=== PATIENT | male | born 1955 | race Two or more races ===

== ENCOUNTER 2020-07-15 08:15 | Outpatient (REF) | payer MEDICARE, SELFPAY ==
[2020-07-15 11:24] LABS: Alanine Aminotransferase 21 U/L (0-40); Albumin Level 4.4 g/dL (3.5-5.0); Alkaline Phosphatase 87 U/L (39-117); Anion Gap 14 (12-20); Aspartate Amino Transferase 17 U/L (5-37); Bilirubin Total 0.6 mg/dL (0.0-1.0); Blood Urea Nitrogen 26 mg/dL (9-16); Calcium 9.6 mg/dL (8.4-10.2); Carbon Dioxide 28 mmol/L (22-29); Chloride 101 mmol/L (96-108); Cholesterol 151 mg/dL; Estimated Glomerular Filt Rate 50; Glucose Fasting 123 mg/dL (60-99); HDL Cholesterol 34 mg/dL; LDL Cholesterol Calculated 57 mg/dl; Potassium 4.7 mmol/l (3.3-5.1); Sodium 138 mmol/L (135-145); Total Protein 7.6 g/dL (6.5-8.0); Triglycerides 302 mg/dL
[2020-07-15 11:46] LABS: Prostate Specific Antigen Scr 1.11 ng/mL (<0.05-4.0); TSH reflex Free T4 0.01 mIU/mL (0.32-4.0); Vitamin D 25-OH Total 49.6 ng/mL (>30)
[2020-07-15 12:07] LABS: Microalbum/Creatinine Ratio Ur 4.5 ug/mg cr
[2020-07-15 13:19] LABS: Free T4 (Free Thyroxine) 1.35 ng/dL (0.71-1.85)
== END 2020-07-15 08:16 | disposition home or self-care (01) ==
LOC: HO.HMGCLDS 08:15
PROVIDERS: PCP Nurse Practitioner Family; Visit Provider Nurse Practitioner Family
DX: E55.9 Vitamin D deficiency, unspecified (principal); E03.9 Hypothyroidism, unspecified; E11.9 Type 2 diabetes mellitus without complications; I10 Essential (primary) hypertension; E78.5 Hyperlipidemia, unspecified; Z12.5 Encounter for screening for malignant neoplasm of prostate
CPT/HCPCS: 36415; 80053; 80061; 82043; 82306; 84153; 84439; 84443

== ENCOUNTER → 2020-08-12 10:16 | Outpatient (BNVA) | payer MEDICARE, SELFPAY | PROVIDERS: PCP Nurse Practitioner Family; Visit Provider Internal Medicine Cardiovascular Disease | DX: E78.5 Hyperlipidemia, unspecified (principal); I10 Essential (primary) hypertension; Z95.1 Presence of aortocoronary bypass graft | CPT/HCPCS: 93005; 99202 ==

== ENCOUNTER → 2020-08-26 13:08 | Outpatient (BNVA) | payer MEDICARE, SELFPAY | PROVIDERS: PCP Nurse Practitioner Family; Visit Provider Nurse Practitioner Family | DX: K22.70 Barrett's esophagus without dysplasia (principal); Z12.11 Encounter for screening for malignant neoplasm of colon | CPT/HCPCS: Q3014 ==

== ENCOUNTER 2020-10-23 07:44 | Outpatient (REF) | payer MEDICARE, SELFPAY ==
[2020-10-23 11:57] LABS: Hematocrit 48.7 % (42-52); Hemoglobin 15.3 g/dl (14.0-18.0); Mean Corpuscular HGB Conc 31.4 g/dl (31.0-36.0); Mean Corpuscular Hemoglobin 27.4 pg (27.0-33.0); Mean Corpuscular Volume 87.1 fL (80-98); Platelet Count 279 X10*3/uL (160-400); Red Blood Count 5.59 X10*6/uL (4.60-5.80); Red Cell Distribution Width 14.1 % (11.0-16.0); White Blood Count 9.4 X10*3/uL (4.8-10.8)
[2020-10-23 12:14] LABS: TSH reflex Free T4 0.03 uIU/mL (0.32-4.0)
[2020-10-23 12:56] LABS: Free T4 (Free Thyroxine) 1.04 ng/dL (0.71-1.85)
== END 2020-10-23 07:45 | disposition home or self-care (01) ==
LOC: HO.HMGCLDS 07:44
PROVIDERS: PCP Nurse Practitioner Family; Visit Provider Nurse Practitioner Family
DX: E03.9 Hypothyroidism, unspecified (principal); Z12.11 Encounter for screening for malignant neoplasm of colon
CPT/HCPCS: 36415; 84439; 84443; 85027

== ENCOUNTER → 2020-12-14 09:13 | Outpatient (BNVA) | payer MEDICARE, SELFPAY | PROVIDERS: PCP Nurse Practitioner Family; Referring Provider Nurse Practitioner Family; Visit Provider Internal Medicine Cardiovascular Disease | DX: I10 Essential (primary) hypertension (principal); Z95.1 Presence of aortocoronary bypass graft | CPT/HCPCS: 99212 ==

== ENCOUNTER 2021-01-01 07:21 | Outpatient (REF) | payer MEDICARE, SELFPAY ==
[2021-01-01 12:15] LABS: TSH reflex Free T4 0.18 uIU/mL (0.32-4.0)
[2021-01-01 12:49] LABS: Free T4 (Free Thyroxine) 1.06 ng/dL (0.71-1.85)
== END 2021-01-01 07:22 | disposition home or self-care (01) ==
LOC: HO.HMGCLDS 07:21
PROVIDERS: PCP Nurse Practitioner Family; Visit Provider Nurse Practitioner Family
DX: E03.9 Hypothyroidism, unspecified (principal)
CPT/HCPCS: 36415; 84439; 84443

== ENCOUNTER 2021-04-29 07:36 | Outpatient (REF) | payer MEDICARE, SELFPAY ==
[2021-04-29 11:15] LABS: Appearance Urine CLOUDY; Color Urine YELLOW; Glucose Urine UA NEG (NEG); Leukocyte Esterase Urine NEG (NEG); Nitrite Urine NEG (NEG); PH 5.5 (5.0-8.0); Specific Gravity - Urine >= 1.030 (1.005-1.025); Urine Blood NEG (NEG); Urine Ketones 5 MG/DL (NEG); Urine Protein TRACE MG/DL (NEG-TRACE)
[2021-04-29 11:33] LABS: Estimated Average Glucose 171 mg/dL; Hemoglobin A1c % 7.6 %
[2021-04-29 11:51] LABS: Alanine Aminotransferase 24 U/L (0-40); Albumin Level 4.3 g/dL (3.5-5.0); Alkaline Phosphatase 82 U/L (39-117); Anion Gap 13 (12-20); Aspartate Amino Transferase 17 U/L (5-37); Bilirubin Total 0.5 mg/dL (0.0-1.0); Blood Urea Nitrogen 18 mg/dL (9-16); Calcium 9.7 mg/dL (8.4-10.2); Carbon Dioxide 26 mmol/L (22-29); Chloride 101 mmol/L (96-108); Cholesterol 113 mg/dL; Estimated Glomerular Filt Rate 51; Glucose Fasting 162 mg/dL (60-99); HDL Cholesterol 33 mg/dL; LDL Cholesterol Calculated 43 mg/dl; Potassium 4.3 mmol/L (3.3-5.1); Sodium 136 mmol/L (135-145); Total Protein 7.7 g/dL (6.5-8.0); Triglycerides 188 mg/dL
[2021-04-29 11:53] LABS: TSH reflex Free T4 0.71 uIU/mL (0.32-4.0)
== END 2021-04-29 07:37 | disposition home or self-care (01) ==
LOC: HO.HMGCLDS 07:36
PROVIDERS: PCP Nurse Practitioner Family; Visit Provider Nurse Practitioner Family
DX: E03.9 Hypothyroidism, unspecified (principal); E11.9 Type 2 diabetes mellitus without complications
CPT/HCPCS: 36415; 80053; 80061; 81003; 83036; 84443

== ENCOUNTER → 2021-05-31 09:00 | Outpatient (BNVA) | payer MEDICARE, SELFPAY | PROVIDERS: PCP Nurse Practitioner Family; Referring Provider Nurse Practitioner Family; Visit Provider Internal Medicine Cardiovascular Disease | DX: I10 Essential (primary) hypertension (principal); Z95.1 Presence of aortocoronary bypass graft | CPT/HCPCS: 93005; 99212 ==

== ENCOUNTER 2021-07-13 07:15 | Outpatient (REF) | payer MEDICARE, SELFPAY ==
[2021-07-13 11:59] LABS: Alanine Aminotransferase 20 U/L (0-40); Albumin Level 4.1 g/dL (3.5-5.0); Alkaline Phosphatase 76 U/L (39-117); Anion Gap 12 (12-20); Aspartate Amino Transferase 16 U/L (5-37); Bilirubin Total 0.4 mg/dL (0.0-1.0); Blood Urea Nitrogen 22 mg/dL (9-16); Calcium 9.7 mg/dL (8.4-10.2); Carbon Dioxide 29 mmol/L (22-29); Chloride 104 mmol/L (96-108); Estimated Glomerular Filt Rate 43; Glucose Fasting 143 mg/dL (60-99); Potassium 4.2 mmol/L (3.3-5.1); Sodium 141 mmol/L (135-145); Total Protein 7.6 g/dL (6.5-8.0)
== END 2021-07-13 07:16 | disposition home or self-care (01) ==
LOC: HO.HMGCLDS 07:15
PROVIDERS: Visit Provider Nurse Practitioner Family
DX: E11.9 Type 2 diabetes mellitus without complications (principal)
CPT/HCPCS: 36415; 80053; 84443

== ENCOUNTER 2021-07-22 08:34 | Outpatient (REF) | payer MEDICARE, SELFPAY ==
[2021-07-22 11:43] LABS: Estimated Average Glucose 174 mg/dL; Hemoglobin A1c % 7.7 %
[2021-07-22 11:57] LABS: Creatinine Urine 177.04 mg/dL; Microalbum/Creatinine Ratio Ur 10.7 ug/mg cr
[2021-07-22 12:07] LABS: Alanine Aminotransferase 22 U/L (0-40); Albumin Level 4.3 g/dL (3.5-5.0); Alkaline Phosphatase 74 U/L (39-117); Anion Gap 14 (12-20); Aspartate Amino Transferase 19 U/L (5-37); Bilirubin Total 0.4 mg/dL (0.0-1.0); Blood Urea Nitrogen 26 mg/dL (9-16); Calcium 9.9 mg/dL (8.4-10.2); Carbon Dioxide 25 mmol/L (22-29); Chloride 105 mmol/L (96-108); Cholesterol 141 mg/dL; Estimated Glomerular Filt Rate 43; Glucose Random 140 mg/dL (60-115); HDL Cholesterol 33 mg/dL; LDL Cholesterol Calculated 53 mg/dl; Potassium 4.5 mmol/L (3.3-5.1); Sodium 139 mmol/L (135-145); Total Protein 7.8 g/dL (6.5-8.0); Triglycerides 279 mg/dL
[2021-07-22 12:08] LABS: Prostate Specific Antigen Scr 0.71 ng/mL (<0.05-4.0)
== END 2021-07-22 08:35 | disposition home or self-care (01) ==
LOC: HO.HMGCLDS 08:34
PROVIDERS: PCP Nurse Practitioner Family; Visit Provider Nurse Practitioner Family
DX: Z12.5 Encounter for screening for malignant neoplasm of prostate (principal); E11.9 Type 2 diabetes mellitus without complications
CPT/HCPCS: 36415; 80053; 80061; 82043; 83036; 84153

== ENCOUNTER → 2021-08-05 09:13 | Outpatient (REF) | payer MEDICARE, SELFPAY ==
--- NOTE | 2021-08-05 09:17 | CA_ITS ---
Transthoracic Echocardiogram Patient (Last, First, Middle): Parmjit Block A Gender: Male Date of : 1955 Age: 65 Procedure Date: 08/05/2021 Procedure Type: Transthoracic Echocardiogram Location: OP Height: 167.64 cm Weight: 115.67 kg BSA: 2.22 m2 Heart Rate: bpm BP: 110 / 74 mmHg Market Analyst: ROM Referring MD: Vish Domingo [facility]- Certified Travel Counselor: Omar Crabtree MD Symptoms: Z95.1 - Presence of aortocoronary bypass graft Study Quality: Fair/contrast ECG Rhythm: Sinus Conclusions: - 1. Normal LV systolic function with impaired relaxation filling pattern 2. Calcific aortic valve changes noted with normal cardiac valvular Doppler 3. Normal RV systolic pressure 4. No gross pericardial effusion Findings Procedure Information Contrast agent, definity, is being given per protocol without apparent complications. Left Ventricle Normal left ventricular size, thickness, and systolic function. The visually estimated ejection fraction is between 60-65%. Spectral Doppler is indicative of an impaired relaxation filling pattern. E/E prime ratio is between 8 and 15 consistent with indeterminate filling pressures. Right Ventricle Normal right ventricular cavity size and systolic function. Atria The left atrium is normal in size. Interatrial shunt cannot be excluded. The right atrium is normal in size. Aortic Valve The aortic valve was not well visualized. There is moderate calcification of the aortic valve. There is moderate thickening of the aortic valve. There is no aortic valve stenosis. There is no aortic valve regurgitation. Bicuspid aortic valve cannot be completely ruled out on this study Mitral Valve There is mild anterior and posterior mitral leaflet thickening. There is mild mitral annular calcification. There is trace mitral valve regurgitation. There is no mitral valve stenosis. Pulmonic Valve The pulmonic valve was not well visualized. Tricuspid Valve Likely normal tricuspid valve structure and function. There is trace tricuspid valve regurgitation. The right ventricular systolic pressure is normal. The right ventricular systolic pressure is 10 mmHg. Normal right atrial pressure. There is no evidence of pulmonary hypertension. Great Vessels All visible segments of the aorta are normal in size. The pulmonary artery was not well visualized. Venous The inferior vena cava is normal in size and collapses greater than 50% with inspiration. Pericardium/Pleural There is no evidence of pericardial effusion. Prior Study Comparison No prior study available for comparison. Measurements 2D Linear Measurements IVSd: 1.01 0.6-0.9/0.6-1.0 cm LVIDd: 3.87 3.9-5.3/4.2-5.9 cm LVIDd Index: 1.74 2.4-3.2/2.2-3.1 cm/m2 LVIDs: 1.82 2.0-3.6 cm LVPWd: 1.14 0.7-1.1 cm Ao Root: 3.30 2.1-3.5 cm LA Diam: 3.50 2.7-3.8/3.0-4.0 cm LAIDs Index: 1.58 1.5-2.3 cm/m2 LV Mass: 166.61 67-162/88-224 g LV Mass Index: 75.05 43-95/49-115 g/m2 LVOT Diam: 2.20 3.0+(-)1.3 cm 2D Systolic Function EF 4C: 65.00 >55% EF 2C: 71.60 >55% EF BiP: 68.60 >55% Mitral Valve MV Pk E: 0.78 MV PK A: 0.75 MV Decel Time: 244.00 E/A: 1.00 E'Lateral: 7.72 E'Medial: 5.98 E/E' Med: 13.00 E/E' Lat: 10.10 PHT: 71.00 MVA PHT: 3.10 Decel Cort[place]: 3.20 Aortic Valve AoV Pk Jake: 1.78 AoV Mn Jake: 1.14 AoV VTI: 0.33 AoV Pk Grad: 13.00 Aov Mn Grad: 6.00 JOSELUIS Cont.VTI: 2.49 LVOT LVOT Pk Jake: 1.10 LVOT Mn Jake: 0.71 LVOT VTI: 0.21 LVOT Pk Grad: 5.00 LVOT Mn Grad: 2.00 LVOT Diam: 2.20 LVOT Area: 3.80 Diastolic Function MV Pk E: 0.78 MV Pk A: 0.75 E/A: 1.00 E'Medial: 5.98 E/E' Med: 13.00 E' Laterial: 7.72 E/E' Lat: 10.10 Right Ventricle TAPSE (mm): 16.50 TVS' Jake: 10.30 Tricuspid Valve TR Pk Jake: 1.35 TR Pk Grad: 7.00 RA Press: 3.00 RVSP: 10.00 Great Vessels Aorta Ao Root-2D: 3.30 2.0-3.7 cm Ao Asc: 3.50 2.1-3.4 cm Ao Arch: 3.00 Updated in Other Vendor System with Status of Final Omar Crabtree MD electronically signed on 08/06/2021 4:00:46 PM with status of Final
== END ==
LOC: HO.CARD 09:13
PROVIDERS: Visit Provider Nurse Practitioner Family
DX: Z95.1 Presence of aortocoronary bypass graft (principal)
CPT/HCPCS: 93306; Q9957

== ENCOUNTER 2021-09-22 09:25 | Inpatient (IN) | payer MEDICARE, SELFPAY ==
[2021-09-22] VITALS (8 sets, daily range): BP systolic 83–133; BP diastolic 54–79; PULSE 70–120; RESP 18–20; TEMP 36.3–36.8; O2SAT 97–99; BMI 38.7; BMI 42.2
--- NOTE | 2021-09-22 10:28 | ECG_ITS ---
Test Reason : GI BLEED Blood Pressure : / mmHG Vent. Rate : 088 BPM Atrial Rate : 088 BPM P-R Int : 146 ms QRS Dur : 116 ms QT Int : 366 ms P-R-T Axes : 043 -13 025 degrees QTc Int : 442 ms Normal sinus rhythm Minimal voltage criteria for LVH, may be normal variant ( Ruslan product ) Nonspecific T wave abnormality Abnormal ECG No previous ECGs available Referred By: María Huber Electronically Signed By:CALLY MADSEN MD
--- NOTE | 2021-09-22 10:31 | ED_ITS ---
HPI - General Adult General Chief complaint: General Medical Stated complaint: blood in stool Time Seen by Provider: 09/22/21 10:10 Source: patient and family Mode of arrival: ambulatory Limitations: no limitations History of Present Illness HPI narrative: 66-year-old male with a history of CKD, CABG x4, diabetes, high cholesterol, hypertension, hypothyroidism here with reports black stools for the last 3 days. Patient tells me he has had a total of 5 episodes of black soft stool. No associated abdominal pain, nausea, vomiting. Patient does report feeling generally weak and fatigued. Patient tells me he has a history of a gastric ulcer that was diagnosed 4 years ago while he was in [place]. At that time he was placed on omeprazole. He has been taking omeprazole long-term until recently when his primary care doctor switched him to famotidine. He does take 81 mg of aspirin at 75 mg Plavix daily. Related Data Previous Rx's Medication Instructions Recorded aspirin 81 mg tablet,delayed 81 mg PO DAILY 90 Days #90 tab 07/15/20 release clopidogrel 75 mg tablet 75 mg PO DAILY 90 Days #90 tab 07/15/20 metformin 1,000 mg tablet 1,000 mg PO BID #180 tab 10/12/20 rosuvastatin 40 mg tablet 40 mg PO DAILY #90 tab 10/12/20 baclofen 10 mg tablet 10 mg PO BID PRN #60 tab 04/08/21 enalapril maleate 20 mg tablet 20 mg PO BID #180 tab 07/07/21 levothyroxine 137 mcg tablet 137 mcg PO DAILY 90 Days #90 tab 07/22/21 blood sugar diagnostic (OneTouch #100 ea 07/27/21 Verio test strips) blood-glucose meter (OneTouch #1 ea 07/27/21 Verio Meter) lancets 30 gauge (OneTouch Delica #100 ea 07/27/21 Lancets) hydrochlorothiazide 25 mg tablet 25 mg PO DAILY 90 Days #90 tab 08/09/21 cholecalciferol (vitamin D3) 50 50 mcg PO DAILY 90 Days #90 cap 08/16/21 mcg (2,000 unit) capsule metoprolol tartrate 100 mg tablet 100 mg PO BID 90 Days #180 tab 08/16/21 Allergies Allergy/AdvReac Type Severity Reaction Status Date / Time No Known Allergies Allergy Verified 07/22/21 08:16 Review of Systems Review of Systems: Yes all other systems are reviewed and are negative Constitutional: Constitutional: Reports no additional constitutional compla ints, Denies body ache(s), Denies chills, Reports fatigue, Denies fever(s), Denies headache(s) and Reports weakness Eyes: Eyes: Reports no additional eye complaints and Denies change in vision ENT: Reports system reviewed and no additional complaints, except as documented, Denies dizziness, Denies headache(s), Denies nasal congestion, Denies nasal discharge and Denies neck pain Cardiovascular: Cardiovascular: Reports no additional cardiovascular complaints, Denies chest pain, Denies leg edema and Denies dyspnea Respiratory: Respiratory: Reports no additional respiratory complaints, Denies cough and Denies dyspnea Gastrointestinal: Gastrointestinal: Reports no additional gastrointestinal complaints, Denies abdominal pain, Reports melena, Denies hematochezia, Denies coffee ground emesis, Denies diarrhea, Denies nausea and Denies vomiting Genitourinary: Genitourinary: Denies urinary incontinence Musculoskeletal: Musculoskeletal: Reports no additional musculoskeletal complaints, Denies back pain, Denies arthralgias, Denies joint swelling, Denies neck pain, Denies numbness and Denies tingling Integumentary/Breasts: Skin/Breast: Reports system reviewed and no additional complaints, except as docu and Denies rash Neurologic: Reports system reviewed and no additional complaints, except as documented, Denies dizziness, Denies headache(s), Denies numbness, Denies tingling and Reports weakness Endocrine: Endocrine: Reports fatigue PMFSH Past Medical History Attestation statement: The following information was validated with the patient. Source: old records reviewed and nursing notes reviewed Medical History Anemia of chronic disease Blanca esophagus Bipolar 1 disorder CKD (chronic kidney disease) stage 4, GFR 15-29 ml/min Diabetes Dyslipidemia Erectile dysfunction Fatty liver GERD (gastroesophageal reflux disease) Gout Hearing loss Hiatal hernia Hypertension Hypothyroidism Major depression Morbid obesity Multinodular goiter Myocardial infarct S/P CABG x 4 Sleep apnea Surgical History Hx of coronary artery bypass graft Hx of inguinal hernia repair Family History Family History Mother No problems noted. Sister Hyperlipemia Social History Social History Household Members: Spouse Housing: House Alcohol intake: former Patient Tobacco Use Status: Former Tobacco user Quit Date: about. Years Smoked: 10 e-Cigarette/Vaping Use: Never Used Advance Directives: No Advance Directives Information Provided: Yes Current occupational status: retired Physical Exam ED Vital Signs: Vital Signs - 24 hr 09/22/21 09:29 09/22/21 11:44 09/22/21 13:16 Temperature 98.3 F 98.3 F Pulse Rate 120 H 78 80 Respiratory Rate 18 18 18 Blood Pressure 126/79 106/60 98/72 Pulse Oximetry 99 98 97 BMI result Body Mass Index 38.7 Const General: cooperative, healthy appearing and comfortable Orientation/consciousness: patient oriented x3 Limitations: no limitations HENMT Head: Yes normal to inspection Ears: hearing grossly normal bilaterally General nose exam: Normal external nose present Face and sinus: Yes normal facial exam Mouth: Normal oral and palatal mucosa present Teeth and gingiva: dentition normal Throat: Yes posterior oropharynx normal, Yes tonsils normal and Yes uvula midline Eyes General: appearance normal, both eyes and all related structures Pupils: Equal, round and reactive pupils present Neck Neck: Yes normal visual inspection, Yes full ROM, Yes no lymphadenopathy and Yes no meningeal signs Chest Chest palpation & inspection: normal inspection of the chest Resp Effort & Inspection: normal respiratory effort Auscultation: clear to auscultation bilaterally Cardio Rate: tachycardic Rhythm: regular rhythm Peripheral pulses: Peripheral pulses 2+ throughout GI Inspection: Yes normal to inspection Palpation (GI): Soft to palpation and nontender Rectal Exam - Male: Yes visual inspection normal, Yes normal sphincter tone and Yes Abnormal stool present (+black stool) General: Yes no CVA tenderness Back/Spine/Pelvis Back: no CVA tenderness Thoracic/Lumbar Spine: thoracic and lumbar spine normal to inspection Skin General skin exam: no rashes or lesions noted Neuro General: patient oriented x3, moves all extremities and no meningeal signs Cranial nerves: Yes Equal, round and reactive pupils present Cognition (Neuro): normal cognition Extrem General: Yes normal to inspection Course Course Course Narrative: 66-year-old male here with reports black soft stools for the last 3 days with generalized weakness fatigue. No abdominal pain or vomiting. Patient has history gastric ulcer and is currently on Plavix and aspirin. On exam the patient has no focal abdominal pain. He has black stools on rectal exam. Likely upper GI bleed. Patient is hemodynamically stable. Will check labs, EKG, occult stool. Anticipate admission 1130-patient's hemoglobin is 12.2 in his hematocrit is 38.4. Last available for review is 15.3 and 48.7. BUN is 59 with baseline of 26. Creatinine 2.0 to baseline 1.6. Occult stool is positive. Spoke to Medicine. They are requesting discussion with Gastroenterology prior to admit for upper GI bleed. Call out to Dr Tobias to discuss. 1140-spoke to Dr. Tobias. Anticipate patient will need an endoscopy tomorrow. Recommended holding aspirin and Plavix today. Giving Protonix IV. Family and patient updated. 1300-Dr Khan who accepted admission Medical Decision Making Medical Records Medical records reviewed: Yes I reviewed the patient's medical records. Lab Data Lab results reviewed: Yes I reviewed the patient's lab results. Result diagrams: 09/22/21 10:47 09/22/21 10:48 Labs: Lab Results 09/22/21 09/22/21 09/22/21 Range/Units 10:47 10:47 10:47 WBC 10.7 11.0 H (4.8-10.8) X10*3/uL RBC 4.36 L 4.39 L (4.60-5.80) X10*6/uL Hgb 12.2 L 12.2 L (14.0-18.0) g/dl Hct 38.1 L 38.4 L (42.0-52.0) % MCV 87.4 87.5 (80.0-98.0) fL MCH 28.0 27.8 (27.0-33.0) pg MCHC 32.0 31.8 (31.0-36.0) g/dl RDW 14.1 13.9 (11.0-16.0) % Plt Count 319 326 (160-400) X10*3/uL MPV 11.5 11.5 (9.4-12.4) fL Immature Gran % (Auto) 0.8 H 0.8 H (0.0-0.4) % Neut % (Auto) 70.7 69.6 (45-73) % Lymph % (Auto) 19.5 L 21.0 (20-40) % Dougherty % (Auto) 7.0 6.7 (2-11) % Eos % (Auto) 1.3 1.4 (0-4) % Baso % (Auto) 0.7 0.5 (0-2) % Lymph # (Auto) 2.1 2.3 (1.2-4.9) X10*3/uL Dougherty # (Auto) 0.8 0.7 (0.1-1.2) X10*3/uL Eos # (Auto) 0.1 0.2 (0.0-0.4) X10*3/uL Baso # (Auto) 0.1 0.1 (0.0-0.2) X10*3/uL Abs Immat Gran (auto) 0.08 H 0.09 H (0.00-0.03) X10*3/uL Absolute Neuts (auto) 7.5 7.6 (2.0-8.3) x10*3/uL Absolute Nucleated RBC 0.000 0.000 (0.0-0.012) X10*3/uL Nucleated RBC % (auto) 0.0 0.0 (0.0-0.2) /100WBC PT (9.9-13.0) SEC INR (0.9-1.1) Sodium 134 L (135-145) mmol/L Potassium 4.7 (3.3-5.1) mmol/L Chloride 102 (96-108) mmol/L Carbon Dioxide 21 L (22-29) mmol/L Anion Gap 16 (12-20) BUN 60 H D (9-16) mg/dL Creatinine 2.01 H (0.5-1.4) mg/dL Estim Creat Clear Calc 41.2 Estimated GFR 33 Random Glucose 286 H D (60-115) mg/dL Calcium 9.4 (8.4-10.2) mg/dL Total Bilirubin 0.5 (0.0-1.0) mg/dL Direct Bilirubin (0.0-0.5) mg/dL AST 9 D (5-37) U/L ALT 18 (0-40) U/L Alkaline Phosphatase 58 D (39-117) U/L Total Protein 7.0 (6.5-8.0) g/dL Albumin 4.1 (3.5-5.0) g/dL Stool Occult Blood (NEGATIVE) COVID-19 (ENRIQUE) (Negative) COVID-19 Clin Com 09/22/21 09/22/21 09/22/21 Range/Units 10:47 10:48 10:48 WBC (4.8-10.8) X10*3/uL RBC (4.60-5.80) X10*6/uL Hgb (14.0-18.0) g/dl Hct (42.0-52.0) % MCV (80.0-98.0) fL MCH (27.0-33.0) pg MCHC (31.0-36.0) g/dl RDW (11.0-16.0) % Plt Count (160-400) X10*3/uL MPV (9.4-12.4) fL Immature Gran % (Auto) (0.0-0.4) % Neut % (Auto) (45-73) % Lymph % (Auto) (20-40) % Dougherty % (Auto) (2-11) % Eos % (Auto) (0-4) % Baso % (Auto) (0-2) % Lymph # (Auto) (1.2-4.9) X10*3/uL Dougherty # (Auto) (0.1-1.2) X10*3/uL Eos # (Auto) (0.0-0.4) X10*3/uL Baso # (Auto) (0.0-0.2) X10*3/uL Abs Immat Gran (auto) (0.00-0.03) X10*3/uL Absolute Neuts (auto) (2.0-8.3) x10*3/uL Absolute Nucleated RBC (0.0-0.012) X10*3/uL Nucleated RBC % (auto) (0.0-0.2) /100WBC PT 13.8 H (9.9-13.0) SEC INR 1.2 H (0.9-1.1) Sodium 133 L (135-145) mmol/L Potassium 4.9 (3.3-5.1) mmol/L Chloride 101 (96-108) mmol/L Carbon Dioxide 20 L (22-29) mmol/L Anion Gap 17 (12-20) BUN 59 H (9-16) mg/dL Creatinine 2.02 H (0.5-1.4) mg/dL Estim Creat Clear Calc 41.0 Estimated GFR 33 Random Glucose 287 H (60-115) mg/dL Calcium 9.5 (8.4-10.2) mg/dL Total Bilirubin 0.5 (0.0-1.0) mg/dL Direct Bilirubin 0.2 (0.0-0.5) mg/dL AST 9 (5-37) U/L ALT 17 (0-40) U/L Alkaline Phosphatase 60 (39-117) U/L Total Protein 7.0 (6.5-8.0) g/dL Albumin 4.0 (3.5-5.0) g/dL Stool Occult Blood (NEGATIVE) COVID-19 (ENRIQUE) Negative (Negative) COVID-19 Clin Com See Note 09/22/21 Range/Units 10:58 WBC (4.8-10.8) X10*3/uL RBC (4.60-5.80) X10*6/uL Hgb (14.0-18.0) g/dl Hct (42.0-52.0) % MCV (80.0-98.0) fL MCH (27.0-33.0) pg MCHC (31.0-36.0) g/dl RDW (11.0-16.0) % Plt Count (160-400) X10*3/uL MPV (9.4-12.4) fL Immature Gran % (Auto) (0.0-0.4) % Neut % (Auto) (45-73) % Lymph % (Auto) (20-40) % Dougherty % (Auto) (2-11) % Eos % (Auto) (0-4) % Baso % (Auto) (0-2) % Lymph # (Auto) (1.2-4.9) X10*3/uL Dougherty # (Auto) (0.1-1.2) X10*3/uL Eos # (Auto) (0.0-0.4) X10*3/uL Baso # (Auto) (0.0-0.2) X10*3/uL Abs Immat Gran (auto) (0.00-0.03) X10*3/uL Absolute Neuts (auto) (2.0-8.3) x10*3/uL Absolute Nucleated RBC (0.0-0.012) X10*3/uL Nucleated RBC % (auto) (0.0-0.2) /100WBC PT (9.9-13.0) SEC INR (0.9-1.1) Sodium (135-145) mmol/L Potassium (3.3-5.1) mmol/L Chloride (96-108) mmol/L Carbon Dioxide (22-29) mmol/L Anion Gap (12-20) BUN (9-16) mg/dL Creatinine (0.5-1.4) mg/dL Estim Creat Clear Calc Estimated GFR Random Glucose (60-115) mg/dL Calcium (8.4-10.2) mg/dL Total Bilirubin (0.0-1.0) mg/dL Direct Bilirubin (0.0-0.5) mg/dL AST (5-37) U/L ALT (0-40) U/L Alkaline Phosphatase (39-117) U/L Total Protein (6.5-8.0) g/dL Albumin (3.5-5.0) g/dL Stool Occult Blood POSITIVE (NEGATIVE) COVID-19 (ENRIQUE) (Negative) COVID-19 Clin Com ECG Data Attestation: I personally reviewed and interpreted this ECG as follows: Interpretation: NSR with rate 88, normal pr, normal qrs, incomplete left bundle branch block, nonspecific ST changes Discharge Plan Discharge Clinical Impression: GIB (gastrointestinal bleeding), Anemia, Acute on chronic kidney failure Patient Disposition: Admitted As Inpatient
[2021-09-22 10:52] LABS: MANUAL DIFF FLAG NO
[2021-09-22 11:02] LABS: OBS Int Ctl Valid YES; OBS1 POSITIVE (NEGATIVE)
[2021-09-22 11:02] LABS: Basophils Absolute Auto 0.1 X10*3/uL (0.0-0.2); Basophils Percent Auto 0.5 % (0-2); Basophils Percent Auto 0.7 % (0-2); Eosinophils Absolute Auto 0.1 X10*3/uL (0.0-0.4); Eosinophils Absolute Auto 0.2 X10*3/uL (0.0-0.4); Eosinophils Percent Auto 1.3 % (0-4); Eosinophils Percent Auto 1.4 % (0-4); Hematocrit 38.1 % (42.0-52.0); Hematocrit 38.4 % (42.0-52.0); Hemoglobin 12.2 g/dl (14.0-18.0); Imm Gran Abs Auto 0.08 X10*3/uL (0.00-0.03); Imm Gran Abs Auto 0.09 X10*3/uL (0.00-0.03); Imm Gran Pct Auto 0.8 % (0.0-0.4); Lymphocytes Absolute Auto 2.1 X10*3/uL (1.2-4.9); Lymphocytes Absolute Auto 2.3 X10*3/uL (1.2-4.9); Lymphocytes Percent Auto 19.5 % (20-40); Mean Corpuscular HGB Conc 31.8 g/dl (31.0-36.0); Mean Corpuscular Hemoglobin 27.8 pg (27.0-33.0); Mean Corpuscular Volume 87.4 fL (80.0-98.0); Mean Corpuscular Volume 87.5 fL (80.0-98.0); Mean Platelet Volume 11.5 fL (9.4-12.4); Monocytes Absolute Auto 0.7 X10*3/uL (0.1-1.2); Monocytes Absolute Auto 0.8 X10*3/uL (0.1-1.2); Monocytes Percent Auto 6.7 % (2-11); Neutrophils Absolute Auto 7.5 x10*3/uL (2.0-8.3); Neutrophils Absolute Auto 7.6 x10*3/uL (2.0-8.3); Neutrophils Percent Auto 69.6 % (45-73); Neutrophils Percent Auto 70.7 % (45-73); Platelet Count 319 X10*3/uL (160-400); Platelet Count 326 X10*3/uL (160-400); Red Blood Count 4.36 X10*6/uL (4.60-5.80); Red Blood Count 4.39 X10*6/uL (4.60-5.80); Red Cell Distribution Width 13.9 % (11.0-16.0); Red Cell Distribution Width 14.1 % (11.0-16.0); White Blood Count 10.7 X10*3/uL (4.8-10.8)
[2021-09-22 11:05] LABS: INTERNATIONAL NORM RATIO 1.2 (0.9-1.1); Prothrombin Time 13.8 SEC (9.9-13.0)
[2021-09-22 11:11] LABS: COVID-19 Test Negative (Negative)
[2021-09-22] MEDS: 0.9 % Sodium Chloride 1,000 ML 999 ML IV (11:19)
[2021-09-22 11:22] LABS: Alanine Aminotransferase 18 U/L (0-40); Albumin Level 4.1 g/dL (3.5-5.0); Alkaline Phosphatase 58 U/L (39-117); Anion Gap 16 (12-20); Aspartate Amino Transferase 9 U/L (5-37); Bilirubin Total 0.5 mg/dL (0.0-1.0); Blood Urea Nitrogen 60 mg/dL (9-16); Calcium 9.4 mg/dL (8.4-10.2); Carbon Dioxide 21 mmol/L (22-29); Chloride 102 mmol/L (96-108); Creatinine Clr Calc Pharmacy 41.2; Estimated Glomerular Filt Rate 33; Glucose Random 286 mg/dL (60-115); Potassium 4.7 mmol/L (3.3-5.1); Sodium 134 mmol/L (135-145)
[2021-09-22 11:23] LABS: Alanine Aminotransferase 17 U/L (0-40); Alkaline Phosphatase 60 U/L (39-117); Anion Gap 17 (12-20); Aspartate Amino Transferase 9 U/L (5-37); Bilirubin Direct 0.2 mg/dL (0.0-0.5); Bilirubin Total 0.5 mg/dL (0.0-1.0); Blood Urea Nitrogen 59 mg/dL (9-16); Calcium 9.5 mg/dL (8.4-10.2); Carbon Dioxide 20 mmol/L (22-29); Chloride 101 mmol/L (96-108); Estimated Glomerular Filt Rate 33; Glucose Random 287 mg/dL (60-115); Potassium 4.9 mmol/L (3.3-5.1); Sodium 133 mmol/L (135-145)
--- NOTE | 2021-09-22 11:30 | PHA.MEDREC ---
Pharmacy Consult ? Medication Reconciliation Pharmacy has completed the medication reconciliation. Pt had a prescription for famotidine 40mg tablet daily but insisted he no longer wanted to take it. Elisa Lucio, PharmD
[2021-09-22] MEDS: Pantoprazole Sodium 40 MG/10 ML VIAL IVPUSH ×2 (11:50→17:23)
--- NOTE | 2021-09-22 12:48 | PC.NURSE ---
pt is comfortable and is to be NPO as admission status. Ambulated to BRP with to BRP with steady gait noted. VSS no pain noted
--- NOTE | 2021-09-22 13:42 | P.HPHOSP_ITS ---
History of Present Illness Date of Service: 09/22/21 Chief Complaint: dark stools, weakeness, fatigue This is a 66 year old M with a PMH of CAD - s/p CABG + PCI on DAPT, previous gastric/duodenal ucler requiring PRBC transfusion, CKD stage 3, DM (last A1C 7.7), HLD, HTN who presents to the ED with complaints of black colors stools of 3-4 days duration. The patient denies any associated nausea/vomiting/diarrhea. He denies abdominal pain. He does report worsening fatigue and generalized malaise. He reports mild dizziness. He reports exertional dyspnea. He denies alcohol use. He denies NSAID use. In regards to his prior ucler, he reprots that he was diagnosed in [place] several years back and had an endoscopy. He required 3 PRBCs to be transfused during that visit. He reports that he was place on PPI. He reports that he was taken off his PPI about 2 weeks ago (switched to H2 khadar) due to an interaction of the PPI with another one of his chronic medications. In the ED, the patient was noted to have melanotic stools. He has moved his bowels in the ED and continues to have black stools. His h/h is noted to be 12/38 (dropped from 15/48). Also noted is mild kidney injury (Baseline BUN/SCr 20s/1.6, now presenting with 60/2.01). His BP is on the lower side (90s to 100 systolic). He has been given a 1L of IVF, IV PPI thus far. His case is d/w GI and he will likely need endoscopic evaluation for suspected ulcer. Review of Systems Review of Systems: negative except HPI [facility] Medical History Anemia of chronic disease Blanca esophagus Bipolar 1 disorder CKD stage 3 secondary to diabetes Diabetes Dyslipidemia Erectile dysfunction Fatty liver GERD (gastroesophageal reflux disease) Gout Hearing loss Hiatal hernia Hypertension Hypothyroidism Major depression Morbid obesity Multinodular goiter Myocardial infarct S/P CABG x 4 Sleep apnea Family History Mother No problems noted. Sister Hyperlipemia Surgical History Hx of coronary artery bypass graft Hx of inguinal hernia repair Social History (Updated 09/22/21 @ 13:58 by Boy Valverde MD) Household Members: Spouse Housing: House Alcohol intake: former Patient Tobacco Use Status: Former Tobacco user Quit Date: about. Years Smoked: 10 e-Cigarette/Vaping Use: Never Used Use of substances other than those prescribed or required for medical reasons: No Advance Directives: No Advance Directives Information Provided: Yes Current occupational status: retired Meds Allergies Allergy/AdvReac Type Severity Reaction Status Date / Time No Known Allergies Allergy Verified 07/22/21 08:16 Active Medications: Current Medications Acetaminophen (Acetaminophen 325 Mg Tablet) 650 mg PO Q6H PRN PRN Reason: Pain, Mild (Pain Scale 1-3) Dextrose/Sodium Chloride (D5ns) 1,000 mls @ 100 mls/hr IVCONT .Q10H REPLACED BY [facility] Ondansetron HCl (Ondansetron Hcl 4 Mg/2 Ml Vial) 4 mg IVPUSH Q8H PRN PRN Reason: Nausea and Vomiting Pantoprazole Sodium (Pantoprazole Sodium 40 Mg/10 Ml Vial) 40 mg IVPUSH BID@0630,1630 REPLACED BY [facility] Pharmacy Consult (Consult Rx Perform Med Rec) 1 each MISCELLANE ONCE PRN PRN Reason: Consult order Sodium Chloride (0.9 % Sodium Chloride Flush 3 Ml Syringe) 3 ml IVFLUSH QSHIFT REPLACED BY [facility] Physical Exam Vital Signs and Narrative: Vital Signs: Last Vital Signs Temp 98.3 F 09/22/21 13:16 Pulse 80 09/22/21 13:16 Resp 18 09/22/21 13:16 BP 98/72 09/22/21 13:16 Pulse Ox 97 09/22/21 13:16 BMI result Body Mass Index 38.7 Const: Other: Constitutional - Awake and Alert, No apparent distress Eyes - PERRLA, EOMI Cardiovascular - S1S2, RRR, No edema Respiratory - Normal lung expansion, Normal respiratory effort, No respiratory distress, CTA bilaterally Gastrointestinal - NT / ND; +BS; No rebound or guarding - No CVA tenderness Extremities - no calf tenderness bilaterally, no swelling Musculoskeletal - Normal inspection, normal ROM Skin - Warm/Dry Neurological - Alert & oriented x3, No focal deficit Psychological - Appropriate affect Results Labs CBC and Chem 7: 09/22/21 10:47 09/22/21 10:48 Labs: Laboratory Results - last 24 hr 09/22/21 09/22/21 09/22/21 10:47 10:47 10:47 MCV 87.4 87.5 MCH 28.0 27.8 MCHC 32.0 31.8 RDW 14.1 13.9 Plt Count 319 326 MPV 11.5 11.5 Immature Gran % (Auto) 0.8 H 0.8 H Neut % (Auto) 70.7 69.6 Lymph % (Auto) 19.5 L 21.0 Lyman % (Auto) 7.0 6.7 Eos % (Auto) 1.3 1.4 Baso % (Auto) 0.7 0.5 Lymph # (Auto) 2.1 2.3 Lyman # (Auto) 0.8 0.7 Eos # (Auto) 0.1 0.2 Baso # (Auto) 0.1 0.1 Abs Immat Gran (auto) 0.08 H 0.09 H Absolute Neuts (auto) 7.5 7.6 Absolute Nucleated RBC 0.000 0.000 Nucleated RBC % (auto) 0.0 0.0 PT INR Anion Gap 16 Estim Creat Clear Calc 41.2 Estimated GFR 33 Random Glucose 286 H D Calcium 9.4 Total Bilirubin 0.5 Direct Bilirubin AST 9 D ALT 18 Alkaline Phosphatase 58 D Total Protein 7.0 Albumin 4.1 Stool Occult Blood COVID-19 (ENRIQUE) COVID-[employer] 09/22/21 09/22/21 09/22/21 10:47 10:48 10:48 MCV MCH MCHC RDW Plt Count MPV Immature Gran % (Auto) Neut % (Auto) Lymph % (Auto) Lyman % (Auto) Eos % (Auto) Baso % (Auto) Lymph # (Auto) Lyman # (Auto) Eos # (Auto) Baso # (Auto) Abs Immat Gran (auto) Absolute Neuts (auto) Absolute Nucleated RBC Nucleated RBC % (auto) PT 13.8 H INR 1.2 H Anion Gap 17 Estim Creat Clear Calc 41.0 Estimated GFR 33 Random Glucose 287 H Calcium 9.5 Total Bilirubin 0.5 Direct Bilirubin 0.2 AST 9 ALT 17 Alkaline Phosphatase 60 Total Protein 7.0 Albumin 4.0 Stool Occult Blood COVID-19 (ENRIQUE) Negative COVID-[employer] Com See Note 09/22/21 10:58 MCV MCH MCHC RDW Plt Count MPV Immature Gran % (Auto) Neut % (Auto) Lymph % (Auto) Lyman % (Auto) Eos % (Auto) Baso % (Auto) Lymph # (Auto) Lyman # (Auto) Eos # (Auto) Baso # (Auto) Abs Immat Gran (auto) Absolute Neuts (auto) Absolute Nucleated RBC Nucleated RBC % (auto) PT INR Anion Gap Estim Creat Clear Calc Estimated GFR Random Glucose Calcium Total Bilirubin Direct Bilirubin AST ALT Alkaline Phosphatase Total Protein Albumin Stool Occult Blood POSITIVE COVID-19 (ENRIQUE) COVID-19 Clin Com Assessment and Plan (1) GIB (gastrointestinal bleeding): Status: Acute (2) Anemia: Status: Acute (3) CKD stage 3 secondary to diabetes: Status: Inactive Plan This is a 66 year old M with a PMH of CAD - s/p CABG + PCI on DAPT, previous gastric/duodenal ucler requiring PRBC transfusion, CKD stage 3, DM (last A1C 7.7), HLD, HTN who presents to the ED with complaints of black colors stools of 3-4 days duration. His work up and presentation is consistent with symptomatic anemia secondary to suspected upper GI bleed. 1. Symptomatic / acute blood loss anemia 1a. Suspected upper GI bleed symptoms include fatigue/dizziness and exertion dyspnea. Signs include relative hypotension in a person with a history of HTN has received 1L IVF; will check a stat H/H now and if significantly decreased, will consider PRBC transfusion; otherwise treat with more IVF Trend h/h q6h or sooner GI consultation NPO (patient unfortunately ate a sandwich while in the ED -- he has been informed of the need for strict NPO) IV PPI BID 2. Mild JUDITH on CKD3 due to GI bleed / hypovoluemia hold Enalapril and other nephrotoxic drugs repeat chem tomorrow 3. CAD s/p CABG + PCI on DAPT, which will obviously be held; BP on the softerside, will hold metorpolol for now 4. HTN BP on the lower side, hold all antihypertensives 5. DM on metformin at home, hold POC and sliding scale q6h Full Code DVT pptx, mechanical due to supsected GI bleed In light of the patient's acute GI bleed and associated symptoms + baseline chronic co-morbidities, I anticipate a medically necessary, inpatient admission likely spanning 2 midnights for treatment and monitoring response. This cannot be completed in a less acute setting. Quality Stroke Does the patient have a stroke diagnosis?: No VTE Prior VTE?: No VTE Risk Level:: Medical - moderate - high VTE Device Contraindication: N/A - Device Ordered VTE Drug Contraindication: Treatment Not Indicated
[2021-09-22] MEDS: Dextrose 5 % and 0.9 % NaCl 1,000 ML 100 ML IVCONT (13:46)
[2021-09-22 14:08] LABS: Hematocrit 35.2 % (42.0-52.0); Hemoglobin 11.4 g/dl (14.0-18.0)
[2021-09-22] MEDS: Lactated Ringers 1,000 ML 999 ML IV (14:38)
--- NOTE | 2021-09-22 16:18 | MHC.SHP ---
Pre-Procedural Eval Section A Date of Service: 09/22/21 The patient is an INPATIENT: Yes Changes since office visit: No Cold of Flu in the past 2 weeks, No New Medical Problems, No Changes in Medication and No Patient answered all questions The History & Physical has been completed within 30 days and I have reviewed it.: Yes Section B Chief Complaint: Melena, weakness Allergies: Allergies Allergy/AdvReac Type Severity Reaction Status Date / Time No Known Allergies Allergy Verified 07/22/21 08:16 Plan I have reviewed the history and physical and performed a pertinent physical examination on my patient. No changes have occurred unless specified.
--- NOTE | 2021-09-22 16:19 | PM.EVENT ---
Event Note Date of Service: 09/22/21 Event Note: GI consult dictated EGD scheduled for further evaluation of ugi bleeding continue ppi, follow hct hold asa and plavix
[2021-09-22 18:07] LABS: Glucose, Whole Blood 166 mg/dL (60-115)
[2021-09-22] MEDS: Insulin Lispro 100 UNIT/ML 3 ML VIAL SUBCUT (18:41)
[2021-09-22 19:26] LABS: Hemoglobin 10.4 g/dl (14.0-18.0)
[2021-09-22 23:45] LABS: Glucose, Whole Blood 163 mg/dL (60-115)
[2021-09-23] VITALS (8 sets, daily range): BP systolic 92–152; BP diastolic 54–79; PULSE 79–104; RESP 16–20; TEMP 36.1–37.1; O2SAT 96–98
[2021-09-23 01:18] LABS: Hematocrit 31.7 % (42.0-52.0); Hemoglobin 10.4 g/dl (14.0-18.0)
--- NOTE | 2021-09-23 02:37 | CONS_ITS ---
DATE OF SERVICE: 09/22/2021 REFERRING PHYSICIAN: Soheila Sanchez M.D. REASON FOR CONSULTATION: Upper GI bleeding. HISTORY OF PRESENT ILLNESS: The patient is a pleasant 66-year-old man who presented to the emergency room earlier today with complaints of black stool for 2 days without any abdominal pain, nausea, or vomiting. He has a history of peptic ulcer disease diagnosed several years ago in [place] that was evaluated with endoscopy, but did not require therapy by his report. Since that time, he has been maintained on a proton pump inhibitor, but was switched to famotidine a week or 2 ago by his primary care provider, he has no complaints of abdominal pain, nausea, or vomiting. He was evaluated with lab work, which showed a hematocrit on admission of 38.4, which was down from 48.7 in October 2020. Repeat hematocrit today after he received IV fluids was slightly lower at 35.2. PAST MEDICAL HISTORY: 1. Coronary artery disease with history of bypass surgery and stent placement. On Plavix and aspirin. 2. Peptic ulcer disease as above. 3. Chronic kidney disease. 4. Diabetes mellitus. 5. Hypertension. 6. Hyperlipidemia. 7. Blanca esophagus is also listed, the patient is unaware of this. 8. Bipolar disorder. 9. Fatty liver. 10. Hearing loss. 11. Hypothyroidism. 12. Goiter. 13. Sleep apnea. CURRENT MEDICATIONS: Current medication list is reviewed in the chart. ALLERGIES: THERE ARE NONE REPORTED. FAMILY HISTORY: This is reviewed with the patient and is negative for upper GI tract malignancy. SOCIAL HISTORY: There is no current tobacco, alcohol, or substance abuse. REVIEW OF SYSTEMS: SKIN: No pruritus. HEENT: Negative. CARDIOPULMONARY: No shortness of breath or chest pain. GASTROINTESTINAL: As above. GENITOURINARY: Negative. NEUROPSYCHIATRIC: Negative. PHYSICAL EXAMINATION: GENERAL: Shows a pleasant male, lying comfortably in bed. VITAL SIGNS: Reviewed in electronic medical record and are stable. SKIN: Anicteric. HEENT: Shows no scleral icterus. NECK: Without lymphadenopathy or thyromegaly. LUNGS: Clear. HEART: Shows a regular rate and rhythm. S1, S2. No murmur. ABDOMEN: Soft without focal masses or tenderness. Bowel sounds are present. No organomegaly is noted. EXTREMITIES: Without edema. LABORATORY DATA: Reviewed. IMPRESSION: Upper GI bleeding. The differential diagnosis for his upper GI bleeding includes recurrent peptic ulcer disease, NSAID induced gastritis, erosive esophagitis, and AVMs as well as malignancy. At this time, he appears quite stable with no signs of active GI bleeding, and I would recommend endoscopy for further evaluation. He will also be treated with a proton pump inhibitor and have monitoring of his hematocrit. We discussed risks and benefits of endoscopy today. He understands these and agrees to proceed. This will be arranged for tomorrow. Thanks for asking me to see him. I will follow him in the hospital with you. MD DIANNE Ariza/PAVAN / [phone]
[2021-09-23] MEDS: Dextrose 5 % and 0.9 % NaCl 1,000 ML 100 ML IVCONT (02:46)
[2021-09-23] MEDS: Pantoprazole Sodium 40 MG/10 ML VIAL IVPUSH (06:21)
[2021-09-23 06:27] LABS: Glucose, Whole Blood 160 mg/dL (60-115)
[2021-09-23 07:11] LABS: Anion Gap 11 (12-20); Blood Urea Nitrogen 38 mg/dL (9-16); Calcium 8.6 mg/dL (8.4-10.2); Carbon Dioxide 21 mmol/L (22-29); Chloride 107 mmol/L (96-108); Creatinine Clr Calc Pharmacy 62.5; Estimated Glomerular Filt Rate 51; Glucose Random 175 mg/dL (60-115); Potassium 4.1 mmol/L (3.3-5.1); Sodium 135 mmol/L (135-145)
--- NOTE | 2021-09-23 07:54 | HO.ANESPROP2 ---
HPI - Anesthesia Eval Consult details Narrative: 66 M for EGD CABG x 4 , 8 stent 2 years ago [facility] Active Problems Active Problems: All Active Problems (Updated 09/22/21 @ 13:57 by Boy Valverde MD) GIB (gastrointestinal bleeding) (Acute) Anemia (Acute) Acute on chronic kidney failure (Acute) Refused pneumococcal vaccine (Acute) Screening PSA (prostate specific antigen) (Acute) Vitamin D deficiency (Acute) Blanca esophagus (Acute) Screening for colon cancer (Acute) S/P CABG x 4 (Acute) Screening PSA (prostate specific antigen) (Acute) Diabetes (Acute) Dyslipidemia (Acute) Hypothyroidism (Acute) Hypertension (Acute) Past Medical History Medical History Anemia of chronic disease Blanca esophagus Bipolar 1 disorder CKD stage 3 secondary to diabetes Diabetes Dyslipidemia Erectile dysfunction Fatty liver GERD (gastroesophageal reflux disease) Gout Hearing loss Hiatal hernia Hypertension Hypothyroidism Major depression Morbid obesity Multinodular goiter Myocardial infarct S/P CABG x 4 Sleep apnea Family History Family History Mother No problems noted. Sister Hyperlipemia Family history of problems with anesthesia: No Surgical History Surgical History Hx of coronary artery bypass graft Hx of inguinal hernia repair History of Problems with Anesthesia: No Social History Social History Household Members: Spouse Housing: House Do you presently have visiting nurse or other home services: No Alcohol intake: former Patient Tobacco Use Status: Former Tobacco user Quit Date: about. Years Smoked: 10 e-Cigarette/Vaping Use: Never Used service: No Current occupational status: retired [employer] Allergies Allergy/AdvReac Type Severity Reaction Status Date / Time No Known Allergies Allergy Verified 07/22/21 08:16 Active Medications: Current Medications Acetaminophen (Acetaminophen 325 Mg Tablet) 650 mg PO Q6H PRN PRN Reason: Pain, Mild (Pain Scale 1-3) Dextrose/Sodium Chloride (D5ns) 1,000 mls @ 100 mls/hr IVCONT .Q10H LEELA Last Admin: 09/23/21 02:46 Dose: 100 mls/hr Documented by: Insulin Human Lispro (Insulin Lispro 100 Unit/Ml 3 Ml Vial) 0 unit SUBCUT Q6H [facility]; Protocol Last Admin: 09/23/21 06:25 Dose: Not Given Documented by: Ondansetron HCl (Ondansetron Hcl 4 Mg/2 Ml Vial) 4 mg IVPUSH Q8H PRN PRN Reason: Nausea and Vomiting Pantoprazole Sodium (Pantoprazole Sodium 40 Mg/10 Ml Vial) 40 mg IVPUSH BID@0630,1630 [facility] Last Admin: 09/23/21 06:21 Dose: 40 mg Documented by: Pharmacy Consult (Consult Rx Perform Med Rec) 1 each MISCELLANE ONCE PRN PRN Reason: Consult order Sodium Chloride (0.9 % Sodium Chloride Flush 3 Ml Syringe) 3 ml IVFLUSH QSHIFT [facility] Last Admin: 09/23/21 00:39 Dose: Not Given Documented by: Exam Exam Date and Time: September 23, 2021 0754 Height,Weight and Vital Signs: Height 5 ft 6 in Weight 118.6 kg Last Vital Signs Temp 98.1 F 09/23/21 07:44 Pulse 87 09/23/21 07:44 Resp 16 09/23/21 07:44 BP 152/68 H 09/23/21 07:44 Pulse Ox 97 09/23/21 07:44 Pertinent Lab Results Pertinent Lab Results: Laboratory Tests 09/22/21 09/22/21 09/22/21 10:47 10:47 10:47 WBC 10.7 11.0 H RBC 4.36 L 4.39 L Hgb 12.2 L 12.2 L Hct 38.1 L 38.4 L MCV 87.4 87.5 MCH 28.0 27.8 MCHC 32.0 31.8 RDW 14.1 13.9 Plt Count 319 326 MPV 11.5 11.5 Immature Gran % (Auto) 0.8 H 0.8 H Neut % (Auto) 70.7 69.6 Lymph % (Auto) 19.5 L 21.0 [place] % (Auto) 7.0 6.7 Eos % (Auto) 1.3 1.4 Baso % (Auto) 0.7 0.5 Lymph # (Auto) 2.1 2.3 [place] # (Auto) 0.8 0.7 Eos # (Auto) 0.1 0.2 Baso # (Auto) 0.1 0.1 Abs Immat Gran (auto) 0.08 H 0.09 H Absolute Neuts (auto) 7.5 7.6 Absolute Nucleated RBC 0.000 0.000 Nucleated RBC % (auto) 0.0 0.0 PT INR Sodium 134 L Potassium 4.7 Chloride 102 Carbon Dioxide 21 L Anion Gap 16 BUN 60 H D Creatinine 2.01 H Estim Creat Clear Calc 41.2 Estimated GFR 33 POC Glucose Random Glucose 286 H D Calcium 9.4 Total Bilirubin 0.5 Direct Bilirubin AST 9 D ALT 18 Alkaline Phosphatase 58 D Total Protein 7.0 Albumin 4.1 Stool Occult Blood COVID-19 (ENRIQUE) COVID-19 Clin Com 09/22/21 09/22/21 09/22/21 10:47 10:48 10:48 WBC RBC Hgb Hct MCV MCH MCHC RDW Plt Count MPV Immature Gran % (Auto) Neut % (Auto) Lymph % (Auto) [place] % (Auto) Eos % (Auto) Baso % (Auto) Lymph # (Auto) [place] # (Auto) Eos # (Auto) Baso # (Auto) Abs Immat Gran (auto) Absolute Neuts (auto) Absolute Nucleated RBC Nucleated RBC % (auto) PT 13.8 H INR 1.2 H Sodium 133 L Potassium 4.9 Chloride 101 Carbon Dioxide 20 L Anion Gap 17 BUN 59 H Creatinine 2.02 H Estim Creat Clear Calc 41.0 Estimated GFR 33 POC Glucose Random Glucose 287 H Calcium 9.5 Total Bilirubin 0.5 Direct Bilirubin 0.2 AST 9 ALT 17 Alkaline Phosphatase 60 Total Protein 7.0 Albumin 4.0 Stool Occult Blood COVID-19 (ENRIQUE) Negative COVID-19 Clin Com See Note 09/22/21 09/22/21 09/22/21 10:58 14:00 18:02 WBC RBC Hgb 11.4 L Hct 35.2 L MCV MCH MCHC RDW Plt Count MPV Immature Gran % (Auto) Neut % (Auto) Lymph % (Auto) [place] % (Auto) Eos % (Auto) Baso % (Auto) Lymph # (Auto) [place] # (Auto) Eos # (Auto) Baso # (Auto) Abs Immat Gran (auto) Absolute Neuts (auto) Absolute Nucleated RBC Nucleated RBC % (auto) PT INR Sodium Potassium Chloride Carbon Dioxide Anion Gap BUN Creatinine Estim Creat Clear Calc Estimated GFR POC Glucose 166 H Random Glucose Calcium Total Bilirubin Direct Bilirubin AST ALT Alkaline Phosphatase Total Protein Albumin Stool Occult Blood POSITIVE COVID-19 (ENRIQUE) COVID-19 Prepared Response Com 09/22/21 09/22/21 09/23/21 19:14 23:41 01:10 WBC RBC Hgb 10.4 L 10.4 L Hct 32.0 L 31.7 L MCV MCH MCHC RDW Plt Count MPV Immature Gran % (Auto) Neut % (Auto) Lymph % (Auto) [place] % (Auto) Eos % (Auto) Baso % (Auto) Lymph # (Auto) [place] # (Auto) Eos # (Auto) Baso # (Auto) Abs Immat Gran (auto) Absolute Neuts (auto) Absolute Nucleated RBC Nucleated RBC % (auto) PT INR Sodium Potassium Chloride Carbon Dioxide Anion Gap BUN Creatinine Estim Creat Clear Calc Estimated GFR POC Glucose 163 H Random Glucose Calcium Total Bilirubin Direct Bilirubin AST ALT Alkaline Phosphatase Total Protein Albumin Stool Occult Blood COVID-19 (ENRIQUE) COVID-19 [employer] 09/23/21 09/23/21 06:13 06:24 WBC RBC Hgb Hct MCV MCH MCHC RDW Plt Count MPV Immature Gran % (Auto) Neut % (Auto) Lymph % (Auto) [place] % (Auto) Eos % (Auto) Baso % (Auto) Lymph # (Auto) [place] # (Auto) Eos # (Auto) Baso # (Auto) Abs Immat Gran (auto) Absolute Neuts (auto) Absolute Nucleated RBC Nucleated RBC % (auto) PT INR Sodium 135 Potassium 4.1 Chloride 107 Carbon Dioxide 21 L Anion Gap 11 L BUN 38 H Creatinine 1.39 Estim Creat Clear Calc 62.5 Estimated GFR 51 POC Glucose 160 H Random Glucose 175 H D Calcium 8.6 D Total Bilirubin Direct Bilirubin AST ALT Alkaline Phosphatase Total Protein Albumin Stool Occult Blood COVID-19 (ENRIQUE) COVID-19 Prepared Response Com Airway Mallampati Class: III TM Dist: >3cm Neck ROM: Full Loose/Missing/Broken Teeth: Yes (Missing ) Heart: S1, S2 Lungs: distant breath sounds bilaterally Assessment and Plan Assessment Anesthesia Assessment: Anesthesia Plan Discussed and Chart Reviewed Final Anesthetic Review Family History of Problems with Anesthesia: No History of Problems with Anesthesia: No NPO: Yes ASA Class: III and Emergency Final Preanesthetic Review: Meds/Allgs Chart Reviewed, Consent Obtained/Reviewed and Anes Risks/Benef Reviewed Patient Risk: High Procedure Risk: Intermediate Anesthetic Plan Anesthetic Plan: MAC: Disposition: Inp. Admit - Standard Bed
--- NOTE | 2021-09-23 07:58 | ECG_ITS ---
Test Reason : ekg changes Blood Pressure : / mmHG Vent. Rate : 091 BPM Atrial Rate : 091 BPM P-R Int : 148 ms QRS Dur : 120 ms QT Int : 376 ms P-R-T Axes : 058 -03 062 degrees QTc Int : 462 ms Sinus rhythm with Premature atrial complexes Incomplete left bundle branch block Minimal voltage criteria for LVH, may be normal variant ( Ruslan product ) Borderline ECG When compared with ECG of 22-SEP-2021 10:48, Premature atrial complexes are now Present Referred By: Tawanda Freeman Electronically Signed By:CALLY MADSEN MD
--- NOTE | 2021-09-23 08:51 | PM.EVENT ---
Event Note Date of Service: 09/23/21 Event Note: EGD dictated no active bleeding erosive gastritis hiatal hernia barrets bxs taken rec advance diet oral ppi hold asa x 1 week ok to restart plavix can d/c later today
--- NOTE | 2021-09-23 09:16 | OP_ITS ---
SURGEON: Sancho Tobias MD INDICATIONS: Upper GI bleeding. PREOPERATIVE DIAGNOSIS: POSTOPERATIVE DIAGNOSIS: PROCEDURE PERFORMED: Upper endoscopy with biopsy. ESTIMATED BLOOD LOSS: COMPLICATIONS: ANESTHESIA: Medications, monitored anesthesia care. ASSISTANTS: SPECIMENS: DESCRIPTION OF PROCEDURE: A history and physical performed. The risks and benefits of the procedure were explained to the patient and informed consent was obtained. The patient was placed in the left lateral decubitus position. The Olympus video gastroscope was introduced into the esophagus, stomach, and duodenum. Examination was performed. The scope was removed. He tolerated the procedure well and was returned to the recovery room in stable condition. FINDINGS: 1. Esophagus: The esophagus showed a 5 cm segment of Blanca esophagus over the distal esophagus with no raised lesions or ulcerated areas. Biopsies were obtained from 34 cm. 2. Stomach: There was a large hiatal hernia with linear erosions at the level of the hiatal hernia consistent with Sharif erosions. There was no active bleeding. Antral biopsies were obtained to evaluate for H pylori. 3. Duodenum: The bulb and second portion were normal. IMPRESSION: 1. Blanca esophagus. 2. Hiatal hernia. 3. Erosive gastritis. RECOMMENDATION: Follow up the biopsy results. MD DIANNE Ariza/PAVAN / [id number]
[2021-09-23] MEDS: 0.9 % Sodium Chloride Flush 3 ML SYRINGE IVFLUSH (09:26)
[2021-09-23] MEDS: Omeprazole 40 MG CAPSULE.DR PO (09:26)
[2021-09-23 11:13] LABS: Glucose, Whole Blood 184 mg/dL (60-115)
--- NOTE | 2021-09-23 12:22 | PM.DS ---
DS: Providers Provider Date of Service: 09/23/21 Date of admission: 09/22/21 13:29 Primary care physician: Mauricio Perez MD Consults: 09/22/21 13:29 Consult to Gastroenterology Routine Consulting Provider: Sancho Tobias Reason for consultation: melena, history of ulcer DS: Diagnosis Discharge Diagnosis (1) GIB (gastrointestinal bleeding): Status: Acute (2) Anemia: Status: Acute (3) CKD stage 3 secondary to diabetes: Status: Inactive DS: Summary Hospital Course Hospital Course: Chief Complaint: dark stools, weakeness, fatigue This is a 66 year old M with a PMH of CAD - s/p CABG + PCI on DAPT, previous gastric/duodenal ucler requiring PRBC transfusion, CKD stage 3, DM (last A1C 7.7), HLD, HTN who presents to the ED with complaints of black colors stools of 3-4 days duration. The patient denies any associated nausea/vomiting/diarrhea. He denies abdominal pain. He does report worsening fatigue and generalized malaise. He reports mild dizziness. He reports exertional dyspnea. He denies alcohol use. He denies NSAID use. In regards to his prior ucler, he reprots that he was diagnosed in [place] several years back and had an endoscopy. He required 3 PRBCs to be transfused during that visit. He reports that he was place on PPI. He reports that he was taken off his PPI about 2 weeks ago (switched to H2 khadar) due to an interaction of the PPI with another one of his chronic medications. In the ED, the patient was noted to have melanotic stools. He has moved his bowels in the ED and continues to have black stools. His h/h is noted to be 12/38 (dropped from 15/48). Also noted is mild kidney injury (Baseline BUN/SCr 20s/1.6, now presenting with 60/2.01). His BP is on the lower side (90s to 100 systolic). He has been given a 1L of IVF, IV PPI thus far. His case is d/w GI and he will likely need endoscopic evaluation for suspected ulcer. hospital course 66 year old M with a PMH of CAD - s/p CABG + PCI on DAPT, previous gastric/duodenal ucler requiring PRBC transfusion, CKD stage 3, DM (last A1C 7.7), HLD, HTN who presents to the ED with complaints of black colors stools of 3-4 days duration. His work up and presentation is consistent with symptomatic anemia secondary to suspected upper GI bleed. 1. Symptomatic anemia patient admitted to medical floor treated with IV fluid, IV Protonix and subsequently underwent upper endoscopy by Dr. Tobias that showed no active GI bleed, it showed erosive gastritis, hiatal hernia and Blanca's biopsies were sent post procedure patient placed on regular diet GI recommend to hold the aspirin for 1 week, since patient is seen more dynamically stable he is being discharged home on Prilosec 40 mg daily and recommended to resume Plavix, he will follow with primary care physician and Gastroenterology to obtain report of gastric biopsy. 2. Mild JUDITH on CKD3 likely due to hypovolemia and GI bleed renal function improved with IV hydration, will resume enalapril and hold hydrochlorothiazide due to low blood pressure, recommend to follow BP at home. 3. CAD s/p CABG + PCI on DAPT, recommend to continue Plavix will hold aspirin for 1 week, will continue metoprolol and statin. 4. HTN BP on the lower side, will resume home medication enalapril, metoprolol and hold hydrochlorothiazide 5. DM continue metformin and diabetic diet Time Spent with Patient Time attestation: Total time spent providing and/or coordinating discharge services: Discharge coordination time: Greater than 30 minutes Quality: Safe Use of Opioids Does Pt have an Active Cancer Diagnosis on the Problem List?: No Quality: Stroke Does the patient have a stroke diagnosis?: No Physical Exam Vital Signs: Vital Signs: Last Vital Signs Temp 97.6 F 09/23/21 11:17 Pulse 79 09/23/21 11:17 Resp 20 09/23/21 11:17 BP 145/72 H 09/23/21 11:17 Pulse Ox 97 09/23/21 11:17 BMI result Body Mass Index 42.2 Const: Other: Constitutional - Awake and Alert, No apparent distress Cardiovascular -? S1S2, RRR, No edema Respiratory - Normal lung expansion, Normal respiratory effort, No respiratory distress, CTA bilaterally Gastrointestinal -? abdomen soft nontender,+BS; No rebound or guarding Extremities - no calf tenderness bilaterally, no swelling Musculoskeletal - Normal inspection, normal ROM Skin - Warm/Dry Neurological -? Alert & oriented x3, No focal deficit Psychological - Appropriate affect DS: Data Data Completed and Pending Pending studies at discharge: Pending at discharge 09/23/21 08:33 Surgical [PTH] Routine Labs on day of discharge: Laboratory Results - last 24 hr 09/22/21 09/22/21 09/22/21 14:00 18:02 19:14 Hgb 11.4 L 10.4 L Hct 35.2 L 32.0 L Sodium Potassium Chloride Carbon Dioxide Anion Gap BUN Creatinine Estim Creat Clear Calc Estimated GFR POC Glucose 166 H Random Glucose Calcium 09/22/21 09/23/21 09/23/21 23:41 01:10 06:13 Hgb 10.4 L Hct 31.7 L Sodium 135 Potassium 4.1 Chloride 107 Carbon Dioxide 21 L Anion Gap 11 L BUN 38 H Creatinine 1.39 Estim Creat Clear Calc 62.5 Estimated GFR 51 POC Glucose 163 H Random Glucose 175 H D Calcium 8.6 D 09/23/21 09/23/21 06:24 11:09 Hgb Hct Sodium Potassium Chloride Carbon Dioxide Anion Gap BUN Creatinine Estim Creat Clear Calc Estimated GFR POC Glucose 160 H 184 H Random Glucose Calcium Discharge Plan Discharge Patient Disposition: Home, Self-Care Discharge Diagnosis: upper GI bleed/ erosive gastritis acute on chronic kidney disease stage III Referrals: Mauricio Perez MD [Primary Care Provider] - 1 Week Discharge Medications: New omeprazole 40 mg Capsule,Delayed Release(Dr/Ec) 40 mg PO DAILY@0630 Qty: 30 0RF Continued rosuvastatin 40 mg tablet 40 mg PO DAILY Qty: 90 0RF metformin 1,000 mg tablet 1,000 mg PO BID Qty: 180 0RF baclofen 10 mg tablet 10 mg PO BID PRN (Reason: for muscle spasm) Qty: 60 0RF enalapril maleate 20 mg tablet 20 mg PO BID Qty: 180 0RF (DME) blood-glucose meter [OneTouch Verio Meter] Misc See Rx Instructions .Route Qty: 1 0RF Rx Instructions: Use to check blood sugar twice daily, once fasting and another random during the day (DME) lancets [OneTouch Delica Lancets] 30 gauge misc See Rx Instructions .Route Qty: 100 2RF Rx Instructions: Use to check blood sugar twice daily, once fasting and another random during the day (DME) OneTouch Verio test strips Strip See Rx Instructions .Route Qty: 100 2RF Rx Instructions: Use to check blood sugar twice daily, once fasting and another random during the day metoprolol tartrate 100 mg tablet 100 mg PO BID 90 Days Qty: 180 0RF cholecalciferol (vitamin D3) 50 mcg (2,000 unit) capsule 50 mcg PO DAILY 90 Days Qty: 90 0RF clopidogrel 75 mg tablet 75 mg PO DAILY 90 Days Qty: 90 1RF levothyroxine 137 mcg tablet 137 mcg PO DAILY 90 Days Qty: 90 0RF Held aspirin 81 mg tablet,delayed release (DR/EC) 81 mg PO DAILY 90 Days Qty: 90 0RF Hold Instructions: Resume on 10/01/21. Discontinued hydrochlorothiazide 25 mg tablet 25 mg PO DAILY 90 Days Qty: 90 0RF Discharge Orders: Discharge Order (Routine); Ordered 09/23/21 Ordered By: Aaron Weathers Diet: diabetic diet and low fat, low cholesterol Activity on Discharge: As tolerated Stand Alone Forms: Patient Portal Discharge page Care Plan Goals: black colored stools upper endoscopy showed erosive gastritis/ hiatal hernia/ Blanca's biopsies sent take Prilosec 40 mg daily hold aspirin for 1 week continue Plavix noted to have low blood pressures on admission hold hydrochlorothiazide follow blood pressure and resume medication if BP allows Health Concerns: diabetes mellitus/ coronary artery disease/chronic kidney disease take all above medication except stop hydrochlorothiazide And hold aspirin for 1 week Plan of Treatment: follow-up with primary care physician and 1-2 weeks, follow-up with gastroenterology Dr. Tobias call for appointment Assessment: as per discharge summary
--- NOTE | 2021-09-23 13:04 | MHC.CM.PN ---
Addendum entered by Carol Ann Nelson 09/23/21 13:05: PT WILL DC HOME TODAY Original Note: PT REPORTS HE LIVES AT HOME WITH HIS AND IS INDEPENDENT WITH CARE PT DENIES USE OF DME OR SERVICES PT REPORTS HE HAS A HCP NAMING HIS HIS AGENT-COPY REQUESTED PT CONFIRMS HIS PCP IS [facility] PT IS NOT COVID-19 VACCINATED IMM DELIVERED CURRENT DC PLAN IS HOME WITH NO SERVICES TO TRANSPORT
== END 2021-09-23 15:55 | disposition home or self-care (01) | DRG 378 ==
LOC: HO.ED 12:33 → HO.EDOVER 13:40 → HO.IMC 19:19
PROVIDERS: Internal Medicine Gastroenterology; Nurse Practitioner Family; Admitting Provider Family Medicine; Emergency Provider Emergency Medicine Emergency Medical Services; PCP Family Medicine; Visit Provider Hospitalist
PROC: 0DB58ZX Excision of Esophagus, Via Natural or Artificial Opening Endoscopic, Diagnostic (ICD-10-PCS; CPT 43239; principal; 2021-09-23 07:30)
DX: K29.71 Gastritis, unspecified, with bleeding (principal); N17.9 Acute kidney failure, unspecified; Z68.41 Body mass index [BMI] 40.0-44.9, adult; D62 Acute posthemorrhagic anemia; I12.9 Hypertensive chronic kidney disease with stage 1 through stage 4 chronic kidney disease, or unspecified chronic kidney disease; N18.30 Chronic kidney disease, stage 3 unspecified; M10.9 Gout, unspecified; D63.1 Anemia in chronic kidney disease; E66.01 Morbid (severe) obesity due to excess calories; E03.9 Hypothyroidism, unspecified; E11.22 Type 2 diabetes mellitus with diabetic chronic kidney disease; G47.30 Sleep apnea, unspecified; I25.10 Atherosclerotic heart disease of native coronary artery without angina pectoris; K76.0 Fatty (change of) liver, not elsewhere classified; K44.9 Diaphragmatic hernia without obstruction or gangrene; E86.1 Hypovolemia; K22.70 Barrett's esophagus without dysplasia; Z20.822 Contact with and (suspected) exposure to COVID-19; Z95.1 Presence of aortocoronary bypass graft; Z87.891 Personal history of nicotine dependence; Z79.02 Long term (current) use of antithrombotics/antiplatelets; Z79.82 Long term (current) use of aspirin; Z79.84 Long term (current) use of oral hypoglycemic drugs; Z79.890 Hormone replacement therapy; Z79.899 Other long term (current) drug therapy
CPT/HCPCS: 43239; 36415; 80048; 80053; 80076; 82248; 82272; 82947; 85014; 85018; 85025; 85610; 87635; 88305; 88342; 93005; 96361; 96365; 96366; 96372; 96374; 96375; 96376; 99219; 99284; 99285; J3010

== ENCOUNTER 2021-09-29 06:52 | Outpatient (REF) | payer MEDICARE, SELFPAY ==
[2021-09-29 12:12] LABS: Total Protein Urine Random 68 mg/dL (<12)
[2021-09-29 12:16] LABS: Protein/Creatinine Ratio, Ur 0.19 (<0.2); Total Protein Urine Random 69 mg/dL (<12)
== END 2021-09-29 06:53 | disposition home or self-care (01) ==
LOC: HO.HMGCLDS 06:52
PROVIDERS: PCP Nurse Practitioner Family; Visit Provider Internal Medicine Hypertension Specialist
DX: N18.32 Chronic kidney disease, stage 3b (principal)
CPT/HCPCS: 84156

== ENCOUNTER 2021-10-01 07:20 | Outpatient (REF) | payer MEDICARE, SELFPAY ==
[2021-10-01 11:06] LABS: MANUAL DIFF FLAG NO
[2021-10-01 11:22] LABS: Basophils Percent Auto 0.5 % (0-2); Eosinophils Absolute Auto 0.3 X10*3/uL (0.0-0.4); Eosinophils Percent Auto 3.8 % (0-4); Hematocrit 36.2 % (42.0-52.0); Hemoglobin 11.5 g/dl (14.0-18.0); Imm Gran Abs Auto 0.04 X10*3/uL (0.00-0.03); Imm Gran Pct Auto 0.5 % (0.0-0.4); Lymphocytes Absolute Auto 1.9 X10*3/uL (1.2-4.9); Lymphocytes Percent Auto 24.9 % (20-40); Mean Corpuscular HGB Conc 31.8 g/dl (31.0-36.0); Mean Corpuscular Hemoglobin 28.3 pg (27.0-33.0); Mean Corpuscular Volume 88.9 fL (80.0-98.0); Mean Platelet Volume 11.9 fL (9.4-12.4); Monocytes Absolute Auto 0.7 X10*3/uL (0.1-1.2); Monocytes Percent Auto 8.8 % (2-11); Neutrophils Absolute Auto 4.6 x10*3/uL (2.0-8.3); Neutrophils Percent Auto 61.5 % (45-73); Platelet Count 338 X10*3/uL (160-400); Red Blood Count 4.07 X10*6/uL (4.60-5.80); Red Cell Distribution Width 14.1 % (11.0-16.0); White Blood Count 7.4 X10*3/uL (4.8-10.8)
[2021-10-01 12:05] LABS: Alanine Aminotransferase 20 U/L (0-40); Albumin Level 3.9 g/dL (3.5-5.0); Alkaline Phosphatase 72 U/L (39-117); Anion Gap 15 (12-20); Aspartate Amino Transferase 16 U/L (5-37); Bilirubin Total 0.4 mg/dL (0.0-1.0); Blood Urea Nitrogen 13 mg/dL (9-16); Calcium 8.9 mg/dL (8.4-10.2); Carbon Dioxide 24 mmol/L (22-29); Chloride 106 mmol/L (96-108); Estimated Glomerular Filt Rate 55; Glucose Random 117 mg/dL (60-115); Potassium 4.2 mmol/L (3.3-5.1); Sodium 141 mmol/L (135-145)
[2021-10-01 12:16] LABS: Creatinine, mg/dL 70.82
[2021-10-01 12:17] LABS: Creatinine Urine 70.55 mg/dL; Total Protein Urine Random < 7 mg/dL (<12)
[2021-10-01 12:50] LABS: Total Volume 24 Hour Urine 2775 mL
[2021-10-01 12:51] LABS: Creatinine Clearance 104.9 mL/min (85-125)
[2021-10-04 13:57] LABS: Calcium (PTHI) 9.3 mg/dL (8.6-10.3); PTHI 38 pg/mL (16-77)
== END 2021-10-01 07:21 | disposition home or self-care (01) ==
LOC: HO.HMGCLDS 07:20
PROVIDERS: PCP Nurse Practitioner Family; Visit Provider Internal Medicine Hypertension Specialist
DX: N18.32 Chronic kidney disease, stage 3b (principal)
CPT/HCPCS: 36415; 80053; 82575; 83970; 84156; 85025

== ENCOUNTER 2021-12-18 06:30 | Outpatient (REF) | payer MEDICARE, SELFPAY ==
[2021-12-18 11:03] LABS: MANUAL DIFF FLAG NO
[2021-12-18 11:21] LABS: Estimated Average Glucose 146 mg/dL; Hemoglobin A1C 151.2661 umol/L; Hemoglobin A1c % 6.7 %
[2021-12-18 11:23] LABS: Basophils Absolute Auto 0.1 X10*3/uL (0.0-0.2); Basophils Percent Auto 0.6 % (0-2); Eosinophils Absolute Auto 0.2 X10*3/uL (0.0-0.4); Eosinophils Percent Auto 2.4 % (0-4); Hematocrit 38.4 % (42.0-52.0); Hemoglobin 11.4 g/dl (14.0-18.0); Imm Gran Abs Auto 0.05 X10*3/uL (0.00-0.03); Imm Gran Pct Auto 0.5 % (0.0-0.4); Lymphocytes Absolute Auto 2.2 X10*3/uL (1.2-4.9); Lymphocytes Percent Auto 21.7 % (20-40); Mean Corpuscular HGB Conc 29.7 g/dl (31.0-36.0); Mean Corpuscular Hemoglobin 22.9 pg (27.0-33.0); Mean Corpuscular Volume 77.3 fL (80.0-98.0); Mean Platelet Volume 11.5 fL (9.4-12.4); Monocytes Absolute Auto 0.8 X10*3/uL (0.1-1.2); Monocytes Percent Auto 8.1 % (2-11); Neutrophils Absolute Auto 6.8 x10*3/uL (2.0-8.3); Neutrophils Percent Auto 66.7 % (45-73); Platelet Count 351 X10*3/uL (160-400); Red Blood Count 4.97 X10*6/uL (4.60-5.80); Red Cell Distribution Width 16.4 % (11.0-16.0); White Blood Count 10.2 X10*3/uL (4.8-10.8)
[2021-12-18 11:24] LABS: Alanine Aminotransferase 15 U/L (0-40); Anion Gap 13 (12-20); Aspartate Amino Transferase 13 U/L (5-37); Blood Urea Nitrogen 32 mg/dL (9-16); Calcium 9.7 mg/dL (8.4-10.2); Carbon Dioxide 22 mmol/L (22-29); Chloride 108 mmol/L (96-108); Cholesterol 101 mg/dL; Estimated Glomerular Filt Rate 43; Glucose Fasting 118 mg/dL (60-99); HDL Cholesterol 31 mg/dL; Iron 31 mcg/dL (45-160); LDL Cholesterol Calculated 27 mg/dl; Percent Iron Saturation 7 % (15-50); Potassium 4.8 mmol/L (3.3-5.1); Sodium 138 mmol/L (135-145); Total Iron Binding Capacity 456 mcg/dL (228-428); Triglycerides 216 mg/dL; Unsaturated Iron Binding 425 ug/dL
[2021-12-18 11:47] LABS: Ferritin 2 ng/mL (20-250); Free T4 (Free Thyroxine) 1.01 ng/dL (0.71-1.85); Thyroid Stimulating Hormone 0.22 uIU/mL (0.32-4.0); Vitamin D 25-OH Total 48.1 ng/mL (>30)
== END 2021-12-18 06:31 | disposition home or self-care (01) ==
LOC: HO.HMGCLDS 06:30
PROVIDERS: Visit Provider Internal Medicine
DX: E03.9 Hypothyroidism, unspecified (principal); E11.65 Type 2 diabetes mellitus with hyperglycemia; E78.5 Hyperlipidemia, unspecified; I10 Essential (primary) hypertension; K22.70 Barrett's esophagus without dysplasia; K29.60 Other gastritis without bleeding; E55.9 Vitamin D deficiency, unspecified; Z95.1 Presence of aortocoronary bypass graft
CPT/HCPCS: 36415; 80048; 80061; 82306; 82728; 83036; 83540; 84439; 84443; 84450; 84460; 85025

== ENCOUNTER → 2022-02-14 08:36 | Outpatient (BNVA) | payer MEDICARE, SELFPAY | PROVIDERS: PCP Internal Medicine; Referring Provider Internal Medicine; Visit Provider Internal Medicine Cardiovascular Disease | DX: I20.8 Other forms of angina pectoris (principal); Z95.1 Presence of aortocoronary bypass graft | CPT/HCPCS: 93005; 99212 ==

== ENCOUNTER 2022-02-25 06:02 | Day surgery (SDC) | payer MEDICARE, SELFPAY ==
[2022-02-18 13:00] VITALS: BMI 40.6
--- NOTE | 2022-02-24 08:55 | P.CONAN_ITS ---
Documented by User: Valarie Keating NP 02/24/22 09:07 HPI - Anesthesia Eval Consult details Narrative: 66yo M for Upper Endoscopy Cardiac cleared (s/p CABG x 4 10 years ago in [place], also TERRY. Has been on DAPT - ok to hold per Dr Corona and only to resume ASA after EGD) E[facility] 09/2021 with [facility] Active Problems Active Problems: All Active Problems (Updated 02/18/22 @ 12:58 by Shayy Tony RN) Screening PSA (prostate specific antigen) (Acute) Screening for colon cancer (Acute) Vitamin D deficiency (Acute) Screening PSA (prostate specific antigen) (Acute) Refused pneumococcal vaccine (Acute) Diabetes mellitus without complication, without long-term current use of insulin (Acute) Stable angina (Acute) Preop cardiovascular exam (Acute) Erosive gastritis (Acute) Uncontrolled type 2 diabetes mellitus with hyperglycemia, without long-term current use of insulin (Acute) Blanca esophagus (Acute) S/P CABG x 4 (Acute) Dyslipidemia (Acute) Hypothyroidism (Acute) Hypertension (Acute) Past Medical History Medical History Anemia of chronic disease Blanca esophagus Bipolar 1 disorder CKD stage 3 secondary to diabetes Dyslipidemia Erectile dysfunction Erosive gastritis Fatty liver GERD (gastroesophageal reflux disease) Gout Hearing loss Hiatal hernia Hypertension Hypothyroidism Major depression Morbid obesity Multinodular goiter Myocardial infarct S/P CABG x 4 Sleep apnea Uncontrolled type 2 diabetes mellitus with hyperglycemia, without long-term current use of insulin Family History Family History Mother No problems noted. Sister Hyperlipemia Family history of problems with anesthesia: No Surgical History Surgical History Hx of coronary artery bypass graft Hx of inguinal hernia repair History of Problems with Anesthesia: No Social History Social History Household Members: Spouse Housing: House Do you presently have visiting nurse or other home services: No Alcohol intake: former Patient Tobacco Use Status: Former Tobacco user Quit Date: 1999 Years Smoked: 10 +/- e-Cigarette/Vaping Use: Never Used Use of substances other than those prescribed or required for medical reasons: No Are you DNR?: No Advance Directives: No Advance Directives Information Provided: Yes service: No Current occupational status: retired Cognitive needs: No Hearing needs: No Vision needs: No Meds Allergies Allergy/AdvReac Type Severity Reaction Status Date / Time No Known Allergies Allergy Verified 02/18/22 12:58 Exam Exam Date and Time: February 24, 2022 0855 Height,Weight and Vital Signs: Height 5 ft 6 in Weight 114.078 kg Pertinent Lab Results Pertinent Lab Results: Laboratory Tests 12/18/21 12/18/21 06:35 06:35 WBC 10.2 Hgb 11.4 L Hct 38.4 L Plt Count 351 Sodium 138 Potassium 4.8 Chloride 108 Carbon Dioxide 22 BUN 32 H D Narrative Narrative: EKG 09/2021 Vent. Rate : 091 BPM ? ? Atrial Rate : 091 BPM ?? P-R Int : 148 ms? QRS Dur : 120 ms ? ? QT Int : 376 ms ? ? ? P-R-T Axes : 058 -03 062 degrees ?? QTc Int : 462 ms ? Sinus rhythm with Premature atrial complexes Incomplete left bundle branch block Minimal voltage criteria for LVH, may be normal variant ( [place]ult product ) Borderline ECG When compared with ECG of 22-SEP-2021 10:48, Premature atrial complexes are now Present ECHO 07/2021 Conclusions: - 1.? Normal LV systolic function with impaired relaxation ? ? ? filling pattern? 2. Calcific aortic valve changes noted with normal cardiac ? ? ? valvular Doppler ? 3. Normal RV systolic pressure ? 4. No gross pericardial effusion ? ? Assessment and Plan Assessment Anesthesia Assessment: Chart Reviewed Final Anesthetic Review Family History of Problems with Anesthesia: No History of Problems with Anesthesia: No Documented by User: Valery Rawls MD 02/25/22 07:30 [facility] Active Problems Active Problems: All Active Problems (Updated 02/18/22 @ 12:58 by Shayy Tony RN) Screening PSA (prostate specific antigen) (Acute) Screening for colon cancer (Acute) Vitamin D deficiency (Acute) Screening PSA (prostate specific antigen) (Acute) Refused pneumococcal vaccine (Acute) Diabetes mellitus without complication, without long-term current use of insulin (Acute) Stable angina (Acute) - denies recent chest pain Preop cardiovascular exam (Acute) Erosive gastritis (Acute) Uncontrolled type 2 diabetes mellitus with hyperglycemia, without long-term current use of insulin (Acute) Blanca esophagus (Acute) S/P CABG x 4 (Acute) - about 10 yrs ago S/p TERRY RCA. On dual anti-platelet therapy. Last dose of plavix 1 week ago, baby aspirin 2 days ago Dyslipidemia (Acute) Hypothyroidism (Acute) Hypertension (Acute) MINTO ASIM per record. Patient seems unaware. Does not use CPAP Machine. Unaware if snores Past Medical History Medical History Anemia of chronic disease Blanca esophagus Bipolar 1 disorder CKD stage 3 secondary to diabetes Dyslipidemia Erectile dysfunction Erosive gastritis Fatty liver GERD (gastroesophageal reflux disease) Gout Hearing loss Hiatal hernia Hypertension Hypothyroidism Major depression Morbid obesity Multinodular goiter Myocardial infarct S/P CABG x 4 Sleep apnea Uncontrolled type 2 diabetes mellitus with hyperglycemia, without long-term current use of insulin Family History Family History Mother No problems noted. Sister Hyperlipemia Surgical History Surgical History Hx of coronary artery bypass graft Hx of inguinal hernia repair Social History Social History Household Members: Spouse Housing: House Do you presently have visiting nurse or other home services: No Alcohol intake: former Patient Tobacco Use Status: Former Tobacco user Quit Date: 1999 Years Smoked: 10 +/- e-Cigarette/Vaping Use: Never Used Use of substances other than those prescribed or required for medical reasons: No Are you DNR?: No Advance Directives: No Advance Directives Information Provided: Yes service: No Current occupational status: retired Cognitive needs: No Hearing needs: No Vision needs: No Meds Allergies Allergy/AdvReac Type Severity Reaction Status Date / Time No Known Allergies Allergy Verified 02/18/22 12:58 Exam Height,Weight and Vital Signs: Height 5 ft 6 in Weight 114.078 kg Vital Signs Temp Pulse Resp BP Pulse Ox O2 Del Method 02/25/22 06:40 97.0 F 71 18 156/74 H 96 Room Air Pertinent Lab Results Pertinent Lab Results: Laboratory Tests 12/18/21 12/18/21 06:35 06:35 WBC 10.2 Hgb 11.4 L Hct 38.4 L Plt Count 351 Sodium 138 Potassium 4.8 Chloride 108 Carbon Dioxide 22 BUN 32 H D Lab Results 02/25/22 Range/Units 06:37 POC Glucose 145 H (60-115) mg/dL Airway Mallampati Class: II TM Dist: >3cm Neck ROM: Full Loose/Missing/Broken Teeth: Yes (Some missing) Heart: RRR Lungs: CTAB Assessment and Plan Assessment Anesthesia Assessment: Anesthesia Plan Discussed Final Anesthetic Review NPO: Yes ASA Class: III Final Preanesthetic Review: No Changes in Pt Med Stat, Meds/Allgs Chart Reviewed, Consent Obtained/Reviewed and Anes Risks/Benef Reviewed Patient Risk: Intermediate Procedure Risk: Low Anesthetic Plan Anesthetic Plan: MAC: Disposition: Standard PACU
[2022-02-25] VITALS (9 sets, daily range): BP systolic 84–156; BP diastolic 42–74; PULSE 63–77; RESP 16–18; TEMP 36.1–36.8; O2SAT 94–100
[2022-02-25 06:44] LABS: Glucose, Whole Blood 145 mg/dL (60-115)
[2022-02-25] MEDS: Lactated Ringers 1,000 ML 100 ML IVCONT (06:48)
--- NOTE | 2022-02-25 07:33 | MHC.SHP ---
Pre-Procedural Eval Section A Date of Service: 02/25/22 Section B Chief Complaint: barretts Details of Present Illness: see H&P no changes Relevant Family History (Specify if Yes): No Relevant Social History: None Present Medications: None Medical History: No relevant PMH History of Previous Operations: No relevant previous surgery Allergies: Allergies Allergy/AdvReac Type Severity Reaction Status Date / Time No Known Allergies Allergy Verified 02/18/22 12:58 Review of Systems Sugical H&P ROS: Negative: Constitution, Cardiovascular, Respiratory, Neurological, Psychiatric, Hem-Onc, Allergic/Immunologic, Gastrointestinal, Genitourinary, Musculoskeletal, Integumentary, Endocrine and Eyes/Ears/Nose/Throat Exam Surgical H&P Exam: Normal: HEENT, Normal: Heart, Normal: Lungs, Normal: Extremities, Normal: Abdomen, Normal: Skin and Normal: Neurological Plan Diagnosis/Plan: Unchanged I have reviewed the history and physical and performed a pertinent physical examination on my patient. No changes have occurred unless specified.
--- NOTE | 2022-02-25 08:03 | PM.OP ---
Brief Operative Note Date of Service: 02/25/22 Pre-op diagnosis: barretts Post-op diagnosis: same Procedure: egd Surgeon: Sancho Tobias Anesthesia: MAC Was an Manager Billing used for this Procedure?: No Estimated blood loss (mL): 5 Pathology: other Condition: stable Disposition: PACU
--- NOTE | 2022-02-25 20:26 | OP_ITS ---
SURGEON: Sancho Tobias MD INDICATIONS: Blanca's esophagus. PREOPERATIVE DIAGNOSIS: POSTOPERATIVE DIAGNOSIS: PROCEDURE PERFORMED: Upper endoscopy with biopsy. ESTIMATED BLOOD LOSS: COMPLICATIONS: ANESTHESIA: Monitored anesthesia care. ASSISTANTS: SPECIMENS: PROCEDURE DESCRIPTION: A History and Physical performed. The risks and benefits of the procedure were explained to the patient. Informed consent was obtained. The patient was placed in the left lateral decubitus position. The Olympus video gastroscope was introduced into the esophagus, stomach, and duodenum. Examination was performed. The scope was removed. He tolerated the procedure well and was taken to recovery room in stable condition. FINDINGS: 1. Esophagus: There was a segment of Blanca esophagus extending from the EG junction at 38 cm up to the mid esophagus at 30 cm. There were no raised lesions or ulcerated areas. Biopsies were obtained in all 4 quadrants approximately every 2 cm. There was a large hiatal hernia, which had been previously identified. The previously noted Sharif erosions were not present. 2. Stomach: Stomach was otherwise normal. 3. Duodenum: The bulb and second portion were normal. IMPRESSION: Blanca's esophagus. RECOMMENDATION: 1. Follow up the biopsy results. 2. Continue proton pump inhibitor. MD DIANNE Ariza/PAVAN / [id number]
== END 2022-02-25 09:35 | disposition home or self-care (01) ==
PROVIDERS: PCP Internal Medicine; Visit Provider Internal Medicine Gastroenterology
PROC: 0DJ08ZZ Inspection of Upper Intestinal Tract, Via Natural or Artificial Opening Endoscopic (ICD-10-PCS; CPT 43235; principal; 2022-02-25 07:30)
DX: K22.711 Barrett's esophagus with high grade dysplasia (principal); K44.9 Diaphragmatic hernia without obstruction or gangrene; K27.9 Peptic ulcer, site unspecified, unspecified as acute or chronic, without hemorrhage or perforation; E11.22 Type 2 diabetes mellitus with diabetic chronic kidney disease; I12.9 Hypertensive chronic kidney disease with stage 1 through stage 4 chronic kidney disease, or unspecified chronic kidney disease; N18.30 Chronic kidney disease, stage 3 unspecified; I25.10 Atherosclerotic heart disease of native coronary artery without angina pectoris; I25.2 Old myocardial infarction; Z95.1 Presence of aortocoronary bypass graft; Z95.5 Presence of coronary angioplasty implant and graft; G47.30 Sleep apnea, unspecified; Z79.82 Long term (current) use of aspirin; Z79.84 Long term (current) use of oral hypoglycemic drugs; Z79.899 Other long term (current) drug therapy; Z87.891 Personal history of nicotine dependence
CPT/HCPCS: 43239; 82947; 88305; J2370

== ENCOUNTER 2022-04-27 06:39 | Outpatient (REF) | payer MEDICARE, SELFPAY ==
[2022-04-27 11:41] LABS: Alanine Aminotransferase 16 U/L (0-40); Aspartate Amino Transferase 14 U/L (5-37); Cholesterol 112 mg/dL; HDL Cholesterol 35 mg/dL; LDL Cholesterol Calculated 41 mg/dl; Triglycerides 180 mg/dL
[2022-04-27 11:48] LABS: Estimated Average Glucose 148 mg/dL; Hemoglobin A1c % 6.8 %
[2022-04-27 12:08] LABS: Free T4 (Free Thyroxine) 1.17 ng/dL (0.71-1.85); Thyroid Stimulating Hormone 0.24 uIU/mL (0.32-4.0)
== END 2022-04-27 06:40 | disposition home or self-care (01) ==
LOC: HO.HMGCLDS 06:39
PROVIDERS: PCP Internal Medicine; Visit Provider Internal Medicine
DX: E11.9 Type 2 diabetes mellitus without complications (principal); E78.5 Hyperlipidemia, unspecified; I10 Essential (primary) hypertension; E03.9 Hypothyroidism, unspecified
CPT/HCPCS: 36415; 80061; 83036; 84439; 84443; 84450; 84460

== ENCOUNTER 2022-08-13 06:51 | Outpatient (REF) | payer MEDICARE, SELFPAY ==
[2022-08-13 11:10] LABS: MANUAL DIFF FLAG NO
[2022-08-13 11:18] LABS: Basophils Percent Auto 0.4 % (0-2); Eosinophils Absolute Auto 0.4 X10*3/uL (0.0-0.4); Eosinophils Percent Auto 4.8 % (0-4); Hemoglobin 13.7 g/dl (14.0-18.0); Imm Gran Abs Auto 0.04 X10*3/uL (0.00-0.03); Imm Gran Pct Auto 0.6 % (0.0-0.4); Lymphocytes Absolute Auto 2.1 X10*3/uL (1.2-4.9); Mean Corpuscular HGB Conc 29.8 g/dl (31.0-36.0); Mean Corpuscular Hemoglobin 22.9 pg (27.0-33.0); Mean Corpuscular Volume 76.8 fL (80.0-98.0); Mean Platelet Volume 11.5 fL (9.4-12.4); Monocytes Absolute Auto 0.7 X10*3/uL (0.1-1.2); Monocytes Percent Auto 9.8 % (2-11); Neutrophils Percent Auto 55.4 % (45-73); Platelet Count 288 X10*3/uL (160-400); Red Blood Count 5.99 X10*6/uL (4.60-5.80); Red Cell Distribution Width 18.7 % (11.0-16.0); White Blood Count 7.2 X10*3/uL (4.8-10.8)
[2022-08-13 12:12] LABS: Estimated Average Glucose 157 mg/dL; Hemoglobin A1c % 7.1 %
[2022-08-13 13:16] LABS: Creatinine Urine 177.52 mg/dL; Microalbum/Creatinine Ratio Ur 22.5 ug/mg cr
[2022-08-13 13:19] LABS: Alanine Aminotransferase 17 U/L (0-40); Anion Gap 15 (12-20); Aspartate Amino Transferase 16 U/L (5-37); Blood Urea Nitrogen 21 mg/dL (9-16); Calcium 9.2 mg/dL (8.4-10.2); Carbon Dioxide 27 mmol/L (22-29); Chloride 101 mmol/L (96-108); Cholesterol 110 mg/dL; Estimated Glomerular Filt Rate 49; Free T4 (Free Thyroxine) 1.12 ng/dL (0.71-1.85); Glucose Fasting 131 mg/dL (60-99); HDL Cholesterol 28 mg/dL; Iron 45 mcg/dL (45-160); LDL Cholesterol Calculated 41 mg/dl; Percent Iron Saturation 12 % (15-50); Potassium 4.8 mmol/L (3.3-5.1); Sodium 138 mmol/L (135-145); Thyroid Stimulating Hormone 1.09 uIU/mL (0.32-4.0); Total Iron Binding Capacity 383 mcg/dL (228-428); Triglycerides 206 mg/dL; Unsaturated Iron Binding 338 ug/dL; Vitamin D 25-OH Total 47.7 ng/mL (>30)
== END 2022-08-13 06:52 | disposition home or self-care (01) ==
LOC: HO.HMGCLDS 06:51
PROVIDERS: PCP Internal Medicine; Visit Provider Internal Medicine
DX: E78.5 Hyperlipidemia, unspecified (principal); D63.8 Anemia in other chronic diseases classified elsewhere; E55.9 Vitamin D deficiency, unspecified; E11.29 Type 2 diabetes mellitus with other diabetic kidney complication; K22.711 Barrett's esophagus with high grade dysplasia; E11.22 Type 2 diabetes mellitus with diabetic chronic kidney disease; I12.9 Hypertensive chronic kidney disease with stage 1 through stage 4 chronic kidney disease, or unspecified chronic kidney disease; N18.30 Chronic kidney disease, stage 3 unspecified; E03.9 Hypothyroidism, unspecified; I25.10 Atherosclerotic heart disease of native coronary artery without angina pectoris
CPT/HCPCS: 36415; 80048; 80061; 82043; 82306; 83036; 83540; 84439; 84443; 84450; 84460; 85025

== ENCOUNTER → 2022-09-12 10:06 | Outpatient (BNVA) | payer MEDICARE, SELFPAY | PROVIDERS: PCP Internal Medicine; Referring Provider Internal Medicine; Visit Provider Internal Medicine Cardiovascular Disease | DX: Z01.810 Encounter for preprocedural cardiovascular examination (principal); I20.8 Other forms of angina pectoris; Z95.1 Presence of aortocoronary bypass graft | CPT/HCPCS: 93005; 99212 ==

== ENCOUNTER 2022-09-21 11:02 | Inpatient (IN) | payer MEDICARE, SELFPAY ==
[2022-09-21] VITALS (7 sets, daily range): BP systolic 100–134; BP diastolic 52–96; PULSE 72–122; RESP 17–101; TEMP 36.3–37; O2SAT 96–100; BMI 39.9
--- NOTE | ~2022-09-21 | CT_ITS ---
EXAMINATION: CT ABDOMEN AND PELVIS WITHOUT CONTRAST CLINICAL INFORMATION: GI bleed with melena COMPARISON: None available. TECHNIQUE: Multidetector volumetric imaging was performed from the superior aspect of the liver through the pubic symphysis. Sagittal and coronal reformatted images were obtained on the technologist's workstation. This CT examination was performed using dose optimization techniques as appropriate, variously including the following: *Automated exposure control *Adjustment of mA and/or kV according to patient size (this includes techniques or standardized protocols for targeted exams where dose is matched to indication/reason for exam; i.e. extremities or head) *Use of iterative reconstruction technique DLP: 1003 mGy-cm FINDINGS: LUNG BASES: Left hemidiaphragm is elevated and a hiatal hernia is present. Left basilar atelectasis is seen. LIVER, GALLBLADDER, AND BILIARY TREE: The liver is normal in size, shape, and attenuation. No focal hepatic lesion or biliary ductal dilatation is present. The gallbladder is contracted and contains multiple stones without changes of acute cholecystitis. PANCREAS: Unremarkable. SPLEEN: Unremarkable. ADRENAL GLANDS: Unremarkable. KIDNEYS AND URETERS: The kidneys are normal in size, shape, and attenuation. No hydronephrosis, hydroureter, or calculi seen. There is nonspecific bilateral perinephric stranding. BLADDER: Unremarkable. GASTROINTESTINAL TRACT: The left hemidiaphragm is elevated and a hiatal hernia is present. The small and large bowel are unremarkable aside from colonic diverticulosis without diverticulitis. The appendix is unremarkable. ABDOMINAL WALL: There is a right inguinal hernia containing only fat. LYMPH NODES: No retroperitoneal lymphadenopathy. VASCULAR: Calcific atherosclerotic plaque present in the aorta and iliofemoral vessels without aneurysm PELVIC VISCERA: The prostate and seminal vesicles are unremarkable. OSSEOUS STRUCTURES: Degenerative changes are present in the spine. CT/CT abdomen pelvis wo IV con IMPRESSION: 1. A cause for the patient's GI bleeding has not been found. 2. Incidental note made of elevated left hemidiaphragm, hiatal hernia, colonic diverticulosis without diverticulitis and other findings described above. Fleischner guidelines were followed.
--- NOTE | 2022-09-21 12:02 | ECG_ITS ---
Test Reason : GI BLEED Blood Pressure : / mmHG Vent. Rate : 109 BPM Atrial Rate : 109 BPM P-R Int : 130 ms QRS Dur : 112 ms QT Int : 334 ms P-R-T Axes : 051 -03 136 degrees QTc Int : 449 ms Sinus tachycardia with occasional Premature ventricular complexes Minimal voltage criteria for LVH, may be normal variant ( [place]lan product ) ST & T wave abnormality, consider lateral ischemia Abnormal ECG When compared with ECG of 23-SEP-2021 08:05, Premature ventricular complexes are now Present Premature atrial complexes are no longer Present Incomplete left bundle branch block is no longer Present Referred By: Mia Lcuero Electronically Signed By:CALLY MADSEN MD
[2022-09-21 12:16] LABS: MANUAL DIFF FLAG NO
[2022-09-21 12:21] LABS: Basophils Absolute Auto 0.1 X10*3/uL (0.0-0.2); Basophils Percent Auto 0.5 % (0-2); Eosinophils Absolute Auto 0.1 X10*3/uL (0.0-0.4); Eosinophils Percent Auto 0.5 % (0-4); Hematocrit 38.4 % (42.0-52.0); Hemoglobin 11.6 g/dl (14.0-18.0); Imm Gran Pct Auto 0.8 % (0.0-0.4); Lymphocytes Absolute Auto 1.8 X10*3/uL (1.2-4.9); Lymphocytes Percent Auto 15.1 % (20-40); Mean Corpuscular HGB Conc 30.2 g/dl (31.0-36.0); Mean Corpuscular Hemoglobin 23.3 pg (27.0-33.0); Mean Corpuscular Volume 77.1 fL (80.0-98.0); Mean Platelet Volume 11.1 fL (9.4-12.4); Monocytes Absolute Auto 0.9 X10*3/uL (0.1-1.2); Monocytes Percent Auto 7.8 % (2-11); Neutrophils Percent Auto 75.3 % (45-73); Platelet Count 431 X10*3/uL (160-400); Red Blood Count 4.98 X10*6/uL (4.60-5.80); Red Cell Distribution Width 17.6 % (11.0-16.0); White Blood Count 11.9 X10*3/uL (4.8-10.8)
--- NOTE | 2022-09-21 12:26 | ED.GIBLEED ---
HPI - GI Bleed General Chief complaint: GI Bleed Stated complaint: dark stool/ nausea Time Seen by Provider: 09/21/22 12:15 Source: patient Mode of arrival: ambulatory History of Present Illness HPI Narrative: 67-year-old male with a past medical history of CAD on Plavix, CKD, diabetes, HLD, erosive gastritis, GERD, gout, hiatal hernia, HTN, hypothyroid, obesity, CA, Blanca's esophagus with high-grade dysplasia s/p EGD w/EMR & RFA on 09/05/2022 at [facility] on presenting to the ED complaining of generalized fatigue/weakness since procedure with the nausea, blood specked emesis, and dark melanotic tarry stools x today. Patient reports lightheadedness. Denies chest pain, shortness of breath, dysuria/hematuria, headache, abdominal pain MD complaint: blood streaked emesis and melena Onset (ago): day(s) Related Data Previous Rx's Medication Instructions Recorded baclofen 10 mg tablet 10 mg PO BID PRN for muscle spasm 04/08/21 #60 tabs blood sugar diagnostic (OneTouch #100 ea 07/27/21 Verio test strips) blood-glucose meter (OneTouch #1 ea 07/27/21 Verio Meter) lancets 30 gauge (OneTouch Delica #100 ea 07/27/21 Lancets) omeprazole 40 mg capsule,delayed 40 mg PO DAILY@0630 #30 caps 09/23/21 release metformin 1,000 mg tablet 1,000 mg PO BID #180 tabs 10/07/21 metoprolol tartrate 100 mg tablet 100 mg PO BID 90 days #180 tabs 11/24/21 clopidogrel 75 mg tablet 75 mg PO DAILY #90 tabs 04/15/22 levothyroxine 137 mcg tablet 137 mcg PO DAILY 90 days #90 tabs 05/16/22 cholecalciferol (vitamin D3) 50 50 mcg PO DAILY 90 days #90 caps 07/21/22 mcg (2,000 unit) capsule hydrochlorothiazide 25 mg tablet 25 mg PO DAILY #90 tabs 08/19/22 rosuvastatin 40 mg tablet 40 mg PO DAILY #90 tabs 08/19/22 enalapril maleate 20 mg tablet 20 mg PO BID #180 tabs 09/15/22 Allergies Allergy/AdvReac Type Severity Reaction Status Date / Time No Known Allergies Allergy Verified 09/12/22 10:22 Review of Systems Review of Systems: Constitutional: No Fever, No Chills,+Fatigue, +Malaise ENT/Mouth: No Ear Pain, No Nasal Congestion, No sore throat, No Rhinorrhea, No Swallowing Difficulty Eyes: No Eye Pain, No Swelling, No Redness, No Discharge, No Vision Changes Cardiovascular: No Chest Pain, No SOB, No Palpitations Respiratory: No Cough, No Sputum, No Dyspnea Gastrointestinal: + Nausea, + Vomiting, No Diarrhea, No Constipation, No Abdominal pain, +hematemesis, + Melena Genitourinary: No irregular bleeding, No Dysuria, No Urinary Frequency, No Hematuria, No Urinary Incontinence/retention, No Flank Pain Musculoskeletal: No joint pain, No Myalgias, No Joint Swelling Skin: No Skin Lesions, No rash Neuro: + Weakness, No Numbness, No Paresthesias, No Loss of Consciousness, +lightheadedness, No Headache Yes all other systems are reviewed and are negative Constitutional: Constitutional: Reports as per [facility] Past Medical History Attestation statement: The following information was validated with the patient. Medical History Anemia of chronic disease Blanca's esophagus with high grade dysplasia Bipolar 1 disorder CAD (coronary artery disease) CKD stage 3 secondary to diabetes COVID-19 vaccine series declined Diabetes mellitus with kidney complication, without long-term current use of insulin Dyslipidemia Erectile dysfunction Erosive gastritis Fatty liver GERD (gastroesophageal reflux disease) Gout Hearing loss Hiatal hernia Hypertension Hypothyroidism Major depression Morbid obesity Morbid obesity with body mass index (BMI) of 40.0 to 44.9 in adult Multinodular goiter Myocardial infarct Refused influenza vaccine S/P CABG x 4 Sleep apnea Uncontrolled type 2 diabetes mellitus with hyperglycemia, without long-term current use of insulin Surgical History History of endoscopy Hx of coronary artery bypass graft Hx of inguinal hernia repair Family History Family History Mother No problems noted. Sister Hyperlipemia Social History Social History Household Members: Spouse Housing: House Do you presently have visiting nurse or other home services: No Alcohol intake: never Patient Tobacco Use Status: Former Tobacco user Quit Date: 1999 Smoked: 10 +/- Smoked in Last 30 Days: No e-Cigarette/Vaping Use: Never Used Use of substances other than those prescribed or required for medical reasons: No Advance Directives: No service: No Current occupational status: retired Cognitive needs: No Hearing needs: No Vision needs: Yes Physical Exam Vital Signs: Vital Signs: Last Vital Signs Temp 98.6 F 09/21/22 16:46 Pulse 107 H 09/21/22 16:46 Resp 20 09/21/22 16:46 BP 100/65 09/21/22 16:46 Pulse Ox 98 09/21/22 16:46 O2 Del Method Room Air 09/21/22 16:46 BMI result Body Mass Index 39.9 Const: Other: pale General: cooperative and no acute distress Orientation/consciousness: patient oriented x3 Limitations: no limitations HEENT: Head: Yes normal to inspection and Yes atraumatic Ears: hearing grossly normal bilaterally General nose exam: Normal external nose present Face and sinus: Yes normal facial exam Eyes: General: appearance normal, both eyes and all related structures EOM: EOMs intact bilaterally Neck: Neck: Yes normal visual inspection and Yes no meningeal signs Resp: Effort & Inspection: normal respiratory effort and no respiratory distress Auscultation: clear to auscultation bilaterally Cardio: Rate: regular rate Heart sounds: S1 normal heart sound present and S2 normal heart sound present GI: Inspection: Yes normal to inspection Palpation (GI): Soft to palpation, nontender, no guarding and not rigid Rectal Exam - Male: Yes Abnormal stool present (black), Yes heme positive stool and Yes External hemorrhoid(s) present : General: Yes no CVA tenderness Back/Spine/Pelvis: Back: no CVA tenderness Skin: Rashes: no rashes Wounds: no wounds Neuro: General: patient oriented x3, tone normal and no meningeal signs Gait exam (Neuro): Normal gait present Extrem: General: Yes normal to inspection Course Course Course Narrative: -1430--mild leukocytosis of 11.9. H&H at patient's baseline. Hyperkalemic to 5.5 > will give Lokelma -acute on chronic CKD > likely from volume loss. Troponin WNL -magnesium low 1.4 >> 2g IV repletion given -UA not infected. Occult stool positive >> will consult GI, Dr. Tobias > spoke with Dr. Tobias, plan is for admission, & endoscopy tomorrow CT abdomen pelvis wo IV con IMPRESSION: 1.? A cause for the patient's GI bleeding has not been found. 2.? Incidental note made of elevated left hemidiaphragm, hiatal hernia, colonic diverticulosis without diverticulitis and other findings described above. ? Fleischner guidelines were followed. > plan for admission Medications Administered Discontinued Medications Generic Name Dose Route Start Last Admin Trade Name Freq PRN Reason Stop Dose Admin Sodium Chloride 500 mls @ 999 mls/hr 09/21/22 13:00 09/21/22 14:59 Ns IV 09/21/22 13:30 Infused .Q31M LEELA Infusion Magnesium Sulfate 2 gm in 50 mls @ 25 mls/hr 09/21/22 14:24 09/21/22 15:44 Magnesium Sulfate/H2o IV 09/21/22 16:23 Infused ONCE ONE Infusion Calcium Gluconate 1 gm in 50 mls @ 50 mls/hr 09/21/22 14:32 09/21/22 16:45 Calcium Gluconate IV 09/21/22 15:31 Infused ONCE ONE Infusion Pantoprazole Sodium 80 mg 09/21/22 15:17 09/21/22 15:43 Pantoprazole Sodium 40 Mg/10 Ml Vial IVPUSH 09/21/22 15:18 80 mg ONCE ONE Administration Sodium Zirconium Cyclosilicate 10 gm 09/21/22 14:32 09/21/22 14:55 Sodium Zirconium Cyclosilicate 10 Gm Powd.Pack PO 09/21/22 14:33 10 gm ONCE ONE Administration Medical Decision Making Medical Decision Making MDM Narrative: 67-year-old male with a past medical history of CAD on Plavix, CKD, diabetes, HLD, erosive gastritis, GERD, gout, hiatal hernia, HTN, hypothyroid, obesity, CA, Blanca's esophagus with high-grade dysplasia s/p EGD w/EMR & RFA on 09/05/2022 at [facility] on presenting to the ED complaining of generalized fatigue/weakness since procedure with the nausea, blood specked emesis, and dark melanotic tarry stools x today. On exam tachycardic, pale, abdomen soft/nontender, black stool noted on rectal. Patient became pale, diaphoretic, and weak after ambulating to bathroom and having large black stool. Concern for UGIB and anemia. Rule out demand ischemia. Lower suspicion for acute ACS/PE or diverticulitis/appendicitis Plan: EKG, labs, UA, occult stool, CT AP, admission Please refer to course for remaining clinical decision making, interpretation of labs/imaging results, and discussions with consultants and/or family members. Differential Diagnosis Differential Diagnoses: The differential diagnosis associated with the presentation includes As above Admission/Observation Consideration of admission/observation: Escalation of care including admission/observation considered Consult Healthcare Provider Management of the patient was discussed with: Hospitalist and Operations Processor Lab Data MDM Lab Attestation statement: I reviewed the patient's lab results. 09/21/22 12:11 09/21/22 12:11 Labs: Lab Results 09/21/22 09/21/22 09/21/22 Range/Units 12:11 12:11 12:11 WBC 11.9 H (4.8-10.8) X10*3/uL RBC 4.98 (4.60-5.80) X10*6/uL Hgb 11.6 L (14.0-18.0) g/dl Hct 38.4 L (42.0-52.0) % MCV 77.1 L (80.0-98.0) fL MCH 23.3 L (27.0-33.0) pg MCHC 30.2 L (31.0-36.0) g/dl RDW 17.6 H (11.0-16.0) % Plt Count 431 H D (160-400) X10*3/uL MPV 11.1 (9.4-12.4) fL Immature Gran % (Auto) 0.8 H (0.0-0.4) % Neut % (Auto) 75.3 H (45-73) % Lymph % (Auto) 15.1 L (20-40) % [place] % (Auto) 7.8 (2-11) % Eos % (Auto) 0.5 (0-4) % Baso % (Auto) 0.5 (0-2) % Lymph # (Auto) 1.8 (1.2-4.9) X10*3/uL [place] # (Auto) 0.9 (0.1-1.2) X10*3/uL Eos # (Auto) 0.1 (0.0-0.4) X10*3/uL Baso # (Auto) 0.1 (0.0-0.2) X10*3/uL Abs Immat Gran (auto) 0.10 H (0.00-0.03) X10*3/uL Absolute Neuts (auto) 9.0 H (2.0-8.3) x10*3/uL Absolute Nucleated RBC 0.000 (0.0-0.012) X10*3/uL Nucleated RBC % (auto) 0.0 (0.0-0.2) /100WBC PT (10.0-13.1) SEC INR (0.9-1.1) Sodium 140 (135-145) mmol/L Potassium 5.5 H (3.3-5.1) mmol/L Chloride 111 H (96-108) mmol/L Carbon Dioxide 22 (22-29) mmol/L Anion Gap 13 (12-20) BUN 62 H (9-16) mg/dL Creatinine 1.72 H (0.5-1.4) mg/dL Estim Creat Clear Calc 46.7 Estimated GFR 40 Random Glucose 119 H (60-115) mg/dL Calcium 9.7 (8.4-10.2) mg/dL Magnesium 1.4 L* (1.6-2.6) mg/dL Total Bilirubin 0.4 (0.0-1.0) mg/dL Direct Bilirubin < 0.2 (0.0-0.5) mg/dL AST 9 (5-37) U/L ALT 9 (0-40) U/L Alkaline Phosphatase 64 (39-117) U/L Troponin I High Sens 4.0 (<3.5-35.0) ng/L Total Protein 6.9 (6.5-8.0) g/dL Albumin 3.9 (3.5-5.0) g/dL Lipase 19 (8-78) U/L Urine Color Urine Appearance Urine pH (5.0-9.0) Ur Specific [place] (1.005-1.025) Urine Protein (Neg-Trace) mg/dL Urine Glucose (UA) (Negative) mg/dL Urine Ketones (Negative) mg/dL Urine Blood (Negative) Urine Nitrite (Negative) Ur Leukocyte Esterase (Negative) Stool Occult Blood (NEGATIVE) COVID-19 (ENRIQUE) (Negative) COVID-19 Clin Com Blood Type Antibody Screen 09/21/22 09/21/22 09/21/22 Range/Units 12:11 13:14 13:14 WBC (4.8-10.8) X10*3/uL RBC (4.60-5.80) X10*6/uL Hgb (14.0-18.0) g/dl Hct (42.0-52.0) % MCV (80.0-98.0) fL MCH (27.0-33.0) pg MCHC (31.0-36.0) g/dl RDW (11.0-16.0) % Plt Count (160-400) X10*3/uL MPV (9.4-12.4) fL Immature Gran % (Auto) (0.0-0.4) % Neut % (Auto) (45-73) % Lymph % (Auto) (20-40) % [place] % (Auto) (2-11) % Eos % (Auto) (0-4) % Baso % (Auto) (0-2) % Lymph # (Auto) (1.2-4.9) X10*3/uL [place] # (Auto) (0.1-1.2) X10*3/uL Eos # (Auto) (0.0-0.4) X10*3/uL Baso # (Auto) (0.0-0.2) X10*3/uL Abs Immat Gran (auto) (0.00-0.03) X10*3/uL Absolute Neuts (auto) (2.0-8.3) x10*3/uL Absolute Nucleated RBC (0.0-0.012) X10*3/uL Nucleated RBC % (auto) (0.0-0.2) /100WBC PT 13.8 H (10.0-13.1) SEC INR 1.2 H (0.9-1.1) Sodium (135-145) mmol/L Potassium (3.3-5.1) mmol/L Chloride (96-108) mmol/L Carbon Dioxide (22-29) mmol/L Anion Gap (12-20) BUN (9-16) mg/dL Creatinine (0.5-1.4) mg/dL Estim Creat Clear Calc Estimated GFR Random Glucose (60-115) mg/dL Calcium (8.4-10.2) mg/dL Magnesium (1.6-2.6) mg/dL Total Bilirubin (0.0-1.0) mg/dL Direct Bilirubin (0.0-0.5) mg/dL AST (5-37) U/L ALT (0-40) U/L Alkaline Phosphatase (39-117) U/L Troponin I High Sens (<3.5-35.0) ng/L Total Protein (6.5-8.0) g/dL Albumin (3.5-5.0) g/dL Lipase (8-78) U/L Urine Color Yellow Urine Appearance Clear Urine pH 5.5 (5.0-9.0) Ur Specific [place] 1.020 (1.005-1.025) Urine Protein Trace (Neg-Trace) mg/dL Urine Glucose (UA) Negative (Negative) mg/dL Urine Ketones Trace (Negative) mg/dL Urine Blood Negative (Negative) Urine Nitrite Negative (Negative) Ur Leukocyte Esterase Negative (Negative) Stool Occult Blood (NEGATIVE) COVID-19 (ENRIQUE) Negative (Negative) COVID-19 Clin Com See Note Blood Type Antibody Screen 09/21/22 09/21/22 09/21/22 Range/Units 13:14 13:14 16:48 WBC 11.4 H (4.8-10.8) X10*3/uL RBC 4.38 L (4.60-5.80) X10*6/uL Hgb 10.4 L (14.0-18.0) g/dl Hct 33.9 L (42.0-52.0) % MCV 77.4 L (80.0-98.0) fL MCH 23.7 L (27.0-33.0) pg MCHC 30.7 L (31.0-36.0) g/dl RDW 17.7 H (11.0-16.0) % Plt Count 411 H (160-400) X10*3/uL MPV 11.4 (9.4-12.4) fL Immature Gran % (Auto) 0.9 H (0.0-0.4) % Neut % (Auto) 71.0 (45-73) % Lymph % (Auto) 19.5 L (20-40) % [place] % (Auto) 7.9 (2-11) % Eos % (Auto) 0.3 (0-4) % Baso % (Auto) 0.4 (0-2) % Lymph # (Auto) 2.2 (1.2-4.9) X10*3/uL [place] # (Auto) 0.9 (0.1-1.2) X10*3/uL Eos # (Auto) 0.0 (0.0-0.4) X10*3/uL Baso # (Auto) 0.1 (0.0-0.2) X10*3/uL Abs Immat Gran (auto) 0.10 H (0.00-0.03) X10*3/uL Absolute Neuts (auto) 8.1 (2.0-8.3) x10*3/uL Absolute Nucleated RBC 0.000 (0.0-0.012) X10*3/uL Nucleated RBC % (auto) 0.0 (0.0-0.2) /100WBC PT (10.0-13.1) SEC INR (0.9-1.1) Sodium (135-145) mmol/L Potassium (3.3-5.1) mmol/L Chloride (96-108) mmol/L Carbon Dioxide (22-29) mmol/L Anion Gap (12-20) BUN (9-16) mg/dL Creatinine (0.5-1.4) mg/dL Estim Creat Clear Calc Estimated GFR Random Glucose (60-115) mg/dL Calcium (8.4-10.2) mg/dL Magnesium (1.6-2.6) mg/dL Total Bilirubin (0.0-1.0) mg/dL Direct Bilirubin (0.0-0.5) mg/dL AST (5-37) U/L ALT (0-40) U/L Alkaline Phosphatase (39-117) U/L Troponin I High Sens (<3.5-35.0) ng/L Total Protein (6.5-8.0) g/dL Albumin (3.5-5.0) g/dL Lipase (8-78) U/L Urine Color Urine Appearance Urine pH (5.0-9.0) Ur Specific [place] (1.005-1.025) Urine Protein (Neg-Trace) mg/dL Urine Glucose (UA) (Negative) mg/dL Urine Ketones (Negative) mg/dL Urine Blood (Negative) Urine Nitrite (Negative) Ur Leukocyte Esterase (Negative) Stool Occult Blood POSITIVE (NEGATIVE) COVID-19 (ENRIQUE) (Negative) COVID-19 Clin Com Blood Type O Positive Antibody Screen NEGATIVE 09/21/22 Range/Units 16:48 WBC (4.8-10.8) X10*3/uL RBC (4.60-5.80) X10*6/uL Hgb (14.0-18.0) g/dl Hct (42.0-52.0) % MCV (80.0-98.0) fL MCH (27.0-33.0) pg MCHC (31.0-36.0) g/dl RDW (11.0-16.0) % Plt Count (160-400) X10*3/uL MPV (9.4-12.4) fL Immature Gran % (Auto) (0.0-0.4) % Neut % (Auto) (45-73) % Lymph % (Auto) (20-40) % [place] % (Auto) (2-11) % Eos % (Auto) (0-4) % Baso % (Auto) (0-2) % Lymph # (Auto) (1.2-4.9) X10*3/uL [place] # (Auto) (0.1-1.2) X10*3/uL Eos # (Auto) (0.0-0.4) X10*3/uL Baso # (Auto) (0.0-0.2) X10*3/uL Abs Immat Gran (auto) (0.00-0.03) X10*3/uL Absolute Neuts (auto) (2.0-8.3) x10*3/uL Absolute Nucleated RBC (0.0-0.012) X10*3/uL Nucleated RBC % (auto) (0.0-0.2) /100WBC PT (10.0-13.1) SEC INR (0.9-1.1) Sodium 137 (135-145) mmol/L Potassium 4.8 (3.3-5.1) mmol/L Chloride 109 H (96-108) mmol/L Carbon Dioxide 20 L (22-29) mmol/L Anion Gap 13 (12-20) BUN 70 H (9-16) mg/dL Creatinine 1.59 H (0.5-1.4) mg/dL Estim Creat Clear Calc 50.5 Estimated GFR 44 Random Glucose 124 H (60-115) mg/dL Calcium 9.5 (8.4-10.2) mg/dL Magnesium (1.6-2.6) mg/dL Total Bilirubin (0.0-1.0) mg/dL Direct Bilirubin (0.0-0.5) mg/dL AST (5-37) U/L ALT (0-40) U/L Alkaline Phosphatase (39-117) U/L Troponin I High Sens (<3.5-35.0) ng/L Total Protein (6.5-8.0) g/dL Albumin (3.5-5.0) g/dL Lipase (8-78) U/L Urine Color Urine Appearance Urine pH (5.0-9.0) Ur Specific [place] (1.005-1.025) Urine Protein (Neg-Trace) mg/dL Urine Glucose (UA) (Negative) mg/dL Urine Ketones (Negative) mg/dL Urine Blood (Negative) Urine Nitrite (Negative) Ur Leukocyte Esterase (Negative) Stool Occult Blood (NEGATIVE) COVID-19 (ENRIQUE) (Negative) COVID-19 Clin Com Blood Type Antibody Screen Independent Interpretation I performed an independent interpretation of an: EKG Interpretation: My interpretation EKG is sinus tachycardia with PVCs at a rate of 109. Inverted T-wave in lead 1, 2, in aVL. Peaked T-waves in V1 through V4. No STEMI Radiology Impression Discussion of test interpretation with radiology: I have reviewed the radiologist's reading. External Record Review External record reviewed: Inpatient record, Office record, Outpatient record, Prior outpatient labs, Prior outpatient radiology, Primary care record and Outside ED record Critical Care Time Critical Care Time Critical Care Time: Yes Total Critical Care Time: 40 Attestation: I have personally provided critical care time exclusive of time spent on separately billable procedures. Time includes review of lab data, radiology results, discussion with consultants, and monitoring for potential decompensation. Intervention performed as documented. Discharge Plan Discharge Clinical Impression: UGIB (upper gastrointestinal bleed) Patient Disposition: Admitted As Inpatient
[2022-09-21 12:29] LABS: INTERNATIONAL NORM RATIO 1.2 (0.9-1.1); Prothrombin Time 13.8 SEC (10.0-13.1)
[2022-09-21 12:40] LABS: Alanine Aminotransferase 9 U/L (0-40); Albumin Level 3.9 g/dL (3.5-5.0); Alkaline Phosphatase 64 U/L (39-117); Anion Gap 13 (12-20); Aspartate Amino Transferase 9 U/L (5-37); Bilirubin Direct < 0.2 mg/dL (0.0-0.5); Bilirubin Total 0.4 mg/dL (0.0-1.0); Blood Urea Nitrogen 62 mg/dL (9-16); Calcium 9.7 mg/dL (8.4-10.2); Carbon Dioxide 22 mmol/L (22-29); Chloride 111 mmol/L (96-108); Creatinine Clr Calc Pharmacy 46.7; Estimated Glomerular Filt Rate 40; Glucose Random 119 mg/dL (60-115); Potassium 5.5 mmol/L (3.3-5.1); Sodium 140 mmol/L (135-145); Total Protein 6.9 g/dL (6.5-8.0)
[2022-09-21 12:58] LABS: Lipase 19 U/L (8-78)
[2022-09-21] MEDS: 0.9 % Sodium Chloride 500 ML 999 ML IV (13:00)
[2022-09-21 13:25] LABS: Appearance Urine Clear; Color Urine Yellow; Glucose Urine UA Negative (Negative); Leukocyte Esterase Urine Negative (Negative); Nitrite Urine Negative (Negative); OBS Int Ctl Valid YES; OBS1 POSITIVE (NEGATIVE); PH 5.5 (5.0-9.0); Urine Blood Negative (Negative); Urine Ketones Trace mg/dL (Negative); Urine Protein Trace mg/dL (Neg-Trace)
[2022-09-21 13:50] LABS: COVID-19 Test Negative (Negative); IDNOW Serial# 6674DD1D
[2022-09-21 14:01] LABS: Magnesium 1.4 mg/dL (1.6-2.6)
[2022-09-21] MEDS: Magnesium Sulfate/H2O 2 GM/50 ML PIGGYBACK IV (14:52)
[2022-09-21] MEDS: Sodium Zirconium Cyclosilicate 10 GM POWD.PACK PO (14:55)
[2022-09-21] MEDS: Pantoprazole Sodium 40 MG/10 ML VIAL 80 MG IVPUSH (15:43)
[2022-09-21] MEDS: Calcium Gluconate/NaCl,Iso-Osm 1 GM/50 ML PLAST..BAG IV (15:44)
--- NOTE | 2022-09-21 16:46 | MHC.SHP ---
Pre-Procedural Eval Section A Date of Service: 09/21/22 The patient is an INPATIENT: Yes Changes since office visit: No Cold of Flu in the past 2 weeks, No New Medical Problems, No Changes in Medication and No Patient answered all questions The History & Physical has been completed within 30 days and I have reviewed it.: Yes Section B Chief Complaint: dark stool/ nausea Allergies: Allergies Allergy/AdvReac Type Severity Reaction Status Date / Time No Known Allergies Allergy Verified 09/12/22 10:22 Plan I have reviewed the history and physical and performed a pertinent physical examination on my patient. No changes have occurred unless specified. Time Spent With Patient Time: Total time managing care of this patient today ____ minutes.
--- NOTE | 2022-09-21 16:47 | PM.EVENT ---
Event Note Date of Service: 09/21/22 Event Note: GI consult dictated EGD tomorrow for evaluation of upper gi bleeding pt aware of risks and benefits and agrees to proceed. follow hct no antiplatelets or anticoagulation iv ppi Time Spent With Patient Time: Total time managing care of this patient today ____ minutes.
--- NOTE | 2022-09-21 16:48 | PM.IMHP ---
History of Present Illness Date of Service: 09/21/22 Attending physician on admission: Bartolome Olivera Chief Complaint: Generalized weakness, black stool Pt is a 67-year-old male with a PMH significant for?CADs/p CABG + PCI on clopidogrel, previous gastric/duodenal ulcer requiring PRBC transfusion, CKD stage 3, GERD, gout, hiatal hernia, HTN, hypothyroidism, [id number] diabetes, Blanca's esophagus with high-grade dysplasia s/p EGD w/EMR & RFA on 09/05/2022 at [facility] who presents to the ED with?dysphagia since procedure and blood-specked emesis since last night. Pt states he has had difficulty swallowing since his EGD with biospy on 09/05/2022. Has only been able to eat soft foods. Was scheduled for f/u at [facility] on Monday. However, last night pt went to bed and had an episode of vomiting up recent meal that was stuck in his throat, was slimy and flecked with blood. This morning pt had a dark-colored bowel movement and was dizzy, lightheaded, and fatigued. Noted he needed to be brought to ED from the parking lot in a wheelchair. In the ED patient was noted to have become pale, diaphoretic, and weak after ambulating to the bathroom where he had a large black stool. Patient denies chest pain/pressure, palpitations. No shortness of breath. In the ED patient was afebrile, tachycardic up to 122, tachypneic up to 22, and hypotensive as low as 101/52. Labs were significant for leukocytosis of 11.9, H&H of 11.6/38.4 (at baseline), platelets 431, hyperkalemic at 5.5, chloride of 111, BUN elevated at 62, creatinine 1.72, and Mag 1.4. UA negative for UTI. Stool positive for occult blood. CT?of abdomen and pelvis did not find a cause for the patient's GI bleeding, but did incidentally note elevated left hemidiaphragm, hiatal hernia, and diverticulosis without diverticulitis. EKG demonstrated sinus tachycardia with PVCs, and T-wave inversions in 1 and aVL. Pt was treated with IVF, Mag sulfate, Lokelma, pantoprazole, calcium gluconate. Pt will be admitted to the hospital for treatment further evaluation of upper GI bleed. Review of Systems Review of Systems: Dysphagia x2 weeks N/V, with blood-specked emesis this morning Dark-colored stool this morning Dizziness, lightheadedness, fatigue this morning Denies chest pain/pressure, palpitations No shortness of breath Denies abdominal pain Yes all other systems are reviewed and are negative [facility] Medical History Anemia of chronic disease Blanca's esophagus with high grade dysplasia Bipolar 1 disorder CAD (coronary artery disease) CKD stage 3 secondary to diabetes COVID-19 vaccine series declined Diabetes mellitus with kidney complication, without long-term current use of insulin Dyslipidemia Erectile dysfunction Erosive gastritis Fatty liver GERD (gastroesophageal reflux disease) Gout Hearing loss Hiatal hernia Hypertension Hypothyroidism Major depression Morbid obesity Morbid obesity with body mass index (BMI) of 40.0 to 44.9 in adult Multinodular goiter Myocardial infarct Refused influenza vaccine S/P CABG x 4 Sleep apnea Uncontrolled type 2 diabetes mellitus with hyperglycemia, without long-term current use of insulin Family History Mother No problems noted. Sister Hyperlipemia Surgical History History of endoscopy Hx of coronary artery bypass graft Hx of inguinal hernia repair Social History Household Members: Spouse Housing: House Do you presently have visiting nurse or other home services: No Alcohol intake: never Patient Tobacco Use Status: Former Tobacco user Quit Date: 1999 Years Smoked: 10 +/- Smoked in Last 30 Days: No e-Cigarette/Vaping Use: Never Used Use of substances other than those prescribed or required for medical reasons: No Advance Directives: No service: No Current occupational status: retired Cognitive needs: No Hearing needs: No Vision needs: Yes Meds Allergies Allergy/AdvReac Type Severity Reaction Status Date / Time No Known Allergies Allergy Verified 09/12/22 10:22 Physical Exam Vital Signs and Narrative: Vital Signs: Last Vital Signs Temp 98.6 F 09/21/22 16:46 Pulse 107 H 09/21/22 16:46 Resp 20 09/21/22 16:46 BP 100/65 04/05/23 16:46 Pulse Ox 98 09/21/22 16:46 O2 Del Method Room Air 09/21/22 16:46 BMI result Body Mass Index 39.9 Constitutional: Alert, in no acute distress. Mental Status: Oriented to person, place and time. Eyes: Pupils are equal, round, and reactive to light. Ear, Nose, and Throat: Oropharynx clear, mucous membranes dry. Ears and nose without deformities. Trachea midline. Respiratory: Clear to auscultation bilaterally. No wheezing, rales, or rhonchi. Cardiovascular: S1, S2 regular. No murmurs, rubs, or gallops. Gastrointestinal: Abdomen soft, non-distended, obese, with mild lower right quadrant tenderness. Normal bowel sounds. Neurologic: Cranial nerves II-XII are grossly intact bilaterally. No focal neurological deficits. Moves all extremities spontaneously. Skin: No rashes or lesions noted. Musculoskeletal: No cyanosis or clubbing. Extremities: No edema. Psychiatric: Normal mood and affect. Results Labs 09/21/22 12:11 09/21/22 12:11 Labs: Laboratory Results - last 24 hr 09/21/22 09/21/22 09/21/22 12:11 12:11 12:11 MCV 77.1 L MCH 23.3 L MCHC 30.2 L RDW 17.6 H Plt Count 431 H D MPV 11.1 Immature Gran % (Auto) 0.8 H Neut % (Auto) 75.3 H Lymph % (Auto) 15.1 L [place] % (Auto) 7.8 Eos % (Auto) 0.5 Baso % (Auto) 0.5 Lymph # (Auto) 1.8 [place] # (Auto) 0.9 Eos # (Auto) 0.1 Baso # (Auto) 0.1 Abs Immat Gran (auto) 0.10 H Absolute Neuts (auto) 9.0 H Absolute Nucleated RBC 0.000 Nucleated RBC % (auto) 0.0 PT INR Anion Gap 13 Estim Creat Clear Calc 46.7 Estimated GFR 40 Random Glucose 119 H Calcium 9.7 Magnesium 1.4 L* Total Bilirubin 0.4 Direct Bilirubin < 0.2 AST 9 ALT 9 Alkaline Phosphatase 64 Troponin I High Sens 4.0 Total Protein 6.9 Albumin 3.9 Lipase 19 Urine Color Urine Appearance Urine pH Ur Specific [place] Urine Protein Urine Glucose (UA) Urine Ketones Urine Blood Urine Nitrite Ur Leukocyte Esterase Stool Occult Blood COVID-19 (ENRIQUE) COVID-19 Clin Com Blood Type Antibody Screen 09/21/22 09/21/22 09/21/22 12:11 13:14 13:14 MCV MCH MCHC RDW Plt Count MPV Immature Gran % (Auto) Neut % (Auto) Lymph % (Auto) [place] % (Auto) Eos % (Auto) Baso % (Auto) Lymph # (Auto) [place] # (Auto) Eos # (Auto) Baso # (Auto) Abs Immat Gran (auto) Absolute Neuts (auto) Absolute Nucleated RBC Nucleated RBC % (auto) PT 13.8 H INR 1.2 H Anion Gap Estim Creat Clear Calc Estimated GFR Random Glucose Calcium Magnesium Total Bilirubin Direct Bilirubin AST ALT Alkaline Phosphatase Troponin I High Sens Total Protein Albumin Lipase Urine Color Yellow Urine Appearance Clear Urine pH 5.5 Ur Specific [place] 1.020 Urine Protein Trace Urine Glucose (UA) Negative Urine Ketones Trace Urine Blood Negative Urine Nitrite Negative Ur Leukocyte Esterase Negative Stool Occult Blood COVID-19 (ENRIQUE) Negative COVID-19 Edfa3ly Com See Note Blood Type Antibody Screen 09/21/22 09/21/22 13:14 13:14 MCV MCH MCHC RDW Plt Count MPV Immature Gran % (Auto) Neut % (Auto) Lymph % (Auto) [place] % (Auto) Eos % (Auto) Baso % (Auto) Lymph # (Auto) [place] # (Auto) Eos # (Auto) Baso # (Auto) Abs Immat Gran (auto) Absolute Neuts (auto) Absolute Nucleated RBC Nucleated RBC % (auto) PT INR Anion Gap Estim Creat Clear Calc Estimated GFR Random Glucose Calcium Magnesium Total Bilirubin Direct Bilirubin AST ALT Alkaline Phosphatase Troponin I High Sens Total Protein Albumin Lipase Urine Color Urine Appearance Urine pH Ur Specific [place] Urine Protein Urine Glucose (UA) Urine Ketones Urine Blood Urine Nitrite Ur Leukocyte Esterase Stool Occult Blood POSITIVE COVID-19 (ENRIQUE) COVID-19 Edfa3ly Com Blood Type O Positive Antibody Screen NEGATIVE Imaging Radiologist's Impressions: Impressions Abdomen/Pelvis CT 09/21/22 14:02 IMPRESSION: 1. A cause for the patient's GI bleeding has not been found. 2. Incidental note made of elevated left hemidiaphragm, hiatal hernia, colonic diverticulosis without diverticulitis and other findings described above. Fleischner guidelines were followed. Assessment and Plan (1) UGIB (upper gastrointestinal bleed): Status: Acute Plan Pt is a 67-year-old male with a PMH significant for?CADs/p CABG + PCI on clopidogrel, previous gastric/duodenal ulcer requiring PRBC transfusion, CKD stage 3, GERD, gout, hiatal hernia, HTN, hypothyroidism, [id number] diabetes, Blanca's esophagus with high-grade dysplasia s/p EGD w/EMR & RFA on 09/05/2022 at [facility] who presents to the ED with?dysphagia since procedure and blood-specked emesis since last night. Pt will be admitted to the hospital for treatment further evaluation of upper GI bleed. Upper GI bleed Patient with EGD w/EMR & RFA on 09/05/2022 at [facility], has had difficulty swallowing since Blood-specked emesis and black stool since this morning H&H 11.6 of 38.4 at time of presentation, repeat 10.4/33.9 Stool positive for occult blood Clear liquid diet for now, NPO after midnight in anticipation of EGD tomorrow Protonix IV Hold clopidogrel GI consult Follow CBC JUDITH on CKD stage III Creatinine slightly elevated above baseline at 1.72 Patient received IVF in the ED Patient will receive another L of IVF Follow BMP Hyperkalemia Potassium was 5.5 at time of presentation, repeat 4.8 Patient given Lokelma and calcium gluconate in the ED Follow BMP Hypomagnesmia Magnesium 1.4 upon presentation Patient given 2 g IV Mag sulfate in ED Follow mag CAD Hold clopidogrel due to UGI Continue metoprolol, statin Xkf-bcjznyv-rxcxfuuyk diabetes Hold metformin SSI Hypothyroidism Continue levothyroxine HTN Hold hydrochlorothiazide, enalapril d/t JUDITH, BP soft Full Code Attending:?Dr. Olivera. DVT Prophylaxis: Pneumatic boots Pt will require a hospitalization of at least two nights for treatment and further evaluation of likely UGI bleed. Time Spent With Patient Time: Total time managing care of this patient today ____ minutes. Quality Stroke Does the patient have a stroke diagnosis?: No VTE Prior VTE?: No VTE Risk Level:: Medical - moderate - high VTE Device Contraindication: N/A - Device Ordered VTE Drug Contraindication: Treatment Not Indicated
[2022-09-21 16:54] LABS: MANUAL DIFF FLAG NO
[2022-09-21 17:18] LABS: Basophils Absolute Auto 0.1 X10*3/uL (0.0-0.2); Basophils Percent Auto 0.4 % (0-2); Eosinophils Percent Auto 0.3 % (0-4); Hematocrit 33.9 % (42.0-52.0); Hemoglobin 10.4 g/dl (14.0-18.0); Imm Gran Pct Auto 0.9 % (0.0-0.4); Lymphocytes Absolute Auto 2.2 X10*3/uL (1.2-4.9); Lymphocytes Percent Auto 19.5 % (20-40); Mean Corpuscular HGB Conc 30.7 g/dl (31.0-36.0); Mean Corpuscular Hemoglobin 23.7 pg (27.0-33.0); Mean Corpuscular Volume 77.4 fL (80.0-98.0); Mean Platelet Volume 11.4 fL (9.4-12.4); Monocytes Absolute Auto 0.9 X10*3/uL (0.1-1.2); Monocytes Percent Auto 7.9 % (2-11); Neutrophils Absolute Auto 8.1 x10*3/uL (2.0-8.3); Platelet Count 411 X10*3/uL (160-400); Red Blood Count 4.38 X10*6/uL (4.60-5.80); Red Cell Distribution Width 17.7 % (11.0-16.0); White Blood Count 11.4 X10*3/uL (4.8-10.8)
[2022-09-21 17:25] LABS: Anion Gap 13 (12-20); Blood Urea Nitrogen 70 mg/dL (9-16); Calcium 9.5 mg/dL (8.4-10.2); Carbon Dioxide 20 mmol/L (22-29); Chloride 109 mmol/L (96-108); Creatinine Clr Calc Pharmacy 50.5; Estimated Glomerular Filt Rate 44; Glucose Random 124 mg/dL (60-115); Potassium 4.8 mmol/L (3.3-5.1); Sodium 137 mmol/L (135-145)
--- NOTE | 2022-09-21 17:33 | PHA.MEDREC ---
MED REC COMPLETE, NO ISSUES Pharmacy Consult ? Medication Reconciliation Pharmacy has completed the medication reconciliation.
[2022-09-21] MEDS: 0.9 % Sodium Chloride 1,000 ML 100 ML IVCONT (19:08)
--- NOTE | 2022-09-21 20:49 | PC.NURSE ---
late entry- pt medicated according to aug. pt calm and cooperative at bedside.
--- NOTE | 2022-09-21 20:50 | PC.NURSE ---
this rn called report to joesph tavarez. transporter ashley to bring pt to [phone]. pt calm and cooperative at this time
[2022-09-21 20:59] LABS: Glucose, Whole Blood 152 mg/dL (60-115)
[2022-09-21] MEDS: Metoprolol Tartrate 100 MG TABLET PO (21:21)
[2022-09-21] MEDS: Insulin Lispro 100 UNIT/ML 3 ML VIAL SUBCUT (21:21)
[2022-09-21] MEDS: ondansetron HCL 4 MG/2 ML VIAL IVPUSH (21:32)
--- NOTE | 2022-09-22 02:16 | CONS_ITS ---
DATE OF SERVICE: 09/21/2022 REFERRING PHYSICIAN: REASON FOR CONSULTATION: GI bleeding. HISTORY OF PRESENT ILLNESS: The patient is a pleasant 67-year-old man known to me from prior evaluation. He has a history of Blanca esophagus with high-grade dysplasia and is currently undergoing endoscopic mucosal resection and radiofrequency ablation of [facility] with his last procedure on 09/05. He presented to the emergency department today after complaining of a small amount of blood-streaked emesis yesterday evening with a feeling that he could not swallow any solid food. He was able to swallow scrambled eggs and soup. This morning, he had 2 black stools and presented to the emergency department where he was evaluated. He has been on a proton pump inhibitor at home and is also on clopidogrel. In the emergency department, he had black stool that was Hemoccult positive on rectal examination. Laboratory studies revealed a hematocrit of 38.4, which was down slightly from 46 on August 13 of this year and he was also noted to be hyperkalemic with a potassium of 5.5. He denies any recent alcohol or NSAID use. He did well immediately after the procedure. PAST MEDICAL HISTORY: 1. Blanca esophagus as above. 2. Hypertension. 3. Chronic kidney disease stage 3. 4. Hyperlipidemia. 5. Diabetes mellitus type 2. 6. Peptic ulcer disease. 7. Coronary artery disease with history of CABG and PCI. 8. Anemia. 9. Bipolar disorder. 10. Hypothyroidism. 11. Elevated BMI. 12. Sleep apnea. PAST SURGICAL HISTORY: CABG and hernia repairs. CURRENT MEDICATIONS: His current medication list is reviewed in the chart. ALLERGIES: THERE ARE NONE REPORTED. FAMILY HISTORY: This is reviewed with the patient and is noncontributory. SOCIAL HISTORY: There is no current tobacco, alcohol, or substance abuse. REVIEW OF SYSTEMS: SKIN: No pruritus. HEENT: Negative. CARDIOPULMONARY: No shortness of breath or chest pain. GASTROINTESTINAL: As above. GENITOURINARY: Negative. NEUROPSYCHIATRIC: Negative. PHYSICAL EXAMINATION: GENERAL: Shows a pleasant male, lying comfortably in bed. VITAL SIGNS: Reviewed in the electronic medical record. He has been tachycardic in the emergency department, but not hypotensive. SKIN: Anicteric. HEENT: Shows no scleral icterus. NECK: Without lymphadenopathy or thyromegaly. LUNGS: Clear. HEART: Shows a regular rate and rhythm. S1 and S2. No murmur. ABDOMEN: Soft without focal masses or tenderness. Bowel sounds are present. No organomegaly is noted. EXTREMITIES: Without edema. LABORATORY DATA AND IMAGING STUDIES: Reviewed. IMPRESSION: Upper gastrointestinal bleeding. This may be related to his recent procedure, although was a somewhat prolonged complication. I discussed endoscopy with him including risks and benefits. He understands and agrees to proceed. This will be arranged for tomorrow after his electrolyte disturbances have been corrected and he has received hydration. I would recommend monitoring his hematocrit and continue proton pump inhibitor. He does not need transfusion at this point, but he may if his blood count drops, I would hold clopidogrel. Thanks for asking me to see him. I will follow him in the hospital with you. MD DIANNE Ariza/PAVAN / [id number] MTDD
[2022-09-22 03:37] VITALS: BP 100/60; PULSE 73; RESP 18; TEMP 36.5; O2SAT 98
[2022-09-22] MEDS: Pantoprazole Sodium 40 MG/10 ML VIAL IVPUSH (06:13)
[2022-09-22] MEDS: Levothyroxine Sodium 25 MCG TABLET PO (06:22)
[2022-09-22] MEDS: Levothyroxine Sodium 112 MCG TABLET PO (06:22)
--- NOTE | 2022-09-22 06:29 | PC.NURSE ---
Per Dr Mercedes NPO pt was given morning PO medication with small sips of water
[2022-09-22 07:30] LABS: Glucose, Whole Blood 96 mg/dL (60-115)
[2022-09-22 07:55] LABS: Hematocrit 30.3 % (42.0-52.0); Hemoglobin 9.4 g/dl (14.0-18.0); Mean Corpuscular Hemoglobin 23.7 pg (27.0-33.0); Mean Corpuscular Volume 76.5 fL (80.0-98.0); Mean Platelet Volume 11.8 fL (9.4-12.4); Platelet Count 387 X10*3/uL (160-400); Red Blood Count 3.96 X10*6/uL (4.60-5.80); Red Cell Distribution Width 17.8 % (11.0-16.0); White Blood Count 9.3 X10*3/uL (4.8-10.8)
[2022-09-22 08:00] VITALS: BP 111/62; PULSE 75; RESP 20; TEMP 36.4; O2SAT 95
[2022-09-22 08:07] LABS: Anion Gap 13 (12-20); Blood Urea Nitrogen 57 mg/dL (9-16); Calcium 8.7 mg/dL (8.4-10.2); Carbon Dioxide 19 mmol/L (22-29); Chloride 110 mmol/L (96-108); Creatinine Clr Calc Pharmacy 54.7; Estimated Glomerular Filt Rate 48; Glucose Random 97 mg/dL (60-115); Magnesium 1.7 mg/dL (1.6-2.6); Potassium 4.4 mmol/L (3.3-5.1); Sodium 138 mmol/L (135-145)
[2022-09-22] MEDS: Atorvastatin Calcium 80 MG TABLET PO (09:17)
[2022-09-22] MEDS: Metoprolol Tartrate 100 MG TABLET PO (09:17)
[2022-09-22] MEDS: Cholecalciferol (Vitamin D3) 25 MCG TABLET 50 MCG PO (09:17)
[2022-09-22] MEDS: 0.9 % Sodium Chloride Flush 3 ML SYRINGE IVFLUSH (09:18)
[2022-09-22 11:03] VITALS: BP 118/64; PULSE 69; RESP 20; TEMP 36.1; O2SAT 97
[2022-09-22 11:16] LABS: Glucose, Whole Blood 114 mg/dL (60-115)
--- NOTE | 2022-09-22 11:21 | HO.ANESPROP2 ---
HPI - Anesthesia Eval Consult details Narrative: [facility] EGD PMFSH Active Problems Active Problems: All Active Problems (Updated 09/21/22 @ 16:42 by RAIN Ludwig) UGIB (upper gastrointestinal bleed) (Acute) COVID-19 vaccine series declined (Acute) Refused influenza vaccine (Acute) Morbid obesity with body mass index (BMI) of 40.0 to 44.9 in adult (Acute) CAD (coronary artery disease) (Acute) Blanca's esophagus with high grade dysplasia (Acute) Diabetes mellitus with kidney complication, without long-term current use of insulin (Acute) Multinodular goiter (Acute) GERD (gastroesophageal reflux disease) (Acute) CKD stage 3 secondary to diabetes (Acute) Anemia of chronic disease (Chronic) Screening for colon cancer (Acute) Vitamin D deficiency (Acute) Refused pneumococcal vaccine (Acute) Stable angina (Acute) Erosive gastritis (Acute) S/P CABG x 4 (Acute) Dyslipidemia (Acute) Hypothyroidism (Acute) Hypertension (Acute) Past Medical History Medical History Anemia of chronic disease Blanca's esophagus with high grade dysplasia Bipolar 1 disorder CAD (coronary artery disease) CKD stage 3 secondary to diabetes COVID-19 vaccine series declined Diabetes mellitus with kidney complication, without long-term current use of insulin Dyslipidemia Erectile dysfunction Erosive gastritis Fatty liver GERD (gastroesophageal reflux disease) Gout Hearing loss Hiatal hernia Hypertension Hypothyroidism Major depression Morbid obesity Morbid obesity with body mass index (BMI) of 40.0 to 44.9 in adult Multinodular goiter Myocardial infarct Refused influenza vaccine S/P CABG x 4 Sleep apnea Uncontrolled type 2 diabetes mellitus with hyperglycemia, without long-term current use of insulin Family History Family History Mother No problems noted. Sister Hyperlipemia Family history of problems with anesthesia: No Surgical History Surgical History History of endoscopy Hx of coronary artery bypass graft Hx of inguinal hernia repair History of Problems with Anesthesia: No Social History Social History Household Members: Spouse Housing: House Do you presently have visiting nurse or other home services: No Alcohol intake: never Patient Tobacco Use Status: Former Tobacco user Quit Date: 1999 Smoked: 10 +/- e-Cigarette/Vaping Use: Never Used service: No Current occupational status: retired Cognitive needs: No Hearing needs: No Vision needs: Yes Meds Allergies Allergy/AdvReac Type Severity Reaction Status Date / Time No Known Allergies Allergy Verified 09/12/22 10:22 Active Medications: Current Medications Acetaminophen (Acetaminophen 325 Mg Tablet) 650 mg PO Q6H PRN PRN Reason: Pain, Mild (Pain Scale 1-3) Atorvastatin Calcium (Atorvastatin Calcium 80 Mg Tablet) 80 mg PO DAILY [facility] Last Admin: 09/22/22 09:17 Dose: 80 mg Baclofen (Baclofen 10 Mg Tablet) 10 mg PO BID PRN PRN Reason: for muscle spasm Glucose (Glucose Gel 15 Gm Gel..Gram.) 15 gm PO Q15M PRN; Protocol PRN Reason: per Hypoglycemia Standing Ord. Dextrose (D10) 250 mls @ 750 mls/hr IV Q15M PRN; Protocol PRN Reason: per Hypoglycemia Standing Ord. Lactated Ringer's (Lr) 1,000 mls @ 50 mls/hr IVCONT .Q20H [facility] Insulin Human Lispro (Insulin Lispro 100 Unit/Ml 3 Ml Vial) 0 unit SUBCUT QIDACHS [facility]; Protocol Last Admin: 09/22/22 09:22 Dose: Not Given Levothyroxine Sodium (Levothyroxine Sodium 112 Mcg Tablet) 112 mcg PO DAILY@0600 [facility] Last Admin: 09/22/22 06:22 Dose: 112 mcg Levothyroxine Sodium (Levothyroxine Sodium 25 Mcg Tablet) 25 mcg PO DAILY@0600 [facility] Last Admin: 09/22/22 06:22 Dose: 25 mcg Metoprolol Tartrate (Metoprolol Tartrate 100 Mg Tablet) 100 mg PO BID [facility]; Protocol Last Admin: 09/22/22 09:17 Dose: 100 mg Ondansetron HCl (Ondansetron Hcl 4 Mg/2 Ml Vial) 4 mg IVPUSH Q8H PRN PRN Reason: Nausea and Vomiting Last Admin: 09/21/22 21:32 Dose: 4 mg Pantoprazole Sodium (Pantoprazole Sodium 40 Mg/10 Ml Vial) 40 mg IVPUSH BID@0630,1630 [facility] Last Admin: 09/22/22 06:13 Dose: 40 mg Sodium Chloride (0.9 % Sodium Chloride Flush 3 Ml Syringe) 3 ml IVFLUSH QSHIFT [facility] Last Admin: 09/22/22 09:18 Dose: 3 ml Vitamin D (Cholecalciferol (Vitamin D3) 25 Mcg Tablet) 50 mcg PO DAILY [facility] Last Admin: 09/22/22 09:17 Dose: 50 mcg Exam Exam Date and Time: September 22, 2022 1121 Height,Weight and Vital Signs: Height 5 ft 5 in Weight 109 kg Last Vital Signs Temp 97.0 F 09/22/22 11:03 Pulse 69 09/22/22 11:03 Resp 20 09/22/22 11:03 BP 118/64 09/22/22 11:03 Pulse Ox 97 09/22/22 11:03 O2 Del Method Room Air 09/22/22 11:03 Pertinent Lab Results Pertinent Lab Results: Laboratory Tests 09/21/22 09/21/22 09/21/22 12:11 12:11 12:11 WBC 11.9 H RBC 4.98 Hgb 11.6 L Hct 38.4 L MCV 77.1 L MCH 23.3 L MCHC 30.2 L RDW 17.6 H Plt Count 431 H D MPV 11.1 Immature Gran % (Auto) 0.8 H Neut % (Auto) 75.3 H Lymph % (Auto) 15.1 L Starr % (Auto) 7.8 Eos % (Auto) 0.5 Baso % (Auto) 0.5 Lymph # (Auto) 1.8 Starr # (Auto) 0.9 Eos # (Auto) 0.1 Baso # (Auto) 0.1 Abs Immat Gran (auto) 0.10 H Absolute Neuts (auto) 9.0 H Absolute Nucleated RBC 0.000 Nucleated RBC % (auto) 0.0 PT INR Sodium 140 Potassium 5.5 H Chloride 111 H Carbon Dioxide 22 Anion Gap 13 BUN 62 H Creatinine 1.72 H Estim Creat Clear Calc 46.7 Estimated GFR 40 POC Glucose Random Glucose 119 H Calcium 9.7 Magnesium 1.4 L* Total Bilirubin 0.4 Direct Bilirubin < 0.2 AST 9 ALT 9 Alkaline Phosphatase 64 Troponin I High Sens 4.0 Total Protein 6.9 Albumin 3.9 Lipase 19 Urine Color Urine Appearance Urine pH Ur Specific [place] Urine Protein Urine Glucose (UA) Urine Ketones Urine Blood Urine Nitrite Ur Leukocyte Esterase Stool Occult Blood COVID-19 (ENRIQUE) COVID-19 Clin Com Blood Type Antibody Screen 09/21/22 09/21/22 09/21/22 12:11 13:14 13:14 WBC RBC Hgb Hct MCV MCH MCHC RDW Plt Count MPV Immature Gran % (Auto) Neut % (Auto) Lymph % (Auto) Starr % (Auto) Eos % (Auto) Baso % (Auto) Lymph # (Auto) Starr # (Auto) Eos # (Auto) Baso # (Auto) Abs Immat Gran (auto) Absolute Neuts (auto) Absolute Nucleated RBC Nucleated RBC % (auto) PT 13.8 H INR 1.2 H Sodium Potassium Chloride Carbon Dioxide Anion Gap BUN Creatinine Estim Creat Clear Calc Estimated GFR POC Glucose Random Glucose Calcium Magnesium Total Bilirubin Direct Bilirubin AST ALT Alkaline Phosphatase Troponin I High Sens Total Protein Albumin Lipase Urine Color Yellow Urine Appearance Clear Urine pH 5.5 Ur Specific [place] 1.020 Urine Protein Trace Urine Glucose (UA) Negative Urine Ketones Trace Urine Blood Negative Urine Nitrite Negative Ur Leukocyte Esterase Negative Stool Occult Blood COVID-19 (ENRIQUE) Negative COVID-19 Clin Com See Note Blood Type Antibody Screen 09/21/22 09/21/22 09/21/22 13:14 13:14 16:48 WBC 11.4 H RBC 4.38 L Hgb 10.4 L Hct 33.9 L MCV 77.4 L MCH 23.7 L MCHC 30.7 L RDW 17.7 H Plt Count 411 H MPV 11.4 Immature Gran % (Auto) 0.9 H Neut % (Auto) 71.0 Lymph % (Auto) 19.5 L Starr % (Auto) 7.9 Eos % (Auto) 0.3 Baso % (Auto) 0.4 Lymph # (Auto) 2.2 Starr # (Auto) 0.9 Eos # (Auto) 0.0 Baso # (Auto) 0.1 Abs Immat Gran (auto) 0.10 H Absolute Neuts (auto) 8.1 Absolute Nucleated RBC 0.000 Nucleated RBC % (auto) 0.0 PT INR Sodium Potassium Chloride Carbon Dioxide Anion Gap BUN Creatinine Estim Creat Clear Calc Estimated GFR POC Glucose Random Glucose Calcium Magnesium Total Bilirubin Direct Bilirubin AST ALT Alkaline Phosphatase Troponin I High Sens Total Protein Albumin Lipase Urine Color Urine Appearance Urine pH Ur Specific [place] Urine Protein Urine Glucose (UA) Urine Ketones Urine Blood Urine Nitrite Ur Leukocyte Esterase Stool Occult Blood POSITIVE COVID-19 (ENRIQUE) COVID-19 [facility] Com Blood Type O Positive Antibody Screen NEGATIVE 09/21/22 09/21/22 09/22/22 16:48 20:52 06:10 WBC 9.3 RBC 3.96 L Hgb 9.4 L Hct 30.3 L MCV 76.5 L MCH 23.7 L MCHC 31.0 RDW 17.8 H Plt Count 387 MPV 11.8 Immature Gran % (Auto) Neut % (Auto) Lymph % (Auto) Starr % (Auto) Eos % (Auto) Baso % (Auto) Lymph # (Auto) Starr # (Auto) Eos # (Auto) Baso # (Auto) Abs Immat Gran (auto) Absolute Neuts (auto) Absolute Nucleated RBC 0.000 Nucleated RBC % (auto) 0.0 PT INR Sodium 137 Potassium 4.8 Chloride 109 H Carbon Dioxide 20 L Anion Gap 13 BUN 70 H Creatinine 1.59 H Estim Creat Clear Calc 50.5 Estimated GFR 44 POC Glucose 152 H Random Glucose 124 H Calcium 9.5 Magnesium Total Bilirubin Direct Bilirubin AST ALT Alkaline Phosphatase Troponin I High Sens Total Protein Albumin Lipase Urine Color Urine Appearance Urine pH Ur Specific [place] Urine Protein Urine Glucose (UA) Urine Ketones Urine Blood Urine Nitrite Ur Leukocyte Esterase Stool Occult Blood COVID-19 (ENRIQUE) COVID-19 [facility] Blood Type Antibody Screen 09/22/22 09/22/22 09/22/22 06:10 07:21 11:01 WBC RBC Hgb Hct MCV MCH MCHC RDW Plt Count MPV Immature Gran % (Auto) Neut % (Auto) Lymph % (Auto) Starr % (Auto) Eos % (Auto) Baso % (Auto) Lymph # (Auto) Starr # (Auto) Eos # (Auto) Baso # (Auto) Abs Immat Gran (auto) Absolute Neuts (auto) Absolute Nucleated RBC Nucleated RBC % (auto) PT INR Sodium 138 Potassium 4.4 Chloride 110 H Carbon Dioxide 19 L Anion Gap 13 BUN 57 H Creatinine 1.47 H Estim Creat Clear Calc 54.7 Estimated GFR 48 POC Glucose 96 114 Random Glucose 97 Calcium 8.7 D Magnesium 1.7 Total Bilirubin Direct Bilirubin AST ALT Alkaline Phosphatase Troponin I High Sens Total Protein Albumin Lipase Urine Color Urine Appearance Urine pH Ur Specific [place] Urine Protein Urine Glucose (UA) Urine Ketones Urine Blood Urine Nitrite Ur Leukocyte Esterase Stool Occult Blood COVID-19 (ENRIQUE) COVID-19 Clin Com Blood Type Antibody Screen Airway Mallampati Class: II TM Dist: >3cm Neck ROM: Limited Heart: rrr Lungs: cta Assessment and Plan Assessment Anesthesia Assessment: Anesthesia Plan Discussed and Chart Reviewed Final Anesthetic Review Family History of Problems with Anesthesia: No History of Problems with Anesthesia: No NPO: Yes ASA Class: III Final Preanesthetic Review: No Changes in Pt Med Stat, Meds/Allgs Chart Reviewed, Consent Obtained/Reviewed and Anes Risks/Benef Reviewed Patient Risk: High Procedure Risk: Intermediate Anesthetic Plan Anesthetic Plan: MAC: and Agree w/ Assess. and Plan Disposition: Standard PACU
[2022-09-22 11:28] VITALS: BP 131/80; PULSE 72; RESP 18; TEMP 36.8; O2SAT 98
--- NOTE | 2022-09-22 12:09 | P.BOP_ITS ---
Brief Operative Note Date of Service: 09/22/22 Pre-op diagnosis: GI bleed Post-op diagnosis: same Surgeon: Sancho Tobias Anesthesia: MAC Was an Aeronautical Engineering Technologist used for this Procedure?: No Estimated blood loss (mL): 5 Pathology: none sent Condition: stable Disposition: PACU
[2022-09-22 12:10] VITALS: BP 88/50; PULSE 85; RESP 16; TEMP 36.7; O2SAT 99
--- NOTE | 2022-09-22 12:10 | PM.EVENT ---
Event Note Date of Service: 09/22/22 Event Note: GI egd note dictated no active bleeding post RFA/EMR esophagitis with questionable early stricture at 30 cm balloon dilation to 11 mm done and scope passed into stomach no bleeding in stomach or duodenum Rec soft diet hold plavix x1 week f/u with Dr Carranza at [facility] Time Spent With Patient Time: Total time managing care of this patient today ____ minutes.
--- NOTE | 2022-09-22 12:32 | MHC.CM.PN ---
CM attempted to meet with Patient at bedside but discovered that Patient was in Surgery. Patient's /HCP was in the room and CM addressed IMM with her, providing her with the original and placing a copy on the chart. Patient lives in a house with his and he required no services nor DME [employer]. Home/self care is the goal and CM has initiated and will follow for dc planning. Patient has received no covid vax and his PCP is Dr. Lucero.
[2022-09-22 12:36] VITALS: BP 123/76; PULSE 81; RESP 18; TEMP 36.7; O2SAT 97
[2022-09-22 13:21] LABS: Glucose, Whole Blood 121 mg/dL (60-115)
--- NOTE | 2022-09-22 14:46 | P.DS_ITS ---
DS: Providers Provider Date of Service: 09/22/22 Date of admission: 09/21/22 18:06 Primary care physician: Mia Lucero MD Consults: 09/21/22 18:06 Consult to Gastroenterology Routine Consulting Provider: Sancho Tobias Reason for consultation: ?UGI bleed Has provider been notified: Yes DS: Diagnosis Discharge Diagnosis (1) UGIB (upper gastrointestinal bleed): Status: Acute (2) Hyperkalemia: Status: Acute (3) Hypomagnesemia: Status: Acute DS: Summary Hospital Course Hospital Course: Admission note HPI Pt is a 67-year-old male with a PMH significant for?CADs/p CABG + PCI on clopidogrel, previous gastric/duodenal ulcer requiring PRBC transfusion, CKD stage 3, GERD, gout, hiatal hernia, HTN, hypothyroidism, [id number] diabetes, Blanca's esophagus with high-grade dysplasia s/p EGD w/EMR & RFA on 09/05/2022 at [facility]?who presents to the ED with?dysphagia since procedure and blood-specked emesis since last night. Pt states he has had difficulty swallowing since his EGD with biospy on 09/05/2022. Has only been able to eat soft foods. Was scheduled for f/u at [facility] on Monday. However, last night pt went to bed and had an episode of vomiting up recent meal that was stuck in his throat, was slimy and flecked with blood. This morning pt had a dark- colored bowel movement and was dizzy, lightheaded, and fatigued. Noted he needed to be brought to ED from the parking lot in a wheelchair. In the ED patient was noted to have become pale, diaphoretic, and weak after ambulating to the bathroom where he had a large black stool.? Patient denies chest pain/pressure, palpitations.? No shortness of breath. In the ED patient was afebrile, tachycardic up to 122, tachypneic up to 22, and hypotensive as low as 101/52. Labs were significant for leukocytosis of 11.9, H&H of 11.6/38.4 (at baseline), platelets 431, hyperkalemic at 5.5, chloride of 111, BUN elevated at 62, creatinine 1.72, and Mag 1.4.? UA negative for UTI.? Stool positive for occult blood.? CT?of abdomen and pelvis did not find a cause for the patient's GI bleeding, but did incidentally note elevated left hemidiaphragm, hiatal hernia, and diverticulosis without diverticulitis. EKG demonstrated sinus tachycardia with PVCs, and T-wave inversions in 1 and aVL. Pt was treated with IVF, Mag sulfate, Lokelma, pantoprazole, calcium gluconate. Pt will be admitted to the hospital for treatment further evaluation of upper GI bleed. Hospital course The patient was admitted for evaluation of Upper GI bleed believed to be related to recent EGD w/EMR & RFA on 09/05/2022 at [facility], as he had difficulty swallowing since with reported Blood-specked emesis and black stool with stable H&H. no recurrence of events since admission as he was started on PPI and held Plavix. Evaluated by GI who did EGD this morning showing an evidence of esophagitis with reported esophageal stricture that was dilated during the procedure. with recommendations to hold plavix for 1 week and follow up with GI at [facility] as outpatient. reported JUDITH on CKD stage III that has improved with IVF. Hyperkalemia corrected. Hymagnesemia replaced. Liquid diet and soft food until you follow with your GI Hold Plavix for 1 week Follow with your GI at [facility] as scheduled go to hospital for any further bleeding or pain The patient improved quickly and was able to tolerate liquid diet. recommended DC by GI with a plan for OP follow up. did not have to stay for 2 nights given quick improvement. Time Spent with Patient Time attestation: Total time managing care of this patient today ____ minutes. Discharge coordination time: Greater than 30 minutes Quality: Safe Use of Opioids Does Pt have an Active Cancer Diagnosis on the Problem List?: No Quality: Stroke Does the patient have a stroke diagnosis?: No Physical Exam Vital Signs: Vital Signs: Last Vital Signs Temp 98.0 F 09/22/22 12:36 Pulse 81 09/22/22 12:36 Resp 18 09/22/22 12:36 BP 123/76 09/22/22 12:36 Pulse Ox 97 09/22/22 12:36 O2 Del Method Room Air 09/22/22 12:36 O2 Flow Rate 6 09/22/22 12:10 BMI result Body Mass Index 39.9 Const: Other: Constitutional : Awake, interactive, not in distress Neck : Normal inspection, Supple Cardiovascular : RRR, no JVP, no lower extremity edema Respiratory : good bilateral air entry, no crackles, wheezes or rhonchi Gastrointestinal: soft, lax, Normal bowel sounds, Non tender Skin : Warm, Dry Neurological : Alert & oriented x3, No focal deficit , CN 2-12 within normal DS: Data Data Completed and Pending Completed studies during hospitalization [Text1]: Procedures Excision of Esophagus, Via Natural or Artificial Opening Endoscopic, Diagnostic (09/22/21) Excision of Stomach, Pylorus, Via Natural or Artificial Opening Endoscopic, Diagnostic (09/22/21) Labs on day of discharge: Laboratory Results - last 24 hr 09/21/22 09/21/22 09/21/22 16:48 16:48 20:52 WBC 11.4 H RBC 4.38 L Hgb 10.4 L Hct 33.9 L MCV 77.4 L MCH 23.7 L MCHC 30.7 L RDW 17.7 H Plt Count 411 H MPV 11.4 Immature Gran % (Auto) 0.9 H Neut % (Auto) 71.0 Lymph % (Auto) 19.5 L Starr % (Auto) 7.9 Eos % (Auto) 0.3 Baso % (Auto) 0.4 Lymph # (Auto) 2.2 Starr # (Auto) 0.9 Eos # (Auto) 0.0 Baso # (Auto) 0.1 Abs Immat Gran (auto) 0.10 H Absolute Neuts (auto) 8.1 Absolute Nucleated RBC 0.000 Nucleated RBC % (auto) 0.0 Sodium 137 Potassium 4.8 Chloride 109 H Carbon Dioxide 20 L Anion Gap 13 BUN 70 H Creatinine 1.59 H Estim Creat Clear Calc 50.5 Estimated GFR 44 POC Glucose 152 H Random Glucose 124 H Calcium 9.5 Magnesium 09/22/22 09/22/22 09/22/22 06:10 06:10 07:21 WBC 9.3 RBC 3.96 L Hgb 9.4 L Hct 30.3 L MCV 76.5 L MCH 23.7 L MCHC 31.0 RDW 17.8 H Plt Count 387 MPV 11.8 Immature Gran % (Auto) Neut % (Auto) Lymph % (Auto) Starr % (Auto) Eos % (Auto) Baso % (Auto) Lymph # (Auto) Starr # (Auto) Eos # (Auto) Baso # (Auto) Abs Immat Gran (auto) Absolute Neuts (auto) Absolute Nucleated RBC 0.000 Nucleated RBC % (auto) 0.0 Sodium 138 Potassium 4.4 Chloride 110 H Carbon Dioxide 19 L Anion Gap 13 BUN 57 H Creatinine 1.47 H Estim Creat Clear Calc 54.7 Estimated GFR 48 POC Glucose 96 Random Glucose 97 Calcium 8.7 D Magnesium 1.7 09/22/22 09/22/22 11:01 13:19 WBC RBC Hgb Hct MCV MCH MCHC RDW Plt Count MPV Immature Gran % (Auto) Neut % (Auto) Lymph % (Auto) Starr % (Auto) Eos % (Auto) Baso % (Auto) Lymph # (Auto) Starr # (Auto) Eos # (Auto) Baso # (Auto) Abs Immat Gran (auto) Absolute Neuts (auto) Absolute Nucleated RBC Nucleated RBC % (auto) Sodium Potassium Chloride Carbon Dioxide Anion Gap BUN Creatinine Estim Creat Clear Calc Estimated GFR POC Glucose 114 121 H Random Glucose Calcium Magnesium Imaging Chest x-ray: Radiologist's impression: ITS Impressions Abdomen/Pelvis CT 09/21/22 14:02 IMPRESSION: 1. A cause for the patient's GI bleeding has not been found. 2. Incidental note made of elevated left hemidiaphragm, hiatal hernia, colonic diverticulosis without diverticulitis and other findings described above. Fleischner guidelines were followed. Discharge Plan Discharge Anticipated Discharge Date/Time: 09/22/22 14:40 Patient Disposition: Home, Self-Care Discharge Diagnosis: Esophagitis Esophageal stricture Referrals: Mia Lucero MD [Primary Care Provider] - 1 Week Discharge Medications: Continued baclofen 10 mg tablet 10 mg PO BID PRN (Reason: for muscle spasm) Qty: 60 0RF (DME) blood-glucose meter [OneTouch Verio Meter] Misc See Rx Instructions .Route Qty: 1 0RF Rx Instructions: Use to check blood sugar twice daily, once fasting and another random during the day (DME) lancets [OneTouch Delica Lancets] 30 gauge misc See Rx Instructions .Route Qty: 100 2RF Rx Instructions: Use to check blood sugar twice daily, once fasting and another random during the day (DME) OneTouch Verio test strips Strip See Rx Instructions .Route Qty: 100 2RF Rx Instructions: Use to check blood sugar twice daily, once fasting and another random during the day metoprolol tartrate 100 mg tablet 100 mg PO BID 90 Days Qty: 180 3RF levothyroxine 137 mcg tablet 137 mcg PO DAILY 90 Days Qty: 90 1RF cholecalciferol (vitamin D3) 50 mcg (2,000 unit) capsule 50 mcg PO DAILY 90 Days Qty: 90 0RF hydrochlorothiazide 25 mg tablet 25 mg PO DAILY Qty: 90 1RF rosuvastatin 40 mg tablet 40 mg PO DAILY Qty: 90 1RF enalapril maleate 20 mg tablet 20 mg PO BID Qty: 180 1RF omeprazole 40 mg Capsule,Delayed Release(Dr/Ec) 40 mg PO DAILY@0630 Qty: 30 0RF metformin 1,000 mg tablet 1,000 mg PO BID Qty: 180 3RF Held clopidogrel 75 mg tablet 75 mg PO DAILY Qty: 90 4RF Hold Instructions: Resume on 09/29/22. Discharge Orders: Discharge Order (Routine); Ordered 09/22/22 Ordered By: Bartolome Olivera Diet: Advance to usual diet Activity on Discharge: As tolerated Stand Alone Forms: Patient Portal Discharge page Care Plan Goals: Read below Health Concerns: Read below Plan of Treatment: Read below Assessment: You were admitted to the hospital for evaluation of upper gastrointestinal bleeding. evaluated by GI dr Tobias who did an upper endoscopy showing an evidence of stricture that was dilated and inflammation. Liquid diet and soft food until you follow with your GI Hold Plavix for 1 week Follow with your GI at [facility] as scheduled go to hospital for any further bleeding or pain
--- NOTE | 2022-09-22 14:50 | MHC.CM.PN ---
Patient has been medically cleared for dc to home today, self care.
--- NOTE | 2022-09-22 22:26 | OP_ITS ---
DATE OF SERVICE: 09/22/2022 SURGEON: Sancho Tobias MD INDICATIONS: Dysphagia and upper GI bleeding. PREOPERATIVE DIAGNOSIS: POSTOPERATIVE DIAGNOSIS: PROCEDURE PERFORMED: Upper endoscopy with balloon dilation. ESTIMATED BLOOD LOSS: COMPLICATIONS: ANESTHESIA: Monitored anesthesia care. ASSISTANTS: SPECIMENS: DESCRIPTION OF PROCEDURE: A history and physical was performed. The risks and benefits of the procedure were explained to the patient. Informed consent was obtained. The patient was placed in the left lateral decubitus position. The Olympus video gastroscope was introduced into the esophagus, stomach, and duodenum. Examination was performed, and the scope was removed. He tolerated the procedure well and was returned to the recovery area in stable condition. FINDINGS: Esophagus: The patient had recently undergone endoscopic mucosa resection and radiofrequency ablation, and there was evidence of esophagitis relating to these 2 procedures beginning at 30 cm, extending up to 36 cm. The scope initially did not pass through the treated area. For this reason, balloon dilation at 10 mm and 11 mm was performed for 60 seconds at each inflation, and subsequently, the scope was able to be passed. There was diffuse ulceration and nodularity and a suggestion of a stricture beginning at approximately 30 cm. There was some minor oozing at the termination of the procedure, which was stable. Stomach: There was a large hiatal hernia. There was no bleeding in the stomach. No ulcer was identified. Duodenum: The bulb and 2nd portion were normal. IMPRESSION: Post treatment esophagitis following radiofrequency ablation and endoscopic mucosal resection with question of early stricture formation. RECOMMENDATION: 1. Advance diet to soft. 2. [place] EGD to be arranged. MD DIANNE Ariza/PAVAN / [phone] [facility]
== END 2022-09-22 16:20 | disposition home or self-care (01) | DRG 920 ==
LOC: HO.ED 16:42 → HO.EDOVER 18:13 → HO.IMC 18:49
PROVIDERS: Internal Medicine Gastroenterology; Physician Assistant; Admitting Provider Student in an Organized Health Care Education/Training Program; Emergency Provider Emergency Medicine Emergency Medical Services; PCP Internal Medicine; Visit Provider Student in an Organized Health Care Education/Training Program
PROC: 0D758ZZ Dilation of Esophagus, Via Natural or Artificial Opening Endoscopic (ICD-10-PCS; CPT 43249; principal; 2022-09-22 11:00)
DX: K91.840 Postprocedural hemorrhage of a digestive system organ or structure following a digestive system procedure (principal); N17.9 Acute kidney failure, unspecified; Z68.41 Body mass index [BMI] 40.0-44.9, adult; I25.10 Atherosclerotic heart disease of native coronary artery without angina pectoris; I12.9 Hypertensive chronic kidney disease with stage 1 through stage 4 chronic kidney disease, or unspecified chronic kidney disease; N18.30 Chronic kidney disease, stage 3 unspecified; E11.22 Type 2 diabetes mellitus with diabetic chronic kidney disease; K22.2 Esophageal obstruction; K44.9 Diaphragmatic hernia without obstruction or gangrene; E87.5 Hyperkalemia; E83.42 Hypomagnesemia; E03.9 Hypothyroidism, unspecified; F31.9 Bipolar disorder, unspecified; E66.01 Morbid (severe) obesity due to excess calories; R13.10 Dysphagia, unspecified; Z20.822 Contact with and (suspected) exposure to COVID-19; I25.2 Old myocardial infarction; Z95.1 Presence of aortocoronary bypass graft; Z87.891 Personal history of nicotine dependence; Z79.02 Long term (current) use of antithrombotics/antiplatelets; Z79.84 Long term (current) use of oral hypoglycemic drugs; Z79.890 Hormone replacement therapy; Z79.899 Other long term (current) drug therapy
CPT/HCPCS: 43249; 36415; 74176; 80048; 80076; 81003; 82272; 82947; 83690; 83735; 84484; 85025; 85027; 85610; 86850; 86900; 86901; 87635; 93005; 99222; 99285; C1726; J0613; J2405; J3475

== ENCOUNTER 2022-09-29 07:14 | Outpatient (REF) | payer MEDICARE, SELFPAY ==
[2022-09-29 11:27] LABS: MANUAL DIFF FLAG NO
[2022-09-29 12:05] LABS: Basophils Percent Auto 0.5 % (0-2); Eosinophils Absolute Auto 0.2 X10*3/uL (0.0-0.4); Eosinophils Percent Auto 2.1 % (0-4); Hematocrit 32.1 % (42.0-52.0); Hemoglobin 9.7 g/dl (14.0-18.0); Imm Gran Abs Auto 0.04 X10*3/uL (0.00-0.03); Imm Gran Pct Auto 0.5 % (0.0-0.4); Lymphocytes Percent Auto 27.7 % (20-40); Mean Corpuscular HGB Conc 30.2 g/dl (31.0-36.0); Mean Corpuscular Hemoglobin 23.8 pg (27.0-33.0); Mean Corpuscular Volume 78.7 fL (80.0-98.0); Mean Platelet Volume 11.9 fL (9.4-12.4); Monocytes Absolute Auto 0.7 X10*3/uL (0.1-1.2); Monocytes Percent Auto 9.2 % (2-11); Neutrophils Absolute Auto 4.4 x10*3/uL (2.0-8.3); Platelet Count 358 X10*3/uL (160-400); Red Blood Count 4.08 X10*6/uL (4.60-5.80); Red Cell Distribution Width 18.4 % (11.0-16.0); White Blood Count 7.3 X10*3/uL (4.8-10.8)
[2022-09-29 12:11] LABS: Estimated Average Glucose 140 mg/dL; Hemoglobin A1c % 6.5 %
[2022-09-29 12:22] LABS: Alanine Aminotransferase 11 U/L (0-40); Anion Gap 14 (12-20); Aspartate Amino Transferase 12 U/L (5-37); Blood Urea Nitrogen 18 mg/dL (9-16); Calcium 9.3 mg/dL (8.4-10.2); Carbon Dioxide 25 mmol/L (22-29); Chloride 107 mmol/L (96-108); Cholesterol 99 mg/dL; Estimated Glomerular Filt Rate 41; Glucose Fasting 136 mg/dL (60-99); HDL Cholesterol 34 mg/dL; Iron 18 mcg/dL (45-160); LDL Cholesterol Calculated 34 mg/dl; Percent Iron Saturation 5 % (15-50); Potassium 4.8 mmol/L (3.3-5.1); Sodium 141 mmol/L (135-145); Total Iron Binding Capacity 348 mcg/dL (228-428); Triglycerides 155 mg/dL; Unsaturated Iron Binding 330 ug/dL
[2022-09-29 12:29] LABS: Free T4 (Free Thyroxine) 1.22 ng/dL (0.71-1.85); Thyroid Stimulating Hormone 0.52 uIU/mL (0.32-4.0)
== END 2022-09-29 07:15 | disposition home or self-care (01) ==
LOC: HO.HMGCLDS 07:14
PROVIDERS: PCP Internal Medicine; Visit Provider Internal Medicine
DX: E66.01 Morbid (severe) obesity due to excess calories (principal); Z68.41 Body mass index [BMI] 40.0-44.9, adult; I25.10 Atherosclerotic heart disease of native coronary artery without angina pectoris; K22.711 Barrett's esophagus with high grade dysplasia; E11.29 Type 2 diabetes mellitus with other diabetic kidney complication; E11.22 Type 2 diabetes mellitus with diabetic chronic kidney disease; I12.9 Hypertensive chronic kidney disease with stage 1 through stage 4 chronic kidney disease, or unspecified chronic kidney disease; N18.30 Chronic kidney disease, stage 3 unspecified; D63.8 Anemia in other chronic diseases classified elsewhere; K29.60 Other gastritis without bleeding; E78.5 Hyperlipidemia, unspecified; E03.9 Hypothyroidism, unspecified; Z12.5 Encounter for screening for malignant neoplasm of prostate
CPT/HCPCS: 36415; 80048; 80061; 83036; 83540; 84153; 84439; 84443; 84450; 84460; 85025

== ENCOUNTER 2022-10-10 13:15 | Emergency (ER) | payer MEDICARE, SELFPAY | END 2022-10-10 19:36 | disposition left against medical advice (07) | PROVIDERS: Emergency Provider Emergency Medicine; PCP Internal Medicine | DX: R42 Dizziness and giddiness (principal) ==

== ENCOUNTER 2022-10-26 06:46 | Outpatient (REF) | payer MEDICARE, SELFPAY ==
[2022-10-26 11:20] LABS: MANUAL DIFF FLAG NO
[2022-10-26 11:34] LABS: Basophils Absolute Auto 0.1 X10*3/uL (0.0-0.2); Basophils Percent Auto 0.6 % (0-2); Eosinophils Absolute Auto 0.1 X10*3/uL (0.0-0.4); Eosinophils Percent Auto 1.5 % (0-4); Hematocrit 34.3 % (42.0-52.0); Hemoglobin 10.3 g/dl (14.0-18.0); Imm Gran Abs Auto 0.03 X10*3/uL (0.00-0.03); Imm Gran Pct Auto 0.4 % (0.0-0.4); Lymphocytes Absolute Auto 2.1 X10*3/uL (1.2-4.9); Lymphocytes Percent Auto 25.2 % (20-40); Mean Corpuscular Hemoglobin 23.3 pg (27.0-33.0); Mean Corpuscular Volume 77.6 fL (80.0-98.0); Mean Platelet Volume 12.1 fL (9.4-12.4); Monocytes Absolute Auto 0.7 X10*3/uL (0.1-1.2); Monocytes Percent Auto 8.7 % (2-11); Neutrophils Absolute Auto 5.3 x10*3/uL (2.0-8.3); Neutrophils Percent Auto 63.6 % (45-73); Platelet Count 449 X10*3/uL (160-400); Red Blood Count 4.42 X10*6/uL (4.60-5.80); Red Cell Distribution Width 16.6 % (11.0-16.0); White Blood Count 8.3 X10*3/uL (4.8-10.8)
[2022-10-26 11:58] LABS: Alanine Aminotransferase 7 U/L (0-40); Alkaline Phosphatase 85 U/L (39-117); Anion Gap 12 (12-20); Aspartate Amino Transferase 9 U/L (5-37); Bilirubin Total 0.5 mg/dL (0.0-1.0); Blood Urea Nitrogen 20 mg/dL (9-16); Calcium 9.6 mg/dL (8.4-10.2); Carbon Dioxide 26 mmol/L (22-29); Chloride 106 mmol/L (96-108); Estimated Glomerular Filt Rate 39; Glucose Fasting 105 mg/dL (60-99); Potassium 4.4 mmol/L (3.3-5.1); Sodium 140 mmol/L (135-145); Total Protein 7.2 g/dL (6.5-8.0)
== END 2022-10-26 06:47 | disposition home or self-care (01) ==
LOC: HO.HMGCLDS 06:46
PROVIDERS: PCP Internal Medicine; Visit Provider Internal Medicine
DX: D50.9 Iron deficiency anemia, unspecified (principal); N18.4 Chronic kidney disease, stage 4 (severe)
CPT/HCPCS: 36415; 80053; 85025

== ENCOUNTER 2022-11-15 07:12 | Outpatient (REF) | payer MEDICARE, SELFPAY ==
[2022-11-15 11:16] LABS: MANUAL DIFF FLAG NO
[2022-11-15 11:41] LABS: Basophils Absolute Auto 0.1 X10*3/uL (0.0-0.2); Basophils Percent Auto 0.6 % (0-2); Eosinophils Absolute Auto 0.2 X10*3/uL (0.0-0.4); Eosinophils Percent Auto 2.4 % (0-4); Hematocrit 30.8 % (42.0-52.0); Hemoglobin 9.1 g/dl (14.0-18.0); Imm Gran Abs Auto 0.05 X10*3/uL (0.00-0.03); Imm Gran Pct Auto 0.6 % (0.0-0.4); Lymphocytes Absolute Auto 1.9 X10*3/uL (1.2-4.9); Lymphocytes Percent Auto 23.9 % (20-40); Mean Corpuscular HGB Conc 29.5 g/dl (31.0-36.0); Mean Corpuscular Hemoglobin 22.6 pg (27.0-33.0); Mean Corpuscular Volume 76.4 fL (80.0-98.0); Mean Platelet Volume 12.2 fL (9.4-12.4); Monocytes Absolute Auto 0.6 X10*3/uL (0.1-1.2); Neutrophils Absolute Auto 5.2 x10*3/uL (2.0-8.3); Neutrophils Percent Auto 64.5 % (45-73); Platelet Count 314 X10*3/uL (160-400); Red Blood Count 4.03 X10*6/uL (4.60-5.80); Red Cell Distribution Width 17.1 % (11.0-16.0)
[2022-11-15 11:47] LABS: Estimated Average Glucose 134 mg/dL; Hemoglobin A1c % 6.3 %
[2022-11-15 11:57] LABS: Protein/Creatinine Ratio, Ur 0.19 (<0.2); Total Protein Urine Random 24 mg/dL (<12)
[2022-11-15 12:00] LABS: Alanine Aminotransferase 11 U/L (0-40); Albumin Level 3.8 g/dL (3.5-5.0); Alkaline Phosphatase 63 U/L (39-117); Anion Gap 12 (12-20); Aspartate Amino Transferase 9 U/L (5-37); Bilirubin Total 0.3 mg/dL (0.0-1.0); Blood Urea Nitrogen 23 mg/dL (9-16); Calcium 9.2 mg/dL (8.4-10.2); Carbon Dioxide 24 mmol/L (22-29); Chloride 109 mmol/L (96-108); Cholesterol 145 mg/dL; Estimated Glomerular Filt Rate 60; Glucose Fasting 133 mg/dL (60-99); HDL Cholesterol 46 mg/dL; Iron 16 mcg/dL (45-160); LDL Cholesterol Calculated 80 mg/dl; Magnesium 1.8 mg/dL (1.6-2.6); Percent Iron Saturation 4 % (15-50); Potassium 4.5 mmol/L (3.3-5.1); Sodium 140 mmol/L (135-145); Total Iron Binding Capacity 378 mcg/dL (228-428); Total Protein 6.7 g/dL (6.5-8.0); Triglycerides 96 mg/dL; Unsaturated Iron Binding 362 ug/dL
[2022-11-15 12:18] LABS: Free T4 (Free Thyroxine) 0.78 ng/dL (0.71-1.85); Thyroid Stimulating Hormone 0.43 uIU/mL (0.32-4.0); Vitamin D 25-OH Total 52.1 ng/mL (>30)
== END 2022-11-15 07:13 | disposition home or self-care (01) ==
LOC: HO.HMGCLDS 07:12
PROVIDERS: Absent Provider Internal Medicine Hypertension Specialist; PCP Internal Medicine; Visit Provider Internal Medicine
DX: D50.9 Iron deficiency anemia, unspecified (principal); E83.42 Hypomagnesemia; E55.9 Vitamin D deficiency, unspecified; E66.01 Morbid (severe) obesity due to excess calories; I25.10 Atherosclerotic heart disease of native coronary artery without angina pectoris; K22.711 Barrett's esophagus with high grade dysplasia; E04.2 Nontoxic multinodular goiter; K29.60 Other gastritis without bleeding; E78.5 Hyperlipidemia, unspecified; E03.9 Hypothyroidism, unspecified; E11.29 Type 2 diabetes mellitus with other diabetic kidney complication; E11.22 Type 2 diabetes mellitus with diabetic chronic kidney disease; I12.9 Hypertensive chronic kidney disease with stage 1 through stage 4 chronic kidney disease, or unspecified chronic kidney disease; N18.31 Chronic kidney disease, stage 3a; Z95.1 Presence of aortocoronary bypass graft; Z87.19 Personal history of other diseases of the digestive system; Z68.41 Body mass index [BMI] 40.0-44.9, adult
CPT/HCPCS: 36415; 80053; 80061; 82306; 83036; 83540; 83735; 84156; 84439; 84443; 85025

== ENCOUNTER 2022-11-21 08:25 | Outpatient (AMB) | payer MEDICARE, SELFPAY ==
--- NOTE | 2022-11-21 09:08 | MHC.PC.OV ---
Vital Signs 11/21/22 09:16 Height 5 ft 5 in Weight 240 lb BMI 39.9 BP 110/70 Blood Pressure Location Lt brachial Position Sitting Pulse 86 Pulse Source Pulse Oximeter Pulse Oximetry (%) 98 Oxygen Delivery Method Room Air Intake Visit Reasons: 3m follow up, lipids,htn-need early nadia'kely matos Intake Note: Patient here for follow up as he is having a procedure on the , states hes not sure what the appt is really for as he just seen you a few weeks back. Allergies No Known Allergies Allergy (Verified 02/21/23 10:51) Medication List - Last Reconciled 03/23/23 by Mia Lucero MD baclofen 10 mg PO BID PRN blood sugar diagnostic ([employer] Verio test strips) Use to check blood sugar twice daily, once fasting and another random during the day blood-glucose meter ([employer] Verio Meter) Use to check blood sugar twice daily, once fasting and another random during the day cholecalciferol (vitamin D3) 50 mcg PO DAILY 90 days clopidogrel 75 mg PO DAILY enalapril maleate 20 mg PO DAILY lancets ([employer] Delica Lancets) Use to check blood sugar twice daily, once fasting and another random during the day levothyroxine 137 mcg PO DAILY 90 days metformin 1,000 mg PO QAM metoprolol tartrate 100 mg PO BID 90 days omeprazole 40 mg PO DAILY@0630 rosuvastatin 40 mg PO DAILY Tobacco use date assessed: 11/21/22 Last assessed Fall Risk: 11/21/22 HPI 3m follow up, lipids,htn-need early nadia'kely matos HPI Details 67-year-old male here today for follow-up on his hypertension, dyslipidemia. Currently taking metoprolol tartrate 100 mg twice a day, enalapril 20 mg 1 tablet decreased by 3 to just once a day dosing and hydrochlorothiazide was discontinued by Dr. 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 Has mild CKD likely due to hypoperfusion. He is currently taking rosuvastatin 40 mg daily. Has been feeling well, no new complaints. Recent fasting labs done which shows results posted below. Laboratory Tests 11/15/22 07:27 Sodium 140 Potassium 4.5 Chloride 109 H Carbon Dioxide 24 Anion Gap 12 BUN 23 H Creatinine 1.21 Estimated GFR 60 Fasting Glucose 133 H Estimat Average Gl ucose 134 Hemoglobin A1c % 6.3 Calcium 9.2 Magnesium 1.8 Iron 16 L TIBC 378 % Saturation 4 L Unsat Iron Binding 362 Total Bilirubin 0.3 AST 9 ALT 11 Alkaline Phosphata se 63 Total Protein 6.7 Albumin 3.8 Triglycerides 96 Cholesterol 145 LDL Cholesterol, C alc 80 HDL Cholesterol 46 25-OH Vitamin D To maddie 52.1 TSH 0.43 Free T4 0.78 [facility] Medical History (Updated 03/23/23 @ 02:25 by Mia Lucero MD) History of esophageal stricture Iron deficiency anemia COVID-19 vaccine series declined Refused influenza vaccine Morbid obesity with body mass index (BMI) of 40.0 to 44.9 in adult CAD (coronary artery disease) Blanca's esophagus with high grade dysplasia Diabetes mellitus with kidney complication, without long-term current use of insulin Erosive gastritis GERD (gastroesophageal reflux disease) Hearing loss Erectile dysfunction Major depression Anemia of chronic disease Sleep apnea Bipolar 1 disorder Hiatal hernia Gout Multinodular goiter Morbid obesity Fatty liver Myocardial infarct S/P CABG x 4 Dyslipidemia Hypothyroidism Hypertension Surgical History History of endoscopy Hx of coronary artery bypass graft Hx of inguinal hernia repair Family History Mother No problems noted. Sister Hyperlipemia Social History Household Members: Spouse Housing: House Do you presently have visiting nurse or other home services: No Alcohol intake: never Patient Tobacco Use Status: Never used Tobacco Years Smoked: 10 +/- e-Cigarette/Vaping Use: Never Used service: No Current occupational status: retired Cognitive needs: No Hearing needs: No Vision needs: Yes Questionnaire Thrive Questionnaire Date Thrive assessed: 08/22/22 KOJO-7 AMB Questionnaire KOJO-7 Date KOJO - 7 assessed: 08/22/22 Source: Developed by Drs. Lowell Eubanks, Trupti Camarillo, Douglas Lancaster and colleagues, with an educational kim from [employer]. Review of Systems Const Denies weakness ENT Denies dizziness Card Denies chest pain, Denies chest pain with activity, Denies syncope, Denies rapid heart rate, Denies pedal edema, Denies edema, Denies leg edema, Denies lightheadedness, Denies palpitations, Denies dyspnea and Denies dyspnea on exertion Resp Denies cough, Denies dyspnea and Denies dyspnea on exertion GI Denies abdominal pain, Denies melena, Denies bloating, Denies change in bowel habits, Denies change in stool character and Denies heartburn Reports no additional complaints Musc Denies abnormal gait, Denies muscle cramps, Denies muscle weakness, Denies numbness and Denies tingling Neuro Denies abnormal gait, Denies dizziness, Denies syncope, Denies numbness, Denies tingling and Denies weakness Endo Denies palpitations Physical exam (Primary Care) Vital Signs: Last Vital Signs Pulse 86 11/21/22 09:16 BP 110/70 11/21/22 09:16 Pulse Ox 98 11/21/22 09:16 Oxygen Delivery Method Room Air 11/21/22 09:16 BMI result Body Mass Index 39.9 BMI Assessment/Plan discussion: High BMI High, discussed plan: lifestyle, weight reduction, dietary and physical activity Tobacco/Smoking Status: Tobacco use Status Tobacco use date assessed 11/21/22 11/21/22 09:09 Patient Tobacco Use Status Former Tobacco user 11/21/22 09:09 e-Cigarette/Vaping Use Never Used 11/21/22 09:09 Thrive Assessment: Date of Thrive Assessment Date Thrive assessed 08/22/22 11/21/22 09:09 Const General: cooperative, comfortable, no acute distress and alert Nutritional Appearance: obese morbidly obese Orientation/consciousness: patient oriented x3 [facility] General nose exam: Normal external nose present Face and sinus: Yes face symmetric Mouth: Normal oral and palatal mucosa present and moist mucous membranes Eyes General: appearance normal, both eyes and all related structures Neck Neck: Yes full ROM, Yes no lymphadenopathy and Yes supple Resp Auscultation: clear to auscultation bilaterally Cardio Other: S1-S2 present regular rate and rhythm GI Inspection: Yes obesity Palpation (GI): Soft to palpation, nontender, no guarding and no masses Auscultation: normal bowel sounds Neuro General: patient oriented x3, gait normal, moves all extremities, no focal motor deficits and decrease sensation to monofilament Extrem General: Yes full ROM, Yes no joint enlargement, Yes no pedal edema and Yes normal gait Results Reviewed Results Reviewed: ENTERED: 11/15/22 JENNI BATES: ORDERED: CBC Auto Diff Test Result Flag Reference Site WBC 8.0 4.8-10.8 X10*3/uL RBC 4.03 L 4.60-5.80 X10*6/uL HGB 9.1 L 14.0-18.0 g/dl HCT 30.8 L 42.0-52.0 % MCV 76.4 L 80.0-98.0 fL MCH 22.6 L 27.0-33.0 pg MCHC 29.5 L 31.0-36.0 g/dl RDW 17.1 H 11.0-16.0 % PLT 314 # 160-400 X10*3/uL MPV 12.2 9.4-12.4 fL Neut Pct Auto 64.5 45-73 % ImGran Pct Auto 0.6 H 0.0-0.4 % Lymp Pct Auto 23.9 20-40 % Edwards Pct Auto 8.0 2-11 % Eos Pct Auto 2.4 0-4 % Baso Pct Auto 0.6 0-2 % NRBC Pct Auto 0.0 0.0-0.2 /100WBC ANC Neut Abs # 5.2 2.0-8.3 x10*3/uL ImGran Abs Auto 0.05 H 0.00-0.03 X10*3/uL Lymph Abs Auto 1.9 1.2-4.9 X10*3/uL Edwards Abs Auto 0.6 0.1-1.2 X10*3/uL Eos Abs Auto 0.2 0.0-0.4 X10*3/uL Baso Abs Auto 0.1 0.0-0.2 X10*3/uL NRBC Abs Auto 0.000 0.0-0.012 X10*3/uL Laboratory Tests 11/15/22 07:27 Estimat Average Glucose 134 Hemoglobin A1c % 6.3 Assessment and Plan Assessment & Plan (1) Diabetes mellitus with kidney complication, without long-term current use of insulin: Code(s): E11.29 - Type 2 diabetes mellitus with other diabetic kidney complication Plan: Recent lab results reviewed with patient, with sugar and hemoglobin A1c stable and at goal continue with present treatment,. Reinforced diabetic diet and regular exercise with patient. Counseled regarding importance of yearly diabetes retinopathy screening. Patient advised to inspect feet daily, for any signs of injury, callus or infection. Compliance with diet and regular exercise again stressed. Blood pressure goal is less than 130/80, goal LDL is less than 100 and goal hemoglobin A1c is less than 7% follow-up appointment made in-3--months, after fasting labs done. (2) Anemia of chronic disease: Code(s): D63.8 - Anemia in other chronic diseases classified elsewhere Plan: Currently followed by Nephrology, Dr. Frausto (3) Dyslipidemia: Code(s): E78.5 - Hyperlipidemia, unspecified Plan: Reviewed recent fasting lipid profile with patient with levels within normal limit . Continue with rosuvastatin 40 mg daily , in addition to adherence to low-cholesterol diet and regular exercise, at least 30 minutes 3 to 4 times a week. Advised patient to make healthy food choices, eat more fruits, vegetables, whole grains, wild caught fish and low-fat dairy. Limit amount of meat and fried or fatty food products, as well as processed foods and fast foods. Follow-up scheduled with repeat fasting lipid panel in 3 months. (4) Hypothyroidism: Code(s): E03.9 - Hypothyroidism, unspecified Qualifiers: Hypothyroidism type: acquired Qualified Code(s): E03.9 - Hypothyroidism, unspecified Plan: Latest thyroid levels are within normal limits, continue on current dose of levothyroxine at 137 mcg daily Orders: Orders Lipid Panel 3 Months D50.9 - Iron deficiency anemia, unspecified, E11.29 - Type 2 diabetes mellitus with other diabetic kidney complication, E04.2 - Nontoxic multinodular goiter, D63.8 - Anemia in other chronic diseases classified elsewhere, E78.5 - Hyperlipidemia, unspecified, E03.9 - Hypothyroidism, unspecified Alanine Aminotransferase 3 Months D50.9 - Iron deficiency anemia, unspecified, E11.29 - Type 2 diabetes mellitus with other diabetic kidney complication, E04.2 - Nontoxic multinodular goiter, D63.8 - Anemia in other chronic diseases classified elsewhere, E78.5 - Hyperlipidemia, unspecified, E03.9 - Hypothyroidism, unspecified Free T4 (Free Thyroxine) 3 Months E03.9 - Hypothyroidism, unspecified, D50.9 - Iron deficiency anemia, unspecified, E11.29 - Type 2 diabetes mellitus with other diabetic kidney complication, E04.2 - Nontoxic multinodular goiter, D63.8 - Anemia in other chronic diseases classified elsewhere, E78.5 - Hyperlipidemia, unspecified Vitamin D 25-OH Total 3 Months D50.9 - Iron deficiency anemia, unspecified, E11.29 - Type 2 diabetes mellitus with other diabetic kidney complication, E04.2 - Nontoxic multinodular goiter, D63.8 - Anemia in other chronic diseases classified elsewhere, E78.5 - Hyperlipidemia, unspecified, E03.9 - Hypothyroidism, unspecified Hemoglobin A1c 3 Months D50.9 - Iron deficiency anemia, unspecified, E11.29 - Type 2 diabetes mellitus with other diabetic kidney complication, E04.2 - Nontoxic multinodular goiter, D63.8 - Anemia in other chronic diseases classified elsewhere, E78.5 - Hyperlipidemia, unspecified, E03.9 - Hypothyroidism, unspecified Aspartate Amino Transferase 3 Months D50.9 - Iron deficiency anemia, unspecified, E11.29 - Type 2 diabetes mellitus with other diabetic kidney complication, E04.2 - Nontoxic multinodular goiter, D63.8 - Anemia in other chronic diseases classified elsewhere, E78.5 - Hyperlipidemia, unspecified, E03.9 - Hypothyroidism, unspecified Thyroid Stimulating Hormone 3 Months D50.9 - Iron deficiency anemia, unspecified, E11.29 - Type 2 diabetes mellitus with other diabetic kidney complication, E04.2 - Nontoxic multinodular goiter, D63.8 - Anemia in other chronic diseases classified elsewhere, E78.5 - Hyperlipidemia, unspecified, E03.9 - Hypothyroidism, unspecified Medications: New enalapril maleate 20 mg PO BID clopidogrel 75 mg PO DAILY Coding Level of Care Code Est Pt Level 4 (16041) Diagnoses Diabetes mellitus with kidney complication, without long-term current use of insulin E11.29 Anemia of chronic disease D63.8 Dyslipidemia E78.5 Acquired hypothyroidism E03.9 Hypothyroidism type: acquired
[2022-11-21 09:16] VITALS: BP 110/70; PULSE 86; O2SAT 98; BMI 39.9
== END 2022-11-21 10:07 | disposition home or self-care (01) ==
LOC: HO.HMGC 08:25
PROVIDERS: PCP Internal Medicine; Visit Provider Internal Medicine
DX: E03.9 Hypothyroidism, unspecified (principal); E11.29 Type 2 diabetes mellitus with other diabetic kidney complication; D63.8 Anemia in other chronic diseases classified elsewhere; E78.5 Hyperlipidemia, unspecified
CPT/HCPCS: 99214

== ENCOUNTER 2022-12-28 08:19 | Outpatient (AMB) | payer MEDICARE, SELFPAY ==
[2022-12-28 09:22] VITALS: BP 122/74; PULSE 75; BMI 40.6
--- NOTE | 2022-12-28 09:22 | A.OFFVIS_ITS ---
Intake Vital Signs 12/28/22 09:22 Height 5 ft 5 in Weight 243 lb 13.3 oz BMI 40.6 BP 122/74 Blood Pressure Location Lt brachial Position Sitting Pulse 75 Pulse Source Monitor Intake Visit Reasons: 4 mth f/up Intake Note: 4 month follow up with EKG. Rehabilitation Liaison Required: No Accompanied by: Self / Same As Patient Allergies No Known Allergies Allergy (Verified 12/28/22 09:24) Medication List - Last Reconciled 12/28/22 by Germain Corona MD baclofen 10 mg PO BID PRN blood sugar diagnostic ([employer] Verio test strips) Use to check blood sugar twice daily, once fasting and another random during the day blood-glucose meter ([employer] Verio Meter) Use to check blood sugar twice daily, once fasting and another random during the day cholecalciferol (vitamin D3) 50 mcg PO DAILY 90 days clopidogrel 75 mg PO DAILY enalapril maleate 20 mg PO BID hydrochlorothiazide 25 mg PO DAILY lancets ([employer] Delica Lancets) Use to check blood sugar twice daily, once fasting and another random during the day levothyroxine 137 mcg PO DAILY 90 days metoprolol tartrate 100 mg PO BID 90 days omeprazole 40 mg PO DAILY@0630 rosuvastatin 40 mg PO DAILY HPI HPI Comments History of Present Illness Details Pleasant 67-year-old gentleman here for f/u. He is from [place] and recently moved here. Ten years ago he underwent bypass surgery. He said he was getting jaw discomfort off and on with exercise and finally underwent workup which led to cardiac catheterization showing multivessel disease. It appears he had 4 vessel bypass surgery. Approximately 9 months later he had some dyspnea which led to cardiac catheterization and it appears he had a drug-eluting stent done to his right coronary artery because his vein graft was occluded.. He said he has been doing well since then Echocardiography from 2019 showed normal biventricular function without significant valvular pathology or wall motion abnormality. He was diagnosed with peptic ulcer disease and underwent endoscopy. He was advised that he does not need dual antiplatelet therapy at this stage and can be on aspirin or Plavix. It appears after discussion with his olive picker he has started taking Plavix only. He underwent endoscopy recently which is showing Blanca esophagus and erosion in the stomach. He is saying he continues to get off and on epigastric discomfort. Yesterday he also had some vomiting episode. He is saying since vomiting he did not have any further discomfort in the abdomen. No jaw discomfort or any significant chest discomfort with activity. 12/28/22: He returns for follow-up. He is saying his GI symptoms are better but he is due to get repeat endoscopy at [facility]. He has stop aspirin is currently taking Plavix only. No bleeding issues recently. He had jaw pain as his anginal symptoms and has not experienced that recently. He is on hydrochlorothiazide enalapril and metoprolol for blood pressure control. His blood pressure control is quite optimal right now. [facility] Medical History Anemia of chronic disease Blanca's esophagus with high grade dysplasia Bipolar 1 disorder CAD (coronary artery disease) CKD (chronic kidney disease) stage 4, GFR 15-29 ml/min COVID-19 vaccine series declined Diabetes mellitus with kidney complication, without long-term current use of insulin Dyslipidemia Erectile dysfunction Erosive gastritis Fatty liver GERD (gastroesophageal reflux disease) Gout Hearing loss Hiatal hernia History of esophageal stricture Hypertension Hypothyroidism Iron deficiency anemia Major depression Morbid obesity Morbid obesity with body mass index (BMI) of 40.0 to 44.9 in adult Multinodular goiter Myocardial infarct Refused influenza vaccine S/P CABG x 4 Sleep apnea Uncontrolled type 2 diabetes mellitus with hyperglycemia, without long-term current use of insulin Surgical History History of endoscopy Hx of coronary artery bypass graft Hx of inguinal hernia repair Family History Mother No problems noted. Sister Hyperlipemia Social History Household Members: Spouse Housing: House Do you presently have visiting nurse or other home services: No Alcohol intake: never Patient Tobacco Use Status: Former Tobacco user Quit Date: > 20 yrs ago Years Smoked: 10 +/- e-Cigarette/Vaping Use: Never Used service: No Current occupational status: retired Cognitive needs: No Hearing needs: No Vision needs: Yes Review of Systems Const Denies weakness ENT Denies dizziness Card Denies chest pain, Denies chest pain with activity, Denies syncope, Denies rapid heart rate, Denies pedal edema, Denies edema, Denies leg edema, Denies lightheadedness, Denies palpitations, Denies dyspnea, Denies dyspnea on exertion and Denies orthopnea Resp Denies cough, Denies dyspnea and Denies dyspnea on exertion GI Denies hematochezia and Denies change in stool character Musc Denies abnormal gait, Denies muscle cramps, Denies muscle weakness, Denies numbness, Denies radiating pain into limb and Denies tingling Neuro Denies abnormal gait, Denies dizziness, Denies syncope, Denies numbness, Denies tingling and Denies weakness Endo Denies palpitations Physical Exam Vital Signs: Last Vital Signs Pulse 75 12/28/22 09:22 BP 122/74 12/28/22 09:22 BMI result Body Mass Index 40.6 GENERAL APPEARANCE: in no acute distress, well developed, well nourished. SKIN: no suspicious lesions, warm and dry. HEART: no murmurs, regular rate and rhythm, S1, S2 normal. LUNGS: clear to auscultation bilaterally. ABDOMEN: normal, bowel sounds present, soft, nontender, nondistended. PERIPHERAL PULSES: equal. NEUROLOGIC: nonfocal, alert and oriented. PSYCH: mood/affect full range. Assessment & Plan Assessment & Plan (1) Stable angina: Code(s): I20.8 - Other forms of angina pectoris (2) S/P CABG x 4: Comment: Status post CABG times for 10 years ago and drug-eluting stent to the right coronary artery probably due to vein graft occlusion to the right coronary artery. Code(s): Z95.1 - Presence of aortocoronary bypass graft (3) Dyslipidemia: Code(s): E78.5 - Hyperlipidemia, unspecified (4) Hypertension: Code(s): I10 - Essential (primary) hypertension Qualifiers: Hypertension type: essential hypertension Qualified Code(s): I10 - Essential (primary) hypertension Plan 67-year-old gentleman who is here for follow-up. He has history of bypass surgery. He has stable angina currently. Blood pressure control is good. He had recent GI bleed in September and went endoscopy. His blood workup is showing iron deficiency based on iron saturations of 4%. He is following with GI at [facility]. His last LDL cholesterol is 80. HDL 46, total cholesterol 145 and triglyceride 96. Ideally his LDL should be 70 or below. I think he can continue rosuvastatin for now. He should have repeat fasting lipid panel once a year. If LDL cholesterol starts rising further then ezetimibe 10 mg once a day should be added. Thank you for allowing me to participate in the care of your patient. Please feel free to contact me if you have any questions. Coding Level of Care Code Est Pt Level 4 (85821) Diagnoses Stable angina I20.8 S/P CABG x 4 Z95.1 Dyslipidemia E78.5 Hypertension I10 Hypertension type: essential hypertension
== END 2022-12-28 10:04 | disposition home or self-care (01) ==
PROVIDERS: Visit Provider Internal Medicine Cardiovascular Disease
DX: I20.8 Other forms of angina pectoris (principal); Z95.1 Presence of aortocoronary bypass graft; E78.5 Hyperlipidemia, unspecified; I10 Essential (primary) hypertension
CPT/HCPCS: 93010; 99214

== ENCOUNTER → 2022-12-28 08:19 | Outpatient (BNVA) | payer MEDICARE, SELFPAY | PROVIDERS: Visit Provider Internal Medicine Cardiovascular Disease | DX: I49.3 Ventricular premature depolarization (principal); I25.118 Atherosclerotic heart disease of native coronary artery with other forms of angina pectoris; E11.22 Type 2 diabetes mellitus with diabetic chronic kidney disease; E11.65 Type 2 diabetes mellitus with hyperglycemia; I12.9 Hypertensive chronic kidney disease with stage 1 through stage 4 chronic kidney disease, or unspecified chronic kidney disease; N18.4 Chronic kidney disease, stage 4 (severe); E78.5 Hyperlipidemia, unspecified; Z87.891 Personal history of nicotine dependence; Z98.890 Other specified postprocedural states; Z95.1 Presence of aortocoronary bypass graft | CPT/HCPCS: 93005; 99212 ==

== ENCOUNTER 2023-02-16 06:45 | Outpatient (REF) | payer MEDICARE, SELFPAY ==
[2023-02-16 12:03] LABS: Estimated Average Glucose 123 mg/dL; Hemoglobin A1c % 5.9 % (<6.0)
[2023-02-16 12:12] LABS: Alanine Aminotransferase 12 U/L (0-40); Aspartate Amino Transferase 14 U/L (5-37); Cholesterol 116 mg/dL (<200); HDL Cholesterol 37 mg/dL (>40); LDL Cholesterol Calculated 52 mg/dL (<100); Triglycerides 135 mg/dL (<150)
[2023-02-16 12:30] LABS: Free T4 (Free Thyroxine) 0.89 ng/dL (0.71-1.85); Thyroid Stimulating Hormone 0.17 uIU/mL (0.32-4.0); Vitamin D 25-OH Total 53.1 ng/mL (>30)
== END 2023-02-16 06:46 | disposition home or self-care (01) ==
LOC: HO.HMGCLDS 06:45
PROVIDERS: PCP Internal Medicine; Visit Provider Internal Medicine
DX: D50.9 Iron deficiency anemia, unspecified (principal); E03.9 Hypothyroidism, unspecified; E04.2 Nontoxic multinodular goiter; E11.29 Type 2 diabetes mellitus with other diabetic kidney complication; E78.5 Hyperlipidemia, unspecified
CPT/HCPCS: 36415; 80061; 82306; 83036; 84439; 84443; 84450; 84460

== ENCOUNTER 2023-02-21 09:21 | Outpatient (AMB) | payer MEDICARE, SELFPAY ==
[2023-02-21 10:27] VITALS: BP 130/66; PULSE 78; O2SAT 96; BMI 39.9
--- NOTE | 2023-02-21 10:27 | A.OFFPC_ITS ---
Vital Signs 02/21/23 10:27 Height 5 ft 5 in Weight 240 lb BMI 39.9 BP 130/66 Blood Pressure Location Rt brachial Position Sitting Pulse 78 Pulse Source Pulse Oximeter Pulse Oximetry (%) 96 Oxygen Delivery Method Room Air Intake Visit Reasons: 3 Month follow up Intake Note: Pt is here today 3 mo. f/u Allergies No Known Allergies Allergy (Verified 02/21/23 10:51) Medication List - Last Reconciled 02/21/23 by Mia Lucero MD baclofen 10 mg PO BID PRN blood sugar diagnostic ([employer] Verio test strips) Use to check blood sugar twice daily, once fasting and another random during the day blood-glucose meter ([employer] Verio Meter) Use to check blood sugar twice daily, once fasting and another random during the day cholecalciferol (vitamin D3) 50 mcg PO DAILY 90 days clopidogrel 75 mg PO DAILY enalapril maleate 20 mg PO BID hydrochlorothiazide 25 mg PO DAILY lancets ([employer] Delica Lancets) Use to check blood sugar twice daily, once fasting and another random during the day levothyroxine 137 mcg PO DAILY 90 days metformin 1,000 mg PO QAM metoprolol tartrate 100 mg PO BID 90 days omeprazole 40 mg PO DAILY@0630 rosuvastatin 40 mg PO DAILY Tobacco use date assessed: 02/21/23 Fall risk assessment: No Falls in past year Last assessed Fall Risk: 02/21/23 Dental Screening Dental Screen Date: 02/21/23 Did you have a dental visit in the last 12 months?: No Was dental information given to patient?: Patient has dentist HPI 3 Month follow up HPI Details 67-year-old male with diabetes mellitus, hypertension, with chronic kidney disease, dyslipidemia, here today for his follow-up. He has been compliant with taking his medications, and diabetes is well controlled with his hemoglobin A1c within normal limits at 5.9% off metformin, and lipids, thyroid levels are also within normal limits. Patient states that he just recently was seen at [facility] by Dr. Torres for an upper endoscopy and had dilatation and ? burning of esophageal webs. Faculty swallowing is improving but still needs to drink something after eating to push the food down. He has an appointment for a repeat upper endoscopy scheduled for next week 02/28/2023. He does not get flu shots, nor does he want to get a COVID vaccine. Patient states that he has had his Tdap and his 2 shingles vaccine and pneumonia vaccine administered in [place] approximately 2 years ago. Laboratory Tests 02/16/23 02/16/23 07:07 07:07 Estimat Average Gl ucose 123 Hemoglobin A1c % 5.9 AST 14 ALT 12 Triglycerides 135 Cholesterol 116 LDL Cholesterol, C alc 52 HDL Cholesterol 37 L 25-OH Vitamin D To maddie 53.1 TSH 0.17 L Free T4 0.89 PFS Medical History (Updated 03/23/23 @ 03:16 by Mia Lucero MD) History of esophageal stricture Iron deficiency anemia COVID-19 vaccine series declined Refused influenza vaccine Morbid obesity with body mass index (BMI) of 40.0 to 44.9 in adult CAD (coronary artery disease) Blanca's esophagus with high grade dysplasia Diabetes mellitus with kidney complication, without long-term current use of insulin Erosive gastritis GERD (gastroesophageal reflux disease) Hearing loss Erectile dysfunction Major depression Anemia of chronic disease Sleep apnea Bipolar 1 disorder Hiatal hernia Gout Multinodular goiter Morbid obesity Fatty liver Myocardial infarct S/P CABG x 4 Dyslipidemia Hypothyroidism Hypertension Surgical History History of endoscopy Hx of coronary artery bypass graft Hx of inguinal hernia repair Family History Mother No problems noted. Sister Hyperlipemia Social History Household Members: Spouse Housing: House Do you presently have visiting nurse or other home services: No Alcohol intake: never Patient Tobacco Use Status: Never used Tobacco Years Smoked: 10 +/- e-Cigarette/Vaping Use: Never Used service: No Current occupational status: retired Cognitive needs: No Hearing needs: No Vision needs: Yes Questionnaire Thrive Questionnaire Date Thrive assessed: 08/22/22 KOJO-7 AMB Questionnaire KOJO-7 Date KOJO - 7 assessed: 08/22/22 Source: Developed by Drs. Lowell Eubanks, Trupti Camarillo, Douglas Lancaster and colleagues, with an educational kim from [employer]. Review of Systems Const Denies weakness Eyes Denies change in vision ENT Denies dizziness Card Denies chest pain, Denies chest pain with activity, Denies syncope, Denies rapid heart rate, Denies pedal edema, Denies edema, Denies leg edema, Denies lightheadedness, Denies palpitations, Denies dyspnea and Denies dyspnea on exertion Resp Denies cough, Denies dyspnea and Denies dyspnea on exertion GI Denies abdominal pain, Denies melena, Denies bloating, Denies change in bowel habits, Denies change in stool character and Denies heartburn Reports no additional complaints Musc Denies abnormal gait, Denies muscle cramps, Denies muscle weakness, Denies numbness and Denies tingling Neuro Denies abnormal gait, Denies dizziness, Denies syncope, Denies numbness, Denies tingling and Denies weakness Endo Denies palpitations Physical exam (Primary Care) Vital Signs: Last Vital Signs Pulse 78 02/21/23 10:27 BP 130/66 02/21/23 10:27 Pulse Ox 96 02/21/23 10:27 Oxygen Delivery Method Room Air 02/21/23 10:27 BMI result Body Mass Index 39.9 BMI Assessment/Plan discussion: High BMI High, discussed plan: lifestyle, weight reduction, dietary and physical activity Tobacco/Smoking Status: Tobacco use Status Tobacco use date assessed 02/21/23 02/21/23 10:35 Patient Tobacco Use Status Never used Tobacco 02/21/23 10:35 e-Cigarette/Vaping Use Never Used 02/21/23 10:35 Thrive Assessment: Date of Thrive Assessment Date Thrive assessed 08/22/22 02/21/23 10:35 Const General: cooperative, comfortable, no acute distress and alert Nutritional Appearance: obese morbidly obese Orientation/consciousness: patient oriented x3 [facility] General nose exam: Normal external nose present Face and sinus: Yes face symmetric Mouth: Normal oral and palatal mucosa present and moist mucous membranes Eyes General: appearance normal, both eyes and all related structures Neck Neck: Yes full ROM, Yes no lymphadenopathy and Yes supple Resp Auscultation: clear to auscultation bilaterally Cardio Other: S1-S2 present regular rate and rhythm GI Inspection: Yes obesity Palpation (GI): Soft to palpation, nontender, no guarding and no masses Auscultation: normal bowel sounds Neuro General: patient oriented x3, gait normal, moves all extremities, no focal motor deficits and decrease sensation to monofilament Extrem General: Yes full ROM, Yes no joint enlargement, Yes no pedal edema and Yes normal gait Assessment and Plan Assessment & Plan (1) Diabetes mellitus with kidney complication, without long-term current use of insulin: Code(s): E11.29 - Type 2 diabetes mellitus with other diabetic kidney complication Plan: Diabetes mellitus stable controlled on present treatment, continue with met formin a 1000 mg 1 tablet in a.m., in addition to adhering to healthy eating habits, getting regular exercise. Stressed importance of getting diabetes retinopathy screening yearly and inspect feet to check for any calcis or lesions. Declines recommended adult vaccinations offered today (2) Hypertension: Code(s): I10 - Essential (primary) hypertension Qualifiers: Hypertension type: essential hypertension Qualified Code(s): I10 - Essential (primary) hypertension Plan: Blood pressure at goal of less than 130/80. Continue with current medication. Reinforced importance of following a low sodium diet, getting regular exercise, and lowering stress levels. (3) Dyslipidemia: Code(s): E78.5 - Hyperlipidemia, unspecified Plan: Reviewed recent fasting lipid profile with patient with levels within normal limits . Continue with rosuvastatin 40 mg daily , in addition to adherence to low-cholesterol diet and regular exercise, at least 30 minutes 3 to 4 times a week. Advised patient to make healthy food choices, eat more fruits, vegetables, whole grains, wild caught fish and low-fat dairy. Limit amount of meat and fried or fatty food products, as well as processed foods and fast foods. Follow-up scheduled with repeat fasting lipid panel in 3 months. (4) Iron deficiency anemia: Code(s): D50.9 - Iron deficiency anemia, unspecified Qualifiers: Iron deficiency anemia type: other iron deficiency Qualified Code(s): D50.8 - Other iron deficiency anemias Plan: Advised to eat iron rich foods like green leafy vegetables, lean meat. Will repeat another CBC in 3 months (5) Hypothyroidism: Code(s): E03.9 - Hypothyroidism, unspecified Plan: Continue with levothyroxine 137 mcg daily, recent thyroid levels are still wi thin normal limits (6) Refused pneumococcal vaccine: Code(s): Z28.21 - Immunization not carried out because of patient refusal (7) Morbid obesity with body mass index (BMI) of 40.0 to 44.9 in adult: Code(s): E66.01 - Morbid (severe) obesity due to excess calories; Z68.41 - Body mass index [BMI] 40.0-44.9, adult Plan: Discussed need to increase activity Recommended focusing on improving your health instead of dieting. : Eat Mediterranean diet, limit foods high in fat, sugar, and calories, eat slowly, pay attention to portion sizes, plan your meals ahead of time, start regular physical activity 150 minutes of moderate intensity exercise or 90 minutes/week of vigorous exercise and increase water intake. (8) Vitamin D deficiency: Code(s): E55.9 - Vitamin D deficiency, unspecified Plan: Continue cholecalciferol 50 mcg taken once a day (9) COVID-19 vaccine series declined: Code(s): Z28.21 - Immunization not carried out because of patient refusal; Z28.310 - Unvaccinated for COVID-19 (10) Refused influenza vaccine: Code(s): Z28.21 - Immunization not carried out because of patient refusal Orders: Orders Complete Blood Count Auto Diff 05/19/23 N18.4 - Chronic kidney disease, stage 4 (severe), D50.9 - Iron deficiency anemia, unspecified, E55.9 - Vitamin D deficiency, unspecified, Z28.21 - Immunization not carried out because of patient refusal, Z28.310 - Unvaccinated for COVID-19, E66.01 - Morbid (severe) obesity due to excess calories, Z68.41 - Body mass index [BMI] 40.0-44.9, adult, E11.29 - Type 2 diabetes mellitus with other diabetic kidney complication, D63.8 - Anemia in other chronic diseases classified elsewhere, E78.5 - Hyperlipidemia, unspecified, E03.9 - Hypothyroidism, unspecified, I10 - Essential (primary) hypertension Vitamin D 25-OH Total 05/19/23 N18.4 - Chronic kidney disease, stage 4 (severe), D50.9 - Iron deficiency anemia, unspecified, E55.9 - Vitamin D deficiency, uns pecified, Z28.21 - Immunization not carried out because of patient refusal, Z28.310 - Unvaccinated for COVID-19, E66.01 - Morbid (severe) obesity due to excess calories, Z68.41 - Body mass index [BMI] 40.0-44.9, adult, E11.29 - Type 2 diabetes mellitus with other diabetic kidney complication, D63.8 - Anemia in other chronic diseases classified elsewhere, E78.5 - Hyperlipidemia, unspecified, E03.9 - Hypothyroidism, unspecified, I10 - Essential (primary) hypertension Basic Metabolic Panel Fasting 05/19/23 N18.4 - Chronic kidney disease, stage 4 (severe), D50.9 - Iron deficiency anemia, unspecified, E55.9 - Vitamin D deficiency, unspecified, Z28.21 - Immunization not carried out because of patient refusal, Z28.310 - Unvaccinated for COVID-19, E66.01 - Morbid (severe) obesity due to excess calories, Z68.41 - Body mass index [BMI] 40.0-44.9, adult, E11.29 - Type 2 diabetes mellitus with other diabetic kidney complication, D63.8 - Anemia in other chronic diseases classified elsewhere, E78.5 - Hyperlipidemia, unspecified, E03.9 - Hypothyroidism, unspecified, I10 - Essential (primary) hypertension Alanine Aminotransferase 05/19/23 N18.4 - Chronic kidney disease, stage 4 (severe), D50.9 - Iron deficiency anemia, unspecified, E55.9 - Vitamin D deficiency, unspecified, Z28.21 - Immunization not carried out because of patient refusal, Z28.310 - Unvaccinated for COVID-19, E66.01 - Morbid (severe) obesity due to excess calories, Z68.41 - Body mass index [BMI] 40.0-44.9, adult, E11.29 - Type 2 diabetes mellitus with other diabetic kidney complication, D63.8 - Anemia in other chronic diseases classified elsewhere, E78.5 - Hyperlipidemia, unspecified, E03.9 - Hypothyroidism, unspecified, I10 - Essential (primary) hypertension Aspartate Amino Transferase 05/19/23 N18.4 - Chronic kidney disease, stage 4 (severe), D50.9 - Iron deficiency anemia, unspecified, E55.9 - Vitamin D deficiency, unspecified, Z28.21 - Immunization not carried out because of patient refusal, Z28.310 - Unvaccinated for COVID-19, E66.01 - Morbid (severe) obesity due to excess calories, Z68.41 - Body mass index [BMI] 40.0-44.9, adult, E11.29 - Type 2 diabetes mellitus with other diabetic kidney complication, D63.8 - Anemia in other chronic diseases classified elsewhere, E78.5 - Hyperlipidemia, unspecified, E03.9 - Hypothyroidism, unspecified, I10 - Essential (primary) hypertension Hemoglobin A1c 05/19/23 N18.4 - Chronic kidney disease, stage 4 (severe), D50.9 - Iron deficiency anemia, unspecified, E55.9 - Vitamin D deficiency, unspecified, Z28.21 - Immunization not carried out because of patient refusal, Z28.310 - Unvaccinated for COVID-19, E66.01 - Morbid (severe) obesity due to excess calories, Z68.41 - Body mass index [BMI] 40.0-44.9, adult, E11.29 - Type 2 diabetes mellitus with other diabetic kidney complication, D63.8 - Anemia in other chronic diseases classified elsewhere, E78.5 - Hyperlipidemia, unspecified, E03.9 - Hypothyroidism, unspecified, I10 - Essential (primary) hypertension Lipid Panel 05/19/23 N18.4 - Chronic kidney disease, stage 4 (severe), D50.9 - Iron deficiency anemia, unspecified, E55.9 - Vitamin D deficiency, unspecified, Z28.21 - Immunization not carried out because of patient refusal, Z28.310 - Unvaccinated for COVID-19, E66.01 - Morbid (severe) obesity due to excess calories, Z68.41 - Body mass index [BMI] 40.0-44.9, adult, E11.29 - Type 2 diabetes mellitus with other diabetic kidney complication, D63.8 - Anemia in other chronic diseases classified elsewhere, E78.5 - Hyperlipidemia, unspecified, E03.9 - Hypothyroidism, unspecified, I10 - Essential (primary) hypertension Thyroid Stimulating Hormone 05/19/23 N18.4 - Chronic kidney disease, stage 4 (severe), D50.9 - Iron deficiency anemia, unspecified, E55.9 - Vitamin D deficiency, unspecified, Z28.21 - Immunization not carried out because of patient refusal, Z28.310 - Unvaccinated for COVID-19, E66.01 - Morbid (severe) obesity due to excess calories, Z68.41 - Body mass index [BMI] 40.0-44.9, adult, E11.29 - Type 2 diabetes mellitus with other diabetic kidney complication, D63.8 - Anemia in other chronic diseases classified elsewhere, E78.5 - Hyperlipidemia, unspecified, E03.9 - Hypothyroidism, unspecified, I10 - Essential (primary) hypertension Free T4 (Free Thyroxine) 05/19/23 E03.9 - Hypothyroidism, unspecified, N18.4 - Chronic kidney disease, stage 4 (severe), D50.9 - Iron deficiency anemia, unspecified, E55.9 - Vitamin D deficiency, unspecified, Z28.21 - Immunization not carried out because of patient refusal, Z28.310 - Unvaccinated for COVID-19, E66.01 - Morbid (severe) obesity due to excess calories, Z68.41 - Body mass index [BMI] 40.0-44.9, adult, E11.29 - Type 2 diabetes mellitus with other diabetic kidney complication, D63.8 - Anemia in other chronic diseases classified elsewhere, E78.5 - Hyperlipidemia, unspecified, I10 - Essential (primary) hypertension Coding Level of Care Code Est Pt Level 4 (17048) Diagnoses Diabetes mellitus with kidney complication, without long-term current use of insulin E11.29 Essential hypertension I10 Hypertension type: essential hypertension Dyslipidemia E78.5 Other iron deficiency anemia D50.8 Iron deficiency anemia type: other iron deficiency Hypothyroidism E03.9 Refused pneumococcal vaccine Z28.21 Morbid obesity with body mass index (BMI) of 40.0 to 44.9 in adult E66.01; Z68.41 Vitamin D deficiency E55.9 COVID-19 vaccine series declined Z28.21; Z28.310 Refused influenza vaccine Z28.21
== END 2023-02-21 12:04 | disposition home or self-care (01) ==
PROVIDERS: PCP Internal Medicine; Visit Provider Internal Medicine
DX: E11.29 Type 2 diabetes mellitus with other diabetic kidney complication (principal); E66.01 Morbid (severe) obesity due to excess calories; I10 Essential (primary) hypertension; Z68.41 Body mass index [BMI] 40.0-44.9, adult; E78.5 Hyperlipidemia, unspecified; D50.8 Other iron deficiency anemias; E03.9 Hypothyroidism, unspecified; Z28.21 Immunization not carried out because of patient refusal; E55.9 Vitamin D deficiency, unspecified; Z28.310 Unvaccinated for COVID-19
CPT/HCPCS: 99214

== ENCOUNTER 2023-05-17 06:54 | Outpatient (REF) | payer MEDICARE, SELFPAY ==
[2023-05-17 11:16] LABS: MANUAL DIFF FLAG NO
[2023-05-17 11:36] LABS: Basophils Absolute Auto 0.1 X10*3/uL (0.0-0.2); Basophils Percent Auto 0.6 % (0-2); Eosinophils Absolute Auto 0.2 X10*3/uL (0.0-0.4); Eosinophils Percent Auto 1.9 % (0-4); Hemoglobin 15.2 g/dl (14.0-18.0); Imm Gran Abs Auto 0.08 X10*3/uL (0.00-0.03); Imm Gran Pct Auto 0.9 % (0.0-0.4); Lymphocytes Absolute Auto 2.3 X10*3/uL (1.2-4.9); Lymphocytes Percent Auto 26.4 % (20-40); Mean Corpuscular HGB Conc 32.3 g/dl (31.0-36.0); Mean Corpuscular Hemoglobin 28.9 pg (27.0-33.0); Mean Corpuscular Volume 89.4 fL (80.0-98.0); Monocytes Absolute Auto 0.8 X10*3/uL (0.1-1.2); Monocytes Percent Auto 9.2 % (2-11); Neutrophils Absolute Auto 5.3 x10*3/uL (2.0-8.3); Platelet Count 266 X10*3/uL (160-400); Red Blood Count 5.26 X10*6/uL (4.60-5.80); Red Cell Distribution Width 14.7 % (11.0-16.0); White Blood Count 8.8 X10*3/uL (4.8-10.8)
[2023-05-17 11:57] LABS: Estimated Average Glucose 134 mg/dL; Hemoglobin A1c % 6.3 % (<6.0)
[2023-05-17 12:11] LABS: Alanine Aminotransferase 21 U/L (0-40); Anion Gap 14 (12-20); Aspartate Amino Transferase 19 U/L (5-37); Blood Urea Nitrogen 20 mg/dL (9-16); Calcium 9.4 mg/dL (8.4-10.2); Carbon Dioxide 27 mmol/L (22-29); Chloride 100 mmol/L (96-108); Cholesterol 119 mg/dL (<200); Estimated Glomerular Filt Rate 59; Free T4 (Free Thyroxine) 0.92 ng/dL (0.71-1.85); Glucose Fasting 127 mg/dL (60-99); HDL Cholesterol 34 mg/dL (>40); LDL Cholesterol Calculated 47 mg/dL (<100); Potassium 3.7 mmol/L (3.3-5.1); Sodium 137 mmol/L (135-145); Thyroid Stimulating Hormone 0.54 uIU/mL (0.32-4.0); Triglycerides 193 mg/dL (<150); Vitamin D 25-OH Total 51.8 ng/mL (>30)
== END 2023-05-17 06:55 | disposition home or self-care (01) ==
LOC: HO.HMGCLDS 06:54
PROVIDERS: PCP Internal Medicine; Visit Provider Internal Medicine
DX: I12.9 Hypertensive chronic kidney disease with stage 1 through stage 4 chronic kidney disease, or unspecified chronic kidney disease (principal); E11.22 Type 2 diabetes mellitus with diabetic chronic kidney disease; N18.4 Chronic kidney disease, stage 4 (severe); D50.9 Iron deficiency anemia, unspecified; E55.9 Vitamin D deficiency, unspecified; E66.01 Morbid (severe) obesity due to excess calories; Z68.41 Body mass index [BMI] 40.0-44.9, adult; E78.5 Hyperlipidemia, unspecified; E03.9 Hypothyroidism, unspecified; Z28.310 Unvaccinated for COVID-19
CPT/HCPCS: 36415; 80048; 80061; 82306; 83036; 84439; 84443; 84450; 84460; 85025

== ENCOUNTER 2023-05-24 09:03 | Outpatient (AMB) | payer MEDICARE, SELFPAY ==
--- NOTE | 2023-05-24 10:06 | A.OFFPC_ITS ---
Vital Signs 05/24/23 10:11 Height 5 ft 5 in Weight 250 lb 2 oz BMI 41.6 BP 162/96 H Blood Pressure Location Lt brachial Position Sitting Pulse 72 Pulse Source Pulse Oximeter Pulse Oximetry (%) 95 Oxygen Delivery Method Room Air Comment Has not taken his blood pressure medicine this morning, running late Intake Visit Reasons: follow up Intake Note: Pt is here to follow up for lab results Allergies No Known Allergies Allergy (Verified 07/17/23 21:12) Medication List - Last Reconciled 05/24/23 by Mia Lucero MD baclofen 10 mg PO BID PRN blood sugar diagnostic ([employer] Verio test strips) Use to check blood sugar twice daily, once fasting and another random during the day blood-glucose meter ([employer] Verio Meter) Use to check blood sugar twice daily, once fasting and another random during the day cholecalciferol (vitamin D3) 50 mcg PO DAILY 90 days clopidogrel 75 mg PO DAILY enalapril maleate 20 mg PO BID ferrous fumarate 324 mg PO DAILY lancets ([employer] Delica Lancets) Use to check blood sugar twice daily, once fasting and another random during the day levothyroxine 137 mcg PO DAILY 90 days metformin 1,000 mg PO BID metoprolol tartrate 100 mg PO BID 90 days omeprazole 40 mg PO DAILY@629 rosuvastatin 40 mg PO DAILY Tobacco use date assessed: 05/24/23 Fall risk assessment: 1 Fall in past year Last assessed Fall Risk: 05/24/23 Dental Screening Dental Screen Date: 05/24/23 Did you have a dental visit in the last 12 months?: No Did you have a dental problem in the last 6 months where you did not have access to dental care?: No Was dental information given to patient?: No HPI follow up HPI Details 67-year-old male with past medical histo ry of hypertension, hyperlipidemia, diabetes, morbid obesity, chronic kidney disease, CAD, 4 vessel Coronary artery bypass grafting, RCA sten, esophageal stricture status post dilatation, here today for follow-up. He has been feeling well, no complaints of any chest pain, shortness of breath, lightheadedness or headaches. Has been trying to follow recommended diet but admits to getting no exercise at all. [facility] Medical History History of esophageal stricture Iron deficiency anemia COVID-19 vaccine series declined Refused influenza vaccine Morbid obesity with body mass index (BMI) of 40.0 to 44.9 in adult CAD (coronary artery disease) Blanca's esophagus with high grade dysplasia Diabetes mellitus with kidney complication, without long-term current use of insulin Erosive gastritis GERD (gastroesophageal reflux disease) Hearing loss Erectile dysfunction Major depression Anemia of chronic disease Sleep apnea Bipolar 1 disorder Hiatal hernia Gout Multinodular goiter Morbid obesity Fatty liver Myocardial infarct S/P CABG x 4 Dyslipidemia Hypothyroidism Hypertension Surgical History History of endoscopy Hx of coronary artery bypass graft Hx of inguinal hernia repair Family History Mother No problems noted. Sister Hyperlipemia Social History Household Members: Spouse Housing: House Do you presently have visiting nurse or other home services: No Alcohol intake: never Patient Tobacco Use Status: Never used Tobacco Years Smoked: 10 +/- e-Cigarette/Vaping Use: Never Used service: No Current occupational status: retired Cognitive needs: No Hearing needs: No Vision needs: Yes Questionnaire Thrive Questionnaire Date Thrive assessed: 08/22/22 KOJO-7 AMB Questionnaire KOJO-7 Date KOJO - 7 assessed: 08/22/22 Source: Developed by Drs. Lowell Eubanks, Trupti Camarillo, Douglas Lancaster and colleagues, with an educational kim from [employer]. Review of Systems Const Reports no additional complaints Eyes Denies change in vision ENT Denies dizziness Card Denies chest pain at rest, Denies chest pain with activity, Denies rapid heart rate, Denies pedal edema, Denies lightheadedness, Denies palpitations, Denies dyspnea, Denies dyspnea on exertion and Denies orthopnea Resp Denies cough, Denies dyspnea and Denies dyspnea on exertion GI Denies hematochezia Reports no additional complaints Musc Denies abnormal gait, Denies limited range of motion, Denies muscle cramps, Denies muscle weakness, Denies numbness, Denies radiating pain into limb, Denies stiffness and Denies tingling Skin/Breast Denies rash Neuro Denies abnormal gait, Denies dizziness, Denies numbness and Denies tingling Psych Reports no additional complaints Endo Denies palpitations Dhruv/Lymph Reports no additional complaints Aller/Immun Reports no additional complaints Physical exam (Primary Care) Vital Signs: Last Vital Signs Pulse 72 05/24/23 10:11 BP 162/96 H 05/24/23 10:11 Pulse Ox 95 05/24/23 10:11 Oxygen Delivery Method Room Air 05/24/23 10:11 BMI result Body Mass Index 41.6 BMI Assessment/Plan discussion: High BMI High, discussed plan: lifestyle, weight reduction, dietary and physical activity Tobacco/Smoking Status: Tobacco use Status Tobacco use date assessed 05/24/23 05/24/23 10:17 Patient Tobacco Use Status Never used Tobacco 05/24/23 10:06 e-Cigarette/Vaping Use Never Used 05/24/23 10:06 Thrive Assessment: Date of Thrive Assessment Date Thrive assessed 08/22/22 05/24/23 10:06 Const General: cooperative, comfortable, no acute distress and alert Nutritional Appearance: obese morbidly obese Orientation/consciousness: patient oriented x3 [facility] General nose exam: Normal external nose present Face and sinus: Yes face symmetric Mouth: Normal oral and palatal mucosa present and moist mucous membranes Eyes General: appearance normal, both eyes and all related structures Neck Neck: Yes full ROM, Yes no lymphadenopathy and Yes supple Resp Auscultation: clear to auscultation bilaterally Cardio Other: S1-S2 present regular rate and rhythm GI Inspection: Yes obesity Palpation (GI): Soft to palpation, nontender, no guarding and no masses Auscultation: normal bowel sounds Neuro General: patient oriented x3, gait normal, moves all extremities, no focal motor deficits and decrease sensation to monofilament Extrem General: Yes full ROM, Yes no joint enlargement, Yes no pedal edema and Yes normal gait Results Reviewed Results Reviewed: ENTERED: 05/17/23-0700 JENNI BATES: ORDERED: CBC Auto Diff Test Result Flag Reference Site WBC 8.8 4.8-10.8 X10*3/uL RBC 5.26 # 4.60-5.80 X10*6/uL HGB 15.2 # 14.0-18.0 g/dl HCT 47.0 # 42.0-52.0 % MCV 89.4 80.0-98.0 fL MCH 28.9 27.0-33.0 pg MCHC 32.3 31.0-36.0 g/dl RDW 14.7 11.0-16.0 % PLT 266 160-400 X10*3/uL MPV 12.0 9.4-12.4 fL Neut Pct Auto 61.0 45-73 % ImGran Pct Auto 0.9 H 0.0-0.4 % Lymp Pct Auto 26.4 20-40 % [place] Pct Auto 9.2 2-11 % Eos Pct Auto 1.9 0-4 % Baso Pct Auto 0.6 0-2 % NRBC Pct Auto 0.0 0.0-0.2 /100WBC ANC Neut Abs # 5.3 2.0-8.3 x10*3/uL ImGran Abs Auto 0.08 H 0.00-0.03 X10*3/uL Lymph Abs Auto 2.3 1.2-4.9 X10*3/uL [place] Abs Auto 0.8 0.1-1.2 X10*3/uL Eos Abs Auto 0.2 0.0-0.4 X10*3/uL Baso Abs Auto 0.1 0.0-0.2 X10*3/uL NRBC Abs Auto 0.000 0.0-0.012 X10*3/uL RUN: 05/24/23 1024 PAGE 1 [facility] [address] [place] [id number] Poultry Hatchery Man: Mauricio Kirkpatrick M.D. Specimen Inquiry Name: Parmjit Sykes Age/Sex: 67/M : 1955 Unit#: [id number] Attend Dr: Mia Lucero MD Re05/17/23 Status: DEP REF Location: [id number] Disch: SPEC : [id number] DEB: 05/17/23 STATUS: COMP REQ : [id number] RECD: 05/17/[address]: Mia Lucero MD COMP: 05/17/23 ENTERED: 05/17/23 [facility] DR: ORDERED: Met Prof Fast, AST, ALT, Lipid Panel, Vitamin D 25-OH, Free T4, TSH Test Result Flag Reference Site Sodium 137 135-145 mmol/L Potassium 3.7 3.3-5.1 mmol/L CL 100 96-108 mmol/L CO2 27 22-29 mmol/L Gap 14 12-20 BUN 20 H 9-16 mg/dL Creat 1.23 0.5-1.4 mg/dL EGFR 59 NOTE: For -[place] individuals, multiply the result by 1.210. Chronic Kidney Disease: Estimated GFR < 60 mL/min/1.73m2 Severe Kidney Disease: Estimated GFR < 15 mL/min/1.73m2 FBS 127 H 60-99 mg/dL A fasting glucose of 126 mg/dl or greater on more than one occasion is considered diagnostic of diabetes. CA 9.4 8.4-10.2 mg/dL AST (GOT) 19 5-37 U/L ALT (GPT) 21 0-40 U/L Triglyceride 193 H <150 mg/dL Desirable Triglyceride: less than 150 mg/dL Borderline High Triglyceride 150-199 mg/dL High Triglyceride: 200-499 mg/dL Very High Triglyceride: greater than or equal to 5OO mg/dL Cholesterol 119 <200 mg/dL Desirable Cholesterol: less than 200 mg/dL Borderline High Cholesterol: 200-239 mg/dL High Cholesterol: greater than 239 mg/dL LDL Calculated 47 <100 mg/dL Desirable LDL: less than 100 mg/dL Near Optimal/Above Optimal LDL: 110-129 mg/dL Borderline High LDL: 130-159 mg/dL High LDL: 160-189 mg/dL Very High LDL: greater than or equal to 190 mg/dL HDL 34 L >40 mg/dL Desirable HDL: greater than 40 mg/dL Note: This HDL assay may give artificially low results in patients with liver disease. Vit D 25-OH Tot 51.8 >30 ng/mL Health Based Reference Values* < 20 ng/mL Deficient 20-30 ng/mL Insufficient > 30 ng/mL Sufficient *Holick MF. N Engl J Med. 2007;[id number]:266-280 Care must be taken in interpreting Vitamin D results from different laboratories and methodologies. Published data demonstrated that results from patients undergoing hemodialysis may show a negative bias when tested with various automated 25-OH vitamin D assays when compared to LC-MS/MS. When testing samples from patients whose predominant form of Vitamin D is Vitamin D2, such as patients receiving Vitamin D2 supplementation, results that are subtherapeutic should be confirmed with another method such as LC-MS/MS. Free T4 0.92 0.71-1.85 ng/dL TSH 3rd Gen. 0.54 0.32-4.0 uIU/mL TSH 3rd Generation ([facility]) Laboratory Tests 05/17/23 07:00 Estimat Average Glucose 134 Hemoglobin A1c % 6.3 H Laboratory Tests 08/13/22 11/15/22 07:58 07:27 Urine Creatinine 177.52 125.80 Urine Microalbumin 40.0 Microalb/Creat Ratio 22.5 Protein/Creatinin Ratio 0.19 Assessment and Plan Assessment & Plan (1) Diabetes mellitus with kidney complication, without long-term current use of insulin: Code(s): E11.29 - Type 2 diabetes mellitus with other diabetic kidney complication Plan: Diabetes control today with hemoglobin A1c at 6.3% continue on metformin 1000 mg twice a day, and advised to get diabetes retinopathy screening yearly. Refusing to get any vaccinations however (2) Dyslipidemia: Code(s): E78.5 - Hyperlipidemia, unspecified Plan: Recent fasting lipids showed elevated triglycerides but LDL cholesterol is within normal limits. Continue with rosuvastatin 40 mg daily (3) Hypothyroidism: Code(s): E03.9 - Hypothyroidism, unspecified Qualifiers: Hypothyroidism type: acquired Qualified Code(s): E03.9 - Hypothyroidism, unspecified Plan: Thyroid levels are within normal limits, currently on levothyroxine 137 mcg daily (4) Hypertension: Code(s): I10 - Essential (primary) hypertension Qualifiers: Hypertension type: essential hypertension Qualified Code(s): I10 - Essential (primary) hypertension Plan: Blood pressure not at goal of less than 130/80. Continue enalapril and metoprolol tartrate same dose but reinforced importance of following a low sodium diet, getting regular exercise, and lowering stress levels. Schedule appointment with nurse navigator in 1-2 weeks to check blood pressure (5) COVID-19 vaccine series declined: Code(s): Z28.21 - Immunization not carried out because of patient refusal; Z28.310 - Unvaccinated for COVID-19 (6) Refused influenza vaccine: Code(s): Z28.21 - Immunization not carried out because of patient refusal (7) Morbid obesity with body mass index (BMI) of 40.0 to 44.9 in adult: Code(s): E66.01 - Morbid (severe) obesity due to excess calories; Z68.41 - Body mass index [BMI] 40.0-44.9, adult Plan: Strongly encouraged to continue following recommended diet, and get at least 15- 30 minutes of exercise does 3 to 4 times a week (8) Refused pneumococcal vaccine: Code(s): Z28.21 - Immunization not carried out because of patient refusal Orders: Orders Thyroid Stimulating Hormone 08/28/23 E55.9 - Vitamin D deficiency, unspecified, E66.01 - Morbid (severe) obesity due to excess calories, Z68.41 - Body mass ind ex [BMI] 40.0-44.9, adult, I25.10 - Atherosclerotic heart disease of [place] coronary artery without angina pectoris, E11.29 - Type 2 diabetes mellitus with other diabetic kidney complication, E03.9 - Hypothyroidism, unspecified, I10 - Essential (primary) hypertension, E78.5 - Hyperlipidemia, unspecified, Z12.5 - Encounter for screening for malignant neoplasm of prostate Free T4 (Free Thyroxine) 08/28/23 E03.9 - Hypothyroidism, unspecified, E55.9 - Vitamin D deficiency, unspecified, E66.01 - Morbid (severe) obesity due to excess calories, Z68.41 - Body mass index [BMI] 40.0-44.9, adult, I25.10 - Atherosclerotic heart disease of [place] coronary artery without angina pectoris, E11.29 - Type 2 diabetes mellitus with other diabetic kidney complication, I10 - Essential (primary) hypertension, E78.5 - Hyperlipidemia, unspecified, Z12.5 - Encounter for screening for malignant neoplasm of prostate Lipid Panel 08/28/23 E55.9 - Vitamin D deficiency, unspecified, E66.01 - Morbid (severe) obesity due to excess calories, Z68.41 - Body mass index [BMI] 40.0- 44.9, adult, I25.10 - Atherosclerotic heart disease of [place] coronary artery without angina pectoris, E11.29 - Type 2 diabetes mellitus with other diabetic kidney complication, E03.9 - Hypothyroidism, unspecified, I10 - Essential (primary) hypertension, E78.5 - Hyperlipidemia, unspecified, Z12.5 - Encounter for screening for malignant neoplasm of prostate Hemoglobin A1c 08/28/23 E55.9 - Vitamin D deficiency, unspecified, E66.01 - Morbid (severe) obesity due to excess calories, Z68.41 - Body mass index [BMI] 40.0-44.9, adult, I25.10 - Atherosclerotic heart disease of [place] coronary artery without angina pectoris, E11.29 - Type 2 diabetes mellitus with other diabetic kidney complication, E03.9 - Hypothyroidism, unspecified, I10 - Essential (primary) hypertension, E78.5 - Hyperlipidemia, unspecified, Z12.5 - Encounter for screening for malignant neoplasm of prostate Vitamin D 25-OH Total 08/28/23 E55.9 - Vitamin D deficiency, unspecified, E66.01 - Morbid (severe) obesity due to excess calories, Z68.41 - Body mass index [BMI] 40.0-44.9, adult, I25.10 - Atherosclerotic heart disease of [place] coronary artery without angina pectoris, E11.29 - Type 2 diabetes mellitus with other diabetic kidney complication, E03.9 - Hypothyroidism, unspecified, I10 - Essential (primary) hypertension, E78.5 - Hyperlipidemia, unspecified, Z12.5 - Encounter for screening for malignant neoplasm of prostate Comprehensive [place]. Panel Fast 08/28/23 E55.9 - Vitamin D deficiency, unspecified, E66.01 - Morbid (severe) obesity due to excess calories, Z68.41 - Body mass index [BMI] 40.0-44.9, adult, I25.10 - Atherosclerotic heart disease of [place] coronary artery without angina pectoris, E11.29 - Type 2 diabetes mellitus with other diabetic kidney complication, E03.9 - Hypothyroidism, unspecified, I10 - Essential (primary) hypertension, E78.5 - Hyperlipidemia, unspecified, Z12.5 - Encounter for screening for malignant neoplasm of prostate Microalbumin, Random (w Creat) 08/28/23 E55.9 - Vitamin D deficiency, unspecified, E66.01 - Morbid (severe) obesity due to excess calories, Z68.41 - Body mass index [BMI] 40.0-44.9, adult, I25.10 - Atherosclerotic heart disease of [place] coronary artery without angina pectoris, E11.29 - Type 2 diabetes mellitus with other diabetic kidney complication, E03.9 - Hypothyroidism, unspecified, I10 - Essential (primary) hypertension, E78.5 - Hyperlipidemia, unspecified, Z12.5 - Encounter for screening for malignant neoplasm of prostate PSA,Total (Free>4and<10) 08/28/23 E55.9 - Vitamin D deficiency, unspecified, E 66.01 - Morbid (severe) obesity due to excess calories, Z68.41 - Body mass index [BMI] 40.0-44.9, adult, I25.10 - Atherosclerotic heart disease of [place] coronary artery without angina pectoris, E11.29 - Type 2 diabetes mellitus with other diabetic kidney complication, E03.9 - Hypothyroidism, unspecified, I10 - Essential (primary) hypertension, E78.5 - Hyperlipidemia, unspecified, Z12.5 - Encounter for screening for malignant neoplasm of prostate Medications: Discontinued ferrous fumarate Discontinued Reason: Patient Completed Course 324 mg PO DAILY 90 tabs 1RF D50.9 - Iron deficiency anemia, unspecified Coding Level of Care Code Est Pt Level 4 (46394) Diagnoses Diabetes mellitus with kidney complication, without long-term current use of insulin E11.29 Dyslipidemia E78.5 Acquired hypothyroidism E03.9 Hypothyroidism type: acquired Essential hypertension I10 Hypertension type: essential hypertension COVID-19 vaccine series declined Z28.21; Z28.310 Refused influenza vaccine Z28.21 Morbid obesity with body mass index (BMI) of 40.0 to 44.9 in adult E66.01; Z68.41 Refused pneumococcal vaccine Z28.21
[2023-05-24 10:11] VITALS: BP 162/96; PULSE 72; O2SAT 95; BMI 41.6
== END 2023-05-24 10:43 | disposition home or self-care (01) ==
PROVIDERS: PCP Internal Medicine; Visit Provider Internal Medicine
DX: E11.29 Type 2 diabetes mellitus with other diabetic kidney complication (principal); E66.01 Morbid (severe) obesity due to excess calories; Z68.41 Body mass index [BMI] 40.0-44.9, adult; E78.5 Hyperlipidemia, unspecified; E03.9 Hypothyroidism, unspecified; I10 Essential (primary) hypertension; Z28.21 Immunization not carried out because of patient refusal; Z28.310 Unvaccinated for COVID-19
CPT/HCPCS: 99214

== ENCOUNTER 2023-06-20 07:06 | Outpatient (REF) | payer MEDICARE, SELFPAY ==
[2023-06-20 11:20] LABS: Hematocrit 46.9 % (42.0-52.0); Hemoglobin 15.4 g/dl (14.0-18.0); Mean Corpuscular HGB Conc 32.8 g/dl (31.0-36.0); Mean Corpuscular Hemoglobin 29.1 pg (27.0-33.0); Mean Corpuscular Volume 88.7 fL (80.0-98.0); Mean Platelet Volume 11.7 fL (9.4-12.4); Platelet Count 280 X10*3/uL (160-400); Red Blood Count 5.29 X10*6/uL (4.60-5.80); Red Cell Distribution Width 13.7 % (11.0-16.0); White Blood Count 8.8 X10*3/uL (4.8-10.8)
[2023-06-20 12:39] LABS: Anion Gap 12 (12-20); Blood Urea Nitrogen 21 mg/dL (9-16); Calcium 9.7 mg/dL (8.4-10.2); Carbon Dioxide 29 mmol/L (22-29); Chloride 104 mmol/L (96-108); Estimated Glomerular Filt Rate 53; Glucose Random 136 mg/dL (60-115); Sodium 141 mmol/L (135-145)
== END 2023-06-20 07:07 | disposition home or self-care (01) ==
LOC: HO.HMGCLDS 07:06
PROVIDERS: PCP Internal Medicine; Visit Provider Internal Medicine Hypertension Specialist
DX: N17.9 Acute kidney failure, unspecified (principal)
CPT/HCPCS: 36415; 80048; 85027

== ENCOUNTER 2023-07-03 07:48 | Outpatient (AMB) | payer MEDICARE, SELFPAY ==
[2023-07-03 09:00] VITALS: BP 140/92; PULSE 65; BMI 43.4
--- NOTE | 2023-07-03 09:00 | A.OFFVIS_ITS ---
Intake Vital Signs 07/03/23 09:00 Height 5 ft 5 in Weight 261 lb 0.437 oz BMI 43.4 BP 140/92 H Blood Pressure Location Lt brachial Position Sitting Pulse 65 Pulse Source Pulse Oximeter Intake Visit Reasons: 6 mth f/up Drapery Counselor Required: No Allergies No Known Allergies Allergy (Verified 07/03/23 09:06) Medication List - Last Reconciled 07/03/23 by Maeve White, MACHINE OPERATOR TRANSPLANTER-C blood sugar diagnostic ([employer] Verio test strips) Use to check blood sugar twice daily, once fasting and another random during the day blood-glucose meter ([employer] Verio Meter) Use to check blood sugar twice daily, once fasting and another random during the day cholecalciferol (vitamin D3) 50 mcg PO DAILY 90 days clopidogrel 75 mg PO DAILY enalapril maleate 20 mg PO BID lancets (Ultriva Delica Lancets) Use to check blood sugar twice daily, once fasting and another random during the day levothyroxine 137 mcg PO DAILY 90 days metformin 1,000 mg PO BID metoprolol tartrate 100 mg PO BID 90 days omeprazole 40 mg PO DAILY@0630 rosuvastatin 40 mg PO DAILY HPI 6 mth f/up HPI Details Parmjit is a 67-year-old male with past medical history hypertension, hyperlipidemia, diabetes, morbid obesity, chronic kidney disease, CAD, 4 vessel Coronary artery bypass grafting, RCA stent who presents for follow-up. Today he reports he has been doing well cardiac harp since his last visit in December. He was having difficulties with swallowing and underwent dilation of his esophagus. Also had treatment for his Blanca's esophagus. He tells me he does have follow-up endoscopy in the near future. He denies any chest discomfort at rest or with activity. No shortness of breath, palpitations, presyncope, syncope, PND, orthopnea or edema. He is taking all his meds as directed. Did not take blood pressure med this morning. Tolerates normal ADLs. Does no routine exercise. [facility] Medical History History of esophageal stricture Iron deficiency anemia COVID-19 vaccine series declined Refused influenza vaccine Morbid obesity with body mass index (BMI) of 40.0 to 44.9 in adult CAD (coronary artery disease) Blanca's esophagus with high grade dysplasia Diabetes mellitus with kidney complication, without long-term current use of i nsulin Erosive gastritis GERD (gastroesophageal reflux disease) Hearing loss Erectile dysfunction Major depression Anemia of chronic disease Sleep apnea Bipolar 1 disorder Hiatal hernia Gout Multinodular goiter Morbid obesity Fatty liver Myocardial infarct S/P CABG x 4 Dyslipidemia Hypothyroidism Hypertension Surgical History History of endoscopy Hx of coronary artery bypass graft Hx of inguinal hernia repair Family History Mother No problems noted. Sister Hyperlipemia Social History Household Members: Spouse Housing: House Do you presently have visiting nurse or other home services: No Alcohol intake: never Patient Tobacco Use Status: Never used Tobacco Years Smoked: 10 +/- e-Cigarette/Vaping Use: Never Used service: No Current occupational status: retired Cognitive needs: No Hearing needs: No Vision needs: Yes Review of Systems Const All systems reviewed & are unremarkable except as noted in HPI and below ENT Denies dizziness Card Denies chest pain, Denies chest pain at rest, Denies chest pain with activity, Denies rapid heart rate, Denies pedal edema, Denies edema, Denies leg edema, Denies lightheadedness, Denies palpitations, Denies dyspnea, Denies dyspnea on exertion and Denies orthopnea Resp Denies cough, Denies dyspnea and Denies dyspnea on exertion GI Denies hematochezia and Denies change in stool character Musc Denies abnormal gait, Denies limited range of motion, Denies muscle cramps, Denies muscle weakness, Denies numbness, Denies radiating pain into limb, Denies stiffness and Denies tingling Neuro Denies abnormal gait, Denies dizziness, Denies numbness and Denies tingling Endo Denies palpitations Physical Exam Vital Signs: Last Vital Signs Pulse 65 07/03/23 09:00 BP 140/92 H 07/03/23 09:00 BMI result Body Mass Index 43.4 Const General: cooperative, healthy appearing, comfortable and no acute distress Orientation/consciousness: patient oriented x3 Neck Neck: Yes normal visual inspection Resp Effort & Inspection: normal respiratory effort Auscultation: clear to auscultation bilaterally, crackles (left base), no rhonchi and no wheezes Cardio Jugular venous distension: no JVD Rate: regular rate Rhythm: regular rhythm Heart sounds: S1 normal heart sound present, S2 normal heart sound present, no murmurs and no rubs Skin General skin exam: no rashes or lesions noted Neuro General: patient oriented x3 Extrem General: Yes normal to inspection Psych Appearance: grossly normal Mental Status: mental status grossly normal Speech and movement: Normal speech and movement present Assessment & Plan Assessment & Plan (1) CAD (coronary artery disease): Code(s): I25.10 - Atherosclerotic heart disease of [place] coronary artery without angina pectoris Plan: History of CAD with 4 vessel Coronary artery bypass grafting approximately 10 years ago in [place]. Then 9 months later had shortness of breath with activity underwent cardiac catheterization showing vein graft occluded and TERRY placed to his RCA. Last echo done 08/05/2021 showed normal LV, calcific aortic valve changes, normal valves Doppler, normal RV. EKG done 12/28/2022 showed sinus rhythm with PVCs nonspecific ST and T-wave abnormality, rate 75. Today he reports feeling well with no anginal sounding symptoms. He has not on aspirin due to GI issues. He is on Plavix 75 mg daily. He is on rosuvastatin with ideal LDL goal less than 70. Labs done 05/17/2023 showed LDL 47. Continues on metoprolol and enalapril. Blood pressure mildly elevated but he states that he did not take his blood pressure med yet this morning as he has not had breakfast. Signs and symptoms of angina reviewed. Cardiology follow-up in 6 months, sooner if needed. (2) S/P CABG x 4: Comment: Status post CABG times for 10 years ago and drug-eluting stent to the right coronary artery probably due to vein graft occlusion to the right coronary artery. Code(s): Z95.1 - Presence of aortocoronary bypass graft Plan: As above (3) Stented coronary artery: Code(s): Z95.5 - Presence of coronary angioplasty implant and graft Plan: RCA stent (4) Hypertension: Code(s): I10 - Essential (primary) hypertension Qualifiers: Hypertension type: essential hypertension Qualified Code(s): I10 - Essential (primary) hypertension Plan: As above. 140/92 today but did not take his morning blood pressure medications Continue enalapril and metoprolol. Labs done 06/20/2023 showed creatinine 1.34, potassium 4.0 (5) Dyslipidemia: Code(s): E78.5 - Hyperlipidemia, unspecified Plan: As above (6) Erosive gastritis: Code(s): K29.60 - Other gastritis without bleeding Plan: Follows with GI. Is now off aspirin. Did have difficulty with swallowing and underwent dilation. He tells me he [facility] Plan Time spent on chart review, documentation, interview and assessment Coding Level of Care Code Est Pt Level 4 (21197) Diagnoses CAD (coronary artery disease) I25.10 S/P CABG x 4 Z95.1 Stented coronary artery Z95.5 Essential hypertension I10 Hypertension type: essential hypertension Dyslipidemia E78.5 Erosive gastritis K29.60 Time Spent (min) 28
== END 2023-07-03 09:27 | disposition home or self-care (01) ==
PROVIDERS: PCP Internal Medicine; Visit Provider Internal Medicine Cardiovascular Disease
DX: I25.10 Atherosclerotic heart disease of native coronary artery without angina pectoris (principal); Z95.1 Presence of aortocoronary bypass graft; Z95.5 Presence of coronary angioplasty implant and graft; I10 Essential (primary) hypertension; E78.5 Hyperlipidemia, unspecified; K29.60 Other gastritis without bleeding
CPT/HCPCS: 99214

== ENCOUNTER → 2023-07-03 07:48 | Outpatient (BNVA) | payer MEDICARE, SELFPAY | PROVIDERS: PCP Internal Medicine; Visit Provider Internal Medicine Cardiovascular Disease | DX: I25.10 Atherosclerotic heart disease of native coronary artery without angina pectoris (principal); I10 Essential (primary) hypertension; E78.5 Hyperlipidemia, unspecified; K29.60 Other gastritis without bleeding; Z95.5 Presence of coronary angioplasty implant and graft; Z95.1 Presence of aortocoronary bypass graft | CPT/HCPCS: 99212 ==

== ENCOUNTER 2023-07-11 10:25 | Outpatient (AMB) | payer MEDICARE, SELFPAY ==
[2023-07-11 10:27] VITALS: BP 132/70; PULSE 80; O2SAT 94; BMI 42.5
--- NOTE | 2023-07-11 10:27 | HO.NEPHOV ---
HPI HPI Comments History of Present Illness Details 67 yr old man with h/o HTN and DM with CKD Baseline creatinine is around 1.3 In October 2022, Cr peaked to 1.7 After stopping HCTZ, cr returned to 1.3 He is here for semiannual follow up [facility] Medical History History of esophageal stricture Iron deficiency anemia COVID-19 vaccine series declined Refused influenza vaccine Morbid obesity with body mass index (BMI) of 40.0 to 44.9 in adult CAD (coronary artery disease) Blanca's esophagus with high grade dysplasia Diabetes mellitus with kidney complication, without long-term current use of insulin Erosive gastritis GERD (gastroesophageal reflux disease) Hearing loss Erectile dysfunction Major depression Anemia of chronic disease Sleep apnea Bipolar 1 disorder Hiatal hernia Gout Multinodular goiter Morbid obesity Fatty liver Myocardial infarct S/P CABG x 4 Dyslipidemia Hypothyroidism Hypertension Surgical History History of endoscopy Hx of coronary artery bypass graft Hx of inguinal hernia repair Family History Mother No problems noted. Sister Hyperlipemia Social History Household Members: Spouse Housing: House Do you presently have visiting nurse or other home services: No Alcohol intake: never Patient Tobacco Use Status: Never used Tobacco Years Smoked: 10 +/- e-Cigarette/Vaping Use: Never Used service: No Current occupational status: retired Cognitive needs: No Hearing needs: No Vision needs: Yes Vital Signs 07/11/23 10:27 Height 5 ft 5 in Weight 255 lb 2 oz BMI 42.5 BP 132/70 Blood Pressure Location Lt brachial Position Sitting Pulse 80 Pulse Source Pulse Oximeter Pulse Oximetry (%) 94 Oxygen Delivery Method Room Air Physical Exam Vital Signs: Last Vital Signs Pulse 80 07/11/23 10:27 BP 132/70 07/11/23 10:27 Pulse Ox 94 07/11/23 10:27 Oxygen Delivery Method Room Air 07/11/23 10:27 BMI result Body Mass Index 42.5 Const General: comfortable Nutritional Appearance: well nourished Orientation/consciousness: patient oriented x3 HEENT Head: No normal to inspection Mouth: moist mucous membranes Neck Neck: Yes supple and Yes no JVD Resp Auscultation: clear to auscultation bilaterally, no rales and rub present Cardio Jugular venous distension: no JVD Palpation: no palpable S3 and no palpable S4 Heart sounds: no rubs GI Palpation (GI): Soft to palpation and nontender Percussion: No Fluid wave present General: Yes no CVA tenderness Back/Spine/Pelvis Back: no CVA tenderness Skin General skin exam: no rashes or lesions noted Neuro General: patient oriented x3 Extrem General: Yes no pedal edema and No clubbing Assessment & Plan Assessment & Plan (1) Diabetes mellitus with kidney complication, without long-term current use of insulin: Code(s): E11.29 - Type 2 diabetes mellitus with other diabetic kidney complication (2) S/P CABG x 4: Comment: Status post CABG times for 10 years ago and drug-eluting stent to the right coronary artery probably due to vein graft occlusion to the right coronary artery. Code(s): Z95.1 - Presence of aortocoronary bypass graft (3) Hypertension: Code(s): I10 - Essential (primary) hypertension Qualifiers: Hypertension type: essential hypertension Qualified Code(s): I10 - Essential (primary) hypertension (4) CKD (chronic kidney disease) stage 3, GFR 30-59 ml/min: Code(s): N18.30 - Chronic kidney disease, stage 3 unspecified Plan 67 yr old man with CKD 3 in a setting of HTNand DM Renal function is table at baseline JUDITH resolved after stopping HCTZ Goal to slow progression Keep ACEi Goal BP < 130/80 Avoid nephrotoxins including NSAIDS Increase PO fluid intake Needs weight loss He will benefit from SGLT-2 inhibitors Orders: Orders Blood Urea Nitrogen 5 Months N18.30 - Chronic kidney disease, stage 3 unspecified Creatinine 5 Months N18.30 - Chronic kidney disease, stage 3 unspecified Calcium 5 Months N18.30 - Chronic kidney disease, stage 3 unspecified Total Protein Urine Random 5 Months N18.30 - Chronic kidney disease, stage 3 unspecified Electrolytes 5 Months N18.30 - Chronic kidney disease, stage 3 unspecified Creatinine Urine 5 Months N18.30 - Chronic kidney disease, stage 3 unspecified Parathyroid Hormone Intact 5 Months N18.30 - Chronic kidney disease, stage 3 unspecified Coding Level of Care Code Est Pt Level 4 (85727) Diagnoses Diabetes mellitus with kidney complication, without long-term current use of insulin E11.29 S/P CABG x 4 Z95.1 Essential hypertension I10 Hypertension type: essential hypertension CKD (chronic kidney disease) stage 3, GFR 30-59 ml/min N18.30 Results Reviewed Nephrology Results: Hgb 15.4 g/dl (14.0-18.0) 06/20/23 WBC 8.8 X10*3/uL (4.8-10.8) 06/20/23 Plt Count 280 X10*3/uL (160-400) 06/20/23 Sodium 141 mmol/L (135-145) 06/20/23 Potassium 4.0 mmol/L (3.3-5.1) 06/20/23 Chloride 104 mmol/L (96-108) 06/20/23 Carbon Dioxide 29 mmol/L (22-29) 06/20/23 BUN 21 mg/dL (9-16) H 06/20/23 Creatinine 1.34 mg/dL (0.5-1.4) 06/20/23 Calcium 9.7 mg/dL (8.4-10.2) 06/20/23 Urine Creatinine 125.80 mg/dL 11/15/22 Protein/Creatinin Ratio 0.19 (<0.2) 11/15/22
== END 2023-07-11 10:54 | disposition home or self-care (01) ==
PROVIDERS: PCP Internal Medicine; Visit Provider Internal Medicine Hypertension Specialist
DX: E11.29 Type 2 diabetes mellitus with other diabetic kidney complication (principal); Z95.1 Presence of aortocoronary bypass graft; I10 Essential (primary) hypertension; N18.30 Chronic kidney disease, stage 3 unspecified
CPT/HCPCS: 99214

== ENCOUNTER → 2023-07-11 10:25 | Outpatient (BNVA) | payer MEDICARE, SELFPAY | PROVIDERS: PCP Internal Medicine; Visit Provider Internal Medicine Hypertension Specialist | DX: I12.9 Hypertensive chronic kidney disease with stage 1 through stage 4 chronic kidney disease, or unspecified chronic kidney disease (principal); E11.22 Type 2 diabetes mellitus with diabetic chronic kidney disease; N18.30 Chronic kidney disease, stage 3 unspecified; E11.29 Type 2 diabetes mellitus with other diabetic kidney complication; Z95.1 Presence of aortocoronary bypass graft | CPT/HCPCS: 99212 ==

== ENCOUNTER 2023-08-28 07:36 | Outpatient (REF) | payer MEDICARE, SELFPAY ==
[2023-08-28 12:06] LABS: Estimated Average Glucose 131 mg/dL; Hemoglobin A1c % 6.2 % (<6.0)
[2023-08-28 12:21] LABS: Alanine Aminotransferase 25 U/L (0-40); Albumin Level 4.2 g/dL (3.5-5.0); Alkaline Phosphatase 80 U/L (39-117); Anion Gap 11 (12-20); Aspartate Amino Transferase 21 U/L (5-37); Bilirubin Total 0.3 mg/dL (0.0-1.0); Blood Urea Nitrogen 17 mg/dL (9-16); Calcium 9.6 mg/dL (8.4-10.2); Carbon Dioxide 30 mmol/L (22-29); Chloride 104 mmol/L (96-108); Cholesterol 111 mg/dL (<200); Estimated Glomerular Filt Rate 57; Free T4 (Free Thyroxine) 0.95 ng/dL (0.71-1.85); Glucose Fasting 120 mg/dL (60-99); HDL Cholesterol 37 mg/dL (>40); LDL Cholesterol Calculated 44 mg/dL (<100); Potassium 4.1 mmol/L (3.3-5.1); Sodium 141 mmol/L (135-145); Thyroid Stimulating Hormone 0.47 uIU/mL (0.32-4.0); Total Protein 7.8 g/dL (6.5-8.0); Triglycerides 153 mg/dL (<150); Vitamin D 25-OH Total 46.2 ng/mL (>30)
[2023-08-28 12:43] LABS: Creatinine Urine 112.18 mg/dL; Microalbum/Creatinine Ratio Ur 337.8 ug/mg cr (<30)
== END 2023-08-28 07:37 | disposition home or self-care (01) ==
LOC: HO.HMGCLDS 07:36
PROVIDERS: PCP Internal Medicine; Visit Provider Internal Medicine
DX: E55.9 Vitamin D deficiency, unspecified (principal); E66.01 Morbid (severe) obesity due to excess calories; I25.10 Atherosclerotic heart disease of native coronary artery without angina pectoris; E11.29 Type 2 diabetes mellitus with other diabetic kidney complication; E03.9 Hypothyroidism, unspecified; I10 Essential (primary) hypertension; E78.5 Hyperlipidemia, unspecified; Z12.5 Encounter for screening for malignant neoplasm of prostate; Z68.41 Body mass index [BMI] 40.0-44.9, adult
CPT/HCPCS: 36415; 80053; 80061; 82043; 82306; 82570; 83036; 84153; 84439; 84443

== ENCOUNTER 2023-09-26 11:02 | Outpatient (AMB) | payer MEDICARE, SELFPAY ==
[2023-09-26 12:03] VITALS: BP 140/80; PULSE 68; O2SAT 98; BMI 40.6
--- NOTE | 2023-09-26 12:03 | MHC.PC.OV ---
Vital Signs 09/26/23 12:03 09/26/23 12:58 Height 5 ft 5 in Weight 244 lb BMI 40.6 BP 140/80 H 130/80 Blood Pressure Location Lt brachial Lt brachial Position Sitting Sitting Pulse 68 Pulse Source Pulse Oximeter Pulse Oximetry (%) 98 Oxygen Delivery Method Room Air Intake Visit Reasons: [facility] Intake Note: Pt is here today for a F pneumonia Allergies No Known Allergies Allergy (Verified 09/26/23 12:59) Medication List - Last Reconciled 09/26/23 by Mia Lucero MD blood sugar diagnostic ([facility] Verio test strips) Use to check blood sugar twice daily, once fasting and another random during the day blood-glucose meter ([facility] Verio Meter) Use to check blood sugar twice daily, once fasting and another random during the day cholecalciferol (vitamin D3) 50 mcg PO DAILY 90 days clopidogrel 75 mg PO DAILY enalapril maleate 20 mg PO BID lancets ([employer] Lancets) Use to check blood sugar twice daily, once fasting and another random during the day levothyroxine 137 mcg PO DAILY 90 days metformin 1,000 mg PO BID metoprolol tartrate 100 mg PO BID 90 days omeprazole 40 mg PO DAILY@0630 rosuvastatin 40 mg PO DAILY Tobacco use date assessed: 09/26/23 Fall risk assessment: No Falls in past year Last assessed Fall Risk: 09/26/23 Dental Screening Dental Screen Date: 09/26/23 Did you have a dental visit in the last 12 months?: No Was dental information given to patient?: Patient has dentist HPI [facility] HPI Details 68 year old male with past medical history hypertension, hyperlipidemia, diabetes, morbid obesity, chronic kidney disease, CAD, 4 vessel Coronary artery bypass grafting, RCA stent, Blanca's esophagus, controlled with omeprazole, who presents for follow-up. He also was recently admitted at [facility] in [place] 09/13- 4 left lower lobe pneumonia treated doxycycline and Augmentin. He already completed taking all his antibiotics, and is feeling better, back to baseline. It was however noted during his hospital stay that he had several episodes of apneic spells and loud snoring, advised to do outpatient sleep study to check for obstructive sleep apnea.. [place] sleep scale done today is 10 He had recent fasting labs done which showed diabetes mellitus, lipids, thyroid controlled. Has been compliant with taking his medication, blood pressure is within normal limits today. He is up-to-date with his diabetes retinopathy screening, but does not want to get any vaccines. [facility] Medical History (Updated 09/26/23 @ 14:23 by Mia Lucero MD) Loud snoring Witnessed apneic spells History of esophageal stricture COVID-19 vaccine series declined Refused influenza vaccine Morbid obesity with body mass index (BMI) of 40.0 to 44.9 in adult CAD (coronary artery disease) Blanca's esophagus with high grade dysplasia Diabetes mellitus with kidney complication, without long-term current use of insulin Erosive gastritis GERD (gastroesophageal reflux disease) Hearing loss Erectile dysfunction Major depression Anemia of chronic disease Sleep apnea Bipolar 1 disorder Hiatal hernia Gout Multinodular goiter Morbid obesity Fatty liver Myocardial infarct S/P CABG x 4 Dyslipidemia Hypothyroidism Hypertension Surgical History (Updated 09/26/23 @ 14:21 by Mia Lucero MD) History of endoscopy Hx of coronary artery bypass graft Hx of inguinal hernia repair Family History Mother No problems noted. Sister Hyperlipemia Social History Household Members: Spouse Housing: House Do you presently have visiting nurse or other home services: No Alcohol intake: never Patient Tobacco Use Status: Never used Tobacco Years Smoked: 10 +/- e-Cigarette/Vaping Use: Never Used service: No Current occupational status: retired Cognitive needs: No Hearing needs: No Vision needs: Yes Questionnaire Thrive Questionnaire Date Thrive assessed: 08/22/22 AUDIT C Alcohol Use Questionnaire (AUDIT-C) 1. How often do you have a drink containing alcohol?: Never Total Score: 0 KOJO-7 AMB Questionnaire KOJO-7 Date KOJO - 7 assessed: 08/22/22 Source: Developed by Drs. Lowell Eubanks, Trupti Camarillo, Douglas Lancaster and colleagues, with an educational kim from [employer]. [place] Sleepiness Scale Questions Sitting and reading: moderate chance of dozing Watching TV: high chance of dozing Sitting inactive in a theater, movie etc.: slight chance of dozing As a passenger in a car for an hour without break: would never doze Lying down in the afternoon when circumstances permit: moderate chance of dozing Sitting and talking to someone: would never doze Sitting quietly after lunch without alcohol: moderate chance of dozing In a car, while stopped for a few minutes in the traffic: would never doze ESS < 10: normal, ESS > 12: pathologic: 10 Review of Systems Const Reports as per HPI, Denies body aches, Denies chills, Denies fatigue, Denies fever(s), Denies headache(s) and Denies weakness Eyes Denies change in vision ENT Denies dizziness and Denies headache(s) Card Denies chest pain at rest, Denies chest pain with activity, Denies rapid heart rate, Denies edema, Denies lightheadedness, Denies palpitations, Denies dyspnea, Denies dyspnea on exertion and Denies orthopnea Resp Denies cough, Denies dyspnea and Denies dyspnea on exertion GI Denies hematochezia and Denies change in stool character Reports no additional complaints Musc Denies abnormal gait, Denies limited range of motion, Denies muscle cramps, Denies muscle weakness, Denies numbness and Denies stiffness Neuro Denies abnormal gait, Denies dizziness, Denies headache(s), Denies numbness and Denies weakness Endo Denies fatigue and Denies palpitations Dhruv/Lymph Reports no additional complaints Aller/Immun Reports no additional complaints Physical exam (Primary Care) Vital Signs: Last Vital Signs Pulse 68 09/26/23 12:03 BP 140/80 H 09/26/23 12:03 Pulse Ox 98 09/26/23 12:03 Oxygen Delivery Method Room Air 09/26/23 12:03 BMI result Body Mass Index 40.6 BMI Assessment/Plan discussion: High BMI High, discussed plan: lifestyle, weight reduction, dietary and physical activity Tobacco/Smoking Status: Tobacco use Status Tobacco use date assessed 09/26/23 09/26/23 12:05 Patient Tobacco Use Status Never used Tobacco 09/26/23 12:05 e-Cigarette/Vaping Use Never Used 09/26/23 12:05 Thrive Assessment: Date of Thrive Assessment Date Thrive assessed 08/22/22 09/26/23 12:05 Const General: cooperative, comfortable, no acute distress and alert Nutritional Appearance: obese morbidly obese Orientation/consciousness: patient oriented x3 [facility] General nose exam: Normal external nose present Face and sinus: Yes face symmetric Mouth: Normal oral and palatal mucosa present and moist mucous membranes Eyes General: appearance normal, both eyes and all related structures Neck Neck: Yes full ROM, Yes no lymphadenopathy and Yes supple Chest Other: sternotomy scar healed, no chest wall tenderness Resp Auscultation: clear to auscultation bilaterally and no wheezes Cardio Other: S1-S2 present regular rate and rhythm GI Inspection: Yes obesity Palpation (GI): Soft to palpation, nontender, no guarding and no masses Auscultation: normal bowel sounds Neuro General: patient oriented x3, gait normal, moves all extremities, no focal motor deficits and decrease sensation to monofilament Extrem General: Yes full ROM, Yes no joint enlargement, Yes no pedal edema and Yes normal gait Results Reviewed Results Reviewed: Laboratory Tests 08/28/23 07:42 Estimat Average Glucose 131 Hemoglobin A1c % 6.2 H Name: Umair OlsonParmjit cevallos Age/Sex: 68/M : 1955 Unit#: [id number] Attend Dr: Mia Lucero MD Re08/28/23 Status: DEP REF Location: [facility] Disch: SPEC : [id number] DEB: 08/28/23 STATUS: COMP REQ : [id number] RECD: 08/28/23-[address]: Mia Lucero MD COMP: 08/28/23-1221 ENTERED: 08/28/23-[address]: ORDERED: CMP Fast, Lipid Panel, Vitamin D 25-OH, Free T4, TSH Test Result Flag Reference Sodium 141 135-145 mmol/L Potassium 4.1 3.3-5.1 mmol/L CL 104 96-108 mmol/L CO2 30 H 22-29 mmol/L Gap 11 L 12-20 BUN 17 H 9-16 mg/dL Creat 1.25 0.5-1.4 mg/dL EGFR 57 NOTE: For -[place] individuals, multiply the result by 1.210. Chronic Kidney Disease: Estimated GFR < 60 mL/min/1.73m2 Severe Kidney Disease: Estimated GFR < 15 mL/min/1.73m2 FBS 120 H 60-99 mg/dL A fasting glucose from 100-125 mg/dl is considered impaired (pre-diabetes). CA 9.6 8.4-10.2 mg/dL Total Bili 0.3 0.0-1.0 mg/dL AST (GOT) 21 5-37 U/L ALT (GPT) 25 0-40 U/L Protein, Total 7.8 6.5-8.0 g/dL Alb 4.2 3.5-5.0 g/dL Triglyceride 153 H <150 mg/dL Desirable Triglyceride: less than 150 mg/dL Borderline High Triglyceride 150-199 mg/dL High Triglyceride: 200-499 mg/dL Very High Triglyceride: greater than or equal to 5OO mg/dL Cholesterol 111 <200 mg/dL Desirable Cholesterol: less than 200 mg/dL Borderline High Cholesterol: 200-239 mg/dL High Cholesterol: greater than 239 mg/dL LDL Calculated 44 <100 mg/dL Desirable LDL: less than 100 mg/dL Near Optimal/Above Optimal LDL: 110-129 mg/dL Borderline High LDL: 130-159 mg/dL High LDL: 160-189 mg/dL Very High LDL: greater than or equal to 190 mg/dL HDL 37 L >40 mg/dL Desirable HDL: greater than 40 mg/dL Note: This HDL assay may give artificially low results in patients with liver disease. Alk Phos 80 39-117 U/L Vit D 25-OH Tot 46.2 >30 ng/mL Health Based Reference Values* < 20 ng/mL Deficient 20-30 ng/mL Insufficient > 30 ng/mL Sufficient *Phuong FARMER. N Engl J Med. 2007;357:266-280 Care must be taken in interpreting Vitamin D results from different laboratories and methodologies. Published data demonstrated that results from patients undergoing hemodialysis may show a negative bias when tested with various automated 25-OH vitamin D assays when compared to LC-MS/MS. When testing samples from patients whose predominant form of Vitamin D is Vitamin D2, such as patients receiving Vitamin D2 supplementation, results that are subtherapeutic should be confirmed with another method such as LC-MS/MS. Free T4 0.95 0.71-1.85 ng/dL TSH 3rd Gen. 0.47 0.32-4.0 uIU/mL TSH 3rd Generation ([facility]) Name: Parmjit Sykes Age/Sex: 67/M : 1955 Unit#: [id number] Attend Dr: Andrez Frausto MD Re06/20/23 Status: DEP REF Location: [facility] Disch: SPEC : [id number] DEB: 06/20/23 STATUS: COMP REQ : [id number] RECD: 06/20/[address]: Andrez Frausto MD COMP: 06/20/23 ENTERED: 06/20/[address]: Mia Lucero MD ORDERED: CBC No Diff Test Result Flag Reference WBC 8.8 4.8-10.8 X10*3/uL RBC 5.29 4.60-5.80 X10*6/uL HGB 15.4 14.0-18.0 g/dl HCT 46.9 42.0-52.0 % MCV 88.7 80.0-98.0 fL MCH 29.1 27.0-33.0 pg MCHC 32.8 31.0-36.0 g/dl RDW 13.7 11.0-16.0 % PLT 280 160-400 X10*3/uL MPV 11.7 9.4-12.4 fL NRBC Pct Auto 0.0 0.0-0.2 /100WBC NRBC Abs Auto 0.000 0.0-0.012 X10*3/uL Assessment and Plan Assessment & Plan (1) Hypertension: Code(s): I10 - Essential (primary) hypertension Qualifiers: Hypertension type: essential hypertension Qualified Code(s): I10 - Essential (primary) hypertension Plan: Blood pressure at goal of less than 130/80. Continue with enalapril 20 mg 1 tablet twice a day and metoprolol tartrate 100 mg 1 tablet b.i.d.. Reinforced importance of following a low sodium diet, getting regular exercise, and lowering stress levels. (2) Dyslipidemia: Code(s): E78.5 - Hyperlipidemia, unspecified Plan: Reviewed recent fasting lipid profile with patient with levels within normal limits . Continue with rosuvastatin 40 mg , in addition to adherence to low-cholesterol diet and regular exercise, at least 30 minutes 3 to 4 times a week. Advised patient to make healthy food choices, eat more fruits, vegetables, whole grains, wild caught fish and low-fat dairy. Limit amount of meat and fried or fatty food products, as well as processed foods and fast foods. Follow-up scheduled with repeat fasting lipid panel in 3 months. (3) Diabetes mellitus with kidney complication, without long-term current use of insulin: Code(s): E11.29 - Type 2 diabetes mellitus with other diabetic kidney complication Plan: Recent lab results reviewed with patient, with sugar and hemoglobin A1c stable and at goal . Continue metformin 1000 mg 1 tablet twice a day, continue to check fasting blood sugar at home, maintain log and bring to next appointment for review. Reinforced diabetic diet and regular exercise with patient. Up-to-date with his diabetes retinopathy screening. Patient advised to inspect feet daily, for any signs of injury, callus or infection. Compliance with diet and regular exercise again stressed. Blood pressure goal is less than 130/80, goal LDL is less than 100 and goal hemoglobin A1c is less than 7% follow-up appointment made in-3--months, after fasting labs done. (4) Witnessed apneic spells: Code(s): R06.81 - Apnea, not elsewhere classified Plan: Referred to sleep clinic for sleep study to rule out obstructive sleep apnea (5) Hypothyroidism: Code(s): E03.9 - Hypothyroidism, unspecified Qualifiers: Hypothyroidism type: acquired Qualified Code(s): E03.9 - Hypothyroidism, unspecified Plan: Thyroid levels are within normal limits, continue levothyroxine 137 mcg daily (6) Excessive daytime sleepiness: Code(s): G47.19 - Other hypersomnia Plan: Referred for sleep study to rule out obstructive sleep apnea (7) GERD (gastroesophageal reflux disease): Code(s): K21.9 - Gastro-esophageal reflux disease without esophagitis Plan: Continued on omeprazole, repeat CBC in 3 (8) Morbid obesity with body mass index (BMI) of 40.0 to 44.9 in adult: Code(s): E66.01 - Morbid (severe) obesity due to excess calories; Z68.41 - Body mass index [BMI] 40.0-44.9, adult Plan: Reinforced importance of following healthy diet and getting regular exercise. (9) Loud snoring: Code(s): R06.83 - Snoring Plan: [place] [facility] [place] (10) Hx of bacterial pneumonia: Code(s): Z87.01 - Personal history of pneumonia (recurrent) Plan: Patient without any respiratory complaints, completed his antibiotic treatment already Orders: Orders Hemoglobin A1c 12/18/23 E03.9 - Hypothyroidism, unspecified, E11.29 - Type 2 diabetes mellitus with other diabetic kidney complication, E66.01 - Morbid (severe) obesity due to excess calories, E78.5 - Hyperlipidemia, unspecified, I10 - Essential (primary) hypertension, K21.9 - Gastro-esophageal reflux disease without esophagitis, K22.711 - Blanca's esophagus with high grade dysplasia, K29.60 - Other gastritis without bleeding, Z68.41 - Body mass index [BMI] 40.0-44.9, adult Lipid Panel 12/18/23 E03.9 - Hypothyroidism, unspecified, E11.29 - Type 2 diabetes mellitus with other diabetic kidney complication, E66.01 - Morbid (severe) obesity due to excess calories, E78.5 - Hyperlipidemia, unspecified, I10 - Essential (primary) hypertension, K21.9 - Gastro-esophageal reflux disease without esophagitis, K22.711 - Blanca's esophagus with high grade dysplasia, K29.60 - Other gastritis without bleeding, Z68.41 - Body mass index [BMI] 40.0-44.9, adult Alanine Aminotransferase 12/18/23 E03.9 - Hypothyroidism, unspecified, E11.29 - Type 2 diabetes mellitus with other diabetic kidney complication, E66.01 - Morbid (severe) obesity due to excess calories, E78.5 - Hyperlipidemia, unspecified, I10 - Essential (primary) hypertension, K21.9 - Gastro-esophageal reflux disease without esophagitis, K22.711 - Blanca's esophagus with high grade dysplasia, K29.60 - Other gastritis without bleeding, Z68.41 - Body mass index [BMI] 40.0-44.9, adult Aspartate Amino Transferase 12/18/23 E03.9 - Hypothyroidism, unspecified, E11.29 - Type 2 diabetes mellitus with other diabetic kidney complication, E66.01 - Morbid (severe) obesity due to excess calories, E78.5 - Hyperlipidemia, unspecified, I10 - Essential (primary) hypertension, K21.9 - Gastro-esophageal reflux disease without esophagitis, K22.711 - Blanca's esophagus with high grade dysplasia, K29.60 - Other gastritis without bleeding, Z68.41 - Body mass index [BMI] 40.0-44.9, adult Thyroid Stimulating Hormone 12/18/23 E03.9 - Hypothyroidism, unspecified, E11.29 - Type 2 diabetes mellitus with other diabetic kidney complication, E66.01 - Morbid (severe) obesity due to excess calories, E78.5 - Hyperlipidemia, unspecified, I10 - Essential (primary) hypertension, K21.9 - Gastro-esophageal reflux disease without esophagitis, K22.711 - Blanca's esophagus with high grade dysplasia, K29.60 - Other gastritis without bleeding, Z68.41 - Body mass index [BMI] 40.0-44.9, adult Complete Blood Count Auto Diff 12/18/23 E03.9 - Hypothyroidism, unspecified, E11.29 - Type 2 diabetes mellitus with other diabetic kidney complication, E66.01 - Morbid (severe) obesity due to excess calories, E78.5 - Hyperlipidemia, unspecified, I10 - Essential (primary) hypertension, K21.9 - Gastro-esophageal reflux disease without esophagitis, K22.711 - Blanca's esophagus with high grade dysplasia, K29.60 - Other gastritis without bleeding, Z68.41 - Body mass index [BMI] 40.0-44.9, adult Microalbumin, Random (w Creat) 12/18/23 E03.9 - Hypothyroidism, unspecified, E11.29 - Type 2 diabetes mellitus with other diabetic kidney complication, E66.01 - Morbid (severe) obesity due to excess calories, E78.5 - Hyperlipidemia, unspecified, I10 - Essential (primary) hypertension, K21.9 - Gastro-esophageal reflux disease without esophagitis, K22.711 - Blanca's esophagus with high grade dysplasia, K29.60 - Other gastritis without bleeding, Z68.41 - Body mass index [BMI] 40.0-44.9, adult Free T4 (Free Thyroxine) 12/18/23 E03.9 - Hypothyroidism, unspecified, E11.29 - Type 2 diabetes mellitus with other diabetic kidney complication, E66.01 - Morbid (severe) obesity due to excess calories, E78.5 - Hyperlipidemia, unspecified, I10 - Essential (primary) hypertension, K21.9 - Gastro-esophageal reflux disease without esophagitis, K22.711 - Blanca's esophagus with high grade dysplasia, K29.60 - Other gastritis without bleeding, Z68.41 - Body mass index [BMI] 40.0-44.9, adult Referrals Sleep Medicine Referral E66.01 - Morbid (severe) obesity due to excess calories, G47.19 - Other hypersomnia, R06.81 - Apnea, not elsewhere classified, R06.83 - Snoring, Z68.41 - Body mass index [BMI] 40.0-44.9, adult Coding Level of Care Code Est Pt Level 4 (19210) Diagnoses Essential hypertension I10 Hypertension type: essential hypertension Dyslipidemia E78.5 Diabetes mellitus with kidney complication, without long-term current use of insulin E11.29 Witnessed apneic spells R06.81 Acquired hypothyroidism E03.9 Hypothyroidism type: acquired Excessive daytime sleepiness G47.19 GERD (gastroesophageal reflux disease) K21.9 Morbid obesity with body mass index (BMI) of 40.0 to 44.9 in adult E66.01; Z68.41 Loud snoring R06.83 Hx of bacterial pneumonia Z87.01
[2023-09-26 12:58] VITALS: BP 130/80
== END 2023-09-26 16:05 | disposition home or self-care (01) ==
PROVIDERS: PCP Internal Medicine; Visit Provider Internal Medicine
DX: I10 Essential (primary) hypertension (principal); E11.29 Type 2 diabetes mellitus with other diabetic kidney complication; Z68.41 Body mass index [BMI] 40.0-44.9, adult; E66.01 Morbid (severe) obesity due to excess calories; E78.5 Hyperlipidemia, unspecified; R06.81 Apnea, not elsewhere classified; E03.9 Hypothyroidism, unspecified; K21.9 Gastro-esophageal reflux disease without esophagitis; G47.19 Other hypersomnia; R06.83 Snoring; Z87.01 Personal history of pneumonia (recurrent)
CPT/HCPCS: 99214

== ENCOUNTER 2023-11-30 06:08 | Outpatient (REF) | payer MEDICARE, SELFPAY ==
[2023-11-30 10:48] LABS: Anion Gap 13 (12-20); Blood Urea Nitrogen 20 mg/dL (9-16); Calcium 8.9 mg/dL (8.4-10.2); Carbon Dioxide 25 mmol/L (22-29); Chloride 104 mmol/L (96-108); Estimated Glomerular Filt Rate 56; Potassium 3.7 mmol/L (3.3-5.1); Sodium 138 mmol/L (135-145)
[2023-11-30 11:11] LABS: Parathyroid Hormone Intact 78.2 pg/mL (8.7-77.1)
[2023-11-30 12:59] LABS: Creatinine Urine 158.33 mg/dL; Total Protein Urine Random 24 mg/dL (<12)
== END 2023-11-30 06:09 | disposition home or self-care (01) ==
LOC: HO.HMGCLDS 06:08
PROVIDERS: PCP Internal Medicine; Visit Provider Internal Medicine Hypertension Specialist
DX: N18.30 Chronic kidney disease, stage 3 unspecified (principal)
CPT/HCPCS: 36415; 80051; 82310; 82565; 82570; 83970; 84156; 84520

== ENCOUNTER 2023-12-05 09:59 | Outpatient (AMB) | payer MEDICARE, SELFPAY ==
[2023-12-05 10:00] VITALS: BP 144/76; PULSE 88; O2SAT 97; BMI 42.6
--- NOTE | 2023-12-05 10:00 | HO.NEPHOV_ITS ---
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 Accompanied by: Self / Same As Patient Allergies No Known Allergies Allergy (Verified 12/05/23 10:02) Medication List - Last Reconciled 12/05/23 by Andrez Frausto MD blood sugar diagnostic ([employer] Verio test strips) Use to check blood sugar twice daily, once fasting and another random during the day blood-glucose meter ([employer] Verio Meter) Use to check blood sugar twice daily, once fasting and another random during the day cholecalciferol (vitamin D3) 50 mcg PO DAILY 90 days clopidogrel 75 mg PO DAILY enalapril maleate 20 mg PO BID lancets ([employer] Delica Lancets) Use to check blood sugar twice daily, once fasting and another random during the day levothyroxine 137 mcg PO DAILY 90 days metformin 1,000 mg PO BID metoprolol tartrate 100 mg PO BID 90 days omeprazole 40 mg PO DAILY@0630 rosuvastatin 40 mg PO DAILY HPI Comments Details: 67 yr old man with h/o HTN and DM with CKD Baseline creatinine is around 1.3 In October 2022, Cr peaked to 1.7, cr returned to 1.3 Overall doing well.NO new issues He is here for follow up [facility] Medical History (Updated 09/26/23 @ 14:23 by Mia Lucero MD) Loud snoring Witnessed apneic spells History of esophageal stricture COVID-19 vaccine series declined Refused influenza vaccine Morbid obesity with body mass index (BMI) of 40.0 to 44.9 in adult CAD (coronary artery disease) Blanca's esophagus with high grade dysplasia Diabetes mellitus with kidney complication, without long-term current use of insulin Erosive gastritis GERD (gastroesophageal reflux disease) Hearing loss Erectile dysfunction Major depression Anemia of chronic disease Sleep apnea Bipolar 1 disorder Hiatal hernia Gout Multinodular goiter Morbid obesity Fatty liver Myocardial infarct S/P CABG x 4 Dyslipidemia Hypothyroidism Hypertension Surgical History History of endoscopy Hx of coronary artery bypass graft Hx of inguinal hernia repair Family History Mother No problems noted. Sister Hyperlipemia Social History Household Members: Spouse Housing: House Do you presently have visiting nurse or other home services: No Alcohol intake: never Patient Tobacco Use Status: Never used Tobacco Years Smoked: 10 +/- e-Cigarette/Vaping Use: Never Used service: No Current occupational status: retired Cognitive needs: No Hearing needs: No Vision needs: Yes Physical Exam Vital Signs: Last Vital Signs Pulse 88 12/05/23 10:00 BP 144/76 H 12/05/23 10:00 Pulse Ox 97 12/05/23 10:00 Oxygen Delivery Method Room Air 12/05/23 10:00 BMI result Body Mass Index 42.6 Results Reviewed Nephrology Results: Hgb 15.4 g/dl (14.0-18.0) 06/20/23 WBC 8.8 X10*3/uL (4.8-10.8) 06/20/23 Plt Count 280 X10*3/uL (160-400) 06/20/23 Sodium 138 mmol/L (135-145) 11/30/23 Potassium 3.7 mmol/L (3.3-5.1) 11/30/23 Chloride 104 mmol/L (96-108) 11/30/23 Carbon Dioxide 25 mmol/L (22-29) 11/30/23 BUN 20 mg/dL (9-16) H 11/30/23 Creatinine 1.28 mg/dL (0.5-1.4) 11/30/23 Calcium 8.9 mg/dL (8.4-10.2) 11/30/23 PTH Intact 78.2 pg/mL (8.7-77.1) H 11/30/23 Urine Creatinine 158.33 mg/dL 11/30/23 Assessment & Plan Assessment & Plan (1) Diabetes mellitus with kidney complication, without long-term current use of insulin: Code(s): E11.29 - Type 2 diabetes mellitus with other diabetic kidney complication Category: Medical (2) S/P CABG x 4: Comment: Status post CABG times for 10 years ago and drug-eluting stent to the right coronary artery probably due to vein graft occlusion to the right coronary artery. Code(s): Z95.1 - Presence of aortocoronary bypass graft Category: Medical (3) Hypertension: Code(s): I10 - Essential (primary) hypertension Category: Medical Qualifiers: Hypertension type: essential hypertension Qualified Code(s): I10 - Essential (primary) hypertension (4) CKD (chronic kidney disease) stage 3, GFR 30-59 ml/min: Code(s): N18.30 - Chronic kidney disease, stage 3 unspecified Category: Medical Plan 67 yr old man with CKD 3 in a setting of HTNand DM Renal function is table at baseline JUDITH resolved after stopping HCTZ Goal to slow progression Keep ACEi Goal BP < 130/80 Avoid nephrotoxins including NSAIDS Increase PO fluid intake Needs weight loss He will benefit from SGLT-2 inhibitors Orders: Orders Total Protein Urine Random 6 Months N18.30 - Chronic kidney disease, stage 3 unspecified Complete Blood Count no Diff 6 Months N18.30 - Chronic kidney disease, stage 3 unspecified Comprehensive Met. Panel 6 Months N18.30 - Chronic kidney disease, stage 3 unspecified Creatinine Urine 6 Months N18.30 - Chronic kidney disease, stage 3 unspecified Coding Level of Care Code Est Pt Level 4 (67203) Diagnoses Diabetes mellitus with kidney complication, without long-term current use of insulin E11.29 S/P CABG x 4 Z95.1 Essential hypertension I10 Hypertension type: essential hypertension CKD (chronic kidney disease) stage 3, GFR 30-59 ml/min N18.30
== END 2023-12-05 10:14 | disposition home or self-care (01) ==
PROVIDERS: PCP Internal Medicine; Visit Provider Internal Medicine Hypertension Specialist
DX: E11.29 Type 2 diabetes mellitus with other diabetic kidney complication (principal); Z95.1 Presence of aortocoronary bypass graft; I10 Essential (primary) hypertension; N18.30 Chronic kidney disease, stage 3 unspecified
CPT/HCPCS: 99214

== ENCOUNTER → 2023-12-05 09:59 | Outpatient (BNVA) | payer MEDICARE, SELFPAY | PROVIDERS: PCP Internal Medicine; Visit Provider Internal Medicine Hypertension Specialist | DX: E11.22 Type 2 diabetes mellitus with diabetic chronic kidney disease (principal); I12.9 Hypertensive chronic kidney disease with stage 1 through stage 4 chronic kidney disease, or unspecified chronic kidney disease; N18.30 Chronic kidney disease, stage 3 unspecified; Z95.1 Presence of aortocoronary bypass graft | CPT/HCPCS: 99212 ==

== ENCOUNTER 2024-01-18 07:57 | Emergency (ER) | payer MEDICARE, SELFPAY ==
[2024-01-18] VITALS (7 sets, daily range): BP systolic 108–147; BP diastolic 75–104; PULSE 92–99; RESP 16–18; TEMP 36.6–37.8; O2SAT 90–94; BMI 41.0
--- NOTE | 2024-01-18 | ECG_ITS ---
Test Reason : DIZZINESS Blood Pressure : / mmHG Vent. Rate : 094 BPM Atrial Rate : 094 BPM P-R Int : 136 ms QRS Dur : 110 ms QT Int : 354 ms P-R-T Axes : 057 -24 098 degrees QTc Int : 442 ms Normal sinus rhythm Minimal voltage criteria for LVH, may be normal variant ( [place] product ) Abnormal QRS-T angle, consider primary T wave abnormality Abnormal ECG When compared with ECG of 21-SEP-2022 12:54, Premature ventricular complexes are no longer Present Referred By: Krystal Croft Electronically Signed By:Germain Corona
--- NOTE | ~2024-01-18 | XR_ITS ---
EXAMINATION: XR CHEST CLINICAL INFORMATION: Hypoxia. COMPARISON: CT abdomen/pelvis 09/21/2022 TECHNIQUE: Frontal view of the chest was obtained. FINDINGS: The right hemithorax is clear. There is left basilar consolidation with air bronchograms. No significant pleural effusion. Cardiac enlargement. Prior median sternotomy. Small calcifications along the posterior superior right humeral head. XR/XR chest 1V IMPRESSION: Left basilar consolidation with air bronchograms may represent pneumonia. Advise clinical correlation and short interval follow-up imaging.
--- NOTE | 2024-01-18 08:09 | ED.GIBLEED ---
HPI - GI Bleed General Chief complaint: GI Bleed Stated complaint: Blood in stool Time Seen by Provider: 01/18/24 08:02 Source: patient Mode of arrival: ambulatory Limitations: no limitations History of Present Illness ED Provider: Carlos Croft PA-C HPI Narrative: 68 yo male with history of DM2, CAD s/p bypass, HTN, hypothyroidism, GERD, Blanca's esophagus, gastritis who presents to the ER for evaluation of BRBPR and lightheadedness. Patient states that he has been having bright red blood in his stool for a week. He states that he has noticed blood in the toilet following defecation for the last week, and endorses having diarrhea continuously for the past week about 2 times per day. States that eating will cause him to go to the bathroom. He states that there is blood in the toilet and notices blood dripping from his butt when standing. He states that the toilet paper is covered in bright red blood as well. He endorses lightheadedness and constipation, but no shortness of breathe or chest pain, no abdominal pain, and no loss of consciousness or falls. He is not on any blood thinners or anti-coagulation. He does not have a history of hemorrhoids. He is currently on dual anti-platelet treatment following coronary bypass. No history of recent travel. Is not sure when his last Colonoscopy was, states It has been a long time and has been told he needs one. He is alert and oriented with no other complaints. MD complaint: blood on toilet paper and gross hematochezia Onset (ago): week(s) (1) Exacerbating factors: eating (Causes Diarrhea ) Associated symptoms: denies other symptoms Related Data Previous Rx's ?Medication ?Instructions ?Recorded blood sugar diagnostic ([employer] #100 ea 07/27/21 Verio test strips) blood-glucose meter ([employer] OnlineTouch #1 ea 07/27/21 Verio Meter) lancets 30 gauge (OneTouch Delica #100 ea 07/27/21 Lancets) omeprazole 40 mg capsule,delayed 40 mg PO DAILY@0630 #30 caps 09/23/21 release cholecalciferol (vitamin D3) 50 50 mcg PO DAILY 90 days #90 caps 04/10/23 mcg (2,000 unit) capsule clopidogrel 75 mg tablet 75 mg PO DAILY #90 tabs 07/03/23 metformin 1,000 mg tablet 1,000 mg PO BID #180 tabs 08/30/23 rosuvastatin 40 mg tablet 40 mg PO DAILY #90 tabs 08/30/23 enalapril maleate 20 mg tablet 20 mg PO BID #180 tabs 09/17/23 levothyroxine 137 mcg tablet 137 mcg PO DAILY 90 days #90 tabs 09/17/23 metoprolol tartrate 100 mg tablet 100 mg PO BID 90 days #180 tabs 12/04/23 amoxicillin 875 mg-potassium 1 tab PO BID #20 tabs 01/18/24 clavulanate 125 mg tablet hydrocortisone 2.5 % topical cream 1 appl [place] BEDTIME hemorrhoids #30 01/18/24 with perineal applicator grams Allergies Allergy/AdvReac Type Severity Reaction Status Date / Time No Known Allergies Allergy Verified 01/18/24 08:02 Review of Systems Review of Systems: Yes all other systems are reviewed and are negative [facility] Past Medical History Medical History (Updated 01/18/24 @ 10:41 by RAIN Fry) Loud snoring Witnessed apneic spells History of esophageal stricture COVID-19 vaccine series declined Refused influenza vaccine Morbid obesity with body mass index (BMI) of 40.0 to 44.9 in adult CAD (coronary artery disease) Blanca's esophagus with high grade dysplasia Diabetes mellitus with kidney complication, without long-term current use of insulin Erosive gastritis GERD (gastroesophageal reflux disease) Hearing loss Erectile dysfunction Major depression Anemia of chronic disease Sleep apnea Bipolar 1 disorder Hiatal hernia Gout Multinodular goiter Morbid obesity Fatty liver Myocardial infarct S/P CABG x 4 Dyslipidemia Hypothyroidism Hypertension Surgical History History of endoscopy Hx of coronary artery bypass graft Hx of inguinal hernia repair Family History Family History Mother No problems noted. Sister Hyperlipemia Social History Social History Household Members: Spouse Housing: House Do you presently have visiting nurse or other home services: No Alcohol intake: never Patient Tobacco Use Status: Never used Tobacco Years Smoked: 10 +/- Smoked in Last 30 Days: Yes e-Cigarette/Vaping Use: Never Used Use of substances other than those prescribed or required for medical reasons: No Advance Directives: No Advance Directives Information Provided: Yes service: No Current occupational status: retired Cognitive needs: No Hearing needs: No Vision needs: Yes Physical Exam Vital Signs: Vital Signs: Last Vital Signs Temp 100.0 F 01/18/24 11:05 Pulse 94 01/18/24 11:05 Resp 16 01/18/24 11:05 BP 142/104 H 01/18/24 11:05 Pulse Ox 94 01/18/24 11:05 O2 Del Method Room Air 01/18/24 11:05 BMI result Body Mass Index 41.0 Appearance: Alert. Oriented X3. No acute distress. Head: normocephalic, atraumatic. Eyes: Pupils equal, round and reactive to light. ENT: Pharynx normal. No tonsillar swelling or exudate. Neck: Normal inspection. Neck supple. CVS: Normal heart rate and rhythm. Pulses normal. Respiratory: No respiratory distress. Breath sounds normal. Slight SOB with activity (changing into gown, however no drop on O2 sat) Abdomen: Soft and nontender. +BS x4. No pain on palpitation, no guarding or rebound tenderness. No distention. DOMINICK: Visible non-thrombosed hemorrhoids noted on the exterior anus. No hemorrhoids noted on internal exam. Light brown stool with no visible blood noted on finger after DOMINICK, and it was a positive Guaiac test. Skin: Skin warm and dry. Normal skin color. Normal skin turgor. No rashes. Extremities: No lower extremity edema. No joint swelling. Neuro/psych: Oriented X 3. No motor deficit. No sensory deficit. CN II-XII intact. Normal speech and cognition. Course Reevaluation(s) Reevaluation #1: Patient was monitored in the emergency room for almost 4 hours. No episodes of rectal bleeding. He has hemorrhoids on exam. This is most likely the etiology of his bleeding. Patient counseled. Stable for discharge home. Time: 10:44 Medical Decision Making Medical Decision Making MDM Narrative: 68 yo male with history of DM2, CAD s/p bypass, HTN, hypothyroidism, GERD, Blanca's esophagus, gastritis who presents to the ER for evaluation of BRBPR and lightheadedness. Patient has been noticing bright blood in the toilet and on toilet paper after wiping. Stool has been loose with blood mixed in, and is indicative of a lower GI bleed rather than a upper GI bleed due to bright red color. He does not endorse excessive straining or pushing. There is no pain at rest, and no pain with palpatation in any quadrant of the abdomen. He has not had a colonoscopy in quite a while, and is due to assess for polyps/colorectal cancer/hemorrhoids. On physical exam and DOMINICK, there was noted to be external hemorrhoids that are non-thrombosed and on internal exam there seemed to be no hemorrhoids about 2 inches deep. Stool guaiac test was positive for blood and the stool color was a light brown with no visible blood on finger after DOMINICK exam. Patient's H&H is stable today. He is hemodynamically stable. No evidence of active bleeding while in the ER. Orthostatic vital signs are negative. Holding off on GI bleeding scan for now. Hemorrhoids is most likely cause of LGIB at this time, however colonoscopy is needed to rule out colorectal cancer/polyps/internal hemorrhoids. X-ray done as patient was initially found to have a SpO2 of 90% in triage. His showing a left basilar opacity consistent with pneumonia. He states he is feeling general fatigue and malaise. He has no cough. He still feels dizzy at times with exertion. No chest pain or shortness of breath. SpO2 has been 93-97% while in the ER. No exertional hypoxia Will treat for community-acquired pneumonia. Differential Diagnosis Differential Diagnoses: The differential diagnosis associated with the presentation includes Lower GI Bleed, Hemorrhoids, Diverticulitis, Anal Fissure, Anal Polyp, brisk Upper GI Bleed from stomach ulcers less likely, Colorectal cancer/tumor, Admission/Observation Consideration of admission/observation: Escalation of care including admission/observation considered Lab Data MDM Lab Attestation statement: I reviewed the patient's lab results. No anemia, H&H is stable from before 01/18/24 08:20 01/18/24 08:21 Labs: Lab Results 01/18/24 01/18/24 01/18/24 Range/Units 08:20 08:21 09:10 WBC 4.8 (4.8-10.8) X10*3/uL RBC 5.59 (4.60-5.80) X10*6/uL Hgb 15.7 (14.0-18.0) g/dl Hct 46.8 (42.0-52.0) % MCV 83.7 (80.0-98.0) fL MCH 28.1 (27.0-33.0) pg MCHC 33.5 (31.0-36.0) g/dl RDW 13.8 (11.0-16.0) % Plt Count 187 D (160-400) X10*3/uL MPV 11.6 (9.4-12.4) fL Immature Gran % (Auto) 0.6 H (0.0-0.4) % Neut % (Auto) 58.6 (45-73) % Lymph % (Auto) 31.8 (20-40) % [place] % (Auto) 8.2 (2-11) % Eos % (Auto) 0.6 (0-4) % Baso % (Auto) 0.2 (0-2) % Lymph # (Auto) 1.5 (1.2-4.9) X10*3/uL [place] # (Auto) 0.4 (0.1-1.2) X10*3/uL Eos # (Auto) 0.0 (0.0-0.4) X10*3/uL Baso # (Auto) 0.0 (0.0-0.2) X10*3/uL Abs Immat Gran (auto) 0.03 (0.00-0.03) X10*3/uL Absolute Neuts (auto) 2.8 (2.0-8.3) x10*3/uL Absolute Nucleated RBC 0.000 (0.0-0.012) X10*3/uL Nucleated RBC % (auto) 0.0 (0.0-0.2) /100WBC PT 11.5 (11.1-13.3) SEC INR 0.9 (0.9-1.1) APTT 33.9 (26.0-36.8) SEC Sodium 137 (135-145) mmol/L Potassium 4.1 (3.3-5.1) mmol/L Chloride 102 (96-108) mmol/L Carbon Dioxide 25 (22-29) mmol/L Anion Gap 14 (12-20) BUN 19 H (9-16) mg/dL Creatinine 1.50 H (0.5-1.4) mg/dL Estim Creat Clear Calc 55.4 Estimated GFR 46 Random Glucose 147 H (60-115) mg/dL Calcium 9.2 (8.4-10.2) mg/dL Magnesium 1.5 L (1.6-2.6) mg/dL Total Bilirubin 0.4 (0.0-1.0) mg/dL Direct Bilirubin 0.2 (0.0-0.5) mg/dL AST 28 (5-37) U/L ALT 28 (0-40) U/L Alkaline Phosphatase 91 (39-117) U/L B-Natriuretic Peptide < 10 (<100) pg/mL Total Protein 8.0 (6.5-8.0) g/dL Albumin 4.2 (3.5-5.0) g/dL Urine Color Dark Yellow Urine Appearance Clear Urine pH 5.5 (5.0-9.0) Ur Specific [place] 1.025 (1.005-1.025) Urine Protein 100 (2+) H (Neg-Trace) mg/dL Urine Glucose (UA) Negative (Negative) mg/dL Urine Ketones Trace (Negative) mg/dL Urine Blood Negative (Negative) Urine Nitrite Negative (Negative) Ur Leukocyte Esterase Negative (Negative) Urine RBC 0-2 (0-2) /HPF Urine WBC 0-5 (0-5) /HPF Ur Squamous Epith Cells 0-2 (0-2) /HPF Urine Bacteria None Seen (None Seen) Hyaline Casts 3-5 (0-2) /LPF Stool Occult Blood POSITIVE (NEGATIVE) External Record Review External record reviewed: Prior outpatient labs and Prior outpatient radiology Tests considered The following testing was considered but not selected: CT scan, GI bleed scan was considered. Prescription Management I considered prescription management with: Other (hydrocortisone [place], phenylepherine [place]) Chronic Conditions Patient?s care impacted by: Other (CKD) Critical Care Time Critical Care Time Critical Care Time: No Discharge Plan Discharge Clinical Impression: Hemorrhoids Qualifiers: Hemorrhoid type: unspecified Qualified Code(s): K64.9 - Unspecified hemorrhoids Patient Disposition: Home, Self-Care Instructions: Hemorrhoids (DC), Sitz Bath (DC) Additional Instructions: Your found to have hemorrhoids on exam today. This is most likely the cause of your bleeding. Your blood counts were stable Suppository medication has been sent to your pharmacy. Use this once at night before bed. It is important to stay hydrated, increased fiber in your diet, and keep her stool soft to prevent worsening hemorrhoids. Recommend Colace 100 mg 2 times a day to soften her stools. 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 Your chest x-ray was concerning for possible pneumonia. Your oxygen levels were normal. Take the prescribed antibiotics as directed, complete the entire course and do not miss any doses If you develop new or worsening symptoms call 911 or come back to the ER for further evaluation. Prescriptions: New hydrocortisone 2.5 % cream with perineal applicator 1 appl [place] BEDTIME Qty: 30 0RF amoxicillin-pot clavulanate 875-125 mg tablet 1 tab PO BID Qty: 20 0RF No Action (DME) blood-glucose meter [OneTouch Verio Meter] [facility] See Rx Instructions .Route Qty: 1 0RF Rx Instructions: Use to check blood sugar twice daily, once fasting and another random during the day (DME) lancets [OneTouch Delica Lancets] 30 gauge [facility] [place] See Rx Instructions .Route Qty: 100 2RF Rx Instructions: Use to check blood sugar twice daily, once fasting and another random during the day (DME) OneTouch Verio test strips Strip See Rx Instructions .Route Qty: 100 2RF Rx Instructions: Use to check blood sugar twice daily, once fasting and another random during the day cholecalciferol (vitamin D3) 50 mcg (2,000 unit) capsule 50 mcg PO DAILY 90 Days Qty: 90 3RF clopidogrel 75 mg tablet 75 mg PO DAILY Qty: 90 2RF rosuvastatin 40 mg tablet 40 mg PO DAILY Qty: 90 1RF metformin 1,000 mg tablet 1,000 mg PO BID Qty: 180 1RF enalapril maleate 20 mg tablet 20 mg PO BID Qty: 180 1RF levothyroxine 137 mcg tablet 137 mcg PO DAILY 90 Days Qty: 90 1RF metoprolol tartrate 100 mg tablet 100 mg PO BID 90 Days Qty: 180 1RF omeprazole 40 mg Capsule,Delayed Release(Dr/Ec) 40 mg PO DAILY@0630 Qty: 30 0RF Referrals: [facility] [place] [facility] [Provider Group] (hemorrhoids) Mia Lucero MD [Primary Care Provider] - Interventions: ED Discharge Assessment Last Done: 01/18/24 11:05 Discharge Date/Time: 01/18/24 11:05 Print Language: [place] Verdean
[2024-01-18 08:25] LABS: MANUAL DIFF FLAG NO
--- NOTE | 2024-01-18 08:25 | PC.NURSE ---
a&ox4. vss and up to date. nsr on the air sampling and monitoring. pt presents to the ED w/ bright red bloody stools/dizziness x 1 week. pt describes loose stool/bright red in nature. states multiple episodes per day as whenever he ingests anything via PO, he has a BM. pt denies change in vision/HERNANDEZ/n/v/fever/chills 18gIV placed in the right AC - labs obtained/sent to lab. ekg being performed by tech. no sob/wob noted. respirations even/unlabored. resting comfortably in stretcher in no apparent distress. plan of care ongoing. call tran placed within reach.
[2024-01-18 08:33] LABS: INTERNATIONAL NORM RATIO 0.9 (0.9-1.1); Prothrombin Time 11.5 SEC (11.1-13.3)
[2024-01-18 08:34] LABS: Basophils Percent Auto 0.2 % (0-2); Eosinophils Percent Auto 0.6 % (0-4); Hematocrit 46.8 % (42.0-52.0); Hemoglobin 15.7 g/dl (14.0-18.0); Imm Gran Abs Auto 0.03 X10*3/uL (0.00-0.03); Imm Gran Pct Auto 0.6 % (0.0-0.4); Lymphocytes Absolute Auto 1.5 X10*3/uL (1.2-4.9); Lymphocytes Percent Auto 31.8 % (20-40); Mean Corpuscular HGB Conc 33.5 g/dl (31.0-36.0); Mean Corpuscular Hemoglobin 28.1 pg (27.0-33.0); Mean Corpuscular Volume 83.7 fL (80.0-98.0); Mean Platelet Volume 11.6 fL (9.4-12.4); Monocytes Absolute Auto 0.4 X10*3/uL (0.1-1.2); Monocytes Percent Auto 8.2 % (2-11); Neutrophils Absolute Auto 2.8 x10*3/uL (2.0-8.3); Neutrophils Percent Auto 58.6 % (45-73); Platelet Count 187 X10*3/uL (160-400); Red Blood Count 5.59 X10*6/uL (4.60-5.80); Red Cell Distribution Width 13.8 % (11.0-16.0); White Blood Count 4.8 X10*3/uL (4.8-10.8)
[2024-01-18 08:36] LABS: Partial Thromboplastin Time 33.9 SEC (26.0-36.8)
[2024-01-18 08:39] LABS: Alanine Aminotransferase 28 U/L (0-40); Albumin Level 4.2 g/dL (3.5-5.0); Alkaline Phosphatase 91 U/L (39-117); Anion Gap 14 (12-20); Aspartate Amino Transferase 28 U/L (5-37); Bilirubin Direct 0.2 mg/dL (0.0-0.5); Bilirubin Total 0.4 mg/dL (0.0-1.0); Blood Urea Nitrogen 19 mg/dL (9-16); Calcium 9.2 mg/dL (8.4-10.2); Carbon Dioxide 25 mmol/L (22-29); Chloride 102 mmol/L (96-108); Creatinine Clr Calc Pharmacy 55.4; Estimated Glomerular Filt Rate 46; Glucose Random 147 mg/dL (60-115); Magnesium 1.5 mg/dL (1.6-2.6); Potassium 4.1 mmol/L (3.3-5.1); Sodium 137 mmol/L (135-145)
[2024-01-18 08:45] LABS: B Type Natriuretic Peptide < 10 pg/mL (<100)
--- NOTE | 2024-01-18 09:08 | PC.NURSE ---
chest xray completed at this time.
--- NOTE | 2024-01-18 09:11 | PC.NURSE ---
UA/occult test sent to lab.
[2024-01-18 09:24] LABS: OBS Int Ctl Valid YES; OBS1 POSITIVE (NEGATIVE)
[2024-01-18 09:26] LABS: Appearance Urine Clear; Color Urine Dark Yellow; Glucose Urine UA Negative (Negative); Leukocyte Esterase Urine Negative (Negative); Nitrite Urine Negative (Negative); PH 5.5 (5.0-9.0); Specific Gravity - Urine 1.025 (1.005-1.025); UMIC TRIGGER UACC YES; Urine Blood Negative (Negative); Urine Ketones Trace mg/dL (Negative); Urine Protein 100 (2+) mg/dL (Neg-Trace)
[2024-01-18 09:30] LABS: Bacteria Urine None Seen (None Seen); RBC Urine 0-2 /HPF (0-2); Squamous Epithelial Cell Urine 0-2 /HPF (0-2); WBC Urine 0-5 /HPF (0-5)
--- NOTE | 2024-01-18 11:04 | PC.NURSE ---
pt hypertensive - provider notified/aware/ok w/ discharge since pt did not take home medication. pt states he will resume home medication at home.
== END 2024-01-18 11:05 | disposition home or self-care (01) ==
PROVIDERS: Physician Assistant; Emergency Provider Emergency Medicine; PCP Internal Medicine
DX: K64.4 Residual hemorrhoidal skin tags (principal); R42 Dizziness and giddiness; R09.02 Hypoxemia; I10 Essential (primary) hypertension; E78.5 Hyperlipidemia, unspecified; E66.9 Obesity, unspecified; Z68.41 Body mass index [BMI] 40.0-44.9, adult
CPT/HCPCS: 36415; 71045; 80048; 80076; 81001; 82272; 83735; 83880; 85025; 85610; 85730; 93005; 99284; 99285

== ENCOUNTER → 2024-01-18 08:25 | Outpatient (BNV) | payer MEDICARE, SELFPAY | PROVIDERS: Emergency Provider Emergency Medicine; PCP Internal Medicine; Visit Provider Internal Medicine Cardiovascular Disease | DX: R42 Dizziness and giddiness (principal) | CPT/HCPCS: 93010 ==

== ENCOUNTER 2024-01-22 10:07 | Outpatient (AMB) | payer MEDICARE, SELFPAY ==
--- NOTE | 2024-01-22 10:09 | A.OFFVIS_ITS ---
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: No Accompanied by: Self / Same As Patient Allergies No Known Allergies Allergy (Verified 01/18/24 08:02) Medication List - Last Reconciled 01/22/24 by Germain Corona MD amoxicillin-pot clavulanate 875-125 mg 1 tab PO BID blood sugar diagnostic ([employer] Verio test strips) Use to check blood sugar twice daily, once fasting and another random during the day blood-glucose meter ([employer] Verio Meter) Use to check blood sugar twice daily, once fasting and another random during the day cholecalciferol (vitamin D3) 50 mcg PO DAILY 90 days clopidogrel 75 mg PO DAILY enalapril maleate 20 mg PO BID hydrocortisone 2.5% 1 appl [place] BEDTIME lancets ([employer] Delica Lancets) Use to check blood sugar twice daily, once fasting and another random during the day levothyroxine 137 mcg PO DAILY 90 days metformin 1,000 mg PO BID metoprolol tartrate 100 mg PO BID 90 days omeprazole 40 mg PO DAILY@0630 rosuvastatin 40 mg PO DAILY HPI Comments Details: Pleasant 68-year-old gentleman here for f/u. He is from [place] and recently moved here. Ten years ago he underwent bypass surgery. He said he was getting jaw discomfort off and on with exercise and finally underwent workup which led to cardiac catheterization showing multivessel disease. It appears he had 4 vessel bypass surgery. Approximately 9 months later he had some dyspnea which led to cardiac catheterization and it appears he had a drug-eluting stent done to his right coronary artery because his vein graft was occluded.. He said he has been doing well since then Echocardiography from 2019 showed normal biventricular function without significant valvular pathology or wall motion abnormality. He was diagnosed with peptic ulcer disease and underwent endoscopy. He was advised that he does not need dual antiplatelet therapy at this stage and can be on aspirin or Plavix. It appears after discussion with his career transition specialist he has started taking Plavix only. He underwent endoscopy recently which is showing Blanca esophagus and erosion in the stomach. He is saying he continues to get off and on epigastric discomfort. Yesterday he also had some vomiting episode. He is saying since vomiting he did not have any further discomfort in the abdomen. No jaw discomfort or any significant chest discomfort with activity. 12/28/22: He returns for follow-up. He is saying his GI symptoms are better but he is due to get repeat endoscopy at [facility]. He has stop aspirin is currently taking Plavix only. No bleeding issues recently. He had jaw pain as his anginal symptoms and has not experienced that recently. He is on hydrochlorothiazide enalapril and metoprolol for blood pressure control. His blood pressure control is quite optimal right now. 01/22/24: He is here for follow-up. He said he went to emergency department on January 17 with blood in his to and was diagnosed with hemorrhoids. He also had a chest x-ray performed at that time which showed left basilar pneumonia and he was started on antibiotics which he is taking. No chest pain or shortness of breath. He is a little tachycardic today and feels that he is dehydrated. I have advised him that he should be drinking more water. He has not taken his medications today. [facility] Medical History (Updated 01/19/24 @ 00:01 by Joe Long) Loud snoring Witnessed apneic spells History of esophageal stricture COVID-19 vaccine series declined Refused influenza vaccine Morbid obesity with body mass index (BMI) of 40.0 to 44.9 in adult CAD (coronary artery disease) Blanca's esophagus with high grade dysplasia Diabetes mellitus with kidney complication, without long-term current use of insulin Erosive gastritis GERD (gastroesophageal reflux disease) Hearing loss Erectile dysfunction Major depression Anemia of chronic disease Sleep apnea Bipolar 1 disorder Hiatal hernia Gout Multinodular goiter Morbid obesity Fatty liver Myocardial infarct S/P CABG x 4 Dyslipidemia Hypothyroidism Hypertension Surgical History History of endoscopy Hx of coronary artery bypass graft Hx of inguinal hernia repair Family History Mother No problems noted. Sister Hyperlipemia Social History Household Members: Spouse Housing: House Do you presently have visiting nurse or other home services: No Alcohol intake: never Patient Tobacco Use Status: Never used Tobacco Years Smoked: 10 +/- e-Cigarette/Vaping Use: Never Used service: No Current occupational status: retired Cognitive needs: No Hearing needs: No Vision needs: Yes Review of Systems Const Denies chills, Denies fatigue, Denies fever(s), Denies frequent falls, Denies weakness, Denies weight gain and Denies weight loss ENT Denies dizziness Card Denies chest pain, Denies leg edema, Denies lightheadedness, Denies palpitations, Denies dyspnea and Denies dyspnea on exertion Resp Denies cough, Denies dyspnea and Denies dyspnea on exertion GI Denies hematochezia Musc Denies abnormal gait, Denies muscle weakness, Denies numbness, Denies radiating pain into limb and Denies tingling Neuro Denies abnormal gait, Denies dizziness, Denies frequent falls, Denies numbness, Denies tingling and Denies weakness Endo Denies fatigue and Denies palpitations Physical Exam Vital Signs: Last Vital Signs Pulse 110 H 01/22/24 10:10 BP 130/70 01/22/24 10:10 BMI result Body Mass Index 40.2 GENERAL APPEARANCE: in no acute distress, well developed, well nourished. SKIN: no suspicious lesions, warm and dry. HEART: no murmurs, regular rate and rhythm, S1, S2 normal. LUNGS: clear to auscultation bilaterally. ABDOMEN: normal, bowel sounds present, soft, nontender, nondistended. PERIPHERAL PULSES: equal. NEUROLOGIC: nonfocal, alert and oriented. PSYCH: mood/affect full range. Office Procedures EKG Details: Sinus tachycardia 110 beats per minute, leftward axis, left ventricular hypertrophy, QTC 449 milliseconds. [id number], Complete Assessment & Plan Assessment & Plan (1) Stable angina: Code(s): I20.8 - Other forms of angina pectoris Category: Medical (2) S/P CABG x 4: Comment: Status post CABG times for 10 years ago and drug-eluting stent to the right coronary artery probably due to vein graft occlusion to the right coronary artery. Code(s): Z95.1 - Presence of aortocoronary bypass graft Category: Medical (3) Dyslipidemia: Code(s): E78.5 - Hyperlipidemia, unspecified Category: Medical (4) Hypertension: Code(s): I10 - Essential (primary) hypertension Category: Medical Qualifiers: Hypertension type: essential hypertension Qualified Code(s): I10 - Essential (primary) hypertension Plan 68-year-old gentleman who is here for follow-up. He has history of bypass surgery. He has stable angina currently. Blood pressure control is good. Previous GI bleed and has been taken off the aspirin. He has been doing well with Plavix with no further peptic ulcer disease. Recent bleeding was due to hemorrhoids. He also was diagnosed with pneumonia and is currently taking antibiotics which could be the reason that he is little tachycardic. Exam otherwise is normal. I have advised him to keep himself well hydrated. Same medications for now. Follow-up in 6 months. Thank you for allowing me to participate in the care of your patient. Please feel free to contact me if you have any questions. Coding Level of Care Code Est Pt Level 4 (70034) Diagnoses Stable angina I20.8 S/P CABG x 4 Z95.1 Dyslipidemia E78.5 Essential hypertension I10 Hypertension type: essential hypertension CPT Codes EKG - CPT: 53336-[id number], Complete ([id number])
[2024-01-22 10:10] VITALS: BP 130/70; PULSE 110; BMI 40.2
== END 2024-01-22 10:36 | disposition home or self-care (01) ==
LOC: HO.HCS 10:07
PROVIDERS: PCP Internal Medicine; Visit Provider Internal Medicine Cardiovascular Disease
DX: I20.89 Other forms of angina pectoris (principal); Z95.1 Presence of aortocoronary bypass graft; E78.5 Hyperlipidemia, unspecified; I10 Essential (primary) hypertension
CPT/HCPCS: 93010; 99214

== ENCOUNTER → 2024-01-22 10:07 | Outpatient (BNVA) | payer MEDICARE, SELFPAY | PROVIDERS: PCP Internal Medicine; Visit Provider Internal Medicine Cardiovascular Disease | DX: I20.89 Other forms of angina pectoris (principal); E78.5 Hyperlipidemia, unspecified; I10 Essential (primary) hypertension; Z95.1 Presence of aortocoronary bypass graft | CPT/HCPCS: 93005; 99212 ==

== ENCOUNTER 2024-01-29 06:27 | Outpatient (REF) | payer MEDICARE, SELFPAY ==
[2024-01-29 09:55] LABS: MANUAL DIFF FLAG NO
[2024-01-29 10:04] LABS: Basophils Absolute Auto 0.1 X10*3/uL (0.0-0.2); Basophils Percent Auto 0.6 % (0-2); Eosinophils Absolute Auto 0.1 X10*3/uL (0.0-0.4); Eosinophils Percent Auto 1.1 % (0-4); Hematocrit 42.6 % (42.0-52.0); Hemoglobin 13.7 g/dl (14.0-18.0); Imm Gran Abs Auto 0.17 X10*3/uL (0.00-0.03); Imm Gran Pct Auto 1.9 % (0.0-0.4); Lymphocytes Absolute Auto 1.7 X10*3/uL (1.2-4.9); Lymphocytes Percent Auto 19.1 % (20-40); Mean Corpuscular HGB Conc 32.2 g/dl (31.0-36.0); Mean Corpuscular Hemoglobin 27.2 pg (27.0-33.0); Mean Corpuscular Volume 84.7 fL (80.0-98.0); Mean Platelet Volume 11.2 fL (9.4-12.4); Monocytes Absolute Auto 0.8 X10*3/uL (0.1-1.2); Monocytes Percent Auto 8.8 % (2-11); Neutrophils Absolute Auto 6.1 x10*3/uL (2.0-8.3); Neutrophils Percent Auto 68.5 % (45-73); Platelet Count 496 X10*3/uL (160-400); Red Blood Count 5.03 X10*6/uL (4.60-5.80); Red Cell Distribution Width 13.8 % (11.0-16.0); White Blood Count 8.9 X10*3/uL (4.8-10.8)
[2024-01-29 10:28] LABS: Alanine Aminotransferase 23 U/L (0-40); Aspartate Amino Transferase 26 U/L (5-37); Cholesterol 96 mg/dL (<200); Creatinine Urine 152.51 mg/dL; HDL Cholesterol 21 mg/dL (>40); LDL Cholesterol Calculated 25 mg/dL (<100); Microalbum/Creatinine Ratio Ur 62.2 ug/mg cr (<30); Triglycerides 251 mg/dL (<150)
[2024-01-29 10:32] LABS: Free T4 (Free Thyroxine) 1.11 ng/dL (0.71-1.85); Thyroid Stimulating Hormone 1.18 uIU/mL (0.32-4.0)
[2024-01-29 10:53] LABS: Estimated Average Glucose 177 mg/dL; Hemoglobin A1c % 7.8 % (<6.0)
== END 2024-01-29 06:28 | disposition home or self-care (01) ==
LOC: HO.HMGCLDS 06:27
PROVIDERS: PCP Internal Medicine; Visit Provider Internal Medicine
DX: K29.60 Other gastritis without bleeding (principal); E78.5 Hyperlipidemia, unspecified; K21.9 Gastro-esophageal reflux disease without esophagitis; E03.9 Hypothyroidism, unspecified; I10 Essential (primary) hypertension; E11.29 Type 2 diabetes mellitus with other diabetic kidney complication; K22.711 Barrett's esophagus with high grade dysplasia; E66.01 Morbid (severe) obesity due to excess calories; Z68.41 Body mass index [BMI] 40.0-44.9, adult
CPT/HCPCS: 36415; 80061; 82043; 82570; 83036; 84439; 84443; 84450; 84460; 85025

== ENCOUNTER 2024-02-02 08:51 | Outpatient (AMB) | payer MEDICARE, SELFPAY ==
--- NOTE | 2024-02-02 09:14 | AM.OFFWIN_ITS ---
Intake Vital Signs 02/02/24 09:15 Height 5 ft 6 in Weight 247 lb BMI 39.9 BP 110/64 Blood Pressure Location Lt brachial Position Sitting Pulse 88 Pulse Source Pulse Oximeter Pulse Oximetry (%) 94 Oxygen Delivery Method Room Air Intake Visit Reasons: EP Feeling very weak last 3 weeks Intake Note: Patient here because he has been feeling very weak for about 3 weeks. Patient Tobacco Use Status: Never used Tobacco Allergies No Known Allergies Allergy (Verified 02/02/24 09:16) Do you need a note to return to daycare/school/sports/work: No HPI EP Feeling very weak last 3 weeks HPI Details This is a 68 year old male patient who presents to the [facility] today with c/o feelings of weakness/fatigue for several weeks. He was seen in the ED on 01/17 for blood in his stool and was diagnosed with hemorrhoids. He also had an SaO2 of 90% and CXR indicated left basilar pneumonia. He had reported feelings of fatigue/malaise at that time as well. He was started on Augmentin x10 days which he has completed. Denies any shortness of breath or cough at this time. Denies any fever. He also had a f/u with secondary education professor Dr. Corona on 01/21 - history of htn, bypass on Plavix. Maintained on hctz, enalapril, metoprolol. Patient states he takes all BP meds in the morning, and symptoms of weakness/fatigue usually occur an hour or two later. Denies any LOC. He has not checked BP at home however does have a machine. Had labs this past Monday which were mostly unremarkable. A1c 7.8 however. [facility] Medical History Loud snoring Witnessed apneic spells History of esophageal stricture COVID-19 vaccine series declined Refused influenza vaccine Morbid obesity with body mass index (BMI) of 40.0 to 44.9 in adult CAD (coronary artery disease) Blanca's esophagus with high grade dysplasia Diabetes mellitus with kidney complication, without long-term current use of insulin Erosive gastritis GERD (gastroesophageal reflux disease) Hearing loss Erectile dysfunction Major depression Anemia of chronic disease Sleep apnea Bipolar 1 disorder Hiatal hernia Gout Multinodular goiter Morbid obesity Fatty liver Myocardial infarct S/P CABG x 4 Dyslipidemia Hypothyroidism Hypertension Surgical History History of endoscopy Hx of coronary artery bypass graft Hx of inguinal hernia repair Family History Mother No problems noted. Sister Hyperlipemia Social History Household Members: Spouse Housing: House Do you presently have visiting nurse or other home services: No Alcohol intake: never Patient Tobacco Use Status: Never used Tobacco Years Smoked: 10 +/- e-Cigarette/Vaping Use: Never Used service: No Current occupational status: retired Cognitive needs: No Hearing needs: No Vision needs: Yes Review of Systems Const All systems reviewed & are unremarkable except as noted in HPI and below Physical Exam Vital Signs: Last Vital Signs Pulse 88 02/02/24 09:15 BP 110/64 02/02/24 09:15 Pulse Ox 94 02/02/24 09:15 Oxygen Delivery Method Room Air 02/02/24 09:15 BMI result Body Mass Index 39.9 Const General: cooperative and no acute distress Orientation/consciousness: patient oriented x3 HEENT Head: Yes normal to inspection Ears: hearing grossly normal bilaterally General nose exam: Normal external nose present Face and sinus: Yes normal facial exam Neck Neck: Yes no JVD Resp Effort & Inspection: normal respiratory effort and able to speak in complete sentences Auscultation: crackles on the left in the lower lung gil and 1/[address] up Cardio Rate: regular rate Rhythm: regular rhythm Heart sounds: S1 normal heart sound present and S2 normal heart sound present Skin General skin exam: no rashes or lesions noted Neuro General: patient oriented x3, gait normal, tone normal and moves all extremities Gait exam (Neuro): Normal gait present Motor exam (neuro): 5/5 motor strength present throughout Extrem General: Yes capillary refill normal and Yes no clubbing, cyanosis or edema Psych Appearance: grossly normal Mental Status: mental status grossly normal Speech and movement: Normal speech and movement present Assessment & Plan Assessment & Plan (1) Fatigue: Code(s): R53.83 - Other fatigue Qualifiers: Fatigue type: unspecified Qualified Code(s): R53.83 - Other fatigue Plan: Patient has had fatigue and report of weakness for the last several weeks. He has during this time had an ED visit at which time he was diagnosed with left basilar CAP and also a cardiology visit with Dr. Corona. He continues to have left basilar lung crackles and so I obtained a repeat CXR today in the office which showed interval improvement in left basilar pneumonia. I am going to start him on Doxy at this time. Reviewed indications, use, possible s/e of this. He has been noticing the fatigue/weakness has been most significant following taking his BP meds. He takes hctz, enalapril, and metoprolol all in the am. His BP today at visit was 110/64, prior to taking his BP meds. It is possible that he is becoming hypotensive at home following taking meds. I advised him to move one of these medications to the afternoon or evening and see if this helps, and to also check his BP at home with machine, particularly after taking morning meds. He has an appt. with PCP Dr. Lucero next month which I encouraged he keep. If his symptoms worsen or new symptoms develop in the meantime, he should go to the ED for evaluation. He and present at visit verbalize understanding and agree to plan. (2) Respiratory crackles at left lung base: Code(s): R09.89 - Other specified symptoms and signs involving the circulatory and respiratory systems Plan: CXR and abx as above Orders: Orders 2 XR chest 2V Today R53.83 - Other fatigue Medications: New doxycycline hyclate 100 mg PO BID 7 days 14 tabs 0RF R09.89 - Other specified symptoms and signs involving the circulatory and respiratory systems, R53.83 - Other fatigue Coding Level of Care Code Est Pt Level 4 (94917) Diagnoses Fatigue, unspecified type R53.83 Fatigue type: unspecified Respiratory crackles at left lung base R09.89
[2024-02-02 09:15] VITALS: BP 110/64; PULSE 88; O2SAT 94; BMI 39.9
== END 2024-02-02 10:51 | disposition home or self-care (01) ==
PROVIDERS: PCP Internal Medicine; Visit Provider Nurse Practitioner Family
DX: R53.83 Other fatigue (principal); R09.89 Other specified symptoms and signs involving the circulatory and respiratory systems
CPT/HCPCS: 99214

== ENCOUNTER 2024-02-02 10:07 | Outpatient (REF) | payer MEDICARE, SELFPAY ==
--- NOTE | ~2024-02-02 | XR_ITS ---
EXAMINATION: XR CHEST CLINICAL INFORMATION: Follow-up left basilar pneumonia. COMPARISON: 01/18/2024 TECHNIQUE: 2 views of the chest were obtained. FINDINGS: The lungs are moderately expanded. There is patchy retrocardiac opacity improved from prior. No significant joint effusion. Cardiac silhouette is unchanged. Large hiatal hernia with air-fluid level. Prior median sternotomy. XR/XR chest 2V IMPRESSION: Interval improvement in left basilar pneumonia.
== END 2024-02-02 10:08 | disposition home or self-care (01) ==
LOC: HO.HMGCX 10:07
PROVIDERS: PCP Internal Medicine; Visit Provider Nurse Practitioner Family
DX: R53.83 Other fatigue (principal)
CPT/HCPCS: 71046

== ENCOUNTER 2024-03-04 08:16 | Outpatient (AMB) | payer MEDICARE, SELFPAY ==
--- NOTE | 2024-03-04 09:11 | A.OFFPC_ITS ---
Vital Signs 03/04/24 09:15 BP 120/70 Blood Pressure Location Lt brachial Position Sitting Pulse 90 Pulse Source Pulse Oximeter Pulse Oximetry (%) 94 Oxygen Delivery Method Room Air Intake Visit Reasons: PE Intake Note: Pt is here today for his PE Allergies No Known Allergies Allergy (Verified 03/04/24 09:51) Medication List - Last Reconciled 03/04/24 by Mia Lucero MD blood sugar diagnostic ([employer] Verio test strips) Use to check blood sugar twice daily, once fasting and another random during the day blood-glucose meter ([employer] Verio Meter) Use to check blood sugar twice daily, once fasting and another random during the day cholecalciferol (vitamin D3) 50 mcg PO DAILY 90 days clopidogrel 75 mg PO DAILY enalapril maleate 20 mg PO BID hydrocortisone 2.5% 1 appl AL BEDTIME lancets ([employer] Delica Lancets) Use to check blood sugar twice daily, once fasting and another random during the day levothyroxine 137 mcg PO DAILY 90 days metformin 1,000 mg PO BID metoprolol tartrate 100 mg PO BID 90 days omeprazole 40 mg PO DAILY@0630 rosuvastatin 40 mg PO DAILY Tobacco use date assessed: 03/04/24 Fall risk assessment: 1 Fall in past year Last assessed Fall Risk: 03/04/24 Dental Screening Dental Screen Date: 03/04/24 HPI PE HPI Details 68 year old male with past medical hist ory for Hypertension, Hyperlipidemia, Ddiabetes mellitus , morbid obesity, Chronic kidney disease, CAD with 4 vessel Coronary artery bypass grafting, RCA stent, Blanca's esophagus, controlled with omeprazole, who presents for his physical exam today. He sees Dr. Tobias and has had several upper endoscopies done which showed presence of Blanca's esophagus, last 1 had dilatation of a stricture in the in the esophagus done a year ago has not yet had a screening colonoscopy. He has not received any vaccination, declined. Diabetes mellitus not well controlled, with latest hemoglobin A1c in 02/06/2024 at 7.8%. His fasting lipids and thyroid levels however are within normal limits except for elevated triglycerides. Last eye exam was in 2021 at [facility]. Blood pressure stable and well controlled on present treatment. [facility] Medical History (Updated 03/06/24 @ 17:36 by Mia Lucero MD) Loud snoring Witnessed apneic spells History of esophageal stricture COVID-19 vaccine series declined Refused influenza vaccine Morbid obesity with body mass index (BMI) of 40.0 to 44.9 in adult CAD (coronary artery disease) Blanca's esophagus with high grade dysplasia Diabetes mellitus with kidney complication, without long-term current use of insulin Erosive gastritis GERD (gastroesophageal reflux disease) Hearing loss Erectile dysfunction Sleep apnea Hiatal hernia Gout Multinodular goiter Morbid obesity Fatty liver Myocardial infarct S/P CABG x 4 Dyslipidemia Hypothyroidism Hypertension Surgical History History of endoscopy Hx of coronary artery bypass graft Hx of inguinal hernia repair Family History Mother No problems noted. Sister Hyperlipemia Social History Household Members: Spouse Housing: House Do you presently have visiting nurse or other home services: No Alcohol intake: never Patient Tobacco Use Status: Never used Tobacco Years Smoked: 10 +/- e-Cigarette/Vaping Use: Never Used service: No Current occupational status: retired Cognitive needs: No Hearing needs: No Vision needs: Yes Questionnaire PHQ-9 Over the last 2 weeks, how often have you been bothered by any of the following problems? 1. Little interest or pleasure in doing things: not at all 2. Feeling down, depressed, or hopeless: not at all 3. Trouble falling or staying asleep, or sleeping too much: not at all 4. Feeling tired or having little energy: not at all 5. Poor appetite or overeating: not at all 6. Feeling bad about yourself - or that you are a failure or have let yourself or your family down: not at all 7. Trouble concentrating on things, such as reading the newspaper or watching television: not at all 8. Moving or speaking so slowly that other people could have noticed. Or the opposite - being so fidgety or restless that you have been moving around a lot more than usual: not at all 9. Thoughts that you would be better off or of hurting yourself in some way: not at all Total score: 0 Depression Screening Interpretation: Negative Depression Screening Done: Yes 29082 - PHQ-9 Billing: Yes Source: Developed by Drs. Lowell Eubanks, Trupti Camarillo, Douglas Lancaster and colleagues, with an educational kim from [employer]. Thrive Questionnaire Date Thrive assessed: 03/04/24 I am a: Patient What is your living situation today?: I have a steady place to live Within the past 12 months, did the food you bought not last and you didn't have the money to get more?: Never true Within the past 12 months, did you worry whether your food would run out before you got money to buy more?: Never true Do you have trouble paying for medicines?: No Do you have trouble getting transportation to medical appointments?: No Do you have trouble paying your heating and electricity bill?: No Do you have trouble taking care of your child, family member or friend?: No Do you have trouble with day-to-day activities such as bathing, preparing meals, shopping, managing finances, etc.?: No Are you currently unemployed and looking for a job?: No Are you interested in more education?: No THRIVE Score: 0 AUDIT C Alcohol Use Questionnaire (AUDIT-C) 1. How often do you have a drink containing alcohol?: Never Total Score: 0 KOJO-7 AMB Questionnaire KOJO-7 Date KOJO - 7 assessed: 03/04/24 Feeling nervous, anxious, or on edge: 0 = Not at all Not being able to stop or control worryin = Not at all Worrying too much about different things: 0 = Not at all Trouble relaxin = Not at all Being so restless that it is hard to sit still: 0 = Not at all Becoming easily annoyed or irritable: 0 = Not at all Feeling afraid as if something awful might happen: 0 = Not at all Total KOJO-7 score (0-4 normal; 5-9 mild; 10-14 moderate; 15-21 severe): 0 Source: Developed by Drs. Lowell Eubanks, Trupti Camarillo, Douglas Lancaster and colleagues, with an educational kim from [employer]. KOJO-7 Assessment Billing KOJO-7 Assessment Tool: KOJO-7 Assessment 17543 Review of Systems Const Reports no additional complaints, Denies fatigue, Denies frequent falls and Denies weakness Eyes Details: Patient states he goes to [facility] in [place], with no retinopathy seen, requested copy of report ENT Reports no additional complaints and Denies dizziness Card Denies chest pain, Denies leg edema, Denies lightheadedness, Denies palpitations, Denies dyspnea and Denies dyspnea on exertion Resp Denies cough, Denies dyspnea and Denies dyspnea on exertion GI Denies hematochezia Reports no additional complaints Musc Denies abnormal gait, Denies muscle weakness, Denies numbness, Denies radiating pain into limb and Denies tingling Skin/Breast Denies lesions and Denies rash Neuro Denies abnormal gait, Denies dizziness, Denies frequent falls, Denies numbness, Denies tingling and Denies weakness Psych Reports no additional complaints Endo Denies fatigue and Denies palpitations Dhruv/Lymph Reports no additional complaints Aller/Immun Reports no additional complaints Physical exam (Primary Care) Vital Signs: Last Vital Signs Pulse 90 03/04/24 09:15 BP 120/70 03/04/24 09:15 Pulse Ox 94 03/04/24 09:15 Oxygen Delivery Method Room Air 03/04/24 09:15 BMI result Body Mass Index 41.8 BMI Assessment/Plan discussion: High BMI High, discussed plan: lifestyle, weight reduction, dietary and physical activity Tobacco/Smoking Status: Tobacco use Status Tobacco use date assessed 03/04/24 03/04/24 09:13 Patient Tobacco Use Status Never used Tobacco 03/04/24 09:13 e-Cigarette/Vaping Use Never Used 03/04/24 09:13 PHQ-9: PHQ-9 Score PHQ-9: Total score 0 03/06/24 17:29 Depression Screening Interpretation: Negative Thrive Assessment: Date of Thrive Assessment Date Thrive assessed 03/04/24 03/04/24 09:13 Const General: cooperative, comfortable, no acute distress and alert Nutritional Appearance: obese morbidly obese Orientation/consciousness: patient oriented x3 [facility] General nose exam: Normal external nose present Face and sinus: Yes face symmetric Mouth: Normal oral and palatal mucosa present and moist mucous membranes Eyes General: appearance normal, both eyes and all related structures Neck Neck: Yes full ROM, Yes no lymphadenopathy and Yes supple Chest Other: sternotomy scar healed, no chest wall tenderness Resp Auscultation: clear to auscultation bilaterally and no wheezes Cardio Other: S1-S2 present regular rate and rhythm GI Inspection: Yes obesity Palpation (GI): Soft to palpation, nontender, no guarding and no masses Auscultation: normal bowel sounds General: Yes no CVA tenderness Male General Exam: Yes normal external exam Back/Spine/Pelvis Back: no CVA tenderness and No back tenderness Skin General skin exam: dry skin and scars Sternotomy scar Neuro General: patient oriented x3, gait normal, moves all extremities, no focal motor deficits and decrease sensation to monofilament Extrem General: Yes full ROM, Yes no joint enlargement, Yes no pedal edema and Yes normal gait Psych Appearance: grossly normal and well kempt Mental Status: mental status grossly normal Speech and movement: Normal speech and movement present Affect: normal affect Attitude: cooperative Thought process: Normal thought process present Results Reviewed Results Reviewed: Name: Parmjit Sykes Age/Sex: 68/M : 1955 Unit#: [id number] Attend Dr: Mia Lucero MD Re01/29/24 Status: DEP REF Location: [facility] Disch: SPEC : [id number] DEB: 01/29/24 STATUS: COMP REQ : [id number] RECD: 01/29/[address]: Mia Lucero MD COMP: 01/29/24 ENTERED: 01/29/[address] [facility] DR: ORDERED: CBC Auto Diff Test Result Flag Reference WBC 8.9 4.8-10.8 X10*3/uL RBC 5.03 4.60-5.80 X10*6/uL HGB 13.7 L 14.0-18.0 g/dl HCT 42.6 42.0-52.0 % MCV 84.7 80.0-98.0 fL MCH 27.2 27.0-33.0 pg MCHC 32.2 31.0-36.0 g/dl RDW 13.8 11.0-16.0 % PLT 496 # H 160-400 X10*3/uL MPV 11.2 9.4-12.4 fL Neut Pct Auto 68.5 45-73 % ImGran Pct Auto 1.9 H 0.0-0.4 % Lymp Pct Auto 19.1 L 20-40 % Hancock Pct Auto 8.8 2-11 % Eos Pct Auto 1.1 0-4 % Baso Pct Auto 0.6 0-2 % NRBC Pct Auto 0.0 0.0-0.2 /100WBC ANC Neut Abs # 6.1 2.0-8.3 x10*3/uL ImGran Abs Auto 0.17 H 0.00-0.03 X10*3/uL Lymph Abs Auto 1.7 1.2-4.9 X10*3/uL Hancock Abs Auto 0.8 0.1-1.2 X10*3/uL Eos Abs Auto 0.1 0.0-0.4 X10*3/uL Baso Abs Auto 0.1 0.0-0.2 X10*3/uL NRBC Abs Auto 0.000 0.0-0.012 X10*3/uL Laboratory Tests 01/29/24 06:37 Estimat Average Glucose 177 Hemoglobin A1c % 7.8 H Urine Creatinine 152.51 Urine Microalbumin 95.0 Microalb/Creat Ratio 62.2 H Name: Parmjit Sykes Age/Sex: 68/M : 1955 Unit#: [id number] Attend Dr: Dacia Schmidt MD Re01/18/24 Status: DEP ER Location: [facility] Disch: SPEC : [id number] DEB: 01/18/24 STATUS: COMP REQ : [id number] RECD: 01/18/[address]: Krystal Croft COMP: 01/18/24 ENTERED: 01/18/[address]: Mia Lucero MD ORDERED: Liver Panel, BMP, MG Test Result Flag Reference Sodium 137 135-145 mmol/L Potassium 4.1 3.3-5.1 mmol/L CL 102 96-108 mmol/L CO2 25 22-29 mmol/L Gap 14 12-20 BUN 19 H 9-16 mg/dL Creat 1.50 H 0.5-1.4 mg/dL Estimated CrCl 55.4 eGFR (calculated from the MDRD study equation) and eCrCl (calculated from the Cockcroft-Gault equation) are based on different parameters and may not yield comparable results. If eCrCl result is absurd, please check patient's height/weight. EGFR 46 NOTE: For -[place]oc[place] individuals, multiply the result by 1.210. Chronic Kidney Disease: Estimated GFR < 60 mL/min/1.73m2 Severe Kidney Disease: Estimated GFR < 15 mL/min/1.73m2 Glucose, Random 147 H 60-115 mg/dL CA 9.2 8.4-10.2 mg/dL Magnesium 1.5 L 1.6-2.6 mg/dL Total Bili 0.4 0.0-1.0 mg/dL Direct Bili 0.2 0.0-0.5 mg/dL AST (GOT) 28 5-37 U/L ALT (GPT) 28 0-40 U/L Protein, Total 8.0 6.5-8.0 g/dL Alb 4.2 3.5-5.0 g/dL Alk Phos 91 39-117 U/L Name: Umair OlsonParmjit Chilo Age/Sex: 68/M : 1955 Unit#: [id number] Attend Dr: Mia Lucero MD Re01/29/24 Status: DEP REF Location: [facility] Disch: SPEC : [id number] DEB: 01/29/24 STATUS: COMP REQ : [id number] RECD: 01/29/2450 [facility] DR: Mia Lucero MD COMP: 01/29/24 ENTERED: 01/29/[address] [facility] [address]: ORDERED: AST, ALT, Lipid Panel, Free T4, TSH Test Result Flag Reference AST (GOT) 26 5-37 U/L ALT (GPT) 23 0-40 U/L Triglyceride 251 H <150 mg/dL Desirable Triglyceride: less than 150 mg/dL Borderline High Triglyceride 150-199 mg/dL High Triglyceride: 200-499 mg/dL Very High Triglyceride: greater than or equal to 5OO mg/dL Cholesterol 96 <200 mg/dL Desirable Cholesterol: less than 200 mg/dL Borderline High Cholesterol: 200-239 mg/dL High Cholesterol: greater than 239 mg/dL LDL Calculated 25 <100 mg/dL Desirable LDL: less than 100 mg/dL Near Optimal/Above Optimal LDL: 110-129 mg/dL Borderline High LDL: 130-159 mg/dL High LDL: 160-189 mg/dL Very High LDL: greater than or equal to 190 mg/dL HDL 21 L >40 mg/dL Desirable HDL: greater than 40 mg/dL Note: This HDL assay may give artificially low results in patients with liver disease. Free T4 1.11 0.71-1.85 ng/dL TSH 3rd Gen. 1.18 0.32-4.0 uIU/mL Assessment and Plan Assessment & Plan (1) Annual visit for general adult medical examination with abnormal findings: Code(s): Z00.01 - Encounter for general adult medical examination with abnormal findings Plan: Recent fasting lab results reviewed with patient. Recommended dental visit every 6 months and continue year eye exams. Take adequate calcium in diet and vitamin-D 3 at 2000 IU per cap once a day, in addition to weight-bearing exercises to help maintain good muscle tone and weight control. Instructed to do self-testicular exam to check for any mass.. Reminded to get his screening colonoscopy, already has appointment with GI, does not want to get any vaccination (2) Diabetes mellitus with kidney complication, without long-term current use of insulin: Code(s): E11.29 - Type 2 diabetes mellitus with other diabetic kidney complication Plan: Recent lab results reviewed with patient, with sugar and hemoglobin A1c not at goal. Continue with metformin 1000 mg 1 tablet twice a day and reinforced diabetic diet and regular exercise with patient. Counseled regarding importance of yearly diabetes retinopathy screening, currently up-to-date. Patient advised to inspect feet daily, for any signs of injury, callus or infection. Compliance with diet and regular exercise again stressed. Blood pressure goal is less than 130/80, goal LDL is less than 100 and goal hemoglobin A1c is less than 7% follow-up appointment made in--2-months, after fasting labs done. (3) CKD (chronic kidney disease) stage 3, GFR 30-59 ml/min: Code(s): N18.30 - Chronic kidney disease, stage 3 unspecified Plan: Continue enalapril maleate 20 mg 1 tab twice a day. Avoid nephrotoxins including NSAIDS, Increase PO fluid intake, Needs weight loss (4) CAD (coronary artery disease): Code(s): I25.10 - Atherosclerotic heart disease of ewiiaapaayp coronary artery without angina pectoris Qualifiers: Associated angina: without angina Coronary Disease-Associated Artery/Lesion type: ewi[place]ayp artery [place] vs. transplanted heart: ewiia[place]ayp heart Qualified Code(s): I25.10 - Atherosclerotic heart disease of ewiiaapaayp coronary a rtery without angina pectoris Plan: Followed by cardiology, currently on clopidogrel 75 mg daily (5) Dyslipidemia: Code(s): E78.5 - Hyperlipidemia, unspecified Plan: Continue rosuvastatin 40 mg daily and encouraged to adhere to recommended low- cholesterol diet (6) Hypertension: Code(s): I10 - Essential (primary) hypertension Qualifiers: Hypertension type: essential hypertension Qualified Code(s): I10 - Essential (primary) hypertension Plan: Blood pressure at goal of less than 130/80. Continue with current medication. Reinforced importance of following a low sodium diet, getting regular exercise, and lowering stress levels. (7) Hypothyroidism: Code(s): E03.9 - Hypothyroidism, unspecified Qualifiers: Hypothyroidism type: acquired Qualified Code(s): E03.9 - Hypothyroidism, unspecified Plan: Recent thyroid levels are within normal limits, continue with levothyroxine 137 mcg daily (8) Blanca's esophagus with high grade dysplasia: Code(s): K22.711 - Blanca's esophagus with high grade dysplasia Plan: Continue omeprazole 40 mg daily (9) Refused pneumococcal vaccine: Code(s): Z28.21 - Immunization not carried out because of patient refusal (10) COVID-19 vaccine series declined: Code(s): Z28.21 - Immunization not carried out because of patient refusal; Z28.310 - Unvaccinated for COVID-19 (11) Refused influenza vaccine: Code(s): Z28.21 - Immunization not carried out because of patient refusal (12) Morbid obesity with body mass index (BMI) of 40.0 to 44.9 in adult: Code(s): E66.01 - Morbid (severe) obesity due to excess calories; Z68.41 - Body mass index [BMI] 40.0-44.9, adult (13) GERD (gastroesophageal reflux disease): Code(s): K21.9 - Gastro-esophageal reflux disease without esophagitis Plan: Continue omeprazole 40 mg daily, followed by GI clinic (14) Anemia: Comment: Likely due to history GI bleed Code(s): D64.9 - Anemia, unspecified Plan: Started on ferrous fumarate 325 mg per tablet to take 1 a day Orders: Orders Hemoglobin A1c 04/19/24 D64.9 - Anemia, unspecified, E03.9 - Hypothyroidism, unspecified, E78.5 - Hyperlipidemia, unspecified Lipid Panel 04/19/24 D64.9 - Anemia, unspecified, E03.9 - Hypothyroidism, unspecified, E78.5 - Hyperlipidemia, unspecified Thyroid Stimulating Hormone 04/19/24 D64.9 - Anemia, unspecified, E03.9 - Hypothyroidism, unspecified, E78.5 - Hyperlipidemia, unspecified Free T4 (Free Thyroxine) 04/19/24 D64.9 - Anemia, unspecified, E03.9 - Hypothyroidism, unspecified, E78.5 - Hyperlipidemia, unspecified Medications: New ferrous fumarate 325 mg PO DAILY 90 tabs 0RF Coding Level of Care Code Est Pt Prev Care >65y(00951) Diagnoses Annual visit for general adult medical examination with abnormal findings Z00.01 Diabetes mellitus with kidney complication, without long-term current use of insulin E11.29 CKD (chronic kidney disease) stage 3, GFR 30-59 ml/min N18.30 Coronary artery disease involving ewiiaapaayp coronary artery of ewiiaapaayp heart without angina pectoris I25.10 Associated angina: without angina Coronary Disease-Associated Artery/Lesion type: ewi[place]p artery [place] vs. transplanted heart: e[place]ayp heart Dyslipidemia E78.5 Essential hypertension I10 Hypertension type: essential hypertension Acquired hypothyroidism E03.9 Hypothyroidism type: acquired Blanca's esophagus with high grade dysplasia K22.711 Refused pneumococcal vaccine Z28.21 COVID-19 vaccine series declined Z28.21; Z28.310 Refused influenza vaccine Z28.21 Morbid obesity with body mass index (BMI) of 40.0 to 44.9 in adult E66.01; Z68.41 GERD (gastroesophageal reflux disease) K21.9 Anemia D64.9 Additional Codes KOJO-7 Assessment Billing - KOJO-7 Assessment Tool: KOJO-7 Assessment 15079 ([id number])
[2024-03-04 09:15] VITALS: BP 120/70; PULSE 90; O2SAT 94
== END 2024-03-04 10:40 | disposition home or self-care (01) ==
PROVIDERS: PCP Internal Medicine; Visit Provider Internal Medicine
DX: Z00.01 Encounter for general adult medical examination with abnormal findings (principal); E11.29 Type 2 diabetes mellitus with other diabetic kidney complication; N18.30 Chronic kidney disease, stage 3 unspecified; I25.10 Atherosclerotic heart disease of native coronary artery without angina pectoris; E78.5 Hyperlipidemia, unspecified; I10 Essential (primary) hypertension; E03.9 Hypothyroidism, unspecified; K22.711 Barrett's esophagus with high grade dysplasia; Z28.21 Immunization not carried out because of patient refusal; Z28.310 Unvaccinated for COVID-19; E66.01 Morbid (severe) obesity due to excess calories; Z68.41 Body mass index [BMI] 40.0-44.9, adult; K21.9 Gastro-esophageal reflux disease without esophagitis; D64.9 Anemia, unspecified

== ENCOUNTER → 2024-03-04 08:16 | Outpatient (BNVA) | payer MEDICARE, SELFPAY | PROVIDERS: PCP Internal Medicine; Visit Provider Internal Medicine | DX: Z00.01 Encounter for general adult medical examination with abnormal findings (principal); E11.29 Type 2 diabetes mellitus with other diabetic kidney complication; I25.10 Atherosclerotic heart disease of native coronary artery without angina pectoris; E78.5 Hyperlipidemia, unspecified; I12.9 Hypertensive chronic kidney disease with stage 1 through stage 4 chronic kidney disease, or unspecified chronic kidney disease; E11.22 Type 2 diabetes mellitus with diabetic chronic kidney disease; N18.30 Chronic kidney disease, stage 3 unspecified; E66.01 Morbid (severe) obesity due to excess calories; K21.9 Gastro-esophageal reflux disease without esophagitis; Z68.41 Body mass index [BMI] 40.0-44.9, adult; Z71.6 Tobacco abuse counseling | CPT/HCPCS: 96127 ==

== ENCOUNTER 2024-04-12 09:28 | Outpatient (AMB) | payer MEDICARE, SELFPAY ==
--- NOTE | 2024-04-12 09:34 | MHC.OFFVIS ---
Vital Signs 04/12/24 09:35 Height 5 ft 6 in Weight 257 lb 2 oz BMI 41.5 BP 150/88 H Blood Pressure Location Rt brachial Position Sitting Intake Visit Reasons: INP-Snoring [employer] Required: No Accompanied by: Self / Same As Patient Allergies No Known Allergies Allergy (Verified 04/12/24 09:41) Medication List - Last Reconciled 04/12/24 by JUAN Nails blood sugar diagnostic ([employer] Ver[employer] test strips) Use to check blood sugar twice daily, once fasting and another random during the day blood-glucose meter ([employer] Verio Meter) Use to check blood sugar twice daily, once fasting and another random during the day cholecalciferol (vitamin D3) 50 mcg PO DAILY 90 days clopidogrel 75 mg PO DAILY enalapril maleate 20 mg PO BID ferrous fumarate 325 mg PO DAILY hydrocortisone 2.5% 1 appl [facility] BEDTIME lancets ([employer] Lancets) Use to check blood sugar twice daily, once fasting and another random during the day levothyroxine 137 mcg PO DAILY 90 days metformin 1,000 mg PO BID metoprolol tartrate 100 mg PO BID 90 days omeprazole 40 mg PO DAILY@0630 rosuvastatin 40 mg PO DAILY HPI Comments Details: 68-yr-old male presents for new in-person patient visit for sleep consultation. Pt is accompanied by his , Estefanía. Patient reports he was diagnosed with sleep apnea many years ago in [place], he was given a CPAP machine which he tolertaed well but never had f/u so did not think he needed to continue to use it. Sleep questionnaire: Have you ever been diagnosed with a sleep disorder? yes Have you ever had a sleep study in the past? yes Have you ever been treated for a sleep disorder? yes- cpap Do you take medications for a sleep disorder? no Do you have difficulty initiating sleep? no Do you have difficulty maintaining sleep? just a couple of time. Do you wake up tired? no Do you have daytime tiredness or fatigue? yes Do you easily fall asleep when inactive? yes Do you snore? yes Do you wake up gasping at night? no Do you have episodes of apneas? brief pauses If yes, are they witnessed? yes Do you have episodes of nocturnal chest pain or dyspnea? no Do you have bruxism? no Do you have headaches upon awakening? no Do you wake up with dry mouth or throat? yes Do you have GERD? no- on tx Do you have nocturia? 1-2 x's per night Do you have nocturnal leg cramps? occassional Do you have symptoms of restless legs? mild, may feel like he has to stretch. Do you act out your dreams? no Do you have sleep paralysis? no Do you have drop attacks? no Do you ever have hypnogenic hallucinations? no. just has vivid dreams. Hypersomnolence questionnaire: Have you ever had episodes of sudden weakness? no Have you ever had episodes of sudden weakness associated with strong emotions? no Sleep hygiene questionnaire: What is your usual sleep routine? Usual bedtime is at 10-11pm; Usual wake-up time varies- based on his 's schedule- 7-8am. Do you take naps? yes Is your sleep environment cool, dark, and quiet? yes Do you exercise? around the house, yardwork Do you take caffeine or other stimulants? coffee in the am Do you use electronics in bed? Phone if wakes up. No TV in bedroom. What is your work schedule? 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 Sister Hyperlipemia Social History Household Members: Spouse Housing: House Do you presently have visiting nurse or other home services: No Alcohol intake: never Patient Tobacco Use Status: Never used Tobacco Years Smoked: 10 +/- e-Cigarette/Vaping Use: Never Used service: No Current occupational status: retired Cognitive needs: No Hearing needs: No Vision needs: Yes Physical Exam Vital Signs: Last Vital Signs BP 150/88 H 04/12/24 09:35 BMI result Body Mass Index 41.5 Const General: no acute distress Orientation/consciousness: patient oriented x3 HEENT Other: Mallampati stage 4 Resp Effort & Inspection: normal respiratory effort and able to speak in complete sentences Cardio Rate: regular rate Rhythm: regular rhythm Neuro General: patient oriented x3 Psych Mental Status: mental status grossly normal Speech and movement: Clear speech present Attitude: cooperative Assessment & Plan Assessment & Plan (1) Snoring: Code(s): R06.83 - Snoring Category: Medical (2) Hypersomnia: Code(s): G47.10 - Hypersomnia, unspecified Category: Medical (3) History of obstructive sleep apnea: Comment: not on CPAP for many years Code(s): Z86.69 - Personal history of other diseases of the nervous system and sense organs Category: Medical (4) Excessive daytime sleepiness: Code(s): G47.19 - Other hypersomnia Category: Medical Plan Reviewed complications a/w untretaed mod-severe sleep apnea, including but not limited to CV, metabolic, and cognitive complications. Pt is advised to undergo in-lab sleep study to assess for sleep apnea. Advised that if sleep study does again show sleep apnea, we will plan to have routine f/u visits w/ him to monitor him and PAP tx. Pt no longer has a CPAP machine. Will f/u with pt after study to discuss results and appropriate treatment options. Will follow-up upon review of above and patient to follow-up in clinic in 4-6 months or sooner prn. Orders: Orders RT PSG in-lab sleep study 04/12/24 G47.10 - Hypersomnia, unspecified, R06.83 - Snoring, Z86.69 - Personal history of other diseases of the nervous system and sense organs Coding Level of Care Code New Pt Level 4 (20472) Diagnoses Snoring R06.83 Hypersomnia G47.10 History of obstructive sleep apnea Z86.69 Excessive daytime sleepiness G47.19 [place] Sleepiness Scale Questions Sitting and reading: high chance of dozing Watching TV: high chance of dozing Sitting inactive in a theater, movie etc.: slight chance of dozing As a passenger in a car for an hour without break: moderate chance of dozing Lying down in the afternoon when circumstances permit: high chance of dozing Sitting and talking to someone: would never doze Sitting quietly after lunch without alcohol: high chance of dozing In a car, while stopped for a few minutes in the traffic: would never doze ESS < 10: normal, ESS > 12: pathologic: 15
[2024-04-12 09:35] VITALS: BP 150/88; BMI 41.5
== END 2024-04-12 10:32 | disposition home or self-care (01) ==
PROVIDERS: PCP Internal Medicine; Visit Provider Nurse Practitioner Family
DX: R06.83 Snoring (principal); G47.10 Hypersomnia, unspecified; Z86.69 Personal history of other diseases of the nervous system and sense organs; G47.19 Other hypersomnia
CPT/HCPCS: 99204; 99214

== ENCOUNTER → 2024-04-12 09:28 | Outpatient (BNVA) | payer MEDICARE, SELFPAY | PROVIDERS: PCP Internal Medicine; Visit Provider Nurse Practitioner Family | DX: R06.83 Snoring (principal); G47.10 Hypersomnia, unspecified; G47.19 Other hypersomnia; Z86.69 Personal history of other diseases of the nervous system and sense organs; Z99.89 Dependence on other enabling machines and devices | CPT/HCPCS: 99202 ==

== ENCOUNTER → 2024-05-05 19:30 | Outpatient (REF) | payer MEDICARE, SELFPAY | LOC: HO.SL 19:30 | PROVIDERS: PCP Internal Medicine; Visit Provider Nurse Practitioner Family | DX: G47.33 Obstructive sleep apnea (adult) (pediatric) (principal); R06.83 Snoring; G47.10 Hypersomnia, unspecified; Z86.69 Personal history of other diseases of the nervous system and sense organs | CPT/HCPCS: 95810 ==

== ENCOUNTER → 2024-05-05 21:29 | Outpatient (BNV) | payer MEDICARE, SELFPAY | PROVIDERS: PCP Internal Medicine; Visit Provider Psychiatry & Neurology Neurology | DX: G47.33 Obstructive sleep apnea (adult) (pediatric) (principal) | CPT/HCPCS: 95810 ==

== ENCOUNTER 2024-05-08 06:02 | Outpatient (REF) | payer MEDICARE, SELFPAY ==
[2024-05-08 10:25] LABS: Estimated Average Glucose 143 mg/dL; Hemoglobin A1C 182.6181 umol/L; Hemoglobin A1c % 6.6 % (<6.0); Total Hemoglobin (HGBA1C) 3770.2886 umol/L
[2024-05-08 10:38] LABS: Cholesterol 98 mg/dL (<200); HDL Cholesterol 34 mg/dL (>40); LDL Cholesterol Calculated 22 mg/dL (<100); Triglycerides 212 mg/dL (<150)
[2024-05-08 10:56] LABS: Free T4 (Free Thyroxine) 1.12 ng/dL (0.71-1.85); Thyroid Stimulating Hormone 0.22 uIU/mL (0.32-4.0)
== END 2024-05-08 06:03 | disposition home or self-care (01) ==
LOC: HO.HMGCLDS 06:02
PROVIDERS: PCP Internal Medicine; Visit Provider Internal Medicine
DX: E78.5 Hyperlipidemia, unspecified (principal); E03.9 Hypothyroidism, unspecified; D64.9 Anemia, unspecified; Z13.1 Encounter for screening for diabetes mellitus
CPT/HCPCS: 36415; 80061; 83036; 84439; 84443

== ENCOUNTER 2024-05-14 08:02 | Outpatient (AMB) | payer MEDICARE, SELFPAY ==
[2024-05-14 08:07] VITALS: BP 156/82; PULSE 67; O2SAT 96; BMI 42.3
--- NOTE | 2024-05-14 08:07 | A.OFFPC_ITS ---
Vital Signs 05/14/24 08:07 Height 5 ft 6 in Weight 262 lb BMI 42.3 BP 156/82 H Blood Pressure Location Rt brachial Position Sitting Pulse 67 Pulse Source Pulse Oximeter Pulse Oximetry (%) 96 Oxygen Delivery Method Room Air Comment has not taken metoprolol dose this morning but did take enelapril Intake Visit Reasons: 2m follow up - see comments Intake Note: Pt is here today for his 2 mo.f/u labs Allergies No Known Allergies Allergy (Verified 05/14/24 08:23) Medication List - Last Reconciled 05/14/24 by Mia Lucero MD blood sugar diagnostic (Youmiam Verio test strips) Use to check blood sugar twice daily, once fasting and another random during the day blood-glucose meter (Youmiam Verio Meter) Use to check blood sugar twice daily, once fasting and another random during the day cholecalciferol (vitamin D3) 50 mcg PO DAILY 90 days clopidogrel 75 mg PO DAILY enalapril maleate 20 mg PO BID ferrous fumarate 325 mg PO DAILY hydrocortisone 2.5% 1 appl [place] BEDTIME lancets (Youmiam Delica Lancets) Use to check blood sugar twice daily, once fasting and another random during the day levothyroxine 137 mcg PO DAILY 90 days metformin 1,000 mg PO BID metoprolol tartrate 100 mg PO BID 90 days omeprazole 40 mg PO DAILY@0630 rosuvastatin 40 mg PO DAILY Tobacco use date assessed: 05/14/24 Fall risk assessment: No Falls in past year Last assessed Fall Risk: 05/14/24 Dental Screening Dental Screen Date: 05/14/24 Did you have a dental visit in the last 12 months?: No Did you have a dental problem in the last 6 months where you did not have access to dental care?: No Was dental information given to patient?: Patient has dentist HPI 2m follow up - see comments HPI Details The patient is a 68-year-old male presenting for a follow-up visit for medication and chronic condition management. The patient has a history of Type 2 Diabetes Mellitus, which is currently well-managed with metformin at 1000 mg twice daily, leading to an improvement in glucose levels from 7.8% to 6.6%. The patient's hyperlipidemia is being treated with rosuvastatin 40 mg, resulting in a low LDL level, previously 25 mg/dL in January and now 22 mg/dL. This dosage may be reconsidered as the LDL levels are significantly below target, following the patient's coronary artery bypass grafting. He had an open-heart surgery where four coronary arteries were bypassed follows up regularly with Cardiology.. The patient's hypothyroidism is managed with levothyroxine 137 mcg daily, with stable TSH values. He is being treated for essential hypertension with enalapril 20 mg twice a day and metoprolol, though there have been disturbances in adherence due to misunderstandings about meal associations, causing elevated blood pressures during visits. The patient also has hypertriglyceridemia, partly addressed by dietary interventions, including recommendations to reduce intake of white bread and fatty snacks. The patient denies recent soda intake but occasionally consumes orange juice and Powerade. GERD with Blanca's Esophagus was managed through a recent endoscopic procedure in December, identifying erosions and a esophageal stricture. The plan is to follow up with another endoscopy, potentially to address precancerous changes. 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 Sister Hyperlipemia Social History Household Members: Spouse Housing: House Do you presently have visiting nurse or other home services: No Alcohol intake: never Patient Tobacco Use Status: Never used Tobacco Years Smoked: 10 +/- e-Cigarette/Vaping Use: Never Used service: No Current occupational status: retired Cognitive needs: No Hearing needs: No Vision needs: Yes Questionnaire PHQ-9 Over the last 2 weeks, how often have you been bothered by any of the following problems? Depression Screening Interpretation: Negative Depression Screening Done: Yes Source: Developed by Drs. Lowell Eubanks, Trupti Camarlilo, Douglas Lancaster and colleagues, with an educational kim from [employer]. Thrive Questionnaire Date Thrive assessed: 03/04/24 I am a: Patient What is your living situation today?: I choose not to answer this question Within the past 12 months, did the food you bought not last and you didn't have the money to get more?: I choose not to answer this question Within the past 12 months, did you worry whether your food would run out before you got money to buy more?: I choose not to answer this question Do you have trouble paying for medicines?: I choose not to answer this question Do you have trouble getting transportation to medical appointments?: I choose not to answer this question Do you have trouble paying your heating and electricity bill?: I choose not to answer this question Do you have trouble taking care of your child, family member or friend?: I choose not to answer this question Do you have trouble with day-to-day activities such as bathing, preparing meals, shopping, managing finances, etc.?: I choose not to answer this question Are you currently unemployed and looking for a job?: I choose not to answer this question Are you interested in more education?: I choose not to answer this question Please select the resources that you would like help with: None Currently or been in a relationship where the following occur: I choose not to answer THRIVE Score: 0 AUDIT C Alcohol Use Questionnaire (AUDIT-C) 1. How often do you have a drink containing alcohol?: Never Total Score: 0 KOJO-7 AMB Questionnaire KOJO-7 Date KOJO - 7 assessed: 03/04/24 Feeling nervous, anxious, or on edge: 0 = Not at all Not being able to stop or control worryin = Not at all Worrying too much about different things: 0 = Not at all Trouble relaxin = Not at all Being so restless that it is hard to sit still: 0 = Not at all Becoming easily annoyed or irritable: 0 = Not at all Feeling afraid as if something awful might happen: 0 = Not at all Total KOJO-7 score (0-4 normal; 5-9 mild; 10-14 moderate; 15-21 severe): 0 Source: Developed by Drs. Lowell Eubanks, Trupti Camarillo, Douglas Lancaster and colleagues, with an educational kim from [employer]. Review of Systems Const Denies fatigue, Denies frequent falls and Denies weakness Eyes Details: Patient states he goes to [facility] in [place], with no retinopathy seen, requested copy of report ENT Reports no additional complaints and Denies dizziness Card Denies chest pain, Denies leg edema, Denies lightheadedness, Denies palpitations, Denies dyspnea and Denies dyspnea on exertion Resp Denies cough, Denies dyspnea and Denies dyspnea on exertion GI Denies hematochezia Reports no additional complaints Musc Denies abnormal gait, Denies muscle weakness, Denies numbness, Denies radiating pain into limb and Denies tingling Skin/Breast Denies lesions and Denies rash Neuro Denies abnormal gait, Denies dizziness, Denies frequent falls, Denies numbness, Denies tingling and Denies weakness Psych Reports no additional complaints Endo Denies fatigue and Denies palpitations Dhruv/Lymph Reports no additional complaints Aller/Immun Reports no additional complaints Physical exam (Primary Care) Vital Signs: Last Vital Signs Pulse 67 05/14/24 08:07 BP 156/82 H 05/14/24 08:07 Pulse Ox 96 05/14/24 08:07 Oxygen Delivery Method Room Air 05/14/24 08:07 BMI result Body Mass Index 42.3 BMI Assessment/Plan discussion: High BMI High, discussed plan: lifestyle, weight reduction, dietary and physical activity Tobacco/Smoking Status: Tobacco use Status Tobacco use date assessed 05/14/24 05/14/24 08:09 Patient Tobacco Use Status Never used Tobacco 05/14/24 08:09 e-Cigarette/Vaping Use Never Used 05/14/24 08:09 Depression Screening Interpretation: Negative Thrive Assessment: Date of Thrive Assessment Date Thrive assessed 03/04/24 05/14/24 08:09 Currently or been in a relationship where the following occur: I choose not to answer Const General: no acute distress and alert Nutritional Appearance: obese morbidly obese Orientation/consciousness: patient oriented x3 HENMT General nose exam: Normal external nose present Face and sinus: Yes face symmetric Mouth: Normal oral and palatal mucosa present and moist mucous membranes Eyes General: appearance normal, both eyes and all related structures Neck Neck: Yes full ROM, Yes no lymphadenopathy and Yes supple Chest Other: sternotomy scar healed, no chest wall tenderness Resp Auscultation: clear to auscultation bilaterally and no wheezes Cardio Other: S1-S2 present regular rate and rhythm GI Inspection: Yes obesity Palpation (GI): Soft to palpation, nontender, no guarding and no masses Auscultation: normal bowel sounds General: Yes no CVA tenderness Male General Exam: Yes normal external exam Back/Spine/Pelvis Back: no CVA tenderness and No back tenderness Skin General skin exam: dry skin and scars Neuro General: patient oriented x3, gait normal, moves all extremities, no focal motor deficits and decrease sensation to monofilament Extrem General: Yes full ROM, Yes no joint enlargement, Yes no pedal edema and Yes normal gait Psych Appearance: grossly normal and well kempt Mental Status: mental status grossly normal Speech and movement: Normal speech and movement present Affect: normal affect Attitude: cooperative Thought process: Normal thought process present Results Reviewed Results Reviewed: Laboratory Tests 05/08/24 06:06 Estimat Average Glucose 143 Hemoglobin A1c % 6.6 H Name: Parmjit Sykes Age/Sex: 68/M : 1955 Unit#: [id number] Attend Dr: Mia Lucero MD Re05/08/24 Status: DEP REF Location: [facility] Disch: SPEC : [id number] DEB: 05/08/24 STATUS: COMP REQ : [id number] RECD: 05/08/[address]: Mia Lucero MD COMP: 05/08/24 ENTERED: 05/08/[address]: ORDERED: Lipid Panel, Free T4, TSH Test Result Flag Reference Triglyceride 212 H <150 mg/dL Slight Lipemia. Desirable Triglyceride: less than 150 mg/dL Borderline High Triglyceride 150-199 mg/dL High Triglyceride: 200-499 mg/dL Very High Triglyceride: greater than or equal to 5OO mg/dL Cholesterol 98 <200 mg/dL Desirable Cholesterol: less than 200 mg/dL Borderline High Cholesterol: 200-239 mg/dL High Cholesterol: greater than 239 mg/dL LDL Calculated 22 <100 mg/dL Desirable LDL: less than 100 mg/dL Near Optimal/Above Optimal LDL: 110-129 mg/dL Borderline High LDL: 130-159 mg/dL High LDL: 160-189 mg/dL Very High LDL: greater than or equal to 190 mg/dL HDL 34 L >40 mg/dL Desirable HDL: greater than 40 mg/dL Note: This HDL assay may give artificially low results in patients with liver disease. Free T4 1.12 0.71-1.85 ng/dL TSH 3rd Gen. 0.22 L 0.32-4.0 uIU/mL TSH 3rd Generation ([facility]) Coding Level of Care Code Est Pt Level 4 (81607) Complex EM visit Add On G2211 Diagnoses Diabetes mellitus with kidney complication, without long-term current use of insulin E11.29 Dyslipidemia E78.5 Acquired hypothyroidism E03.9 Hypothyroidism type: acquired Essential hypertension I10 Hypertension type: essential hypertension Blanca's esophagus with high grade dysplasia K22.711 Morbid obesity with body mass index (BMI) of 40.0 to 44.9 in adult E66.01; Z68.41 Vaccine refused by patient Z28.20 CKD (chronic kidney disease) stage 3, GFR 30-59 ml/min N18.30 Coronary artery disease involving [place] coronary artery of [place] heart without angina pectoris I25.10 Associated angina: without angina Coronary Disease-Associated Artery/Lesion type: [place] artery [place] vs. transplanted heart: [place] heart Assessment & Plan Assessment & Plan (1) Diabetes mellitus with kidney complication, without long-term current use of insulin: Code(s): E11.29 - Type 2 diabetes mellitus with other diabetic kidney complication Category: Medical (2) Dyslipidemia: Code(s): E78.5 - Hyperlipidemia, unspecified Category: Medical (3) Hypothyroidism: Code(s): E03.9 - Hypothyroidism, unspecified Category: Medical Qualifiers: Hypothyroidism type: acquired Qualified Code(s): E03.9 - Hypothyroidism, unspecified (4) Hypertension: Code(s): I10 - Essential (primary) hypertension Category: Medical Qualifiers: Hypertension type: essential hypertension Qualified Code(s): I10 - Essential (primary) hypertension (5) Blanca's esophagus with high grade dysplasia: Code(s): K22.711 - Blanca's esophagus with high grade dysplasia Category: Medical (6) Morbid obesity with body mass index (BMI) of 40.0 to 44.9 in adult: Code(s): E66.01 - Morbid (severe) obesity due to excess calories; Z68.41 - Body mass index [BMI] 40.0-44.9, adult Category: Medical (7) Vaccine refused by patient: Code(s): Z28.20 - Immunization not carried out because of patient decision for unspecified reason Category: Medical (8) CKD (chronic kidney disease) stage 3, GFR 30-59 ml/min: Code(s): N18.30 - Chronic kidney disease, stage 3 unspecified Category: Medical (9) CAD (coronary artery disease): Code(s): I25.10 - Atherosclerotic heart disease of [place] coronary artery without angina pectoris Category: Medical Qualifiers: Associated angina: without angina Coronary Disease-Associated Artery/Lesion type: [place] artery [place] vs. transplanted heart: [place] heart Qualified Code(s): I25.10 - Atherosclerotic heart disease of [place] coronary artery without angina pectoris Plan - Continue metformin for diabetes mellitus management - Discuss with cutting and creasing press operator about potential adjustment of rosuvastatin dosage du e to very low LDL levels in the context of coronary artery bypass grafting history. - Continue levothyroxine for hypothyroidism considering stable management; Review of TSH levels recommended in subsequent visits to monitor for further changes. - Reinforce patient adherence to enalapril and metoprolol regimen, advising that food intake is not necessary for their administration. - Advise on dietary modifications to address hypertriglyceridemia, reducing white bread and saturated fat intake, and incorporating whole grain and healthier snacks. - Follow-up with financial planning analyst for prospective endoscopy in June to address esophageal conditions. - Monitor renal function and proteinuria with nephrology follow-up in May.. - Obtain your flu shot and consider vaccination for COVID-19 and pneumonia if not administered. - Encourage regular physical follow-up, including blood pressure monitoring at home, and note any irregularities. - Bring any medical reports from other facilities, such as the eye examination results, to the next visit. - Schedule follow-up appointment for August and complete required lab work in advance. Patient was informed and verbally consented to the use of an ambient scribe for clinic note documentation during this visit. Orders: Orders Alanine Aminotransferase 08/17/24 E03.9 - Hypothyroidism, unspecified, E11.29 - Type 2 diabetes mellitus with other diabetic kidney complication, E66.01 - Morbid (severe) obesity due to excess calories, E78.5 - Hyperlipidemia, unspecified, I10 - Essential (primary) hypertension, Z68.41 - Body mass index [BMI] 40.0-44.9, adult Thyroid Stimulating Hormone 08/17/24 E03.9 - Hypothyroidism, unspecified, E11.29 - Type 2 diabetes mellitus with other diabetic kidney complication, E66.01 - Morbid (severe) obesity due to excess calories, E78.5 - Hyperlipidemia, unspecified, I10 - Essential (primary) hypertension, Z68.41 - Body mass index [BMI] 40.0-44.9, adult Free T4 (Free Thyroxine) 08/17/24 E03.9 - Hypothyroidism, unspecified, E11.29 - Type 2 diabetes mellitus with other diabetic kidney complication, E66.01 - Morbid (severe) obesity due to excess calories, E78.5 - Hyperlipidemia, unspecified, I10 - Essential (primary) hypertension, Z68.41 - Body mass index [BMI] 40.0-44.9, adult Lipid Panel 08/17/24 E03.9 - Hypothyroidism, unspecified, E11.29 - Type 2 diabetes mellitus with other diabetic kidney complication, E66.01 - Morbid (severe) obesity due to excess calories, E78.5 - Hyperlipidemia, unspecified, I10 - Essential (primary) hypertension, Z68.41 - Body mass index [BMI] 40.0- 44.9, adult Aspartate Amino Transferase 08/17/24 E03.9 - Hypothyroidism, unspecified, E11.29 - Type 2 diabetes mellitus with other diabetic kidney complication, E66.01 - Morbid (severe) obesity due to excess calories, E78.5 - Hyperlipidemia, unspecified, I10 - Essential (primary) hypertension, Z68.41 - Body mass index [BMI] 40.0-44.9, adult Hemoglobin A1c 08/17/24 E03.9 - Hypothyroidism, unspecified, E11.29 - Type 2 diabetes mellitus with other diabetic kidney complication, E66.01 - Morbid (severe) obesity due to excess calories, E78.5 - Hyperlipidemia, unspecified, I10 - Essential (primary) hypertension, Z68.41 - Body mass index [BMI] 40.0- 44.9, adult
== END 2024-05-14 09:00 | disposition home or self-care (01) ==
PROVIDERS: PCP Internal Medicine; Visit Provider Internal Medicine
DX: I12.9 Hypertensive chronic kidney disease with stage 1 through stage 4 chronic kidney disease, or unspecified chronic kidney disease (principal); N18.30 Chronic kidney disease, stage 3 unspecified; E66.01 Morbid (severe) obesity due to excess calories; Z68.41 Body mass index [BMI] 40.0-44.9, adult; E11.29 Type 2 diabetes mellitus with other diabetic kidney complication; E78.5 Hyperlipidemia, unspecified; E03.9 Hypothyroidism, unspecified; K22.711 Barrett's esophagus with high grade dysplasia; Z28.20 Immunization not carried out because of patient decision for unspecified reason; I25.10 Atherosclerotic heart disease of native coronary artery without angina pectoris

== ENCOUNTER → 2024-05-14 08:02 | Outpatient (BNVA) | payer MEDICARE, SELFPAY | PROVIDERS: PCP Internal Medicine; Visit Provider Internal Medicine | DX: E11.29 Type 2 diabetes mellitus with other diabetic kidney complication (principal); E78.5 Hyperlipidemia, unspecified; E03.9 Hypothyroidism, unspecified; K22.711 Barrett's esophagus with high grade dysplasia; E66.01 Morbid (severe) obesity due to excess calories; Z68.41 Body mass index [BMI] 40.0-44.9, adult; I25.10 Atherosclerotic heart disease of native coronary artery without angina pectoris; I12.9 Hypertensive chronic kidney disease with stage 1 through stage 4 chronic kidney disease, or unspecified chronic kidney disease; E11.22 Type 2 diabetes mellitus with diabetic chronic kidney disease; N18.30 Chronic kidney disease, stage 3 unspecified; Z71.3 Dietary counseling and surveillance | CPT/HCPCS: 99212 ==

== ENCOUNTER 2024-06-04 06:32 | Outpatient (REF) | payer MEDICARE, SELFPAY ==
[2024-06-04 10:08] LABS: Hematocrit 45.7 % (42.0-52.0); Hemoglobin 15.1 g/dl (14.0-18.0); Mean Corpuscular Hemoglobin 28.7 pg (27.0-33.0); Mean Corpuscular Volume 86.7 fL (80.0-98.0); Mean Platelet Volume 11.8 fL (9.4-12.4); Platelet Count 252 X10*3/uL (160-400); Red Blood Count 5.27 X10*6/uL (4.60-5.80); Red Cell Distribution Width 13.6 % (11.0-16.0); White Blood Count 8.3 X10*3/uL (4.8-10.8)
[2024-06-04 10:26] LABS: Alanine Aminotransferase 25 U/L (0-40); Alkaline Phosphatase 77 U/L (39-117); Anion Gap 11 (12-20); Aspartate Amino Transferase 39 U/L (5-37); Bilirubin Total 0.3 mg/dL (0.0-1.0); Blood Urea Nitrogen 17 mg/dL (9-16); Calcium 8.8 mg/dL (8.4-10.2); Carbon Dioxide 30 mmol/L (22-29); Chloride 103 mmol/L (96-108); Estimated Glomerular Filt Rate > 60; Glucose Random 133 mg/dL (60-115); Potassium 3.8 mmol/L (3.3-5.1); Sodium 140 mmol/L (135-145); Total Protein 7.2 g/dL (6.5-8.0)
[2024-06-04 10:35] LABS: Creatinine Urine 196.89 mg/dL; Total Protein Urine Random 57 mg/dL (<12)
== END 2024-06-04 06:33 | disposition home or self-care (01) ==
LOC: HO.HMGCLDS 06:32
PROVIDERS: PCP Internal Medicine; Visit Provider Internal Medicine Hypertension Specialist
DX: N18.30 Chronic kidney disease, stage 3 unspecified (principal)
CPT/HCPCS: 36415; 80053; 82570; 84156; 85027

== ENCOUNTER 2024-07-02 10:30 | Outpatient (AMB) | payer MEDICARE, SELFPAY ==
--- NOTE | 2024-07-02 11:10 | HO.NEPHOV ---
Vital Signs 07/02/24 11:11 Height 5 ft 6 in Weight 261 lb BMI 42.1 BP 132/70 Blood Pressure Location Rt brachial Position Sitting Pulse 70 Pulse Source Pulse Oximeter Pulse Oximetry (%) 94 Oxygen Delivery Method Room Air Intake Visit Reasons: CKD/ LM Porcelain Technician Required: No Accompanied by: Self / Same As Patient Allergies No Known Allergies Allergy (Verified 07/02/24 11:14) Medication List - Last Reconciled 07/02/24 by Andrez Frausto MD blood sugar diagnostic ([email or web address] Verio test strips) Use to check blood sugar twice daily, once fasting and another random during the day blood-glucose meter ([employer] Verio Meter) Use to check blood sugar twice daily, once fasting and another random during the day cholecalciferol (vitamin D3) 50 mcg PO DAILY 90 days clopidogrel 75 mg PO DAILY enalapril maleate 20 mg PO BID ferrous fumarate 325 mg PO DAILY hydrocortisone 2.5% 1 appl [place] BEDTIME lancets ([employer] [email or web address] Delica Lancets) Use to check blood sugar twice daily, once fasting and another random during the day levothyroxine 137 mcg PO DAILY 90 days metformin 1,000 mg PO BID metoprolol tartrate 100 mg PO BID 90 days omeprazole 40 mg PO DAILY@0630 rosuvastatin 40 mg PO DAILY HPI Comments Details: 67 yr old man with h/o HTN and DM with CKD Baseline creatinine is around 1.3 In October 2022, Cr peaked to 1.7, cr returned to 1.3 Overall doing well.NO new issues He is here for follow up [facility] Medical History (Updated 05/14/24 @ 08:59 by Mia Lucero MD) Vaccine refused by patient Loud snoring Witnessed apneic spells History of esophageal stricture COVID-19 vaccine series declined Refused influenza vaccine Morbid obesity with body mass index (BMI) of 40.0 to 44.9 in adult CAD (coronary artery disease) Blanca's esophagus with high grade dysplasia Diabetes mellitus with kidney complication, without long-term current use of insulin Erosive gastritis GERD (gastroesophageal reflux disease) Hearing loss Erectile dysfunction Sleep apnea Hiatal hernia Gout Multinodular goiter Morbid obesity Fatty liver Myocardial infarct S/P CABG x 4 Dyslipidemia Hypothyroidism Hypertension Surgical History Hx of four vessel coronary artery bypass graft History of endoscopy Hx of inguinal hernia repair Family History Mother No problems noted. Sister Hyperlipemia Social History Household Members: Spouse Housing: House Do you presently have visiting nurse or other home services: No Alcohol intake: never Patient Tobacco Use Status: Never used Tobacco Years Smoked: 10 +/- e-Cigarette/Vaping Use: Never Used service: No Current occupational status: retired Cognitive needs: No Hearing needs: No Vision needs: Yes Physical Exam Vital Signs: Last Vital Signs Pulse 70 07/02/24 11:11 BP 132/70 07/02/24 11:11 Pulse Ox 94 07/02/24 11:11 Oxygen Delivery Method Room Air 07/02/24 11:11 BMI result Body Mass Index 42.1 Comfortable Neck supple no JVD. Lungs entry equal no rales. Heart S1-S2 heard no gallop or rub. Abdomen soft nontender. Neuro alert awake oriented. No asterixis. Extremities no edema. Results Reviewed Nephrology Results: Hgb 15.1 g/dl (14.0-18.0) 06/04/24 WBC 8.3 X10*3/uL (4.8-10.8) 06/04/24 Plt Count 252 X10*3/uL (160-400) 06/04/24 Sodium 140 mmol/L (135-145) 06/04/24 Potassium 3.8 mmol/L (3.3-5.1) 06/04/24 Chloride 103 mmol/L (96-108) 06/04/24 Carbon Dioxide 30 mmol/L (22-29) H 06/04/24 BUN 17 mg/dL (9-16) H 06/04/24 Creatinine 1.17 mg/dL (0.5-1.4) 06/04/24 Calcium 8.8 mg/dL (8.4-10.2) 06/04/24 Urine Creatinine 196.89 mg/dL 06/04/24 Assessment & Plan Assessment & Plan (1) Diabetes mellitus with kidney complication, without long-term current use of insulin: Code(s): E11.29 - Type 2 diabetes mellitus with other diabetic kidney complication Category: Medical (2) S/P CABG x 4: Comment: Status post CABG times for 10 years ago and drug-eluting stent to the right coronary artery probably due to vein graft occlusion to the right coronary artery. Code(s): Z95.1 - Presence of aortocoronary bypass graft Category: Medical (3) Hypertension: Code(s): I10 - Essential (primary) hypertension Category: Medical Qualifiers: Hypertension type: essential hypertension Qualified Code(s): I10 - Essential (primary) hypertension (4) CKD (chronic kidney disease) stage 3, GFR 30-59 ml/min: Code(s): N18.30 - Chronic kidney disease, stage 3 unspecified Category: Medical Plan 67 yr old man with CKD 3 in a setting of HTNand DM Renal function is table at baseline JUDITH resolved after stopping HCTZ Goal to slow progression Keep ACEi Goal BP < 130/80 Avoid nephrotoxins including NSAIDS Increase PO fluid intake Needs weight loss He will benefit from SGLT-2 inhibitors Orders: Orders Basic Metabolic Panel 4 Months N18.30 - Chronic kidney disease, stage 3 unspecified Total Protein Urine Random 4 Months N18.30 - Chronic kidney disease, stage 3 unspecified Creatinine Urine 4 Months N18.30 - Chronic kidney disease, stage 3 unspecified Coding Level of Care Code Est Pt Level 4 (82167) Diagnoses Diabetes mellitus with kidney complication, without long-term current use of insulin E11.29 S/P CABG x 4 Z95.1 Essential hypertension I10 Hypertension type: essential hypertension CKD (chronic kidney disease) stage 3, GFR 30-59 ml/min N18.30
[2024-07-02 11:11] VITALS: BP 132/70; PULSE 70; O2SAT 94; BMI 42.1
== END 2024-07-02 11:24 | disposition home or self-care (01) ==
PROVIDERS: PCP Internal Medicine; Visit Provider Internal Medicine Hypertension Specialist
DX: E11.29 Type 2 diabetes mellitus with other diabetic kidney complication (principal); Z95.1 Presence of aortocoronary bypass graft; I10 Essential (primary) hypertension; N18.30 Chronic kidney disease, stage 3 unspecified
CPT/HCPCS: 99214

== ENCOUNTER → 2024-07-02 10:30 | Outpatient (BNVA) | payer MEDICARE, SELFPAY | PROVIDERS: PCP Internal Medicine; Visit Provider Internal Medicine Hypertension Specialist | DX: E11.22 Type 2 diabetes mellitus with diabetic chronic kidney disease (principal); I12.9 Hypertensive chronic kidney disease with stage 1 through stage 4 chronic kidney disease, or unspecified chronic kidney disease; N18.30 Chronic kidney disease, stage 3 unspecified; E11.29 Type 2 diabetes mellitus with other diabetic kidney complication; Z95.1 Presence of aortocoronary bypass graft | CPT/HCPCS: 99212 ==

== ENCOUNTER 2024-07-29 08:04 | Outpatient (AMB) | payer MEDICARE, SELFPAY ==
--- OUTSIDE RECORDS SUMMARY | 2024-07-29 08:13 | XMS_ITS ---
Author Organization [facility] Address [address] [place] [phone] Care Team Providers Care Mild Disabilities Teacher Name Role Phone Jazmine REEVES, Mia Primary Care Provider Suzie Tobias Jr, Sancho Broussard [phone] REASON FOR VISIT Pt no show Encounters Encounter Location Date Provider Diagnosis [facility] [address] [place] [phone] 06/24/2024 Sancho Tobias Jr PLAN OF TREATMENT No Information
[2024-07-29 09:05] VITALS: BP 130/72; PULSE 74; BMI 42.2
--- NOTE | 2024-07-29 09:05 | MHC.OFFVIS ---
Vital Signs 07/29/24 09:05 Height 5 ft 6 in Weight 261 lb 7.492 oz BMI 42.2 BP 130/72 Blood Pressure Location Lt brachial Position Sitting Pulse 74 Pulse Source Pulse Oximeter Intake Visit Reasons: 6 mth f/up Intake Note: 6 mth f/up Associate Professor Of Physics Required: No Accompanied by: Self / Same As Patient Allergies No Known Allergies Allergy (Verified 07/02/24 11:14) Medication List - Last Reconciled 07/29/24 by Germain Corona MD blood sugar diagnostic ([employer] Verio test strips) Use to check blood sugar twice daily, once fasting and another random during the day blood-glucose meter ([employer] Verio Meter) Use to check blood sugar twice daily, once fasting and another random during the day cholecalciferol (vitamin D3) 50 mcg PO DAILY 90 days clopidogrel 75 mg PO DAILY enalapril maleate 20 mg PO BID ferrous fumarate 325 mg PO DAILY hydrocortisone 2.5% 1 appl [place] BEDTIME lancets ([employer] Delica Lancets) Use to check blood sugar twice daily, once fasting and another random during the day levothyroxine 137 mcg PO DAILY 90 days metformin 1,000 mg PO BID metoprolol tartrate 100 mg PO BID 90 days omeprazole 40 mg PO DAILY@0630 rosuvastatin 40 mg PO DAILY HPI Comments Details: Pleasant 68-year-old gentleman here for f/u. He is from [place] and recently moved here. Ten years ago he underwent bypass surgery. He said he was getting jaw discomfort off and on with exercise and finally underwent workup which led to cardiac catheterization showing multivessel disease. It appears he had 4 vessel bypass surgery. Approximately 9 months later he had some dyspnea which led to cardiac catheterization and it appears he had a drug-eluting stent done to his right coronary artery because his vein graft was occluded.. He said he has been doing well since then Echocardiography from 2019 showed normal biventricular function without significant valvular pathology or wall motion abnormality. He was diagnosed with peptic ulcer disease and underwent endoscopy. He was advised that he does not need dual antiplatelet therapy at this stage and can be on aspirin or Plavix. It appears after discussion with his blue line operator he has started taking Plavix only. He underwent endoscopy recently which is showing Blanca esophagus and erosion in the stomach. He is saying he continues to get off and on epigastric discomfort. Yesterday he also had some vomiting episode. He is saying since vomiting he did not have any further discomfort in the abdomen. No jaw discomfort or any significant chest discomfort with activity. 12/28/22: He returns for follow-up. He is saying his GI symptoms are better but he is due to get repeat endoscopy at [facility]. He has stop aspirin is currently taking Plavix only. No bleeding issues recently. He had jaw pain as his anginal symptoms and has not experienced that recently. He is on hydrochlorothiazide enalapril and metoprolol for blood pressure control. His blood pressure control is quite optimal right now. 01/22/24: He is here for follow-up. He said he went to emergency department on January 17 with blood in his to and was diagnosed with hemorrhoids. He also had a chest x-ray performed at that time which showed left basilar pneumonia and he was started on antibiotics which he is taking. No chest pain or shortness of breath. He is a little tachycardic today and feels that he is dehydrated. I have advised him that he should be drinking more water. He has not taken his medications today. 07/29/2024: He returns for follow-up. He has been doing well. No bleeding since he got off the aspirin. He is using Plavix without any significant issues. Blood pressure is well controlled. Denying any exertional symptoms. [facility] Medical History (Updated 07/29/24 @ 09:20 by Germain Corona MD) S/P CABG x 4 Vaccine refused by patient Loud snoring Witnessed apneic spells History of esophageal stricture COVID-19 vaccine series declined Refused influenza vaccine Morbid obesity with body mass index (BMI) of 40.0 to 44.9 in adult CAD (coronary artery disease) Blanca's esophagus with high grade dysplasia Diabetes mellitus with kidney complication, without long-term current use of insulin Erosive gastritis GERD (gastroesophageal reflux disease) Hearing loss Erectile dysfunction Sleep apnea Hiatal hernia Gout Multinodular goiter Morbid obesity Fatty liver Myocardial infarct Dyslipidemia Hypothyroidism Hypertension Surgical History Hx of four vessel coronary artery bypass graft History of endoscopy Hx of inguinal hernia repair Family History Mother No problems noted. Sister Hyperlipemia Social History Household Members: Spouse Housing: House Do you presently have visiting nurse or other home services: No Alcohol intake: never Patient Tobacco Use Status: Never used Tobacco Years Smoked: 10 +/- e-Cigarette/Vaping Use: Never Used service: No Current occupational status: retired Cognitive needs: No Hearing needs: No Vision needs: Yes Review of Systems Const Denies chills, Denies fatigue, Denies fever(s), Denies frequent falls, Denies weakness, Denies weight gain and Denies weight loss ENT Denies dizziness Card Denies chest pain, Denies leg edema, Denies lightheadedness, Denies palpitations, Denies dyspnea and Denies dyspnea on exertion Resp Denies cough, Denies dyspnea and Denies dyspnea on exertion GI Denies hematochezia Musc Denies abnormal gait, Denies muscle weakness, Denies numbness, Denies radiating pain into limb and Denies tingling Neuro Denies abnormal gait, Denies dizziness, Denies frequent falls, Denies numbness, Denies tingling and Denies weakness Endo Denies fatigue and Denies palpitations Physical Exam Vital Signs: Last Vital Signs Pulse 74 07/29/24 09:05 BP 130/72 07/29/24 09:05 BMI result Body Mass Index 42.2 GENERAL APPEARANCE: in no acute distress, well developed, well nourished. SKIN: no suspicious lesions, warm and dry. HEART: no murmurs, regular rate and rhythm, S1, S2 normal. LUNGS: clear to auscultation bilaterally. ABDOMEN: normal, bowel sounds present, soft, nontender, nondistended. PERIPHERAL PULSES: equal. NEUROLOGIC: nonfocal, alert and oriented. PSYCH: mood/affect full range. Assessment & Plan Assessment & Plan (1) Hypertension: Code(s): I10 - Essential (primary) hypertension Category: Medical Qualifiers: Hypertension type: essential hypertension Qualified Code(s): I10 - Essential (primary) hypertension (2) CAD (coronary artery disease): Code(s): I25.10 - Atherosclerotic heart disease of [place] coronary artery without angina pectoris Category: Medical Qualifiers: Coronary Disease-Associated Artery/Lesion type: [place] artery [place] vs. transplanted heart: [place] heart Associated angina: without angina Qualified Code(s): I25.10 - Atherosclerotic heart disease of [place] coronary artery without angina pectoris (3) S/P CABG x 4: Comment: Status post CABG times for 10 years ago and drug-eluting stent to the right coronary artery probably due to vein graft occlusion to the right coronary artery. Code(s): Z95.1 - Presence of aortocoronary bypass graft Category: Medical Plan 68-year-old gentleman who is here for follow-up. He has known history of coronary artery bypass surgery. He has been doing well clinically. No chest discomfort shortness of breath. Blood pressure well controlled currently. Last LDL cholesterol was 22. HDL 34, total cholesterol 98, triglycerides 212. He previously had peptic ulcer and GI bleed which was related to aspirin use. Since he got off aspirin and has been using Plavix he has been stable. He will see us back in 6 months. Thank you for allowing me to participate in the care of your patient. Please feel free to contact me if you have any questions. Coding Level of Care Code Est Pt Level 4 (35191) Diagnoses Essential hypertension I10 Hypertension type: essential hypertension Coronary artery disease involving [place] coronary artery of [place] heart without angina pectoris I25.10 Coronary Disease-Associated Artery/Lesion type: [place] artery [place] vs. transplanted heart: [place] heart Associated angina: without angina S/P CABG x 4 Z95.1
== END 2024-07-29 09:20 | disposition home or self-care (01) ==
PROVIDERS: PCP Internal Medicine; Visit Provider Internal Medicine Cardiovascular Disease
DX: I10 Essential (primary) hypertension (principal); I25.10 Atherosclerotic heart disease of native coronary artery without angina pectoris; Z95.1 Presence of aortocoronary bypass graft
CPT/HCPCS: 99214

== ENCOUNTER → 2024-07-29 08:04 | Outpatient (BNVA) | payer MEDICARE, SELFPAY | PROVIDERS: PCP Internal Medicine; Visit Provider Internal Medicine Cardiovascular Disease | DX: I25.10 Atherosclerotic heart disease of native coronary artery without angina pectoris (principal); I10 Essential (primary) hypertension; Z95.1 Presence of aortocoronary bypass graft | CPT/HCPCS: 99212 ==

== ENCOUNTER 2024-08-31 06:32 | Outpatient (REF) | payer MEDICARE, SELFPAY ==
--- OUTSIDE RECORDS SUMMARY | 2024-08-31 06:34 | XMS_ITS ---
Author Organization [facility] Address [address] [place] [phone] Care Team Providers Care Bolt Man Name Role Phone Jazmine REEVES, Mia Primary Care Provider Suzie Tobias Jr, Sancho Broussard REASON FOR VISIT Patient's called and stated pts insuranced changed Encounters Encounter Location Date Provider Diagnosis [facility] [address] [place] [phone] 01/02/2024 Sancho Tobias Jr Plan Of Treatment No Information Progress Notes * YUE FENTON ADOB:1955 (68 yo M)Acc No.[id number]:01/02/2024 Patient:?YUE FENTON :1955???Age:68 Y???Sex:Male Address:[address] [place] [address], [id number] * true * Date:? Generated for Conrad trujillo/Tata/eTransmitting on:?08/31/2024 06:34 AM EDT
--- OUTSIDE RECORDS SUMMARY | 2024-08-31 06:34 | XMS_ITS | Patient Health Record ---
Author Organization [facility] Address [address] [place] [phone] Care Team Providers Care Transition Program Manager Name Role Phone Jazmine REEVES, Mia Primary Care Provider Sancho Love Jr Unavailable Allergies No Known Allergies Reason For Referral No Information Medications Medication SIG (Take, Route, Frequency, Duration) Notes Start Date End Date Status Rosuvastatin Calcium 40 MG Oral for 90 Active metFORMIN HCl 1000 MG Oral for 90 Active Baclofen 10 MG TAKE 1 TABLET BY MOUTH TWICE DAILY NEEDED FOR MUSCLE SPASM Oral for 30 Active Aspirin 81 81 MG 1 tablet Orally Once a day for 30 day(s) Active hydroCHLOROthiazide 25 MG 1 tablet in e morning Orally Once a day for 30 day(s) Active Metoprolol Tartrate 100 MG TAKE 1 TABLET BY MOUTH TWICE DAILY Oral for 90 Active Levothyroxine Sodium 137 MCG/ML 1 ml in the morning before breakfast Orally Once a day for 30 day(s) Active Omeprazole 40 MG 1 Orally Once a day for 30 day(s) 12/25/2022 Active Vitamin D3 50 MCG (1999 UT) TAKE 1 CAPSU LE BY MOUTH EVERY DAY Oral for 90 Active Clopidogrel Bisulfate 75 MG TAKE 1 TABLE T BY MOUTH EVERY DAY Oral for 90 Active Omeprazole 40 MG 1 capsule 30 minutes before morning meal Orally Once a day for 30 day(s) Active Enalapril Maleate 20 MG TAKE 1 TABLET BY MOUTH TWICE DAILY Oral for 90 Active Immunizations Vaccine Route Administration Date Status Comme nts Influenza Unknown 11/29/2021 Refused Social History Tobacco Use: Social History Observation Description Date Details (start date - stop date) Never Smoker NA - NA Tobacco Use/Smoking Question Answer Notes Patient is a nonsmoker Alcohol Screen Question Answer Notes Did you have a drink containing alcohol in the p ast year? No Points 0 Interpretation Negative Problems Problem Type SNOMED Code ICD Code Onset Dates Problem Status W/U Status Risk Notes Problem 570406117 Colon cancer screening (Z12.11) Active confirmed Problem 875474080 Blanca's esophagus without dysplasia (K22.70) Active confirmed Problem Blanca's esophagus (265281941) 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) Active confirmed Problem 73505625 Esophageal stricture (K22.2) Active confirmed Problem Blanca esophagus (165362040) Blanca esophagus (K22.70) Active confirmed Vital Signs Blood pressure diastolic 00 mm Hg 12/28/2023 Height 66 in 12/28/2023 Blood pressure systolic 00 mm Hg 12/28/2023 Weight 261 lbs 12/28/2023 BMI 42.12 kg/m2 12/28/2023 Encounters Encounter Location Date Provider Diagnosis [facility] [address] [place] [phone] 12/28/2023 Sancho Tobias Jr Blanca's esophagus with high grade dysplasia K22.711 and Esophageal stricture K22.2 [facility] [address] [place] [phone] 12/28/2023 Sancho Tobias Jr [facility] [address] [place] [phone] 01/02/2024 Sancho Tobias Jr [facility] [address] [place] [phone] 06/24/2024 Sancho Tobias Jr Assessments Encounter Date Diagnosis (ICD Code) Assessment Notes Treatment Notes Treatment Clinical Notes Section Notes 12/28/2023 Blanca's esophagus with high grade dysplasia (ICD-10 - K22.711) Endoscopy material was printed We discussed his symptoms today. His dysphagia seems improved. We discussed the need for followup because of the high-grade dysplasia. We will try to arrange radiofrequency ablation with a different provider to accommodate his wishes. 12/28/2023 Esophageal stricture (ICD-10 - K22.2) We discussed his symptoms today. His dysphagia seems improved. We discussed the need for followup because of the high-grade dysplasia. We will try to arrange radiofrequency ablation with a different provider to accommodate his wishes. Plan Of Treatment Future Test Test Name Order Date UPPER GI ENDOSCOPY 11/29/2021 Insurance Providers Payer Name Payer Address Payer Phone Subscriber Number Group Number Insured Name Patient Relationship to Insured Coverage Start Date Coverage End Date [facility] [id number] [place] [address] [id number] YUE FENTON Self - patient is the insured Medical (General) History Medical History History ICD Code Hypertension Chronic kidney disease stage III Hyperlipidemia Diabetes mellitus type 2 Peptic ulcer disease Coronary artery disease with history of CABG and PCI Blanca's esophagus Anemia Bipolar disorder Hypothyroidism Elevated BMI Sleep apnea Surgical History Surgery Date(Month/Year) CABG x4/PCI hernia repairs Hospitalization History Reason Date(Month/Year) GI bleed 10/08
--- OUTSIDE RECORDS SUMMARY | 2024-08-31 06:34 | XMS_ITS | Clinical Summary ---
Author Organization [facility] Address [address] [facility] [address] [place] [address] Phone Care Team Providers Care Lead Cargoman Name Role Phone Cyndi Lucero MD Primary Care Provider [phone] Allergies No known active allergies Medications cholecalciferol (VITAMIN D-3) 50 MCG (1999) capsule Take by mouth 1 (one) time each day 08/16/2021 Active levothyroxine (SYNTHROID, LEVOTHROID) 137 MCG tablet Take 137 mcg by mouth 1 (one) time each day 07/22/2021 Active metoprolol tartrate (LOPRESSOR) 100 MG tablet Take 100 mg by mouth in the morning and 100 mg in the evening. 08/16/2021 Active metFORMIN (GLUCOPHAGE) 1000 MG tablet Take 1,000 mg by mouth in the morning and 1,000 mg in the evening. Take with meals. Active rosuvastatin (CRESTOR) 40 MG tablet Take 40 mg by mouth 1 (one) time each day Active omeprazole (PriLOSEC) [address] capsule Take 40 mg by mouth 1 (one) time each day 10/20/2021 Active baclofen (LIORESAL) 10 MG tablet Take 10 mg by mouth in the morning and 10 mg in the evening and 10 mg before bedtime. Active enalapril (VASOTEC) 20 MG tablet Take 1 tablet (20 mg total) by mouth 1 (one) time each day 11/03/2022 Active Active Problems Problem Noted Date Diagnosed Date Blanca's esophagus 12/15/2022 Screening for malignant neoplasm of colon 2022 Chronic kidney disease 10/27/2021 Essential (primary) hypertension 10/27/2021 Family History Medical History Relation Comments No Known Problems Mother Relation Status Comments Mother Social History Tobacco Use Types Packs/Day Years Used Date Smoking Tobacco: Former Smokeless Tobacco: Never Alcohol Use Standard Drinks/Week Comments Not Currently 0 (1 standard drink = 0.6 oz pur e alcohol) Sex and Gender Information Value Date Recorded Sex Assigned at Not on file Legal Sex Male 3:27 PM EST Gender Identity Not on file Sexual Orientation Not on file Last Filed Vital Signs Vital Sign Reading Time Taken Comments Blood Pressure 138/76 12/15/2022 1:09 PM EDT Pulse 78 12/15/2022 1:09 PM EDT Temperature - - Respiratory Rate - - Oxygen Saturation 96% 12/15/2022 1:09 PM EDT Inhaled Oxygen Concentration - - Weight 109 kg (240 lb 6.4 oz) 12/15/2022 1:09 PM EDT Height 167.6 cm (5' 6 ) 12/15/2022 1:09 PM EDT Body Mass Index 38.8 12/15/2022 1:09 PM EDT Plan of Treatment Health Maintenance Due Date Last Done Comments Pneumococcal Vaccine: 65+ Ye ars (1 of 2 - PCV) 1960 Colorectal Cancer Screening: Annual FOBT 08/24/2003 Colorectal Cancer Screening: Colonoscopy 08/24/2003 Colorectal Cancer Screening: Sigmoidoscopy 08/24/2003 Influenza Vaccine (#1) 2024 Hepatitis B Vaccine Aged Out No longe r eligible based on patient's age to complete this topic [place] [address] MEDICARE Care Teams Lead Cargoman Relationship Specialty Start Date End Date Cyndi Lucero MD [facility] [place] [address] PCP - General Internal Medicine 10/28/21
--- OUTSIDE RECORDS SUMMARY | 2024-08-31 06:34 | XMS_ITS ---
Author Organization [facility] Address [address] [place] [phone] Care Team Providers Care Supply Chain Engineer Name Role Phone Jazmine REEVES, Mia Primary Care Provider Suzie Tobias Jr, Sancho Broussard REASON FOR VISIT Patient presents today for parra's Encounters Encounter Location Date Provider Diagnosis [facility] [address] [place] [phone] 06/24/2024 Sancho Tobias Jr Plan Of Treatment No Information Progress Notes * YUE FENTON ADOB:1955 (69 yo M)Acc No.[id number]:06/24/2024 Progress Notes Patient:?YUE FENTON Provider:?Sancho Tobias MD :1955???Age:68 Y???Sex:Male Ronnie e:06/24/2024 Address:[address] [place], [place] [id number] Pcp:Mia Lucero MD Subjective: * Chief Complaints: * ???1. Patient presents today for parra's. * Medical History:? Objective: * Vitals:? Assessment: Plan: * Treatment: * * The named appointment provid er may or may not be the originator of this progress note, and it is not deemed complete until electronically signed by the appointment provider. Sign off status: Pending * Provider:?Sancho Tobias MD Date:?0 06/24/2024 Generated for Conrad trujillo/Tata/Taliaitting on:?08/31/2024 06:34 AM EDT
[2024-08-31 11:38] LABS: Estimated Average Glucose 143 mg/dL; Hemoglobin A1C 182.5666 umol/L; Hemoglobin A1c % 6.6 % (<6.0); Total Hemoglobin (HGBA1C) 3771.3889 umol/L
[2024-08-31 11:56] LABS: Alanine Aminotransferase 19 U/L (0-40); Aspartate Amino Transferase 31 U/L (5-37); Cholesterol 90 mg/dL (<200); HDL Cholesterol 31 mg/dL (>40); LDL Cholesterol Calculated 18 mg/dL (<100); Triglycerides 209 mg/dL (<150)
[2024-08-31 12:23] LABS: Free T4 (Free Thyroxine) 1.05 ng/dL (0.71-1.85); Thyroid Stimulating Hormone 0.33 uIU/mL (0.32-4.0)
== END 2024-08-31 06:33 | disposition home or self-care (01) ==
LOC: HO.HMGCLDS 06:32
PROVIDERS: PCP Internal Medicine; Visit Provider Internal Medicine
DX: E66.01 Morbid (severe) obesity due to excess calories (principal); Z68.41 Body mass index [BMI] 40.0-44.9, adult; E11.29 Type 2 diabetes mellitus with other diabetic kidney complication; E78.5 Hyperlipidemia, unspecified; E03.9 Hypothyroidism, unspecified; I10 Essential (primary) hypertension
CPT/HCPCS: 36415; 80061; 83036; 84439; 84443; 84450; 84460

== ENCOUNTER 2024-09-10 07:58 | Outpatient (AMB) | payer MEDICARE, SELFPAY ==
--- NOTE | 2024-09-10 08:08 | MHC.PC.OV ---
Vital Signs 09/10/24 08:09 Height 5 ft 6 in Weight 259 lb BMI 41.8 BP 144/80 H Blood Pressure Location Lt brachial Position Sitting Respiration 16 Pulse 62 Temp 97.9 F Temp Source Oral Pulse Oximetry (%) 97 Oxygen Delivery Method Room Air Intake Visit Reasons: ffup dm ,lipids, after labs done Intake Note: Pt is here today for his f/u DM and lipids Allergies No Known Allergies Allergy (Verified 09/14/24 20:49) Medication List - Last Reconciled 09/10/24 by Mia Lucero MD blood sugar diagnostic ([employer] Verio test strips) Use to check blood sugar twice daily, once fasting and another random during the day blood-glucose meter ([employer] Verio Meter) Use to check blood sugar twice daily, once fasting and another random during the day cholecalciferol (vitamin D3) 50 mcg PO DAILY 90 days clopidogrel 75 mg PO DAILY enalapril maleate 20 mg PO BID ferrous fumarate 325 mg PO DAILY hydrocortisone 2.5% 1 appl NV BEDTIME lancets ([employer] Delica Lancets) Use to check blood sugar twice daily, once fasting and another random during the day levothyroxine 137 mcg PO DAILY 90 days metformin 1,000 mg PO BID metoprolol tartrate 100 mg PO BID 90 days omeprazole 40 mg PO DAILY@0630 rosuvastatin 40 mg PO DAILY Tobacco use date assessed: 09/10/24 Fall risk assessment: No Falls in past year Last assessed Fall Risk: 09/10/24 Dental Screening Dental Screen Date: 09/10/24 Did you have a dental visit in the last 12 months?: Yes Did you have a dental problem in the last 6 months where you did not have access to dental care?: No Was dental information given to patient?: Patient has dentist HPI ffup dm ,lipids, after labs done HPI Details 69 year old male with history of Type 2 Diabetes Mellitus, currently controlled with metformin at 1000 mg twice daily, has hyperlipidemia with good control of LDL cholesterol on rosuvastatin 40 mg daily , has history of coronary artery status post coronary artery bypass grafting x 4 and followed by cardiology currently on clopidogrel., has hypothyroidism controlled on levothyroxine 137 mcg daily, has hypertension managed with enalapril 20 mg twice a day metoprolol 100 mg 1 tablet twice a day, here today for follow-up. Blood pressure today is elevated. Patient states however that he has been been a brady to keep the appointment. Denies any chest pain, no lightheadedness, shortness of breath or palpitations. He has hypertriglyceridemia, partly addressed by dietary interventions, including recommendations to reduce intake of white bread and fatty snacks. He also has chronic GERD with Blanca's Esophagus was managed through a recent endoscopic procedure in December, identifying erosions and a esophageal stricture. The plan is to follow up with another endoscopy, potentially to address precancerous changes. Recently had a hearing test done which showed presence of sensory neuro hearing loss of left ear and mixed hearing loss in right ear. Requesting referral for ENT consult. 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 S/P CABG x 4 Vaccine refused by patient Loud snoring Witnessed apneic spells History of esophageal stricture COVID-19 vaccine series declined Refused influenza vaccine Morbid obesity with body mass index (BMI) of 40.0 to 44.9 in adult CAD (coronary artery disease) Blanca's esophagus with high grade dysplasia Diabetes mellitus with kidney complication, without long-term current use of insulin Erosive gastritis GERD (gastroesophageal reflux disease) Hearing loss Erectile dysfunction Sleep apnea Hiatal hernia Gout Multinodular goiter Morbid obesity Fatty liver Myocardial infarct Dyslipidemia Hypothyroidism Hypertension Surgical History Hx of four vessel coronary artery bypass graft History of endoscopy Hx of inguinal hernia repair Family History Mother No problems noted. Sister Hyperlipemia Social History Household Members: Spouse Housing: House Do you presently have visiting nurse or other home services: No Alcohol intake: never Patient Tobacco Use Status: Never used Tobacco Years Smoked: 10 +/- e-Cigarette/Vaping Use: Never Used service: No Current occupational status: retired Cognitive needs: No Hearing needs: No Vision needs: Yes Questionnaire PHQ-9 Over the last 2 weeks, how often have you been bothered by any of the following problems? 1. Little interest or pleasure in doing things: not at all 2. Feeling down, depressed, or hopeless: not at all 3. Trouble falling or staying asleep, or sleeping too much: not at all 4. Feeling tired or having little energy: more than half the days 5. Poor appetite or overeating: not at all 6. Feeling bad about yourself - or that you are a failure or have let yourself or your family down: not at all 7. Trouble concentrating on things, such as reading the newspaper or watching television: not at all 8. Moving or speaking so slowly that other people could have noticed. Or the opposite - being so fidgety or restless that you have been moving around a lot more than usual: not at all 9. Thoughts that you would be better off or of hurting yourself in some way: not at all Total score: 2 Depression Screening Interpretation: Negative Depression Screening Done: Yes 81556 - PHQ-9 Billing: Yes Source: Developed by Drs. Lowell Eubanks, Trupti Camarillo, Douglas Lancaster and colleagues, with an educational kim from [employer]. Thrive Questionnaire Date Thrive assessed: 09/10/24 Currently or been in a relationship where the following occur: I choose not to answer THRIVE Score: 0 KOJO-7 AMB Questionnaire KOJO-7 Date KOJO - 7 assessed: 03/04/24 Source: Developed by Drs. Lowell Eubanks, Douglas Gonzalez and colleagues, with an educational kim from [employer]. Review of Systems Const Denies fever(s) and Denies weakness ENT Denies dizziness and Reports hearing loss (Bilateral) Card Denies chest pain, Denies lightheadedness, Denies palpitations and Denies dyspnea Resp Denies cough and Denies dyspnea GI Denies hematochezia Reports no additional complaints Musc Denies abnormal gait, Denies muscle weakness, Denies numbness, Denies radiating pain into limb and Denies tingling Neuro Denies abnormal gait, Denies dizziness, Denies numbness, Denies tingling and Denies weakness Psych Reports no additional complaints Endo Denies palpitations Dhruv/Lymph Reports no additional complaints Physical exam (Primary Care) Vital Signs: Last Vital Signs Temp 97.9 F 09/10/24 08:09 Pulse 62 09/10/24 08:09 Resp 16 09/10/24 08:09 BP 144/80 H 09/10/24 08:09 Pulse Ox 97 09/10/24 08:09 Oxygen Delivery Method Room Air 09/10/24 08:09 BMI result Body Mass Index 41.8 BMI Assessment/Plan discussion: High BMI High, discussed plan: lifestyle, weight reduction, dietary and physical activity Tobacco/Smoking Status: Tobacco use Status Tobacco use date assessed 09/10/24 09/10/24 08:15 Patient Tobacco Use Status Never used Tobacco 09/10/24 08:15 e-Cigarette/Vaping Use Never Used 09/10/24 08:15 PHQ-9: PHQ-9 Score PHQ-9: Total score 2 09/10/24 08:48 Depression Screening Interpretation: Negative Thrive Assessment: Date of Thrive Assessment Date Thrive assessed 09/10/24 09/10/24 08:15 Currently or been in a relationship where the following occur: I choose not to answer Const General: no acute distress and alert Nutritional Appearance: obese morbidly obese Orientation/consciousness: patient oriented x3 HENMT Ears: external ears normal, TM's normal bilaterally and hearing grossly impaired General nose exam: Normal external nose present Face and sinus: Yes face symmetric Mouth: Normal oral and palatal mucosa present and moist mucous membranes Eyes General: appearance normal, both eyes and all related structures Neck Neck: Yes full ROM, Yes no lymphadenopathy and Yes supple Chest Other: sternotomy scar healed, no chest wall tenderness Resp Auscultation: clear to auscultation bilaterally and no wheezes Cardio Other: S1-S2 present regular rate and rhythm GI Inspection: Yes obesity Palpation (GI): Soft to palpation, nontender, no guarding and no masses Auscultation: normal bowel sounds General: Yes no CVA tenderness Male General Exam: Yes normal external exam Back/Spine/Pelvis Back: no CVA tenderness and No back tenderness Skin General skin exam: dry skin and scars Neuro General: patient oriented x3, gait normal, moves all extremities, no focal motor deficits and decrease sensation to monofilament Extrem General: Yes full ROM, Yes no joint enlargement, Yes no pedal edema and Yes normal gait Psych Appearance: grossly normal and well kempt Mental Status: mental status grossly normal Speech and movement: Normal speech and movement present Affect: normal affect Results Reviewed Results Reviewed: Name: Parmjit Sykes Age/Sex: 69/M : 1955 Unit#: [id number] Attend Dr: Mia Lucero MD Re08/31/24 Status: DEP [facility] Disch: SPEC : [id number] DEB: 08/31/24 STATUS: COMP REQ : [id number] RECD: 08/31/24-[address]: Mia Lucero MD COMP: 08/31/24-1222 ENTERED: 08/31/24-[address]: ORDERED: AST, ALT, Lipid Panel, Free T4, TSH Test Result Flag Reference AST (GOT) 31 5-37 U/L ALT (GPT) 19 0-40 U/L Triglyceride 209 H <150 mg/dL Desirable Triglyceride: less than 150 mg/dL Borderline High Triglyceride 150-199 mg/dL High Triglyceride: 200-499 mg/dL Very High Triglyceride: greater than or equal to 5OO mg/dL Cholesterol 90 <200 mg/dL Desirable Cholesterol: less than 200 mg/dL Borderline High Cholesterol: 200-239 mg/dL High Cholesterol: greater than 239 mg/dL LDL Calculated 18 <100 mg/dL Desirable LDL: less than 100 mg/dL Near Optimal/Above Optimal LDL: 110-129 mg/dL Borderline High LDL: 130-159 mg/dL High LDL: 160-189 mg/dL Very High LDL: greater than or equal to 190 mg/dL HDL 31 L >40 mg/dL Desirable HDL: greater than 40 mg/dL Note: This HDL assay may give artificially low results in patients with liver disease. Free T4 1.05 0.71-1.85 ng/dL TSH 3rd Gen. 0.33 0.32-4.0 uIU/mL TSH 3rd Generation ([facility]) Laboratory Tests 08/31/24 06:35 Estimat Average Glucose 143 Hemoglobin A1c % 6.6 H Coding Level of Care Code Est Pt Level 5 (52661) Complex EM visit Add On G2211 Diagnoses Mixed conductive and sensorineural hearing loss of right ear with restricted hearing of left ear H90.A31 Contralateral hearing status: restricted hearing on contralateral side Sensorineural hearing loss (SNHL) of left ear with restricted hearing of right ear H90.A22 Contralateral hearing status: restricted hearing on contralateral side Type 2 diabetes mellitus with diabetic microalbuminuria, without long-term current use of insulin E11.29; R80.9 Diabetes mellitus type: type 2 Diabetes mellitus complication detail: with diabetic microalbuminuria Dyslipidemia E78.5 Acquired hypothyroidism E03.9 Hypothyroidism type: acquired Essential hypertension I10 Hypertension type: essential hypertension Vaccine refused by patient Z28.20 CKD (chronic kidney disease) stage 3, GFR 30-59 ml/min N18.30 Blanca's esophagus with high grade dysplasia K22.711 Additional Codes PHQ-9 - 75231 - PHQ-9 Billing: Yes ([id number]) Assessment & Plan Assessment & Plan (1) Mixed hearing loss of right ear: Code(s): H90.71 - Mixed conductive and sensorineural hearing loss, unilateral, right ear, with unrestricted hearing on the contralateral side Category: Medical Qualifiers: Contralateral hearing status: restricted hearing on contralateral side Qualified Code(s): H90.A31 - Mixed conductive and sensorineural hearing loss, unilateral, right ear with restricted hearing on the contralateral side Plan: ENT consult ordered (2) Sensorineural hearing loss (SNHL) of left ear: Code(s): H90.5 - Unspecified sensorineural hearing loss Category: Medical Qualifiers: Contralateral hearing status: restricted hearing on contralateral side Qualified Code(s): H90.A22 - Sensorineural hearing loss, unilateral, left ear, with restricted hearing on the contralateral side Plan: ENT consult ordered (3) Diabetes mellitus with kidney complication, without long-term current use of insulin: Code(s): E11.29 - Type 2 diabetes mellitus with other diabetic kidney complication Category: Medical Qualifiers: Diabetes mellitus type: type 2 Diabetes mellitus complication detail: with diabetic microalbuminuria Qualified Code(s): E11.29 - Type 2 diabetes mellitus with other diabetic kidney complication; R80.9 - Proteinuria, unspecified Plan: Diabetes mellitus controlled on metformin a 1000 mg 1 tablet twice a day. Reinforced importance of following diabetic diet and getting regular exercise. Reminded to get yearly diabetes eye exam. Latest hemoglobin A1c is at 6.6% with improvement in his microalbuminuria as compared to last check (4) Dyslipidemia: Code(s): E78.5 - Hyperlipidemia, unspecified Category: Medical Plan: Fasting lipids showed elevated triglycerides with normal LDL cholesterol and total cholesterol, low HDL cholesterol noted reinforced importance of following recommended low-cholesterol diet and staying active. Continue with rosuvastatin 40 mg daily (5) Hypothyroidism: Code(s): E03.9 - Hypothyroidism, unspecified Category: Medical Qualifiers: Hypothyroidism type: acquired Qualified Code(s): E03.9 - Hypothyroidism, unspecified Plan: Thyroid levels are within normal limits, continue with current dose of levothyroxine 137 mcg daily. (6) Hypertension: Code(s): I10 - Essential (primary) hypertension Category: Medical Qualifiers: Hypertension type: essential hypertension Qualified Code(s): I10 - Essential (primary) hypertension Plan: Was recently seen by Cardiology, last month and was continued on current medication. Blood pressure goal is less than 130/80. Him see nurse navigator in 2 weeks for blood pressure check (7) Vaccine refused by patient: Code(s): Z28.20 - Immunization not carried out because of patient decision for unspecified reason Category: Medical Plan: Patient has refused all recommended vaccinations (8) CKD (chronic kidney disease) stage 3, GFR 30-59 ml/min: Code(s): N18.30 - Chronic kidney disease, stage 3 unspecified Category: Medical Plan: Followed by Nephrology (9) Blanca's esophagus with high grade dysplasia: Code(s): K22.711 - Blanca's esophagus with high grade dysplasia Category: Medical Plan: Currently on omeprazole 40 mg daily, currently followed by GI clinic Orders: Orders Alanine Aminotransferase 02/17/25 E11.29 - Type 2 diabetes mellitus with other diabetic kidney complication, E78.5 - Hyperlipidemia, unspecified, R80.9 - Proteinuria, unspecified Hemoglobin A1c 02/17/25 E11.29 - Type 2 diabetes mellitus with other diabetic kidney complication, E78.5 - Hyperlipidemia, unspecified, R80.9 - Proteinuria, unspecified Lipid Panel 02/17/25 E11.29 - Type 2 diabetes mellitus with other diabetic kidney complication, E78.5 - Hyperlipidemia, unspecified, R80.9 - Proteinuria, unspecified Aspartate Amino Transferase 02/17/25 E11.29 - Type 2 diabetes mellitus with other diabetic kidney complication, E78.5 - Hyperlipidemia, unspecified, R80.9 - Proteinuria, unspecified Thyroid Stimulating Hormone 02/17/25 E03.9 - Hypothyroidism, unspecified Free T4 (Free Thyroxine) 02/17/25 E03.9 - Hypothyroidism, unspecified Referrals Ear/Nose/Throat Referral H90.5 - Unspecified sensorineural hearing loss, H90.71 - Mixed conductive and sensorineural hearing loss, unilateral, right ear, with unrestricted hearing on the contralateral side
[2024-09-10 08:09] VITALS: BP 144/80; PULSE 62; RESP 16; TEMP 36.6; O2SAT 97; BMI 41.8
== END 2024-09-10 09:01 | disposition home or self-care (01) ==
LOC: HO.HMCC 07:59
PROVIDERS: PCP Internal Medicine; Visit Provider Internal Medicine
DX: H90.A31 Mixed conductive and sensorineural hearing loss, unilateral, right ear with restricted hearing on the contralateral side (principal); I12.9 Hypertensive chronic kidney disease with stage 1 through stage 4 chronic kidney disease, or unspecified chronic kidney disease; E11.29 Type 2 diabetes mellitus with other diabetic kidney complication; N18.30 Chronic kidney disease, stage 3 unspecified; H90.A22 Sensorineural hearing loss, unilateral, left ear, with restricted hearing on the contralateral side; R80.9 Proteinuria, unspecified; E78.5 Hyperlipidemia, unspecified; E03.9 Hypothyroidism, unspecified; Z28.20 Immunization not carried out because of patient decision for unspecified reason; K22.711 Barrett's esophagus with high grade dysplasia

== ENCOUNTER → 2024-09-10 07:58 | Outpatient (BNVA) | payer MEDICARE, SELFPAY | PROVIDERS: PCP Internal Medicine; Visit Provider Internal Medicine | DX: E66.01 Morbid (severe) obesity due to excess calories (principal); Z68.41 Body mass index [BMI] 40.0-44.9, adult; E78.5 Hyperlipidemia, unspecified; E03.9 Hypothyroidism, unspecified; H90.A31 Mixed conductive and sensorineural hearing loss, unilateral, right ear with restricted hearing on the contralateral side; R80.9 Proteinuria, unspecified; I12.9 Hypertensive chronic kidney disease with stage 1 through stage 4 chronic kidney disease, or unspecified chronic kidney disease; E11.22 Type 2 diabetes mellitus with diabetic chronic kidney disease; N18.30 Chronic kidney disease, stage 3 unspecified; K22.711 Barrett's esophagus with high grade dysplasia | CPT/HCPCS: 96127; 99212 ==

== ENCOUNTER 2024-10-19 06:38 | Outpatient (REF) | payer MEDICARE, SELFPAY ==
--- OUTSIDE RECORDS SUMMARY | 2024-10-19 06:41 | XMS_ITS ---
Author Organization [facility] Address [address] [place] [address] Care Team Providers Care Bowling Alley Floors Installer Name Role Phone Jazmine REEVES, Mia Primary Care Provider Suzie Tobias Jr, Sancho Broussard [phone] REASON FOR VISIT Patient presents today for parra's Encounters Encounter Location Date Provider Diagnosis [facility] [address] [place] [phone] 06/24/2024 Sancho Tobias Jr Plan Of Treatment No Information Progress Notes * YUE FENTON ADOB:1955 (69 yo M)Acc No.[id number]:06/24/2024 Progress Notes Patient:?YUE FENTON Provider:?Sancho Tobias MD :1955???Age:68 Y???Sex:Male Ronnie e:06/24/2024 Address:[address] [place], [place] [id number] Pcp:Mia Lucero MD Subjective: * Chief Complaints: [...] MD Date:?0 06/24/2024 Generated for Conrad trujillo/Tata/Taliaitting on:?10/19/2024 06:40 AM EDT
--- OUTSIDE RECORDS SUMMARY | 2024-10-19 06:41 | XMS_ITS ---
Author Organization [facility] Address [address] [place] [phone] Care Team Providers Care Custom Studio Coordinator Name Role Phone Jazmine REEVES, Mia Primary Care Provider Suzie Tobias Jr, Sancho Broussard REASON FOR VISIT Patient's called and stated pts insuranced changed Encounters Encounter Location Date Provider Diagnosis [facility] [address] [place] [phone] 01/02/2024 Sancho Tobias Jr Plan Of Treatment No Information Progress Notes * YUE FENTON ADOB:1955 (68 yo M)Acc No.[id number]:01/02/2024 Patient:?YUE FENTON :1955???Age:68 Y???Sex:Male Address:[address] [place] [address], [address] * true * Date:? Generated for Conrad trujillo/Tata/eTransmitting on:?10/19/2024 06:40 AM EDT
--- OUTSIDE RECORDS SUMMARY | 2024-10-19 06:41 | XMS_ITS | Clinical Summary ---
Author Organization [facility] Address [address] [facility] [address] [place] [address] Phone Care Team Providers Care Chairman And Ceo Name Role Phone Cyndi Lucero MD Primary Care Provider [phone] Allergies No known active allergies Medications cholecalciferol [...] Due Date Last Done Comments Pneumococcal Vaccine: 50+ Ye ars (1 of 2 - PCV) 1973 Colorectal Cancer Screening: Annual FOBT 08/24/2003 Colorectal Cancer Screening: Colonoscopy 08/24/2003 Colorectal Cancer Screening: Sigmoidoscopy 08/24/2003 Influenza Vaccine (Season Ended) 2025 Hepatitis B Vaccine Aged Out No longe r eligible based on patient's age to complete this topic Insurance Medicare Medicare Care Teams Chairman And Ceo Relationship Specialty Start Date End Date Cyndi Lucero MD [facility] [place] [address] PCP - General Internal Medicine 10/28/21
--- OUTSIDE RECORDS SUMMARY | 2024-10-19 06:41 | XMS_ITS | Patient Health Record ---
Author Organization [facility] Address [address] [place] [address] Care Team Providers Care Marine Service Operator Name Role Phone Jazmine REEVES, Mia [...] Problem Status W/U Status Risk Notes Problem [id number] Colon cancer screening (Z12.11) Active confirmed Problem 614682793 Blanca's esophagus without dysplasia (K22.70) Active confirmed Problem Blanca's esophagus (342808664) 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) Active confirmed Problem 86258377 Esophageal stricture (K22.2) Active confirmed Problem Blanca esophagus (815322999) Blanca esophagus (K22.70) Active confirmed Vital Signs Blood pressure diastolic 00 mm Hg 12/28/2023 Height 66 in 12/28/2023 Blood pressure systolic 00 mm Hg 12/28/2023 Weight 261 lbs 12/28/2023 BMI 42.12 kg/m2 12/28/2023 Encounters Encounter Location Date Provider Diagnosis [facility] [address] [place] [phone] 12/28/2023 Sancho Tobias Jr Blanca's esophagus with high grade dysplasia K22.711 and Esophageal stricture K22.2 [facility] [address] [place] [phone] 12/28/2023 Sancho Tobias Jr [facility] [address] [place] [phone] 01/02/2024 Sancho Tobias Jr [facility] [address] [place] [phone] 06/24/2024 Sancho Tobias Jr Assessments Encounter Date [...] Insured Coverage Start Date Coverage End Date [facility] [address] [place] [id number] YUE FENTON Self - patient is the [...]
[2024-10-19 12:38] LABS: Anion Gap 13 (12-20); Blood Urea Nitrogen 12 mg/dL (9-16); Calcium 8.9 mg/dL (8.4-10.2); Carbon Dioxide 29 mmol/L (22-29); Chloride 105 mmol/L (96-108); Estimated Glomerular Filt Rate > 60; Glucose Random 123 mg/dL (60-115); Potassium 3.5 mmol/L (3.3-5.1); Sodium 143 mmol/L (135-145)
[2024-10-19 12:57] LABS: Total Protein Urine Random 92 mg/dL (<12)
== END 2024-10-19 06:39 | disposition home or self-care (01) ==
LOC: HO.HMGCLDS 06:38
PROVIDERS: PCP Internal Medicine; Visit Provider Internal Medicine Hypertension Specialist
DX: N18.30 Chronic kidney disease, stage 3 unspecified (principal)
CPT/HCPCS: 36415; 80048; 82570; 84156

== ENCOUNTER 2024-10-25 08:34 | Outpatient (AMB) | payer MEDICARE, SELFPAY ==
--- OUTSIDE RECORDS SUMMARY | 2024-10-25 08:47 | XMS_ITS ---
Author Organization [facility] Address [address] [place] [phone] Care Team Providers Care Supervisor Tumbling And Rolling Name Role Phone Jazmine REEVES, Mia Primary Care Provider Suzie Tobias Jr, Sancho Broussard [phone] REASON FOR VISIT Pt no show Encounters Encounter Location Date Provider Diagnosis [facility] [address] [place] [phone] 06/24/2024 Sancho Tobias Jr Plan Of Treatment No Information Progress Notes * YUE FENTON ADOB:1955 (68 yo M)Acc No.[id number]:06/24/2024 Patient:?YUE FENTON :1955???Age:68 Y???Sex:Male Address:[address] [place] [address], [address] * true * Date:? Generated for Conrad trujillo/Tata/eTransmitting on:?10/25/2024 08:47 AM EDT
--- OUTSIDE RECORDS SUMMARY | 2024-10-25 08:47 | XMS_ITS ---
Author Organization [facility] Address [address] [place] [phone] Care Team Providers Care Motorcycle Deliverer Name Role Phone Jazmine REEVES, Mia Primary Care Provider Suzie Tobias Jr, Sancho Broussard REASON FOR VISIT Patient's called and stated pts insuranced changed Encounters Encounter Location Date Provider Diagnosis [facility] [address] [place] [phone] 01/02/2024 Sancho Tobias Jr Plan Of Treatment No Information Progress Notes * YUE FENTON ADOB:1955 (68 yo M)Acc No.[id number]:01/02/2024 Patient:?YUE FENTON :1955???Age:68 Y???Sex:Male Address:[address] [place] [address], [address] * true * Date:? Generated for Conrad trujillo/Tata/eTransmitting on:?10/25/2024 08:47 AM EDT
--- OUTSIDE RECORDS SUMMARY | 2024-10-25 08:48 | XMS_ITS ---
Author Organization [facility] Address [address] [place] [phone] Care Team Providers Care Billet Driller Name Role Phone Jazmine REEVES, Mia Primary Care Provider Suzie Tobias Jr, Sancho Broussard REASON FOR VISIT Patient presents today for parra's Encounters Encounter Location Date Provider Diagnosis [facility] [address] [place] [phone] 06/24/2024 Sancho Tobias Jr Plan Of Treatment No Information Progress Notes * YUE FENTON ADOB:1955 (69 yo M)Acc No.[id number]:06/24/2024 Progress Notes Patient:?YUE FENTON Provider:?Sancho Tobias MD :1955???Age:68 Y???Sex:Male Ronnie e:06/24/2024 Address:[address] [place], [place] [phone] Pcp:Mia Lucero MD Subjective: * Chief Complaints: [...] MD Date:?0 06/24/2024 Generated for Conrad trujillo/Tata/Taliaitting on:?10/25/2024 08:47 AM EDT
--- OUTSIDE RECORDS SUMMARY | 2024-10-25 08:48 | XMS_ITS | Patient Health Record ---
Author Organization [facility] Address [address] [place] [phone] Care Team Providers Care Office Administrative Assistant Name Role Phone Jazmine REEVES, Mia Primary Care Provider Sancho Love Jr Unavailable [phone] Allergies No Known Allergies Reason For Referral [...] Problem Status W/U Status Risk Notes Problem [id number] Colon cancer screening (Z12.11) Active confirmed Problem 819957227 Blanca's esophagus without dysplasia (K22.70) Active confirmed Problem Blanca's esophagus (214262052) 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) Active confirmed Problem 33433569 Esophageal stricture (K22.2) Active confirmed Problem Blanca esophagus (461056940) Blanca esophagus (K22.70) Active confirmed Vital Signs Blood pressure diastolic 00 mm Hg 12/28/2023 Height 66 in 12/28/2023 Blood pressure systolic 00 mm Hg 12/28/2023 Weight 261 lbs 12/28/2023 BMI 42.12 kg/m2 12/28/2023 Encounters Encounter Location Date Provider Diagnosis [facility] [address] [place] [phone] 12/28/2023 Sancho Tobias Jr Blanca's esophagus with high grade dysplasia K22.711 and Esophageal stricture K22.2 [facility] [address] [place] [phone] 12/28/2023 Sancho Tobias Jr [facility] [address] [place] [phone] 01/02/2024 Sancho Tobias Jr [facility] [address] [place] [phone] 06/24/2024 Sancho Tobias Jr Assessments Encounter Date [...] End Date [facility] [address] [place] [id number] YUE FENTON Self - patient is the [...]
--- OUTSIDE RECORDS SUMMARY | 2024-10-25 08:48 | XMS_ITS | Clinical Summary ---
Author Organization [facility] Address [address] [facility] [address] [place] [address] Phone Care Team Providers Care Electric Truck Driver Name Role Phone Cyndi Lucero MD Primary Care Provider [phone]- [phone] Allergies No known active allergies Medications cholecalciferol [...] this topic Insurance Medicare Medicare Care Teams Electric Truck Driver Relationship Specialty Start Date End Date Cyndi Lucero [place] [address] PCP - General Internal Medicine 10/28/21
[2024-10-25 09:23] VITALS: BP 174/80; PULSE 82; O2SAT 96; BMI 41.6
--- NOTE | 2024-10-25 09:23 | HO.NEPHOV ---
Vital Signs 10/25/24 09:23 Height 5 ft 6 in Weight 258 lb BMI 41.6 BP 174/80 H Blood Pressure Location Lt brachial Position Sitting Pulse 82 Pulse Source Pulse Oximeter Pulse Oximetry (%) 96 Oxygen Delivery Method Room Air Intake Visit Reasons: CKD/ Unable to reach Repair Table Operator Required: No Accompanied by: Self / Same As Patient Allergies No Known Allergies Allergy (Verified 10/25/24 09:24) Medication List - Last Reconciled 10/25/24 by Andrez Frausto MD blood sugar diagnostic ([employer] Verio test strips) Use to check blood sugar twice daily, once fasting and another random during the day blood-glucose meter ([employer] Verio Meter) Use to check blood sugar twice daily, once fasting and another random during the day cholecalciferol (vitamin D3) 50 mcg PO DAILY 90 days clopidogrel 75 mg PO DAILY enalapril maleate 20 mg PO BID ferrous fumarate 325 mg PO DAILY hydrocortisone 2.5% 1 appl CO BEDTIME lancets ([employer] Delica Lancets) Use to check blood sugar twice daily, once fasting and another random during the day levothyroxine 137 mcg PO DAILY 90 days metformin 1,000 mg PO BID metoprolol tartrate 100 mg PO BID 90 days omeprazole 40 mg PO DAILY@0630 rosuvastatin 40 mg PO DAILY HPI Comments Details: 67 yr old man with h/o HTN and DM with CKD Baseline creatinine is around 1.3 In October 2022, Cr peaked to 1.7, cr returned to 1.3 Overall doing well.No new issues He is here for follow up 10/25/24 Has been having diarrhea on and off for few weeks. 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 Vaccine refused by patient Loud snoring Witnessed apneic spells History of esophageal stricture COVID-19 vaccine series declined Refused influenza vaccine Morbid obesity with body mass index (BMI) of 40.0 to 44.9 in adult CAD (coronary artery disease) Blanca's esophagus with high grade dysplasia Diabetes mellitus with kidney complication, without long-term current use of insulin Erosive gastritis GERD (gastroesophageal reflux disease) Hearing loss Erectile dysfunction Sleep apnea Hiatal hernia Gout Multinodular goiter Morbid obesity Fatty liver Myocardial infarct Dyslipidemia Hypothyroidism Hypertension Surgical History Hx of four vessel coronary artery bypass graft History of endoscopy Hx of inguinal hernia repair Family History Mother No problems noted. Sister Hyperlipemia Social History Household Members: Spouse Housing: House Do you presently have visiting nurse or other home services: No Alcohol intake: never Patient Tobacco Use Status: Never used Tobacco Years Smoked: 10 +/- e-Cigarette/Vaping Use: Never Used service: No Current occupational status: retired Cognitive needs: No Hearing needs: No Vision needs: Yes Physical Exam Vital Signs: Last Vital Signs Pulse 82 10/25/24 09:23 BP 174/80 H 10/25/24 09:23 Pulse Ox 96 10/25/24 09:23 Oxygen Delivery Method Room Air 10/25/24 09:23 BMI result Body Mass Index 41.6 Comfortable Neck supple no JVD. Lungs entry equal no rales. Heart S1-S2 heard no gallop or rub. Abdomen soft nontender. Neuro alert awake oriented. No asterixis. Extremities no edema. Results Reviewed Nephrology Results: Hgb 15.1 g/dl (14.0-18.0) 06/04/24 WBC 8.3 X10*3/uL (4.8-10.8) 06/04/24 Plt Count 252 X10*3/uL (160-400) 06/04/24 Sodium 143 mmol/L (135-145) 10/19/24 Potassium 3.5 mmol/L (3.3-5.1) 10/19/24 Chloride 105 mmol/L (96-108) 10/19/24 Carbon Dioxide 29 mmol/L (22-29) 10/19/24 BUN 12 mg/dL (9-16) 10/19/24 Creatinine 1.06 mg/dL (0.5-1.4) 10/19/24 Calcium 8.9 mg/dL (8.4-10.2) 05/03/25 Urine Creatinine 267.60 mg/dL 10/19/24 Assessment & Plan Assessment & Plan (1) Diabetes mellitus with kidney complication, without long-term current use of insulin: Code(s): E11.29 - Type 2 diabetes mellitus with other diabetic kidney complication Category: Medical Qualifiers: Diabetes mellitus complication detail: with diabetic microalbuminuria Diabetes mellitus type: type 2 Qualified Code(s): E11.29 - Type 2 diabetes mellitus with other diabetic kidney complication; R80.9 - Proteinuria, unspecified (2) S/P CABG x 4: Comment: Status post CABG times for 10 years ago and drug-eluting stent to the right coronary artery probably due to vein graft occlusion to the right coronary artery. Code(s): Z95.1 - Presence of aortocoronary bypass graft Category: Medical (3) Hypertension: Code(s): I10 - Essential (primary) hypertension Category: Medical Qualifiers: Hypertension type: essential hypertension Qualified Code(s): I10 - Essential (primary) hypertension Plan: BP has been well controlled Todays readings are elevated - he did not take his meds Encouraged to stay compliant Watch BP at home; If SBP > 140 mmHg, would add Amlodipine 2.5 mg QD and titrate (4) CKD (chronic kidney disease) stage 2, GFR 60-89 ml/min: Comment: Stage 2 qith microalbuminuria Code(s): N18.2 - Chronic kidney disease, stage 2 (mild) Category: Medical Plan 69 yr old man with CKD 3 in a setting of HTNand DM Renal function is stable at baseline Cr down to 1.0 JUDITH resolved after stopping HCTZ Goal to slow progression Keep ACEi Goal BP < 130/80 Avoid nephrotoxins including NSAIDS Increase PO fluid intake Needs weight loss He will benefit from SGLT-2 inhibitors Orders: Orders Basic Metabolic Panel 6 Months N18.2 - Chronic kidney disease, stage 2 (mild) Coding Level of Care Code Est Pt Level 4 (80004) Diagnoses Type 2 diabetes mellitus with diabetic microalbuminuria, without long-term current use of insulin E11.29; R80.9 Diabetes mellitus complication detail: with diabetic microalbuminuria Diabetes mellitus type: type 2 S/P CABG x 4 Z95.1 Essential hypertension I10 Hypertension type: essential hypertension CKD (chronic kidney disease) stage 2, GFR 60-89 ml/min N18.2
== END 2024-10-25 09:36 | disposition home or self-care (01) ==
LOC: HO.HKA 08:34
PROVIDERS: PCP Internal Medicine; Visit Provider Internal Medicine Hypertension Specialist
DX: E11.29 Type 2 diabetes mellitus with other diabetic kidney complication (principal); R80.9 Proteinuria, unspecified; Z95.1 Presence of aortocoronary bypass graft; I12.9 Hypertensive chronic kidney disease with stage 1 through stage 4 chronic kidney disease, or unspecified chronic kidney disease; N18.2 Chronic kidney disease, stage 2 (mild)
CPT/HCPCS: 99214

== ENCOUNTER → 2024-10-25 08:34 | Outpatient (BNVA) | payer MEDICARE, SELFPAY | PROVIDERS: PCP Internal Medicine; Visit Provider Internal Medicine Hypertension Specialist | DX: E11.29 Type 2 diabetes mellitus with other diabetic kidney complication (principal); E11.22 Type 2 diabetes mellitus with diabetic chronic kidney disease; I12.9 Hypertensive chronic kidney disease with stage 1 through stage 4 chronic kidney disease, or unspecified chronic kidney disease; N18.2 Chronic kidney disease, stage 2 (mild); R80.9 Proteinuria, unspecified; Z95.1 Presence of aortocoronary bypass graft | CPT/HCPCS: 99212 ==

== ENCOUNTER 2025-03-05 06:28 | Outpatient (REF) | payer MEDICARE, SELFPAY ==
--- OUTSIDE RECORDS SUMMARY | 2024-06-24 05:00 | XMS_ITS ---
Author Organization [facility] Address [address] [place] [phone] Care Team Providers Care Accountant Manager Name Role Phone Mia Lucero MD Primary Care Provider Suzie Tobias Jr, Sancho Broussard [phone] REASON FOR VISIT Patient presents today for parra's Encounters Encounter Location Date Provider Diagnosis [facility] [address] [place] [phone] 06/24/2024 Sancho Tobias Jr Plan Of Treatment No Information Progress Notes * JOSSY YUE ADOB:1955 (69 yo M)Acc No.[id number]:06/24/2024 Progress Notes Patient: YUE BAIRD Provider: Sonia Tobias MD :1955 A ge:68 Y S ex:Male Date:06/24/2024 Address:[address] [place], [place] [phone] Pcp:Mia Lucero MD Subjective: * Chief Complaints: * 1 . Patient presents today for parra's. * Medical History: Objective: * Vitals: Assessment: Plan: * Treatment: * * The named appointment provid er may or may not be the originator of this progress note, and it is not deemed complete until electronically signed by the appointment provider. Sign off status: Pending * Provider: Sonia oTbias MD Date: 0 06/24/2024 Generated for Printi ng/Faxing/eTransmitting on: 0 03/05/2025 06:31 AM EDT
--- OUTSIDE RECORDS SUMMARY | 2025-03-05 06:32 | XMS_ITS | Clinical Summary ---
Author Organization [facility] Address [address] [facility] [address] [place] [address] Phone Care Team Providers Care Sketch Maker Name Role Phone Cyndi Lucero MD Primary Care Provider +1- [phone] Allergies No known active allergies Medications cholecalciferol [...] Cancer Screening: Sigmoidoscopy 08/24/2003 Influenza Vaccine (#1) 2025 Hepatitis B Vaccine Aged Out No longe r eligible based on patient's age to complete this topic Insurance Medicare Medicare Care Teams Sketch Maker Relationship Specialty Start Date End Date Cyndi Lucero MD [facility] [place] [address] PCP - General Internal Medicine 10/28/21
--- OUTSIDE RECORDS SUMMARY | 2025-03-05 06:32 | XMS_ITS | Patient Health Record ---
Author Organization [facility] Address [address] [place] [address] Care Team Providers Care Daytime Caregiver Name Role Phone Jazmine REEVES, Mia Primary Care Provider Sancho Love Jr Unavailable [phone] Allergies No Known Allergies Reason For Referral [...] Problem Status W/U Status Risk Notes Problem [id number] Colon cancer screening (Z12.11) Active confirmed Problem 129435705 Blanca's esophagus without dysplasia (K22.70) Active confirmed Problem Blanca's esophagus (001542898) 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) Active confirmed Problem 74403388 Esophageal stricture (K22.2) Active confirmed Problem Blanca esophagus (779733168) Blanca esophagus (K22.70) Active confirmed Encounters Encounter Location Date Provider Diagnosis [facility] [address] [facility] [address] [place] [address] 06/24/2024 Sancho Tobias Jr Plan Of Treatment Future Test Test Name Order Date UPPER GI ENDOSCOPY 11/29/2021 Insurance Providers Payer Name Payer Address Payer Phone Subscriber Number Group Number Insured Name Patient Relationship to Insured Coverage Start Date Coverage End Date [facility] [address] [address] [place] [address] [id number] YUE FENTON Self - patient is the [...]
[2025-03-05 10:37] LABS: Hemoglobin A1C 239.4716 umol/L; Total Hemoglobin (HGBA1C) 3959.0290 umol/L
[2025-03-05 10:58] LABS: Alanine Aminotransferase 17 U/L (0-40); Aspartate Amino Transferase 30 U/L (5-37); Cholesterol 107 mg/dL (<200); Free T4 (Free Thyroxine) 1.02 ng/dL (0.71-1.85); HDL Cholesterol 36 mg/dL (>40); Thyroid Stimulating Hormone 0.76 uIU/mL (0.32-4.0); Triglycerides 247 mg/dL (<150)
== END 2025-03-05 06:29 | disposition home or self-care (01) ==
LOC: HO.HMGCLDS 06:28
PROVIDERS: PCP Internal Medicine; Visit Provider Internal Medicine
DX: E11.29 Type 2 diabetes mellitus with other diabetic kidney complication (principal); E78.5 Hyperlipidemia, unspecified; E03.9 Hypothyroidism, unspecified; R80.9 Proteinuria, unspecified
CPT/HCPCS: 36415; 80061; 83036; 84439; 84443; 84450; 84460

== ENCOUNTER 2025-03-11 07:38 | Outpatient (AMB) | payer MEDICARE, SELFPAY ==
--- OUTSIDE RECORDS SUMMARY | 2024-06-24 05:00 | XMS_ITS ---
Author Organization [facility] Address [address] [place] [phone] Care Team Providers Care Medication Tech Name Role Phone Mia Lucero MD Primary Care Provider Suzie Tobias Jr, Sancho Broussard [phone] REASON FOR VISIT Patient presents today for parra's Encounters Encounter Location Date Provider Diagnosis [facility] [address] [place] [phone] 06/24/2024 Sancho Tobias Jr Plan Of Treatment No Information Progress Notes * JOSSY YUE ADOB:1955 (69 yo M)Acc No.[id number]:06/24/2024 Progress Notes Patient: YUE BAIRD Provider: Sonia Tobias MD :1955 A ge:68 Y S ex:Male Date:06/24/2024 Address:[address] [place], [place] [phone] Pcp:Mia Lucero MD Subjective: * Chief Complaints: [...] 0 06/24/2024 Generated for Printi ng/Faxing/eTransmitting on: 0 03/11/2025 07:41 AM EDT
--- OUTSIDE RECORDS SUMMARY | 2025-03-11 07:42 | XMS_ITS | Clinical Summary ---
Author Organization [facility] Address [address] [facility] [address] [place] [address] Phone Care Team Providers Care Senior Benefits Manager Name Role Phone Cyndi Lucero MD Primary Care Provider +1- [phone] Allergies No known active allergies Medications cholecalciferol [...] this topic Insurance Medicare Medicare Care Teams Senior Benefits Manager Relationship Specialty Start Date End Date Cyndi Lucero [place] [address] PCP - General Internal Medicine 10/28/21
--- OUTSIDE RECORDS SUMMARY | 2025-03-11 07:42 | XMS_ITS | Patient Health Record ---
Author Organization [facility] Address [address] [place] [address] Care Team Providers Care Bottling Attendant Name Role Phone Jazmine REEVES, Mia Primary [...] Problem Status W/U Status Risk Notes Problem [id number] Colon cancer screening (Z12.11) Active confirmed Problem 804927538 Blanca's esophagus without dysplasia (K22.70) Active confirmed Problem Blanca's esophagus (541651102) 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) Active confirmed Problem 07345799 Esophageal stricture (K22.2) Active confirmed Problem Blanca esophagus (243287070) Blanca esophagus (K22.70) Active confirmed Encounters Encounter Location Date Provider Diagnosis [facility] [address] [facility] [address] [place] [address] 06/24/2024 Sancho Tobias Jr Plan Of Treatment Future Test Test Name Order Date UPPER GI ENDOSCOPY 11/29/2021 Insurance Providers Payer Name Payer Address Payer Phone Subscriber Number Group Number Insured Name Patient Relationship to Insured Coverage Start Date Coverage End Date [facility] [address] [address] [place] [address] [id number] YUE FENTON Self - patient is the [...]
[2025-03-11 08:06] VITALS: BP 122/82; PULSE 63; RESP 16; TEMP 36.8; O2SAT 95; BMI 42.6
--- NOTE | 2025-03-11 08:06 | MHC.PC.OV ---
Vital Signs 03/11/25 08:06 Height 5 ft 6 in Weight 264 lb BMI 42.6 BP 122/82 Blood Pressure Location Rt brachial Position Sitting Respiration 16 Pulse 63 Pulse Source Pulse Oximeter Temp 98.3 F Temp Source Oral Pulse Oximetry (%) 95 Oxygen Delivery Method Room Air Intake Visit Reasons: PE - see comments Intake Note: Pt is here today for his PE Allergies No Known Allergies Allergy (Verified 03/11/25 08:20) Medication List - Last Reconciled 03/11/25 by Mia Lucero MD blood sugar diagnostic ([employer] Verio test strips) Use to check blood sugar twice daily, once fasting and another random during the day blood-glucose meter ([employer] Verio Meter) Use to check blood sugar twice daily, once fasting and another random during the day cholecalciferol (vitamin D3) 50 mcg PO DAILY 90 days clopidogrel 75 mg PO DAILY enalapril maleate 20 mg PO BID ferrous fumarate 324 mg PO DAILY hydrocortisone 2.5% 1 appl MS BEDTIME lancets ([employer] Delica Lancets) Use to check blood sugar twice daily, once fasting and another random during the day levothyroxine 137 mcg PO DAILY metformin 1,000 mg PO BID metoprolol tartrate 100 mg PO BID 90 days omeprazole 40 mg PO DAILY@0630 rosuvastatin 40 mg PO DAILY Tobacco use date assessed: 03/11/25 Fall risk assessment: No Falls in past year Last assessed Fall Risk: 03/11/25 Dental Screening Dental Screen Date: 03/11/25 Did you have a dental visit in the last 12 months?: No Did you have a dental problem in the last 6 months where you did not have access to dental care?: No Was dental information given to patient?: Patient has dentist HPI PE - see comments HPI Details The patient is a 69-year-old male presenting today for physical exam. He has Type 2 Diabetes Mellitus. His diabetes control has worsened, with HbA1c increasing from 6% to 7.7%, with an average blood glucose level of 174 mg/dL over the past three months. He is currently on metformin at the maximum dose, and dietary habits have been inconsistent due to recent home renovations. Patient states that he has been eating out for the last 2 weeks and has not been getting any regular exercise. The patient also has a history of Chronic Kidney Disease, for which he is under the care of Dr. Frausto. Resolution of JUDITH after stopping HCTZ. Continued on enalapril, advised avoidance of NSAIDs, recommended to be started on SGLT-2 inhibitor but patient declined Hyperlipidemia is another concern, with recent lab results indicating elevated triglycerides, likely due to dietary choices such as consuming [place] food over the last 2 weeks Cholesterol levels are otherwise well-controlled. Currently on rosuvastatin 40 mg daily The patient has a history of Gastroesophageal Reflux Disease and Blanca's esophagus, as seen on upper endoscopy done by Dr. Tobias 3 years ago managed with omeprazole. Patient states that heartburn is controlled and swallowing difficulties have resolved. 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 Vaccine refused by patient Loud snoring Witnessed apneic spells History of esophageal stricture COVID-19 vaccine series declined Refused influenza vaccine Morbid obesity with body mass index (BMI) of 40.0 to 44.9 in adult CAD (coronary artery disease) Blanca's esophagus with high grade dysplasia Diabetes mellitus with kidney complication, without long-term current use of insulin Erosive gastritis GERD (gastroesophageal reflux disease) Hearing loss Erectile dysfunction Sleep apnea Hiatal hernia Gout Multinodular goiter Morbid obesity Fatty liver Myocardial infarct Dyslipidemia Hypothyroidism Hypertension Surgical History Hx of four vessel coronary artery bypass graft History of endoscopy Hx of inguinal hernia repair Family History Mother No problems noted. Sister Hyperlipemia Social History Household Members: Spouse Housing: House Do you presently have visiting nurse or other home services: No Alcohol intake: never Patient Tobacco Use Status: Former Tobacco user Years Smoked: 10 +/- e-Cigarette/Vaping Use: Never Used service: No Current occupational status: retired Cognitive needs: No Hearing needs: No Vision needs: Yes Questionnaire PHQ-9 Over the last 2 weeks, how often have you been bothered by any of the following problems? 1. Little interest or pleasure in doing things: not at all 2. Feeling down, depressed, or hopeless: not at all 3. Trouble falling or staying asleep, or sleeping too much: not at all 4. Feeling tired or having little energy: more than half the days 5. Poor appetite or overeating: not at all 6. Feeling bad about yourself - or that you are a failure or have let yourself or your family down: not at all 7. Trouble concentrating on things, such as reading the newspaper or watching television: not at all 8. Moving or speaking so slowly that other people could have noticed. Or the opposite - being so fidgety or restless that you have been moving around a lot more than usual: not at all 9. Thoughts that you would be better off or of hurting yourself in some way: not at all Total score: 2 Depression Screening Interpretation: Negative Depression Screening Done: Yes Source: Developed by Drs. Lowell Eubanks, Douglas Gonzalez and colleagues, with an educational kim from [employer]. Thrive Questionnaire Date Thrive assessed: 09/10/24 Currently or been in a relationship where the following occur: I choose not to answer THRIVE Score: 0 AUDIT C Alcohol Use Questionnaire (AUDIT-C) 1. How often do you have a drink containing alcohol?: Never Total Score: 0 KOJO-7 AMB Questionnaire KOJO-7 Date KOJO - 7 assessed: 03/11/25 Feeling nervous, anxious, or on edge: 0 = Not at all Not being able to stop or control worryin = Not at all Worrying too much about different things: 0 = Not at all Trouble relaxin = Not at all Being so restless that it is hard to sit still: 0 = Not at all Becoming easily annoyed or irritable: 0 = Not at all Feeling afraid as if something awful might happen: 0 = Not at all Total KOJO-7 score (0-4 normal; 5-9 mild; 10-14 moderate; 15-21 severe): 0 Source: Developed by Drs. Lowell Eubanks, Douglas Gonzalez and colleagues, with an educational kim from [employer]. KOJO-7 Assessment Billing KJOO-7 Assessment Tool: KOJO-7 Assessment 17666 Review of Systems Const Denies fever(s), Denies weakness and Reports weight gain Eyes Details: Goes to [facility] Denies change in vision ENT Denies dizziness and Reports hearing loss (Bilateral) Card Denies chest pain, Denies lightheadedness, Denies palpitations and Denies dyspnea Resp Denies cough and Denies dyspnea GI Reports no additional complaints and Denies hematochezia Reports no additional complaints Musc Denies abnormal gait, Denies muscle weakness, Denies numbness, Denies radiating pain into limb and Denies tingling Skin/Breast Reports dry skin, Denies lesions, Denies rash and Denies sores Neuro Denies abnormal gait, Denies dizziness, Denies numbness, Denies tingling and Denies weakness Psych Reports no additional complaints Endo Reports no additional complaints and Denies palpitations Dhruv/Lymph Reports no additional complaints Aller/Immun Reports no additional complaints Physical exam (Primary Care) Vital Signs: Last Vital Signs Temp 98.3 F 03/11/25 08:06 Pulse 63 03/11/25 08:06 Resp 16 03/11/25 08:06 BP 122/82 03/11/25 08:06 Pulse Ox 95 03/11/25 08:06 Oxygen Delivery Method Room Air 03/11/25 08:06 BMI result Body Mass Index 42.6 BMI Assessment/Plan discussion: High BMI High, discussed plan: lifestyle, weight reduction, dietary and physical activity Tobacco/Smoking Status: Tobacco use Status Tobacco use date assessed 03/11/25 03/11/25 08:11 Patient Tobacco Use Status Former Tobacco user 03/11/25 08:11 e-Cigarette/Vaping Use Never Used 03/11/25 08:11 PHQ-9: PHQ-9 Score PHQ-9: Total score 2 03/11/25 08:20 Depression Screening Interpretation: Negative Thrive Assessment: Date of Thrive Assessment Date Thrive assessed 09/10/24 03/11/25 08:11 Currently or been in a relationship where the following occur: I choose not to answer Advance Care Planning discussion: Completed/Scanned Date of discussion: 03/11/25 Who was present: Patient Forms completed: Health Care Proxy Time spent: 16-45 minutes Actual minutes spent: 2 Const General: no acute distress and alert Nutritional Appearance: obese morbidly obese Orientation/consciousness: patient oriented x3 HENMT Ears: external ears normal, TM's normal bilaterally and hearing grossly impaired General nose exam: Normal external nose present Face and sinus: Yes face symmetric Mouth: Normal oral and palatal mucosa present and moist mucous membranes Eyes General: appearance normal, both eyes and all related structures Neck Neck: Yes full ROM, Yes no lymphadenopathy and Yes supple Chest Other: sternotomy scar healed, no chest wall tenderness Resp Auscultation: clear to auscultation bilaterally and no wheezes Cardio Other: S1-S2 present regular rate and rhythm GI Inspection: Yes obesity Palpation (GI): Soft to palpation, nontender, no guarding and no masses Auscultation: normal bowel sounds General: Yes no CVA tenderness Male General Exam: Yes normal external exam Back/Spine/Pelvis Back: no CVA tenderness and No back tenderness Skin General skin exam: dry skin and scars Nails: yellow and thickened (Toenails in both feet) Neuro General: patient oriented x3, gait normal, moves all extremities, no focal motor deficits and decrease sensation to monofilament Extrem General: Yes full ROM, Yes no joint enlargement, Yes no pedal edema and Yes normal gait Psych Appearance: grossly normal and well kempt Mental Status: mental status grossly normal Speech and movement: Normal speech and movement present Affect: normal affect Results Reviewed Results Reviewed: Laboratory Tests 03/05/25 06:34 Estimat Average Glucose 174 Hemoglobin A1c % 7.7 H coty: Parmjit Block Age/Sex: 69/M : 1955 Unit#: [id number] Attend Dr: Mia Lucero MD Re03/05/25 Status: DEP REF Location: [facility] Disch: SPEC : [id number] DEB: 03/05/25 STATUS: COMP REQ : [id number] RECD: 03/05/[address]: Mia Lucero MD COMP: 03/05/25 ENTERED: 03/05/[address]: ORDERED: AST, ALT, Lipid Panel, Free T4, TSH Test Result Flag Reference AST (GOT) 30 5-37 U/L ALT (GPT) 17 0-40 U/L Triglyceride 247 H <150 mg/dL Desirable Triglyceride: less than 150 mg/dL Borderline High Triglyceride 150-199 mg/dL High Triglyceride: 200-499 mg/dL Very High Triglyceride: greater than or equal to 5OO mg/dL Cholesterol 107 <200 mg/dL Desirable Cholesterol: less than 200 mg/dL Borderline High Cholesterol: 200-239 mg/dL High Cholesterol: greater than 239 mg/dL LDL Calculated 22 <100 mg/dL Desirable LDL: less than 100 mg/dL Near Optimal/Above Optimal LDL: 110-129 mg/dL Borderline High LDL: 130-159 mg/dL High LDL: 160-189 mg/dL Very High LDL: greater than or equal to 190 mg/dL HDL 36 L >40 mg/dL Desirable HDL: greater than 40 mg/dL Note: This HDL assay may give artificially low results in patients with liver disease. Free T4 1.02 0.71-1.85 ng/dL TSH 3rd Gen. 0.76 0.32-4.0 uIU/mL TSH 3rd Generation ([facility]) Name: UmairParmjit Chilo Age/Sex: 68/M : 1955 Unit#: [id number] Attend Dr: Andrez Frausto MD Re06/04/24 Status: DEP REF Location: [facility] Disch: SPEC : [id number] DEB: 06/04/24 STATUS: COMP REQ : [id number] RECD: 06/04/[address]: Andrez Frausto MD COMP: 06/04/24 ENTERED: 06/04/24 [facility] DR: Mia Lucero MD ORDERED: CBC No Diff Test Result Flag Reference WBC 8.3 4.8-10.8 X10*3/uL RBC 5.27 4.60-5.80 X10*6/uL HGB 15.1 14.0-18.0 g/dl HCT 45.7 42.0-52.0 % MCV 86.7 80.0-98.0 fL MCH 28.7 27.0-33.0 pg MCHC 33.0 31.0-36.0 g/dl RDW 13.6 11.0-16.0 % PLT 252 # 160-400 X10*3/uL MPV 11.8 9.4-12.4 fL NRBC Pct Auto 0.0 0.0-0.2 /100WBC NRBC Abs Auto 0.000 0.0-0.012 X10*3/uL END OF REPORT Coding Level of Care Code Est Pt Prev Care >65y(69824) Diagnoses Annual visit for general adult medical examination with abnormal findings Z00.01 Type 2 diabetes mellitus with diabetic microalbuminuria, without long-term current use of insulin E11.29; R80.9 Diabetes mellitus complication detail: with diabetic microalbuminuria Diabetes mellitus type: type 2 Essential hypertension I10 Hypertension type: essential hypertension Acquired hypothyroidism E03.9 Hypothyroidism type: acquired Dyslipidemia E78.5 Blanca's esophagus with high grade dysplasia K22.711 Morbid obesity with body mass index (BMI) of 40.0 to 44.9 in adult E66.01; Z68.41 Vaccine refused by patient Z28.20 CKD (chronic kidney disease) stage 2, GFR 60-89 ml/min N18.2 Advance directive discussed with patient Z71.89 Additional Codes KOJO-7 Assessment Billing - KOJO-7 Assessment Tool: KOJO-7 Assessment 14836 ([id number]) Vital Signs *Quality* - Advance Care Planning discussion: Completed/Scanned ([id number]) Vital Signs *Quality* - Time spent: 16-45 minutes ([id number]) Assessment & Plan Assessment & Plan (1) Annual visit for general adult medical examination with abnormal findings: Code(s): Z00.01 - Encounter for general adult medical examination with abnormal findings Plan: Reviewed fasting lab results with patient. Continue with regular dental prophylaxis every six-months, patient states that he was seen at [facility] for his diabetes eye exam this year, copy of results requested. Does not want to get any vaccines. Patient states that he had a screening colonoscopy done in [place] approximately 5 years ago.. (2) Diabetes mellitus with kidney complication, without long-term current use of insulin: Code(s): E11.29 - Type 2 diabetes mellitus with other diabetic kidney complication Category: Medical Qualifiers: Diabetes mellitus complication detail: with diabetic microalbuminuria Diabetes mellitus type: type 2 Qualified Code(s): E11.29 - Type 2 diabetes mellitus with other diabetic kidney complication; R80.9 - Proteinuria, unspecified Plan: Recent lab results reviewed with patient, with sugar and hemoglobin A1c not at goal . continue to check fasting blood sugar at home, maintain log and bring to next appointment for review. Continued on metformin 1000 mg 1 tablet twice a day, recommended to start Jardiance or in GLP 1 agonist but patient refused, would like to try improving diabetes control again through diet and exercise. Reinforced diabetic diet and regular exercise with patient. Counseled regarding importance of yearly diabetes retinopathy screening, states that he had an eye exam done at [facility] this year, copy of results requested. Patient advised to inspect feet daily, for any signs of injury, callus or infection. Compliance with diet and regular exercise again stressed. Blood pressure goal is less than 130/80, goal LDL is less than 100 and goal hemoglobin A1c is less than 7% follow-up appointment made in 3 -months, after fasting labs done. (3) Hypertension: Code(s): I10 - Essential (primary) hypertension Category: Medical Qualifiers: Hypertension type: essential hypertension Qualified Code(s): I10 - Essential (primary) hypertension Plan: Blood pressure at goal of less than 130/80. Continue with current medication. Reinforced importance of following a low sodium diet, getting regular exercise, and lowering stress levels. (4) Hypothyroidism: Code(s): E03.9 - Hypothyroidism, unspecified Category: Medical Qualifiers: Hypothyroidism type: acquired Qualified Code(s): E03.9 - Hypothyroidism, unspecified Plan: Thyroid levels are within normal limits, continued on current dose of levothyroxine at 137 mcg daily (5) Dyslipidemia: Code(s): E78.5 - Hyperlipidemia, unspecified Category: Medical Plan: Recent fasting lipids are within normal limits, continued with rosuvastatin 40 mg daily (6) Blanca's esophagus with high grade dysplasia: Code(s): K22.711 - Blanca's esophagus with high grade dysplasia Category: Medical Plan: On omeprazole 40 mg daily, avoid NSAIDs. Followed by GI clinic Dr. Tobias (7) Morbid obesity with body mass index (BMI) of 40.0 to 44.9 in adult: Code(s): E66.01 - Morbid (severe) obesity due to excess calories; Z68.41 - Body mass index [BMI] 40.0-44.9, adult Category: Medical Plan: Discussed need to increase activity and weight reduction. Recommended focusing on improving health instead of dieting. Mediterranean diet is a healthy diet that helps, limit food high in fat, sugar, and calories. Eat slowly, pay attention to portion sizes, plan your meals ahead of time, start regular physical activity, at least 150 minutes of moderate intensity exercise (8) Vaccine refused by patient: Code(s): Z28.20 - Immunization not carried out because of patient decision for unspecified reason Category: Medical Plan: Patient does not want to get any recommended vaccines (9) CKD (chronic kidney disease) stage 2, GFR 60-89 ml/min: Comment: Stage 2 qith microalbuminuria Code(s): N18.2 - Chronic kidney disease, stage 2 (mild) Category: Medical Plan: Followed by Dr. Frausto, avoidance of NSAIDs. Continued on enalapril maleate 20 mg twice a day (10) Advance directive discussed with patient: Code(s): Z71.89 - Other specified counseling Plan: Initiated the conversation about Advanced Directives. Advanced Directives help patients prepare for current and future decisions about their medical treatment and place of care. Discussed with patient that it is a process where a patients current condition and prognosis are reviewed, their wishes for information regarding their illness are elicited, and likely medical dilemmas are presented and options discussed. Healthcare proxy form completed today. The form can be amended as needed, reviewed yearly and make changes as needed Orders: Orders Lipid Panel 3 Months E03.9 - Hypothyroidism, unspecified, E11.29 - Type 2 diabetes mellitus with other diabetic kidney complication, E55.9 - Vitamin D deficiency, unspecified, E66.01 - Morbid (severe) obesity due to excess calories, E78.5 - Hyperlipidemia, unspecified, I10 - Essential (primary) hypertension, K22.711 - Blanca's esophagus with high grade dysplasia, N18.2 - Chronic kidney disease, stage 2 (mild), R80.9 - Proteinuria, unspecified, Z00.01 - Encounter for general adult medical examination with abnormal findings, Z68.41 - Body mass index [BMI] 40.0-44.9, adult, Z71.89 - Other specified counseling Free T4 (Free Thyroxine) 3 Months E03.9 - Hypothyroidism, unspecified, E11.29 - Type 2 diabetes mellitus with other diabetic kidney complication, E55.9 - Vitamin D deficiency, unspecified, E66.01 - Morbid (severe) obesity due to excess calories, E78.5 - Hyperlipidemia, unspecified, I10 - Essential (primary) hypertension, K22.711 - Blanca's esophagus with high grade dysplasia, N18.2 - Chronic kidney disease, stage 2 (mild), R80.9 - Proteinuria, unspecified, Z00.01 - Encounter for general adult medical examination with abnormal findings, Z68.41 - Body mass index [BMI] 40.0-44.9, adult, Z71.89 - Other specified counseling Microalbumin, Random (w Creat) Today E11.29 - Type 2 diabetes mellitus with other diabetic kidney complication, R80.9 - Proteinuria, unspecified Hemoglobin A1c 3 Months E03.9 - Hypothyroidism, unspecified, E11.29 - Type 2 diabetes mellitus with other diabetic kidney complication, E55.9 - Vitamin D deficiency, unspecified, E66.01 - Morbid (severe) obesity due to excess calories, E78.5 - Hyperlipidemia, unspecified, I10 - Essential (primary) hypertension, K22.711 - Blanca's esophagus with high grade dysplasia, N18.2 - Chronic kidney disease, stage 2 (mild), R80.9 - Proteinuria, unspecified, Z00.01 - Encounter for general adult medical examination with abnormal findings, Z68.41 - Body mass index [BMI] 40.0-44.9, adult, Z71.89 - Other specified counseling Vitamin D 25-OH Total 3 Months E03.9 - Hypothyroidism, unspecified, E11.29 - Type 2 diabetes mellitus with other diabetic kidney complication, E55.9 - Vitamin D deficiency, unspecified, E66.01 - Morbid (severe) obesity due to excess calories, E78.5 - Hyperlipidemia, unspecified, I10 - Essential (primary) hypertension, K22.711 - Blanca's esophagus with high grade dysplasia, N18.2 - Chronic kidney disease, stage 2 (mild), R80.9 - Proteinuria, unspecified, Z00.01 - Encounter for general adult medical examination with abnormal findings, Z68.41 - Body mass index [BMI] 40.0-44.9, adult, Z71.89 - Other specified counseling Triiodothyronine T3 Free 3 Months E03.9 - Hypothyroidism, unspecified, E11.29 - Type 2 diabetes mellitus with other diabetic kidney complication, E55.9 - Vitamin D deficiency, unspecified, E66.01 - Morbid (severe) obesity due to excess calories, E78.5 - Hyperlipidemia, unspecified, I10 - Essential (primary) hypertension, K22.711 - Blanca's esophagus with high grade dysplasia, N18.2 - Chronic kidney disease, stage 2 (mild), R80.9 - Proteinuria, unspecified, Z00.01 - Encounter for general adult medical examination with abnormal findings, Z68.41 - Body mass index [BMI] 40.0-44.9, adult, Z71.89 - Other specified counseling Thyroid Stimulating Hormone 3 Months E03.9 - Hypothyroidism, unspecified, E11.29 - Type 2 diabetes mellitus with other diabetic kidney complication, E55.9 - Vitamin D deficiency, unspecified, E66.01 - Morbid (severe) obesity due to excess calories, E78.5 - Hyperlipidemia, unspecified, I10 - Essential (primary) hypertension, K22.711 - Blanca's esophagus with high grade dysplasia, N18.2 - Chronic kidney disease, stage 2 (mild), R80.9 - Proteinuria, unspecified, Z00.01 - Encounter for general adult medical examination with abnormal findings, Z68.41 - Body mass index [BMI] 40.0-44.9, adult, Z71.89 - Other specified counseling Complete Blood Count Auto Diff 3 Months E03.9 - Hypothyroidism, unspecified, E11.29 - Type 2 diabetes mellitus with other diabetic kidney complication, E55.9 - Vitamin D deficiency, unspecified, E66.01 - Morbid (severe) obesity due to excess calories, E78.5 - Hyperlipidemia, unspecified, I10 - Essential (primary) hypertension, K22.711 - Blanca's esophagus with high grade dysplasia, N18.2 - Chronic kidney disease, stage 2 (mild), R80.9 - Proteinuria, unspecified, Z00.01 - Encounter for general adult medical examination with abnormal findings, Z68.41 - Body mass index [BMI] 40.0-44.9, adult, Z71.89 - Other specified counseling
== END 2025-03-11 08:40 | disposition home or self-care (01) ==
LOC: HO.HMCC 07:38
PROVIDERS: PCP Internal Medicine; Visit Provider Internal Medicine
DX: Z00.01 Encounter for general adult medical examination with abnormal findings (principal); E11.29 Type 2 diabetes mellitus with other diabetic kidney complication; R80.9 Proteinuria, unspecified; I12.9 Hypertensive chronic kidney disease with stage 1 through stage 4 chronic kidney disease, or unspecified chronic kidney disease; E03.9 Hypothyroidism, unspecified; E78.5 Hyperlipidemia, unspecified; K22.711 Barrett's esophagus with high grade dysplasia; E66.01 Morbid (severe) obesity due to excess calories; Z68.41 Body mass index [BMI] 40.0-44.9, adult; Z28.20 Immunization not carried out because of patient decision for unspecified reason; N18.2 Chronic kidney disease, stage 2 (mild); Z71.89 Other specified counseling

== ENCOUNTER 2025-03-11 07:38 | Outpatient (REF) | payer MEDICARE, SELFPAY ==
[2025-03-11 11:42] LABS: Microalbum/Creatinine Ratio Ur 57.1 ug/mg cr (<30)
== END 2025-03-11 07:39 | disposition home or self-care (01) ==
LOC: HO.HMGCLDS 07:38
PROVIDERS: PCP Internal Medicine; Visit Provider Internal Medicine
DX: Z00.01 Encounter for general adult medical examination with abnormal findings (principal); Z71.89 Other specified counseling; E11.29 Type 2 diabetes mellitus with other diabetic kidney complication; E11.22 Type 2 diabetes mellitus with diabetic chronic kidney disease; I12.9 Hypertensive chronic kidney disease with stage 1 through stage 4 chronic kidney disease, or unspecified chronic kidney disease; N18.2 Chronic kidney disease, stage 2 (mild); R80.9 Proteinuria, unspecified; E03.9 Hypothyroidism, unspecified; E78.5 Hyperlipidemia, unspecified; K22.711 Barrett's esophagus with high grade dysplasia; E66.01 Morbid (severe) obesity due to excess calories; Z28.20 Immunization not carried out because of patient decision for unspecified reason; Z79.890 Hormone replacement therapy; Z79.899 Other long term (current) drug therapy; Z68.41 Body mass index [BMI] 40.0-44.9, adult
CPT/HCPCS: 82043; 82570; 96127; 99397; 99497

== ENCOUNTER 2025-04-25 06:55 | Outpatient (REF) | payer MEDICARE, SELFPAY ==
--- OUTSIDE RECORDS SUMMARY | 2024-06-24 04:00 | XMS_ITS ---
Author Organization [facility] Address [address] [place] [phone] Care Team Providers Care Policy Value Calculator Name Role Phone Mia Lucero MD Primary Care Provider Suzie Tobias Jr, Sancho Broussard REASON FOR VISIT Patient presents today for parra's Encounters Encounter Location Date Provider Diagnosis [facility] [address] [place] [phone] 06/24/2024 Sancho Tobias Jr Plan Of Treatment No Information Progress Notes * JOSSY YUE ADOB:1955 (69 yo M)Acc No.[id number]:06/24/2024 Progress Notes Patient: YUE BAIRD Provider: Sonia Tobias MD :1955 A ge:68 Y S ex:Male Date:06/24/2024 Address:[address] [place], [place] [id number] Pcp:Mia Lucero MD Subjective: * Chief Complaints: * 1 . Patient presents today for parra's. * Medical History: Objective: * Vitals: Assessment: Plan: * Treatment: * * The named appointment provid er may or may not be the originator of this progress note, and it is not deemed complete until electronically signed by the appointment provider. Sign off status: Pending * Provider: Sonia Tobias MD Date: 0 06/24/2024 Generated for Printi ng/Faxing/eTransmitting on: 06/25/2024 06:59 AM EST
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
--- OUTSIDE RECORDS SUMMARY | 2025-04-25 06:59 | XMS_ITS | Patient Health Record ---
Author Organization [facility] Address [address] [place] [address] Care Team Providers Care Truck Driving Name Role Phone Jazmine REEVES, Mia Primary Care Provider Sancho Love Jr Unavailable Allergies No Known Allergies Reason For Referral No Information Medications Medication SIG (Take, Route, Frequency, Duration) Notes Start Date End Date Status Rosuvastatin Calcium 40 MG Oral; Duration: 90 Active metFORMIN HCl 1000 MG Oral; Duration: 90 Active Baclofen 10 MG TAKE 1 TABLET BY MOUTH TWICE DAILY NEEDED FOR MUSCLE SPASM Oral; Duration: 30 Active Aspirin 81 81 MG 1 tablet Orally Once a day; Duration: 30 day(s) Active hydroCHLOROthiazide 25 MG 1 tablet in morning Orally Once a day; Duration: 30 day(s) Active Metoprolol Tartrate 100 MG TAKE 1 TABLET BY MOUTH TWICE DAILY Oral; Duration: 90 Active Levothyroxine Sodium 137 MCG/ML 1 ml in the morning before breakfast Orally Once a day; Duration: 30 day(s) Active Omeprazole 40 MG 1 Orally Once a day; Duration: 30 day(s) 12/25/2022 Active Vitamin D3 50 MCG (1999 [place]) TAKE 1 CAPSU LE BY MOUTH EVERY DAY Oral; Duration: 90 Active Clopidogrel Bisulfate 75 MG TAKE 1 TABLE T BY MOUTH EVERY DAY Oral; Duration: 90 Active Omeprazole 40 MG 1 capsule 30 minutes before morning meal Orally Once a day; Duration: 30 day(s) Active Enalapril Maleate 20 MG TAKE 1 TABLET BY MOUTH TWICE DAILY Oral; Duration: 90 Active Immunizations Vaccine Route Administration Date [...] Problem Status W/U Status Risk Notes Problem Colon cancer screening (521608644) Colon cancer screening (Z12.11) Active confirmed Problem Blanca's esophagus (391151212) Blanca's esophagus without dysplasia (K22.70) Active confirmed Problem Blanca's esophagus (149514149) 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) Active confirmed Problem Esophageal stricture (23033737) Esophageal stricture (K22.2) Active confirmed Problem Blanca esophagus (443077359) Blanca esophagus (K22.70) Active confirmed Encounters Encounter Location Date Provider Diagnosis [facility] [address] [place] [address] 06/24/2024 Sancho Tobias Jr Plan Of Treatment Future Test Test Name Order Date UPPER GI ENDOSCOPY 11/29/2021 Insurance Providers Payer Name Payer Address Payer Phone Subscriber Number Group Number Insured Name Patient Relationship to Insured Coverage Start Date Coverage End Date [facility] [address] [place] [address] [id number] YUE FENTON Self - patient is the [...]
--- OUTSIDE RECORDS SUMMARY | 2025-04-25 06:59 | XMS_ITS | Clinical Summary ---
Author Organization [facility] Address [address] [facility] [address] [place] [address] Phone Care Team Providers Care Traffic Reporter Name Role Phone Cyndi Lucero MD Primary Care Provider [phone] Allergies No known active allergies Medications cholecalciferol [...] this topic Insurance Medicare Medicare Care Teams Traffic Reporter Relationship Specialty Start Date End Date Cyndi Lucero MD [place] [address] PCP - General Internal Medicine 10/28/21
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
[2025-04-25 10:53] LABS: Anion Gap 15 (12-20); Blood Urea Nitrogen 19 mg/dL (9-16); Calcium 9.2 mg/dL (8.4-10.2); Carbon Dioxide 28 mmol/L (22-29); Chloride 103 mmol/L (96-108); Estimated Glomerular Filt Rate 57; Potassium 4.5 mmol/L (3.3-5.1); Sodium 141 mmol/L (135-145)
== END 2025-04-25 06:56 | disposition home or self-care (01) ==
LOC: HO.HMGCLDS 06:55
PROVIDERS: PCP Internal Medicine; Visit Provider Internal Medicine Hypertension Specialist
DX: N18.2 Chronic kidney disease, stage 2 (mild) (principal)
CPT/HCPCS: 36415; 80048

== ENCOUNTER 2025-05-01 08:41 | Outpatient (AMB) | payer MEDICARE, SELFPAY ==
--- OUTSIDE RECORDS SUMMARY | 2024-06-24 04:00 | XMS_ITS ---
Author Organization [facility] Address [address] [place] [phone] Care Team Providers Care Belly Dancer Name Role Phone Mia Lucero MD Primary Care Provider Suzie Tobias Jr, Sancho Broussard REASON FOR VISIT Patient presents today for parra's Encounters Encounter Location Date Provider Diagnosis [facility] [address] [place] [phone] 06/24/2024 Sancho Tobias Jr Plan Of Treatment No Information Progress Notes * JOSSY YUE ADOB:1955 (69 yo M)Acc No.[id number]:06/24/2024 Progress Notes Patient: YUE BAIRD Provider: Sonia Tobias MD :1955 A ge:68 Y S ex:Male Date:06/24/2024 Address:[address] [place], [place] [phone] Pcp:Mia Lucero MD Subjective: * Chief Complaints: [...] 0 06/24/2024 Generated for Printi ng/Faxing/eTransmitting on: 07/01/2024 09:03 AM EST
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
--- OUTSIDE RECORDS SUMMARY | 2025-05-01 09:03 | XMS_ITS | Patient Health Record ---
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) Active confirmed Problem Esophageal stricture (64946078) Esophageal stricture (K22.2) Active confirmed Problem Blanca esophagus (519165524) Blanca esophagus (K22.70) Active confirmed Encounters Encounter Location Date Provider Diagnosis [facility] [address] [facility] [address] [place] [address] 06/24/2024 Sancho Tobias Jr Plan Of Treatment Future Test Test Name Order Date UPPER GI ENDOSCOPY 11/29/2021 Insurance Providers Payer Name Payer Address Payer Phone Subscriber Number Group Number Insured Name Patient Relationship to Insured Coverage Start Date Coverage End Date [facility] [address] [place] [address] [id number] YUE FENTON Self - patient is the [...]
[2025-05-01 09:18] VITALS: BP 148/78; PULSE 75; O2SAT 94; BMI 43.4
--- NOTE | 2025-05-01 09:18 | HO.NEPHOV ---
Vital Signs 05/01/25 09:18 Height 5 ft 6 in Weight 269 lb BMI 43.4 BP 148/78 H Blood Pressure Location Lt brachial Position Sitting Pulse 75 Pulse Source Pulse Oximeter Pulse Oximetry (%) 94 Oxygen Delivery Method Room Air Intake Visit Reasons: 6 MO FU Eligibility Examiner Required: No Accompanied by: Self / Same As Patient Allergies No Known Allergies Allergy (Verified 05/01/25 09:19) Medication List - Last Reconciled 05/01/25 by Andrez Frausto MD blood sugar diagnostic ([employer] Verio test strips) Use to check blood sugar twice daily, once fasting and another random during the day blood-glucose meter ([employer] Verio Meter) Use to check blood sugar twice daily, once fasting and another random during the day cholecalciferol (vitamin D3) 50 mcg PO DAILY 90 days clopidogrel 75 mg PO DAILY enalapril maleate 20 mg PO BID ferrous fumarate 324 mg PO DAILY hydrocortisone 2.5% [address] BEDTIME lancets ([employer] Delica Lancets) Use to check blood sugar twice daily, once fasting and another random during the day levothyroxine 137 mcg PO DAILY metformin 1,000 mg PO BID metoprolol tartrate 100 mg PO BID 90 days omeprazole 40 mg PO DAILY@0630 rosuvastatin 40 mg PO DAILY HPI Comments Details: 67 yr old man with h/o HTN and DM with CKD Baseline creatinine is around 1.3 In October 2022, Cr peaked to 1.7, cr returned to 1.3 Overall doing well.No new issues He is here for follow up 10/25/24 Has been having diarrhea on and off for few weeks. No abd pain NO urinary issues Did not take his meds this morning 05/01/25 History of Present Illness The patient is a 69-year-old male presenting for follow-up of chronic conditions including hypertension and diabetes. The patient's blood pressure has been consistently in the 140-150 mmHg range, which is above the target range for optimal kidney and diabetes management. He is currently taking enalapril twice daily, with plans to add amlodipine to improve blood pressure control. His diabetes is well-managed, with no recent medication changes, and he ensures adequate hydration. The patient takes his medications after breakfast, which he usually has around 11:00 AM. 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 Vaccine refused by patient Loud snoring Witnessed apneic spells History of esophageal stricture COVID-19 vaccine series declined Refused influenza vaccine Morbid obesity with body mass index (BMI) of 40.0 to 44.9 in adult CAD (coronary artery disease) Blanca's esophagus with high grade dysplasia Diabetes mellitus with kidney complication, without long-term current use of insulin Erosive gastritis GERD (gastroesophageal reflux disease) Hearing loss Erectile dysfunction Sleep apnea Hiatal hernia Gout Multinodular goiter Morbid obesity Fatty liver Myocardial infarct Dyslipidemia Hypothyroidism Hypertension Surgical History Hx of four vessel coronary artery bypass graft History of endoscopy Hx of inguinal hernia repair Family History Mother No problems noted. Sister Hyperlipemia Social History Household Members: Spouse Housing: House Do you presently have visiting nurse or other home services: No Alcohol intake: never Patient Tobacco Use Status: Former Tobacco user Years Smoked: 10 +/- e-Cigarette/Vaping Use: Never Used service: No Current occupational status: retired Cognitive needs: No Hearing needs: No Vision needs: Yes Physical Exam Vital Signs: Last Vital Signs Pulse 75 05/01/25 09:18 BP 148/78 H 05/01/25 09:18 Pulse Ox 94 05/01/25 09:18 Oxygen Delivery Method Room Air 05/01/25 09:18 BMI result Body Mass Index 43.4 Comfortable Neck supple no JVD. Lungs entry equal no rales. Heart S1-S2 heard no gallop or rub. Abdomen soft nontender. Neuro alert awake oriented. No asterixis. Extremities no edema. Results Reviewed Nephrology Results: Sodium, (135-145) 141 mmol/L 04/25/25 Potassium, (3.3-5.1) 4.5 mmol/L Δ 04/25/25 Chloride, (96-108) 103 mmol/L 04/25/25 Carbon Dioxide, (22-29) 28 mmol/L 04/25/25 BUN, (9-16) 19 mg/dL H 04/25/25 Creatinine, (0.5-1.4) 1.25 mg/dL 04/25/25 Calcium, (8.4-10.2) 9.2 mg/dL 04/25/25 Urine Creatinine 122.56 mg/dL 03/11/25 Assessment & Plan Assessment & Plan (1) CKD (chronic kidney disease) stage 2, GFR 60-89 ml/min: Comment: Stage 2 qith microalbuminuria Code(s): N18.2 - Chronic kidney disease, stage 2 (mild) Category: Medical (2) Hypertension: Code(s): I10 - Essential (primary) hypertension Category: Medical Qualifiers: Hypertension type: essential hypertension Qualified Code(s): I10 - Essential (primary) hypertension Plan: BP has been well controlled Todays readings are elevated - he did not take his meds Encouraged to stay compliant Watch BP at home; If SBP > 140 mmHg, would add Amlodipine 2.5 mg QD and titrate Plan 69 yr old man with CKD 3 in a setting of HTNand DM Renal function is stable at baseline JUDITH resolved after stopping HCTZ BP is suboptimal Will ADD AMLODIPINE 2.5 mg daily ( 05/01/25) Goal to slow progression of kidney diz Keep ACEi Goal BP < 130/80 Avoid nephrotoxins including NSAIDS Increase PO fluid intake Needs weight loss He would benefit from SGLT-2 inhibitor Orders: Orders Basic Metabolic Panel 3 Months I10 - Essential (primary) hypertension, N18.30 - Chronic kidney disease, stage 3 unspecified Medications: New amlodipine 2.5 mg PO DAILY 30 tabs 1RF Coding Level of Care Code Est Pt Level 4 (37637) Diagnoses CKD (chronic kidney disease) stage 2, GFR 60-89 ml/min N18.2 Essential hypertension I10 Hypertension type: essential hypertension
== END 2025-05-01 09:39 | disposition home or self-care (01) ==
LOC: HO.HKA 08:43
PROVIDERS: PCP Internal Medicine; Visit Provider Internal Medicine Hypertension Specialist
DX: I12.9 Hypertensive chronic kidney disease with stage 1 through stage 4 chronic kidney disease, or unspecified chronic kidney disease (principal); N18.2 Chronic kidney disease, stage 2 (mild)
CPT/HCPCS: 99214

== ENCOUNTER → 2025-05-01 08:41 | Outpatient (BNVA) | payer MEDICARE, SELFPAY | PROVIDERS: PCP Internal Medicine; Visit Provider Internal Medicine Hypertension Specialist | DX: I12.9 Hypertensive chronic kidney disease with stage 1 through stage 4 chronic kidney disease, or unspecified chronic kidney disease (principal); E11.22 Type 2 diabetes mellitus with diabetic chronic kidney disease; N18.2 Chronic kidney disease, stage 2 (mild); Z87.891 Personal history of nicotine dependence; Z79.84 Long term (current) use of oral hypoglycemic drugs; E66.01 Morbid (severe) obesity due to excess calories; Z68.41 Body mass index [BMI] 40.0-44.9, adult | CPT/HCPCS: 99212 ==

== ENCOUNTER 2025-05-19 10:12 | Outpatient (AMB) | payer MEDICARE, SELFPAY ==
--- NOTE | 2025-05-19 10:20 | MHC.OFFVIS ---
Vital Signs 05/19/25 10:22 Height 5 ft 6 in Weight 268 lb 8.368 oz BMI 43.3 BP 126/70 Blood Pressure Location Lt brachial Position Sitting Pulse 65 Pulse Source Monitor Intake Visit Reasons: 6m follow up rs Intake Note: 6 mth f/up Load Out Person Required: No Accompanied by: Self / Same As Patient Allergies No Known Allergies Allergy (Verified 05/01/25 09:19) Medication List - Last Reconciled 05/19/25 by Germain Corona MD amlodipine 2.5 mg PO DAILY blood sugar diagnostic ([employer] Verio test strips) Use to check blood sugar twice daily, once fasting and another random during the day blood-glucose meter ([employer] Verio Meter) Use to check blood sugar twice daily, once fasting and another random during the day cholecalciferol (vitamin D3) 50 mcg PO DAILY 90 days clopidogrel 75 mg PO DAILY enalapril maleate 20 mg PO BID ferrous fumarate 324 mg PO DAILY hydrocortisone 2.5% [address] [place] BEDTIME lancets ([employer] Delica Lancets) Use to check blood sugar twice daily, once fasting and another random during the day levothyroxine 137 mcg PO DAILY metformin 1,000 mg PO BID metoprolol tartrate 100 mg PO BID 90 days omeprazole 40 mg PO DAILY@0630 rosuvastatin 40 mg PO DAILY HPI Comments Details: Pleasant 69-year-old gentleman here for f/u. He is from [place] and recently moved here. Ten years ago he underwent bypass surgery. He said he was getting jaw discomfort off and on with exercise and finally underwent workup which led to cardiac catheterization showing multivessel disease. It appears he had 4 vessel bypass surgery. Approximately 9 months later he had some dyspnea which led to cardiac catheterization and it appears he had a drug-eluting stent done to his right coronary artery because his vein graft was occluded.. He said he has been doing well since then Echocardiography from 2019 showed normal biventricular function without significant valvular pathology or wall motion abnormality. He was diagnosed with peptic ulcer disease and underwent endoscopy. He was advised that he does not need dual antiplatelet therapy at this stage and can be on aspirin or Plavix. 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 He underwent endoscopy recently which is showing Blanca esophagus and erosion in the stomach. He is saying he continues to get off and on epigastric discomfort. Yesterday he also had some vomiting episode. He is saying since vomiting he did not have any further discomfort in the abdomen. No jaw discomfort or any significant chest discomfort with activity. 12/28/22: He returns for follow-up. He is saying his GI symptoms are better but he is due to get repeat endoscopy at [facility]. He has stop aspirin is currently taking Plavix only. No bleeding issues recently. He had jaw pain as his anginal symptoms and has not experienced that recently. He is on hydrochlorothiazide enalapril and metoprolol for blood pressure control. His blood pressure control is quite optimal right now. 01/22/24: He is here for follow-up. He said he went to emergency department on January 17 with blood in his to and was diagnosed with hemorrhoids. He also had a chest x-ray performed at that time which showed left basilar pneumonia and he was started on antibiotics which he is taking. No chest pain or shortness of breath. He is a little tachycardic today and feels that he is dehydrated. I have advised him that he should be drinking more water. He has not taken his medications today. 07/29/2024: He returns for follow-up. He has been doing well. No bleeding since he got off the aspirin. He is using Plavix without any significant issues. Blood pressure is well controlled. Denying any exertional symptoms. 05/19/2025: He is here for follow-up. He has been doing well. His anginal symptoms are jaw discomfort and he has not had any since his bypass surgery. Not very active these days due to cold weather as he walks outside. He has stopped the aspirin has not had any further bleeding. He is taking Plavix monotherapy. Blood pressure control is good. 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 Vaccine refused by patient Loud snoring Witnessed apneic spells History of esophageal stricture COVID-19 vaccine series declined Refused influenza vaccine Morbid obesity with body mass index (BMI) of 40.0 to 44.9 in adult CAD (coronary artery disease) Blanca's esophagus with high grade dysplasia Diabetes mellitus with kidney complication, without long-term current use of insulin Erosive gastritis GERD (gastroesophageal reflux disease) Hearing loss Erectile dysfunction Sleep apnea Hiatal hernia Gout Multinodular goiter Morbid obesity Fatty liver Myocardial infarct Dyslipidemia Hypothyroidism Hypertension Surgical History Hx of four vessel coronary artery bypass graft History of endoscopy Hx of inguinal hernia repair Family History Mother No problems noted. Sister Hyperlipemia Social History Household Members: Spouse Housing: House Do you presently have visiting nurse or other home services: No Alcohol intake: never Patient Tobacco Use Status: Former Tobacco user Years Smoked: 10 +/- e-Cigarette/Vaping Use: Never Used service: No Current occupational status: retired Cognitive needs: No Hearing needs: No Vision needs: Yes Review of Systems Const Denies chills, Denies fatigue, Denies fever(s), Denies frequent falls, Denies weakness, Denies weight gain and Denies weight loss ENT Denies dizziness Card Denies chest pain, Denies leg edema, Denies lightheadedness, Denies palpitations, Denies dyspnea and Denies dyspnea on exertion Resp Denies cough, Denies dyspnea and Denies dyspnea on exertion GI Denies hematochezia Musc Denies abnormal gait, Denies muscle weakness, Denies numbness, Denies radiating pain into limb and Denies tingling Neuro Denies abnormal gait, Denies dizziness, Denies frequent falls, Denies numbness, Denies tingling and Denies weakness Endo Denies fatigue and Denies palpitations Physical Exam Vital Signs: Last Vital Signs Pulse 65 05/19/25 10:22 BP 126/70 05/19/25 10:22 BMI result Body Mass Index 43.3 GENERAL APPEARANCE: in no acute distress, well developed, well nourished. SKIN: no suspicious lesions, warm and dry. HEART: no murmurs, regular rate and rhythm, S1, S2 normal. LUNGS: clear to auscultation bilaterally. ABDOMEN: normal, bowel sounds present, soft, nontender, nondistended. PERIPHERAL PULSES: equal. NEUROLOGIC: nonfocal, alert and oriented. PSYCH: mood/affect full range. Office Procedures EKG Details: Sinus rhythm 65 beats per minute, normal axis, inferior T-wave inversions, lateral T-wave inversions (new), last comparison was in January 2024, QTC 424 milliseconds. [id number], Complete Assessment & Plan Assessment & Plan (1) Hypertension: Code(s): I10 - Essential (primary) hypertension Category: Medical Qualifiers: Hypertension type: essential hypertension Qualified Code(s): I10 - Essential (primary) hypertension (2) CAD (coronary artery disease): Code(s): I25.10 - Atherosclerotic heart disease of sun'aq coronary artery without angina pectoris Category: Medical Qualifiers: Coronary Disease-Associated Artery/Lesion type: sun'aq artery [place] vs. transplanted heart: sun'aq heart Associated angina: without angina Qualified Code(s): I25.10 - Atherosclerotic heart disease of sun'aq coronary artery without angina pectoris (3) S/P CABG x 4: Comment: Status post CABG x 4 10 years ago and drug-eluting stent to the right coronary artery probably due to vein graft occlusion to the right coronary artery. Code(s): Z95.1 - Presence of aortocoronary bypass graft Category: Medical Plan 68-year-old gentleman who is here for follow-up. He has known history of coronary artery bypass surgery. He has been doing well clinically. No chest discomfort shortness of breath. Blood pressure well controlled currently. Last LDL cholesterol was 22. HDL 34, total cholesterol 98, triglycerides 212. He previously had peptic ulcer and GI bleed which was related to aspirin use. Since he got off aspirin and has been using Plavix he has been stable. EKGs showing inferior and lateral T-wave inversions. He does not have any symptoms to report. We will start with the echocardiography to assess for any wall motion abnormality. If any wall motion abnormality present then we will proceed with diagnostic angiography. On the other hand if no wall motion abnormality then I will arrange a stress MIBI for him. He will see us back in 6 months. Thank you for allowing me to participate in the care of your patient. Please feel free to contact me if you have any questions. Orders: Orders CA echo transthorac w con Today Z95.1 - Presence of aortocoronary bypass graft Coding Level of Care Code Est Pt Level 4 (63877) Diagnoses Essential hypertension I10 Hypertension type: essential hypertension Coronary artery disease involving sun'aq coronary artery of sun'aq heart without angina pectoris I25.10 Coronary Disease-Associated Artery/Lesion type: sun'aq artery [place] vs. transplanted heart: sun'aq heart Associated angina: without angina S/P CABG x 4 Z95.1 CPT Codes EKG - CPT: 03242-[id number], Complete ([id number])
[2025-05-19 10:22] VITALS: BP 126/70; PULSE 65; BMI 43.3
--- OUTSIDE RECORDS SUMMARY | 2025-05-19 12:34 | XMS_ITS | Clinical Summary ---
Author Organization [facility] Address [address] [facility] [address] [place] [address] Phone Care Team Providers Care Corn Husk Baler Name Role Phone Cyndi Lucero MD Primary Care Provider [phone] Allergies No known active allergies Medications cholecalciferol [...] this topic Insurance Medicare Medicare Care Teams Corn Husk Baler Relationship Specialty Start Date End Date Cyndi Lucero MD PCP - General Internal Medicine 10/28/21
== END 2025-05-19 10:50 | disposition home or self-care (01) ==
LOC: HO.HCS 10:13
PROVIDERS: PCP Internal Medicine; Visit Provider Internal Medicine Cardiovascular Disease
DX: I10 Essential (primary) hypertension (principal); I25.10 Atherosclerotic heart disease of native coronary artery without angina pectoris; Z95.1 Presence of aortocoronary bypass graft
CPT/HCPCS: 93010; 99214

== ENCOUNTER → 2025-05-19 10:12 | Outpatient (BNVA) | payer MEDICARE, SELFPAY | PROVIDERS: PCP Internal Medicine; Visit Provider Internal Medicine Cardiovascular Disease | DX: I10 Essential (primary) hypertension (principal); I25.10 Atherosclerotic heart disease of native coronary artery without angina pectoris; Z95.1 Presence of aortocoronary bypass graft | CPT/HCPCS: 93005; 99212 ==

== ENCOUNTER 2025-06-17 07:22 | Outpatient (REF) | payer MEDICARE, SELFPAY ==
--- OUTSIDE RECORDS SUMMARY | 2024-06-24 04:00 | XMS_ITS ---
Author Organization [facility] Address [address] [place] [phone] Care Team Providers Care Chair Post Machine Operator Name Role Phone Jazmine REEVES, Mia Primary Care Provider Suzie Tobias Jr, Sancho Broussard REASON FOR VISIT Patient presents today for parra's Encounters Encounter Location Date Provider Diagnosis [facility] [address] [place] [phone] 06/24/2024 Sancho Tobias Jr Plan Of Treatment No Information Progress Notes * JOSSY YUE ADOB:1955 (69 yo M)Acc No.[id number]:06/24/2024 Progress Notes Patient: YUE BAIRD Provider: Sonia Tobias MD :1955 A ge:68 Y S ex:Male Date:06/24/2024 Address:[address] [place], [place] [phone] Pcp:Mia Lucero MD Subjective: * Chief Complaints: * P atient presents today for parra's Billing Information: * Procedure Codes: * The named appointment provid er may or may not be the originator of this progress note, and it is not deemed complete until electronically signed by the appointment provider. Sign off status: Pending * Provider: Sonia Tobias MD Date: 0 06/24/2024 Generated for Conrad trujillo/Tata/eTransmitting on: 09:00 AM EST
--- OUTSIDE RECORDS SUMMARY | 2025-06-17 09:01 | XMS_ITS | Patient Health Record ---
Author Organization [facility] Address [address] [place] [id number] Care Team Providers Care Residential Plumber Name Role Phone Jazmine REEVES, Mia Primary Care Provider Sancho Love Jr [phone] Allergies No Known Allergies Reason For Referral No Information Medications Medication SIG (Take, Route, Frequency, Duration) Notes Start Date End Date Status Rosuvastatin Calcium 40 MG Tablet Oral; Duration: 90 Active metFORMIN HCl 1000 MG Tablet Oral; Duration: 90 Active Baclofen 10 MG Tablet TAKE 1 TABLET BY MOUTH TWICE DAILY NEEDED FOR MUSCLE SPASM Oral; Duration: 30 Active Aspirin 81 81 MG Tablet Chewable 1 tablet Orally Once a day; Duration: 30 day(s) Active hydroCHLOROthiazide 25 MG Tablet 1 tablet in the morning Orally Once a day; Duration: 30 day(s) Active Metoprolol Tartrate 100 MG Tablet TAKE 1 TABLET BY MOUTH TWICE DAILY Oral; Duration: 90 Active Levothyroxine Sodium 137 MCG /ML Solution 1 ml in the morning before breakfast Orally Once a day; Duration: 30 day(s) Active Omeprazole 40 MG Capsule Delayed Release 1 Orally Once a day; Duration: 30 day(s) 12/25/2022 Active Vitamin D3 50 MCG (1999 [place]) Capsule TAKE 1 CAPSULE BY MOUTH EVERY DAY Oral; Duration: 90 Active Clopidogrel Bisulfate 75 MG Tablet TAKE 1 TABLET BY MOUTH EVERY DAY Oral; Duration: 90 Active Omeprazole 40 MG Capsule Delayed Release 1 capsule 30 minutes before morning meal Orally Once a day; Duration: 30 day(s) Active Enalapril Maleate 20 MG Tablet TAKE 1 TA BLET BY MOUTH TWICE DAILY Oral; Duration: 90 Active Immunizations Vaccine Route Administration Date Status Comme nts Influenza Unknown 11/29/2021 Refused Social History Tobacco Use: Social History Observation Description Date Details (start date - stop date) Never Smoker NA - NA Social History Drugs/Alcohol: Social Info Question Answer Notes Alcohol Screen Did you have a drink containing alcohol in the past year? No Points 0 Interpretation Negative Tobacco Use: Social Info Question Answer Notes Tobacco Use/Smoking Patient is a nonsmoker Additional Details Category Social Info Options Details Miscellaneous: Marital status: Occupation: retired Problems Problem Type SNOMED Code ICD Code Onset Dates Problem Status W/U Status Risk Notes Problem Colon cancer screening (897887357) Colon cancer screening (Z12.11) Active confirmed Problem Blanca's esophagus (773568511) Blanca's esophagus without dysplasia (K22.70) Active confirmed Problem Blanca's esophagus (131418550) 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) Active confirmed Problem Esophageal stricture (31269611) Esophageal stricture (K22.2) Active confirmed Problem Blanca esophagus (769232857) Blanca esophagus (K22.70) Active confirmed Encounters Encounter Location Date Provider Diagnosis [facility] [address] [place] [address] 06/24/2024 Sancho Tobias Jr Plan Of Treatment Future Test Test Name Order Date UPPER GI ENDOSCOPY 11/29/2021 Insurance Providers Payer Name Payer Address Payer Phone Subscriber Number Group Number Insured Name Patient Relationship to Insured Coverage Start Date Coverage End Date [facility] [id number] [place] [address] [id number] YUE FENTON Self - patient is the [...]
--- OUTSIDE RECORDS SUMMARY | 2025-06-17 09:01 | XMS_ITS | Clinical Summary ---
Author Organization [facility] Address [address] [facility] [address] [place] [address] Phone Care Team Providers Care Silk Screen Cutter Name Role Phone Cyndi Lucero MD Primary Care Provider [phone]- [phone] Allergies No known active allergies Medications cholecalciferol [...] this topic Insurance Medicare Medicare Care Teams Silk Screen Cutter Relationship Specialty Start Date End Date Cyndi Lucero MD PCP - General Internal Medicine 10/28/21
[2025-06-17 10:37] LABS: MANUAL DIFF FLAG NO
[2025-06-17 10:47] LABS: Hematocrit 46.1 % (42.0-52.0); Hemoglobin 14.8 g/dl (14.0-18.0); Imm Gran Abs Auto 0.05 X10*3/uL (0.00-0.03); Imm Gran Pct Auto 0.6 % (0.0-0.4); Lymphocytes Absolute Auto 2.2 X10*3/uL (1.2-4.9); Mean Corpuscular HGB Conc 32.1 g/dl (31.0-36.0); Mean Corpuscular Hemoglobin 27.9 pg (27.0-33.0); Mean Corpuscular Volume 87.0 fL (80.0-98.0); NRBC Abs Auto 0.000 X10*3/uL (0.0-0.012); NRBC Pct Auto 0.0 /100WBC (0.0-0.2); Platelet Count 267 X10*3/uL (160-400); Red Blood Count 5.30 X10*6/uL (4.60-5.80); White Blood Count 8.0 X10*3/uL (4.8-10.8)
[2025-06-17 11:21] LABS: Cholesterol 107 mg/dL (<200); Free T4 (Free Thyroxine) 1.05 ng/dL (0.71-1.85); HDL Cholesterol 33 mg/dL (>40); Thyroid Stimulating Hormone 0.42 uIU/mL (0.32-4.0); Triglycerides 197 mg/dL (<150)
== END 2025-06-17 07:23 ==
LOC: HO.HMGCLDS 07:22
PROVIDERS: PCP Internal Medicine; Visit Provider Internal Medicine
DX: Z00.00 Encounter for general adult medical examination without abnormal findings (principal); I12.9 Hypertensive chronic kidney disease with stage 1 through stage 4 chronic kidney disease, or unspecified chronic kidney disease; E11.22 Type 2 diabetes mellitus with diabetic chronic kidney disease; N18.2 Chronic kidney disease, stage 2 (mild); R80.9 Proteinuria, unspecified; E03.9 Hypothyroidism, unspecified; E55.9 Vitamin D deficiency, unspecified; E78.5 Hyperlipidemia, unspecified; K22.711 Barrett's esophagus with high grade dysplasia; E66.01 Morbid (severe) obesity due to excess calories; Z68.41 Body mass index [BMI] 40.0-44.9, adult; Z71.89 Other specified counseling
CPT/HCPCS: 36415; 80061; 82306; 83036; 84439; 84443; 84481; 85025